=== PATIENT | male | born 1950 | race Caucasian/White ===

== ENCOUNTER 2019-12-16 07:35 | Outpatient (CLI) | payer OTHER, SELFPAY ==
[2019-12-16 08:17] LABS: Hemoglobin A1C 8.9 % (<5.7)
[2019-12-16 08:57] LABS: Alanine Aminotransferase 30 U/L (16-63); Albumin Level 3.5 g/dL (3.4-5.0); Alkaline Phosphatase 56 U/L (46-116); Anion Gap 15.9 mmol/L (7-16); Aspartate Amino Transferase 16 U/L (15-37); Bilirubin,Total 0.3 mg/dL (0.00-1.00); Blood Urea Nitrogen 15 mg/dL (7-18); Calcium 9.7 mg/dL (8.5-10.1); Carbon Dioxide 27 mmol/L (21-32); Chloride 99 mmol/L (98-108); Cholesterol 108 mg/dL (0-200); Estimated Glomerular Filt Rate 56; Glucose 186 mg/dL (70-99); HDL Direct 42 mg/dL (40-60); LDL Cholesterol Calculated 37 mg/dL (<130); Osmolality Calculated 289 mOsm/kg (285-295); Potassium 4.9 mmol/L (3.5-5.1); Sodium 137 mmol/L (136-145); Total Protein 7.1 g/dL (6.4-8.2); Triglycerides 145 mg/dL (0-150)
== END 2019-12-16 07:36 | disposition home or self-care (01) ==
LOC: CHSLAB 07:39
PROVIDERS: PCP Emergency Medicine; Visit Provider Emergency Medicine
DX: E78.5 Hyperlipidemia, unspecified (principal); E11.9 Type 2 diabetes mellitus without complications
CPT/HCPCS: 36415; 80053; 80061; 83036

== ENCOUNTER 2019-12-25 13:31 | Emergency (ER) | payer OTHER, SELFPAY ==
--- NOTE | ~2019-12-25 | CT_ITS ---
EXAMINATION: CT abdomen pelvis wo con DATE: 12/25/2019 14:41 INDICATION: Right flank pain. Vomiting. TECHNIQUE: Computed tomography (CT) of the abdomen and pelvis was performed without intravenous contr ast. Automated exposure control and iterative reconstruction technique were employed. The dose-length product was 1064.78 mGy-cm. COMPARISON: CT abdomen and pelvis 10/24/2018 FINDINGS: The visualized portions of the lung bases demonstrate mild atelectasis. No pleural effusion . The heart size is normal. No pericardial effusion. There are pacer wires in the right atrium, right ventricle, and coronary sinus. There is diffuse hepatic steatosis. There is a gallstone in the gallb ladder, which is normal in size. The spleen, pancreas, adrenal glands, and left kidney are normal. Th ere is mild right hydronephrosis. There is a 6 mm stone in proximal right ureter. The prostate is mil dly enlarged. There are bilateral inguinal hernias containing fat. There is diverticulosis of the col on without evidence of diverticulitis. The appendix is normal. There are no pathologically enlarged l ymph nodes. There is no free intraperitoneal fluid. There is moderate thoracolumbar spondylosis. IMPRESSION: 1. 6 mm stone in proximal right ureter with mild right hydronephrosis. Reviewed, dictated and finalized at location A.
--- NOTE | ~2019-12-25 | XR_ITS ---
XR abdomen/kub 1V 12/25/2019 15:26 Indication: Right ureteral stone Procedure: KUB Comparison: 11/10/2018 Findings: There is a 7 mm proximal right ureteral stone at the L4 level. Bowel gas pattern is nonobst ructive. Moderate lumbar spondylosis. Moderate osteoarthritis of the hips. No acute osseous abnormali ty. Impression: 1: Proximal right ureteral stone measuring 7 mm at the L4 level. Reviewed, dictated and finalized at location A. Impression: 1: Proximal right ureteral stone measuring 7 mm at the L4 level.
[2019-12-25 13:40] VITALS: BP 134/75; PULSE 89; RESP 20; TEMP 36.9; O2SAT 92
[2019-12-25 14:18] LABS: Add Urine Microscopic? YES; Appearance Urine Clear (Clear); Bilirubin Urine Negative (Negative); Blood Urine 3+ (Negative); Color Urine Yellow (Yellow); Glucose Urine UA Trace (Negative); Ketones Urine Trace (Negative); Leukocyte Esterase Ur Negative LEU/UL (Negative); Nitrate Urine Negative (Negative); Protein Urine 2+ (Negative); Specific Grav Ur >= 1.030 (1.010-1.020)
--- NOTE | 2019-12-25 14:22 | ED.MALEGU ---
HPI - Male Genitourinary General Chief complaint: Urogenital-Male Stated complaint: back pain in kidney area Time Seen by Provider: 12/25/19 14:00 Source: patient Mode of arrival: ambulatory Limitations: no limitations History of Present Illness HPI Narrative: Nikhil is a very pleasant 69-year-old male patient. He presents ambulatory to the emergency room with his . He states that he has had right flank pain since this morning. The pain was 10/10 to start with and now it has spontaneously come down to 2 or 3. He had taken 1 ibuprofen earlier but that bite cell did not make any difference. Nikhil has history of kidney stones. He states the patient the last time he passed a kidney stone was about a week ago. He has had history of kidney stones for 10 years. He has passed several stones. He states that they are calcium oxalate stones. His urologist is Dr. Watters at [facility]. The last time he saw Dr. Watters was in August of 2019. He had ureteral stent. His brother has history of kidney stones. Besides the history of kidney stones, Nikhil has history diabetes mellitus type 2, hypertension, hypercholesterolemia coronary artery disease. He has had an AICD implant done at [facility]. He has had 3 vessel CABG. He has had 1 stent in the heart. His training intern is Dr. Upstrom. PUENTES Complaint: other ( right flank pain) Onset (ago): hour(s) ( started this a.m.) Duration: intermittent Location: right flank Severity: moderate Quality: sharp Relieving factors: other ( pain was 10 to start with and now it is down to about 2 or 3 spontaneously) Exacerbating factors: none Associated symptoms: Reports denies other symptoms Related Data Home Medications Medication Instructions Recorded Confirmed aspirin 81 mg tablet,delayed 81 mg PO DAILY 08/31/19 12/25/19 release lidocaine 4 % topical patch 1 patch TOPICAL DAILY PRN 08/31/19 12/25/19 lisinopril 40 mg tablet 40 mg PO DAILY 08/31/19 12/25/19 metoprolol succinate 50 mg 50 mg PO DAILY 08/31/19 12/25/19 tablet,extended release 24 hr rosuvastatin 40 mg tablet 40 mg PO DAILY 08/31/19 12/25/19 tamsulosin 0.4 mg capsule 0.4 mg PO DAILY 08/31/19 12/25/19 carvedilol 12.5 mg PO BID 12/25/19 12/25/19 Allergies Allergy/AdvReac Type Severity Reaction Status Date / Time morphine Allergy Unknown Vomiting Verified 04/04/18 12:33 tramadol Allergy Unknown Verified 10/24/15 14:05 Review of Systems Review of Systems: All systems reviewed & are unremarkable except as noted in HPI and below Constitutional: Constitutional: Reports as per HPI, Reports no additional constitutional complaints, Denies chills and Denies fever(s) Eyes: Eyes: Reports as per HPI, Reports no additional eye complaints and Denies change in vision ENT: Reports system reviewed and no additional complaints, except as documented, Reports as per HPI, Denies vertigo, Denies dizziness and Denies nasal congestion Cardiovascular: Cardiovascular: Reports as per HPI, Reports no additional cardiovascular complaints, Denies chest pain and Denies radiating jaw, neck or arm pain Respiratory: Respiratory: Reports as per HPI, Reports no additional respiratory complaints, Denies cough and Denies dyspnea Gastrointestinal: Gastrointestinal: Reports as per HPI, Reports no additional gastrointestinal complaints, Denies diarrhea and Denies vomiting Genitourinary: Genitourinary: Reports no additional male genitourinary complaints, Denies hematuria and Denies dysuria Musculoskeletal: Musculoskeletal: Reports no additional musculoskeletal complaints Comments: right flank pain Integumentary/Breasts: Skin/Breast: Reports system reviewed and no additional complaints, except as docu, Denies erythema and Denies rash Neurologic: Reports system reviewed and no additional complaints, except as documented, Reports as per HPI, Denies vertigo, Denies dizziness, Denies syncope, Denies headache(s), Denies focal weakness, Denies numbness
[2019-12-25 14:35] LABS: Basophils Absolute Auto 0.06 K/mm3 (0.00-0.10); Basophils Percent Auto 0.4 % (0.0-1.0); Eosinophils Absolute Auto 0.03 K/mm3 (0.02-0.50); Eosinophils Percent Auto 0.2 % (1.0-6.0); Hematocrit 43.2 % (37.0-46.0); Immature Granulocyte Absolute 0.09 K/mm3 (0.00-0.00); Immature Granulocyte Percent A 0.6 % (0.0-0.0); Lymphocytes Absolute Auto 1.05 K/mm3 (1.10-4.50); Lymphocytes Percent Auto 7.1 % (18.0-42.0); Mean Corpuscular HGB Conc 32.4 g/dL (32.0-36.0); Mean Corpuscular Hemoglobin 29.8 pg (27.0-31.0); Mean Corpuscular Volume 91.9 fL (78.0-102.0); Mean Platelet Volume 9.2 fl (8.7-11.0); Monocytes Absolute Auto 1.03 K/mm3 (0.10-0.90); Neutrophils Absolute Auto 12.4 K/mm3 (1.7-7.2); Neutrophils Percent Auto 84.7 % (50.0-70.0); Platelet Count Result 231 K/mm3 (150-420); Red Cell Distribution Width 12.1 % (11.6-14.4); White Blood Count 14.7 K/mm3 (4.8-10.8)
[2019-12-25 14:37] LABS: Bacteria Urine 1+ /hpf; RBC Urine 21-50 /hpf (0-2); Squamous Epithelial Cell Urine Rare /hpf (Few); WBC Urine 0-3 /hpf (0-3)
[2019-12-25 14:43] LABS: Anion Gap 14.3 mmol/L (7-16); Blood Urea Nitrogen 24 mg/dL (7-18); Calcium 11.2 mg/dL (8.5-10.1); Carbon Dioxide 29 mmol/L (21-32); Chloride 98 mmol/L (98-108); Estimated CRCL calculation 46 ml/min; Estimated Glomerular Filt Rate 39; Glucose 179 mg/dL (70-99); Osmolality Calculated 290 mOsm/kg (285-295); Potassium 5.3 mmol/L (3.5-5.1); Sodium 136 mmol/L (136-145)
[2019-12-25 15:00] VITALS: BP 116/61; PULSE 86; RESP 18; O2SAT 95
--- NOTE | 2019-12-25 15:13 | PC.NURSE ---
Call placed to [facility] subwarehouse supervisor for possible transfer. Awaiting call back from hospitalist.
--- NOTE | 2019-12-25 15:40 | PC.NURSE ---
Pt aware of ct scan results and plan to transfer to [facility] if accepted. Pt requesting to drive himself to [facility].
--- NOTE | 2019-12-25 15:55 | PCDIET ---
Dr Dangelo spoke with Dr Watters who has accepted pt as direct admit. Awaiting room assignment. Dr Dangelo at bedside talking with pt.
[2019-12-25] MEDS: SODIUM POLYSTYRENE SULFONONATE 15 GM/60 ML BTL PO (16:13)
[2019-12-25] MEDS: cefTRIAXone 1 GM VIAL IM (16:13)
[2019-12-25 16:14] VITALS: BP 110/63; PULSE 85; RESP 20; O2SAT 92
[2019-12-25] MEDS: LIDOCAINE HCL 1% LOCAL INJ 20 ML VIAL (16:14)
--- NOTE | 2019-12-25 16:24 | PC.NURSE ---
Pt accepted by hospitalist PJ Tovar. Pt wishing to drive self to [facility] instead of being transported by EMS. meseret Henaoovernight houseperson at [facility] is aware of plan for pt to drive himself.
--- NOTE | 2019-12-25 16:25 | PC.NURSE ---
Spoke with JANET Khan [facility]. Report given. Aware pt is driving himself to [facility]
== END 2019-12-25 16:18 | disposition short-term general hospital (02) ==
PROVIDERS: Emergency Provider Surgery; PCP Emergency Medicine
DX: N20.1 Calculus of ureter (principal); E87.5 Hyperkalemia; N17.9 Acute kidney failure, unspecified; N39.0 Urinary tract infection, site not specified
CPT/HCPCS: 36415; 74018; 74176; 80048; 81001; 85025; 96372; 99283; 99284; A9270; J0696; J3010

== ENCOUNTER 2019-12-25 19:04 | Observation (INO) | payer OTHER, SELFPAY ==
[2019-12-25] VITALS (9 sets, daily range): BP systolic 104–148; BP diastolic 63–85; PULSE 74–88; RESP 16–20; TEMP 36.3–36.7; O2SAT 92–98; BMI 39.3
--- NOTE | ~2019-12-25 | XR_ITS ---
EXAMINATION: XR retrograde pyelo w/stent RT DATE: 12/25/2019 18:10 INDICATION: Right internal ureteral stent placement TECHNIQUE: Fluoroscopic images from a right internal ureteral stent placement are submitted for zarina carpenter 16 seconds of fluoroscopy time. 7 fluoroscopic images FINDINGS: There is a right double-J internal ureteral stent projecting in expected position, with proximal [place] loop at the level of the renal pelvis and distal loop in the pelvis within the bladder lumen. IMPRESSION: 1. Right internal ureteral stent placement. Please refer to real-time procedural findings for guido hummel. Reviewed, dictated and finalized at location A. IMPRESSION: 1. Right internal ureteral stent placement. Please refer to real-time procedu ral findings for details.
--- NOTE | ~2019-12-25 | XR_ITS ---
EXAMINATION: XR abdomen/kub 1V INDICATION: Right kidney stone TECHNIQUE: Supine views of the abdomen were obtained on 2 radiographs. COMPARISON: 12/25/2019 FINDINGS: A right internal ureteral stent has been placed in expected position. The previously descri bed right ureteral stone appears to project adjacent to the stent at the level of the right L4 transv erse process. The bowel gas pattern is normal. There is moderate left hip osteoarthritis. IMPRESSION: 1. Right internal ureteral stent in expected position with previously described stone likely adjacent to the stent at the level of the right L4 transverse process. Reviewed, dictated and finalized at location A. IMPRESSION: 1. Right internal ureteral stent in expected position with previously described stone likely adjacent to the stent at the level of the right L4 transverse pro cess.
--- NOTE | 2019-12-25 17:32 | WPDANESEPP ---
Anes - Eval Pre Procedure Procedure: Right cysto with stent Operation Date: 12/25/19 18:00 Proposed Procedures p Cysto, RPG, [place] Ext, Stent Placement(Right) - Ted Watters MD Date/Time: 12/25/19 17:32 Surgeon: Duong Preop Diagnosis: R Kidney stone Pre Op Diagnosis: R Kidney Stone Patient Data Age: 69 Gender: M Height: Weight: Allergies Allergy/AdvReac Type Severity Reaction Status Date / Time morphine Allergy Unknown Vomiting Verified 04/04/18 12:33 tramadol Allergy Unknown Verified 10/24/15 14:05 Home Medications Medication Instructions Recorded Confirmed Type aspirin 81 mg tablet,delayed 81 mg PO DAILY 08/31/19 12/25/19 History release lidocaine 4 % topical patch 1 patch TOPICAL DAILY PRN 08/31/19 12/25/19 History lisinopril 40 mg tablet 40 mg PO DAILY 08/31/19 12/25/19 History metoprolol succinate 50 mg 50 mg PO DAILY 08/31/19 12/25/19 History tablet,extended release 24 hr rosuvastatin 40 mg tablet 40 mg PO DAILY 08/31/19 12/25/19 History tamsulosin 0.4 mg capsule 0.4 mg PO DAILY 08/31/19 12/25/19 History sitagliptin 50 mg tablet 50 mg PO DAILY #30 tablet 09/01/19 12/25/19 Rx metformin 1,000 mg tablet 1,000 mg PO BID #180 tablet 11/10/19 12/25/19 Rx carvedilol 12.5 mg PO BID 12/25/19 12/25/19 History Patient hx anesthesia problems: none Family hx anesthesia problems: none PMFSH Past Medical History Medical History BPH (benign prostatic hyperplasia) CHF (congestive heart failure) History of coronary artery disease History of hypercholesterolemia History of kidney stones HTN (hypertension) Surgical History Surgical History History of coronary artery bypass graft x 3 History of coronary artery stent placement History of ureter stent Family History Family History Mother Family history of malignant neoplasm, Onset Age: 81 Father Cerebrovascular accident Social History Social History Smoking status: Former smoker Gender identity (if verbalized by the patient): Male Exam Day of Procedure 12/25/19 17:32 Patient weight: morbidly obese Heart: regular rate and rhythm Lungs: decreased breath sounds Airway: Mallampati scale class II Neurological: alert and oriented
[2019-12-25 17:36] LABS: Glucose Point of Care 140 (65-105)
--- NOTE | 2019-12-25 17:49 | PM.IMHP ---
H&P: HPI History of Present Illness Chief complaint: R Kidney Stone Narrative: Nikhil Huynh is a 69 year old male with a history of lithotripsy of a right renal calculus couple months ago. He was doing well and had a stent removed approximately a month ago. He then presented to the emergency room in [place] with severe right renal colic. Evaluation in [place] [id number] with a creatinine level of 1.7. I was told that his pain was under control with narcotics but he was transferred here for a stent placement. At the current time he is resting comfortably. Denied any fevers at home. Review of Systems Review of Systems: All systems reviewed & are unremarkable except as noted in HPI and below PMFSH Past Medical History Medical History BPH (benign prostatic hyperplasia) CHF (congestive heart failure) History of coronary artery disease History of hypercholesterolemia History of kidney stones HTN (hypertension) Surgical History Surgical History History of coronary artery bypass graft x 3 History of coronary artery stent placement History of ureter stent Family History Family History Mother Family history of malignant neoplasm, Onset Age: 81 Father Cerebrovascular accident Social History Social History Smoking status: Former smoker Gender identity (if verbalized by the patient): Male Meds Home Medications and Allergies Home Medications Medication Instructions Recorded Confirmed Type aspirin 81 mg tablet,delayed 81 mg PO DAILY 08/31/19 12/25/19 History release lidocaine 4 % topical patch 1 patch TOPICAL DAILY PRN 08/31/19 12/25/19 History lisinopril 40 mg tablet 40 mg PO DAILY 08/31/19 12/25/19 History metoprolol succinate 50 mg 50 mg PO DAILY 08/31/19 12/25/19 History tablet,extended release 24 hr rosuvastatin 40 mg tablet 40 mg PO DAILY 08/31/19 12/25/19 History tamsulosin 0.4 mg capsule 0.4 mg PO DAILY 08/31/19 12/25/19 History sitagliptin 50 mg tablet 50 mg PO DAILY #30 tablet 09/01/19 12/25/19 Rx metformin 1,000 mg tablet 1,000 mg PO BID #180 tablet 11/10/19 12/25/19 Rx carvedilol 12.5 mg PO BID 12/25/19 12/25/19 History Allergies Allergy/AdvReac Type Severity Reaction Status Date / Time morphine Allergy Unknown Vomiting Verified 04/04/18 12:33 tramadol Allergy Unknown Verified 10/24/15 14:05 Exam Narrative: Exam Narrative: Resting comfortably at the present time. Const: General: comfortable HENMT: General nose exam: Normal nares present Eyes: EOM: EOMs intact bilaterally Resp: Effort & Inspection: normal respiratory effort Cardio: Rate: regular rate Rhythm: regular rhythm GI: Inspection: non-distended Skin: General skin exam: normal color Neuro: Speech: normal speech Extrem: General: normal to inspection Assessment and Plan Assessment and plan (1) Calculus of proximal right ureter: Code(s): N20.1 - Calculus of ureter Status: Acute Assessment and Plan: Plan for cystoscopy right retrograde pyelogram right stent placement today. Once he stabilizes will plan on outpatient lithotripsy versus repeat ureteroscopy (2) DONNA (acute kidney injury): Code(s): N17.9 - Acute kidney failure, unspecified Status: Acute Assessment and Plan: Most likely secondary to the obstructing stone. Will monitor renal function in the morning. If that improves along with this white count will discharge home tomorrow.
[2019-12-25] MEDS: LIDOCAINE HCL 2% GEL UROJET 10 ML PKG MUCOUS MEM (18:04)
--- NOTE | 2019-12-25 18:07 | PM.PROC ---
Procedure Note - Detailed Date of procedure: 12/25/19 Pre-op diagnosis: R Kidney Stone Right ureteral calculus 6 mm with hydro Post-op diagnosis: same Procedure performed: Cystoscopy, right retrograde pyelogram, right ureteral stent placement 4.8 [place] contour Description of procedure: Patient is taken to the operative suite and correctly identified. Once anesthesia was obtained he was placed in the dorsal lithotomy position prepped and draped usual sterile fashion. Twenty-two [place] scope was inserted bladder the tumors noted the right ureteral orifice was cannulated with a [place] and a pyelogram was performed. Contrast made its way up to the kidney. A guidewire was then inserted up to the kidney. 4.8 [place] contour stent was then placed with the proximal end coiled in the renal pelvis and distal bladder. 2% viscous lidocaine was inserted into the urethra is taken recovery room stable condition. The be admitted overnight to follow his white count potassium and creatinine level. Will obtain a KUB in the morning. Distal be addressed as an outpatient later point time Anesthesia: GLMA Surgeon: Ted Watters MD Drains: Yes Packing: No Pathology: none sent Complications: No immediate complications Condition: stable Disposition: PACU
--- NOTE | 2019-12-25 18:10 | P.PNAN_ITS ---
Anes - Eval Final PreProcedure Day of Procedure 12/25/19 18:10 Patient weight: obese Heart: regular rate and rhythm Lungs: clear to auscultation and normal air movement Airway: Mallampati scale class II Neurological: alert and oriented Last oral intake: >/= 8 hours ASA classification: IV Emergent: yes Anesthetic plan: proceed Anesthesia type and monitoring: general LMA Informed Consent: The patient's anesthetic plan and its attendant risks and be nefits were discussed with the patient/family/POA. Questions were solicited and answers provided to the satisfaction of the patient/family/POA.
[2019-12-25] MEDS: LACTATED RINGERS 1,000 ML 30 ML IV CONT (18:15)
--- NOTE | 2019-12-25 18:39 | SUR.PHASEI ---
1804-AROUSING, ORAL AIRWAY REMOVED. NO DRAINAGE FROM [facility]. 1829-NO DRAINAGE NOTED.
--- NOTE | 2019-12-25 18:42 | SUR.PHASEI ---
CORRECTION IN CHARTING--1819-AWAKE AND ORAL AIRWAY REMOVED, DENIES DISCOMFORT. NO DRAINAGE FROM [facility]. 1839-NO DRAINAGE FROM [facility].
--- NOTE | 2019-12-25 19:00 | PC.NURSE ---
This patient, Nikhil Huynh, was admitted to 3 [facility] Surg Room 323-01. Patient/family oriented to hospital policies and general routines including ID bracelet, bed and alarms, visiting hours, pain management, procedures, bathroom and other care routines, personal items, smoking policy, room service/diet, and visiting hours. Valuables list has been completed. Information on how to activate the Rapid Response Team has been discussed. Patient/Family are encouraged to report perceived risks to care and to ask questions if they do not understand what they are told or what they should do.
[2019-12-25 19:56] LABS: Glucose Point of Care 172 (65-105)
[2019-12-25] MEDS: DEXTROSE 5%/LACTATED RINGERS 1,000 ML 100 ML IV CONT (20:00)
--- NOTE | 2019-12-25 21:24 | PM.IMHP ---
H&P: HPI History of Present Illness Chief complaint: R Kidney Stone Narrative: Nikhil Huynh is a 69 year old male who has a past medical history of having at least 100 kidney stones according to the patient. He has passed over 50 stones on his own. The patient stated that he had right flank pain since this morning that was 07/23. Patient stated that he passed a kidney stone about a week ago. He has had kidney stones on and off for [address] Watters and Dr. Watters had been consulted. The patient has a history of having lithotripsy in the right renal calculus couple months ago and he was doing well. He had a stent removed approximately a month ago. Patient's white count was noted to be 14,000 a creatinine level of 1.7. The patient was given Rocephin IM at [facility]. I did get report from Dr. garcia at [facility]. Initially the patient was going to come by personal vehicle but then his convinced him to come by ambulance. Patient had a cystoscopy right retrograde pyelogram right stent placed today per Dr. Watters. Date of service is 12/25/2019. Review of Systems Review of Systems: Narrative: Complains of back pain and difficulty sitting at times. All systems reviewed & are unremarkable except as noted in HPI and below Constitutional: Constitutional: Reports as per HPI and Reports no additional constitutional complaints Eyes: Eyes: Reports as per HPI and Reports no additional eye complaints ENT: Reports system reviewed and no additional complaints, except as documented and Reports Normal hearing present Cardiovascular: Cardiovascular: Reports no additional cardiovascular complaints Respiratory: Respiratory: Reports no additional respiratory complaints and Reports no additional respiratory complaints Gastrointestinal: Gastrointestinal: Reports as per HPI and Reports no additional gastrointestinal complaints Musculoskeletal: Musculoskeletal: Reports no additional musculoskeletal complaints Integumentary/Breasts: Skin/Breast: Reports system reviewed and no additional complaints, except as docu and Reports as per HPI Neurologic: Reports system reviewed and no additional complaints, except as documented, Reports as per HPI and Reports Normal hearing present Psychiatric: Psychiatric: Reports no additional psychiatric complaints and Reports as per HPI Endocrine: Endocrine: Reports no additional endocrine complaints Hematologic/Lymphatic: Hematologic/Lymphatic: Reports no additional hematologic/lymphatic complaints Allergic/Immunologic: Allergic/Immunologic: Reports no additional allergic/immunologic complaints [facility] Past Medical History Medical History (Updated 12/25/19 @ 21:52 by La Peña NP) BPH (benign prostatic hyperplasia) CHF (congestive heart failure) Cholelithiasis Colitis COPD (chronic obstructive pulmonary disease) DM2 (diabetes mellitus, type 2) GERD with apnea Gout History of coronary artery disease History of hypercholesterolemia History of kidney stones HTN (hypertension) Obstructive sleep apnea Intolerant of CPAP machine Seasonal allergies Surgical History Surgical History (Updated 12/25/19 @ 21:37 by La Peña NP) H/O arthroscopic knee surgery Bilaterally H/O cataract extraction Bilaterally History of coronary artery bypass graft x 3 History of coronary artery stent placement History of ureter stent Family History Family History Mother Diabetes mellitus Breast cancer Hypertension Father Cerebrovascular accident Myocardial infarct Other Family history of malignant neoplasm Social History Social History (Updated 12/25/19 @ 21:40 by La Peña NP) Social History: He lives with his and desires to have her his power of collections attorney and to be a full code. 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 He is retired metzger. Patient quit smoking about 1980s he smoked 2 packs a
[2019-12-26 02:35] VITALS: BP 125/57; PULSE 84; RESP 20; TEMP 36.7; O2SAT 95
[2019-12-26 05:41] VITALS: BP 113/51; PULSE 73; RESP 18; TEMP 36.4; O2SAT 96
[2019-12-26 06:18] LABS: Basophils Percent Auto 0.2 % (0.2-1.2); Eosinophils Percent Auto 0.2 % (0-4.4); Hematocrit 38.9 % (42.0-52.0); Immature Granulocyte Absolute 0.03 K/mm3 (0.00-0.031); Immature Granulocyte Percent A 0.4 % (0-0.5); Lymphocytes Absolute Auto 1.06 K/mm3 (0.9-3.2); Lymphocytes Percent Auto 12.7 % (18.3-44.2); Mean Corpuscular HGB Conc 30.8 g/dl (32-36); Mean Corpuscular Hemoglobin 28.8 pg (26-34); Mean Corpuscular Volume 93.5 fl (80-100); Mean Platelet Volume 9.3 fl (7.4-10.4); Monocytes Absolute Auto 0.9 K/mm3 (0.1-0.6); Monocytes Percent Auto 10.4 % (2.6-8.5); Neutrophils Absolute Auto 6.4 K/mm3 (1.3-6.7); Neutrophils Percent Auto 76.1 % (45.5-73.1); Platelet Count Result 197 k/mm3 (150-375); Red Blood Count 4.16 M/mm3 (4.6-6.20); Red Cell Distribution Width 12.5 % (11.5-14.5); White Blood Count 8.4 K/mm3 (4.5-10.0)
[2019-12-26 06:29] LABS: Hemoglobin A1C 8.7 % (<5.7)
[2019-12-26 06:41] LABS: Blood Urea Nitrogen 22 mg/dL (9-20); Calcium 9.7 mg/dL (8.4-10.2); Carbon Dioxide 30 mmol/L (22-30); Chloride 97 mmol/L (98-107); Estimated CRCL calculation 50 ml/min; Estimated Glomerular Filt Rate 43; Glucose 191 mg/dL (75-110); Sodium 131 mmol/L (137-145)
[2019-12-26] MEDS: DEXTROSE 5%/LACTATED RINGERS 1,000 ML 100 ML IV CONT (06:45)
[2019-12-26 07:07] LABS: Glucose Point of Care 202 (65-105)
[2019-12-26] MEDS: INSULIN ASPART (*BKC) 100 UNITS/ML SUB-Q (07:37)
--- NOTE | 2019-12-26 07:44 | P.PNAN_ITS ---
Anes - Prog Note Post-Op Date/Time: 12/26/19 07:44 Cardiovascular status: normal Respiratory status: normal Airway patency: baseline Mental status: baseline Post-Op hydration status: normal Vital Signs: Last Vital Signs Temp 36.4 C 12/26/19 05:41 Pulse 73 12/26/19 05:41 Resp 18 12/26/19 05:41 BP 113/51 L 12/26/19 05:41 Pulse Ox 96 12/26/19 05:41 I/O: Intake & Output 12/25/19 12/25/19 12/26/19 15:59 23:59 07:59 Intake Total 150 1540 Output Total 1250 Balance 150 290 Laboratory Tests 12/26/19 06:00 12/26/19 06:00 12/25/19 12/25/19 12/26/19 17:35 19:50 06:00 WBC RBC Hgb Hct MCV MCH MCHC RDW Plt Count MPV Immature Gran % (Auto) Neut % (Auto) Lymph % (Auto) [place] % (Auto) Eos % (Auto) Baso % (Auto) Lymph # (Auto) [place] # (Auto) Eos # (Auto) Baso # (Auto) Abs Immat Gran (auto) Absolute Neuts (auto) Absolute Nucleated RBC Nucleated RBC % Sodium Potassium Chloride Carbon Dioxide BUN Creatinine Estim Creat Clear Calc Estimated GFR Glucose POC Capillary Glucose 140 H 172 H Hemoglobin A1c 8.7 H Calcium 12/26/19 12/26/19 12/26/19 06:00 06:00 06:41 WBC 8.4 RBC 4.16 L Hgb 12.0 L Hct 38.9 L MCV 93.5 MCH 28.8 MCHC 30.8 L RDW 12.5 Plt Count 197 MPV 9.3 Immature Gran % (Auto) 0.4 Neut % (Auto) 76.1 H Lymph % (Auto) 12.7 L [place] % (Auto) 10.4 H Eos % (Auto) 0.2 Baso % (Auto) 0.2 Lymph # (Auto) 1.06 [place] # (Auto) 0.9 H Eos # (Auto) 0.0 Baso # (Auto) 0.0 Abs Immat Gran (auto) 0.03 Absolute Neuts (auto) 6.4 Absolute Nucleated RBC 0.0 Nucleated RBC % 0.0 Sodium 131 L Potassium 5.0 Chloride 97 L Carbon Dioxide 30 BUN 22 H Creatinine 1.60 H Estim Creat Clear Calc 50 Estimated GFR 43 L Glucose 191 H POC Capillary Glucose 202 H Hemoglobin A1c Calcium 9.7 Post-procedural complaints: none Patient Feedback: Patient satisfied with anesthetic care.
[2019-12-26 08:13] VITALS: BP 112/58; PULSE 77; RESP 16; TEMP 36.5; O2SAT 93
[2019-12-26] MEDS: ROSUVASTATIN 10 MG TABLET 40 MG PO (09:36)
[2019-12-26] MEDS: TAMSULOSIN HCL 0.4 MG CAPSULE PO (09:36)
--- NOTE | 2019-12-26 10:48 | PC.NURSE ---
pt to xray via wheelchair at 1010 back at 1020
[2019-12-26 12:29] VITALS: BP 112/60; PULSE 80; RESP 16; TEMP 36.6; O2SAT 97
[2019-12-26 12:36] LABS: Glucose Point of Care 179 (65-105)
[2019-12-26 15:06] VITALS: BP 105/48; PULSE 78; RESP 16; TEMP 36.9; O2SAT 95
[2019-12-26 17:11] LABS: Glucose Point of Care 159 (65-105)
--- NOTE | 2019-12-26 17:16 | WPDUROPN2 ---
Progress Note: A&P Assessment and Plan (1) Calculus of right ureter: Code(s): N20.1 - Calculus of ureter Status: Acute Assessment and Plan: Okay to discharge home from Urology standpoint. Will place on Bactrim DS 1 p.o. b.i.d. for 7 days. Follow up in approximately 10 days for repeat culture and definitive scheduling treatment of the stone. Subjective Subjective Date/Time Seen: 12/26/19 17:16 Post Op day: 1 (Cysto right retrograde right stent placement) Interval history: Feeling much better today and is anxious to go home. Review of Systems Review of Systems: All systems reviewed & are unremarkable except as noted in HPI and below Exam Const: General: comfortable HENMT: General nose exam: Normal nares present Eyes: General: appearance normal, both eyes and all related structures Resp: Effort & Inspection: normal respiratory effort Cardio: Rate: regular rate Rhythm: regular rhythm Skin: General skin exam: normal color Neuro: Speech: normal speech Objective Data Vital Signs Vital Signs: Vital Signs - 24 hr 12/25/19 17:40 12/25/19 18:15 12/25/19 18:30 Temperature 36.3 C L 36.7 C Pulse Rate 88 84 84 Respiratory Rate 20 17 20 Blood Pressure 133/77 113/63 116/72 Pulse Oximetry 98 98 98 12/25/19 18:45 12/25/19 19:01 12/25/19 19:15 Temperature 36.5 C 36.6 C Pulse Rate 84 74 82 Respiratory Rate 16 20 18 Blood Pressure 104/79 127/64 126/83 Pulse Oximetry 98 98 92 12/25/19 19:45 12/25/19 20:45 12/25/19 22:00 Temperature 36.6 C 36.7 C 36.7 C Pulse Rate 82 84 86 Respiratory Rate 18 20 20 Blood Pressure 132/85 145/68 H 148/70 H Pulse Oximetry 93 92 94 12/26/19 02:35 12/26/19 05:41 12/26/19 08:13 Temperature 36.7 C 36.4 C 36.5 C Pulse Rate 84 73 77 Respiratory Rate 20 18 16 Blood Pressure 125/57 L 113/51 L 112/58 L Pulse Oximetry 95 96 93 12/26/19 12:29 12/26/19 15:06 Temperature 36.6 C 36.9 C Pulse Rate 80 78 Respiratory Rate 16 16 Blood Pressure 112/60 105/48 L Pulse Oximetry 97 95 Intake/Output Intake/Output: Intake & Output 12/23/19 12/24/19 12/25/19 12/26/19 23:59 23:59 23:59 23:59 Intake Total 150 2070 Output Total 1250 Balance 150 820 Meds/Results Medications: Active Medications Generic Name Dose Route Start Last Admin Trade Name Freq PRN Reason Stop Dose Admin Hydrocodone Bitart/Acetaminophen 1 tab 12/26/19 05:00 Badin 5-325 Mg PO Q4H PRN Pain Rated 1-3 Cephalexin HCl 500 mg 12/26/19 21:00 Keflex Capsule PO QID LOREE Dextrose 12.5 gm 12/25/19 20:50 Dextrose 50% Syringe IV PUSH PRN PRN Hypoglycemia Protocol Glucagon 1 mg 12/25/19 20:50 Glucagon For Inj IM PRN PRN Hypoglycemia Protocol Glucose 15 gm 12/25/19 20:50 Glutose 15 PO PRN PRN Hypoglycemia Protocol Dextrose 1,000 mls @ 100 mls/hr 12/25/19 20:50 Dextrose 5% 1,000 Ml IVPB PRN PRN Hypoglycemia Protocol Insulin Aspart 2 - 5 units 12/26/19 08:00 12/26/19 12:38 Novolog SUB-Q Not Given TIDWM LOREE Protocol Naloxone HCl 0.1 mg 12/25/19 18:46 Narcan IV PUSH Q2M PRN Opiate Reversal Ondansetron HCl 4 mg 12/25/19 18:46 Zofran Inj IV PUSH Q6H PRN Nausea And Vomiting Rosuvastatin Calcium 40 mg 12/26/19 09:00 12/26/19 09:36 Crestor PO 40 mg DAILY LOREE Administration Sitagliptin Phosphate 50 mg 12/26/19 09:00 12/26/19 09:36 Januvia PO 50 mg DAILY LOREE Administration Tamsulosin HCl 0.4 mg 12/26/19 09:00 12/26/19 09:36 Flomax PO 0.4 mg DAILY LOREE Administration Radiology Results: ITS Impressions Retrograde Pyelogram 12/25/19 18:14 IMPRESSION: 1. Right internal ureteral stent placement. Please refer to real-time procedural findings for details. Abdomen X-Ray 12/26/19 10:36 IMPRESSION: 1. Right internal ureteral stent in expected position with previously described
--- NOTE | 2019-12-26 18:41 | PM.DS ---
DS: Diagnosis Admitting Diagnosis Admitting Diagnosis: Calculus of ureter Discharge Diagnosis (1) DONNA (acute kidney injury): Code(s): N17.9 - Acute kidney failure, unspecified Status: Inactive Assessment and Plan: Date of Service 12/26/19 Mr. George is a 69yo M with history of CHF, COPD, type 2 diabetes mellitus, and a history of innumerable ureteral calculi in the past who presented to the ED for evaluation of R flank pain. CT abdomen/pelvis revealed a 6mm stone in the proximal right ureter with mild right hydronephrosis. Urology was consulted and Mr George underwent cystoscopy with right ureteral stent placement 12/25/[address] Watters. Patient was feeling well the following day and hemodynamically stable for discharge. He was discharged with a course of oral Bactrim per Urology recommendations and instructed to follow up with Dr Watters' office in 10 days. Consultation: Urology - Dr Watters Cr 1.6 at discharge, likely secondary to ureteral stone. Repeat BMP in 1 week to monitor. (2) Calculus of proximal right ureter: Code(s): N20.1 - Calculus of ureter Status: Inactive (3) Hyperkalemia: Code(s): E87.5 - Hyperkalemia Status: Inactive Assessment and Plan: May be related to above. K 5.0 day of discharge. Repeat BMP 1 week. (4) CHF (congestive heart failure): Code(s): I50.9 - Heart failure, unspecified Status: Acute Assessment and Plan: Stable, euvolemic. (5) BPH (benign prostatic hyperplasia): Qualifiers: Lower urinary tract symptom presence: symptoms absent Qualified Code(s): N40.0 - Benign prostatic hyperplasia without lower urinary tract symptoms Code(s): N40.0 - Benign prostatic hyperplasia without lower urinary tract symptoms Status: Acute Assessment and Plan: Continue with Flomax (6) HLD (hyperlipidemia): Qualifiers: Hyperlipidemia type: mixed hyperlipidemia Qualified Code(s): E78.2 - Mixed hyperlipidemia Code(s): E78.5 - Hyperlipidemia, unspecified Status: Acute Assessment and Plan: Continue Crestor. (7) COPD (chronic obstructive pulmonary disease): Code(s): J44.9 - Chronic obstructive pulmonary disease, unspecified Status: Chronic Assessment and Plan: No respiratory symptoms. Stable. (8) DM2 (diabetes mellitus, type 2): Code(s): E11.9 - Type 2 diabetes mellitus without complications Status: Chronic Assessment and Plan: A1c 8.7. Metformin held in light of acute kidney injury. Blood sugars stable. DS: Summary Time Spent with Patient Time attestation: Total time spent providing and/or coordinating discharge services: 35 minutes Exam Narrative: Exam Narrative: General: Male resting sitting up in bed in no acute distress. HEENT: Normocephalic, EOMI, oral mucosa moist. Cardiovascular: Rate and rhythm are regular. Respiratory: Lungs clear to auscultation all monson. Non-labored breathing. Abdomen: Soft, non-tender, non-distended, bowel sounds present. Extremities: Peripheral pulses intact. No edema. Neuro: No focal neurological deficits. Speech is clear. DS: Data Data Completed and Pending Labs on day of discharge: Labs from last 24 hours 12/26/19 12/26/19 12/26/19 17:03 11:17 06:41 WBC RBC Hgb Hct MCV MCH MCHC RDW Plt Count MPV Immature Gran % (Auto) Neut % (Auto) Lymph % (Auto) [place] % (Auto) Eos % (Auto) Baso % (Auto) Lymph # (Auto) [place] # (Auto) Eos # (Auto) Baso # (Auto) Abs Immat Gran (auto) Absolute Neuts (auto) Absolute Nucleated RBC Nucleated RBC % Sodium Potassium Chloride Carbon Dioxide BUN Creatinine Estim Creat Clear Calc Estimated GFR Glucose POC Capillary Glucose 159 H
== END 2019-12-26 18:20 | disposition home or self-care (01) ==
LOC: ANHSURGERY 19:04 → ANH3MEDSUR 12-26 01:45
PROVIDERS: Nurse Practitioner; Urology; Admitting Provider Family Medicine; PCP Emergency Medicine; Visit Provider Internal Medicine
PROC: (CPT 52352; principal; 2019-12-25 18:00)
DX: N13.2 Hydronephrosis with renal and ureteral calculous obstruction (principal); E87.5 Hyperkalemia; N17.9 Acute kidney failure, unspecified; I11.0 Hypertensive heart disease with heart failure; I50.9 Heart failure, unspecified; N40.0 Benign prostatic hyperplasia without lower urinary tract symptoms; E78.2 Mixed hyperlipidemia; J44.9 Chronic obstructive pulmonary disease, unspecified; E11.9 Type 2 diabetes mellitus without complications; I25.10 Atherosclerotic heart disease of native coronary artery without angina pectoris; G47.33 Obstructive sleep apnea (adult) (pediatric); Z79.82 Long term (current) use of aspirin; Z79.84 Long term (current) use of oral hypoglycemic drugs; Z79.899 Other long term (current) drug therapy; Z87.442 Personal history of urinary calculi; Z87.891 Personal history of nicotine dependence; Z95.1 Presence of aortocoronary bypass graft; Z95.5 Presence of coronary angioplasty implant and graft
CPT/HCPCS: 52332; 36415; 74018; 74420; 80048; 83036; 85025; 96361; 96365; 96376; A9270; C1758; C1769; C2617; G0378; J0690; J1815; J7120; J7121; Q9966

== ENCOUNTER 2020-01-18 08:47 | Outpatient (CLI) | payer OTHER, SELFPAY ==
--- NOTE | ~2020-01-18 | XR_ITS ---
EXAMINATION: XR abdomen/kub 1V DATE: 01/18/2020 09:09 INDICATION: Right ureteral stone. TECHNIQUE: A supine view of the abdomen was obtained. COMPARISON: CT abdomen and pelvis 01/18/2020 FINDINGS: There are no dilated loops of bowel. There is a right internal ureteral stent in expected p osition. There is no visible urolithiasis. IMPRESSION: 1. Right internal ureteral stent in expected position. Reviewed, dictated and finalized at location A.
--- NOTE | ~2020-01-18 | CT_ITS ---
EXAMINATION: CT abdomen pelvis wo con DATE: 01/18/2020 09:13 INDICATION: Right ureteral stone. TECHNIQUE: Computed tomography (CT) of the abdomen and pelvis was performed without intravenous contr ast. Automated exposure control and iterative reconstruction technique were employed. The dose-length product was 828.65 mGy-cm. COMPARISON: CT abdomen and pelvis 12/25/2019, 06/11/2013 FINDINGS: The visualized portions of the lung bases demonstrate mild atelectasis. A calcified left sammy ng nodule is consistent with old granulomatous disease. No pleural effusion. There are pacer wires in the heart. There is diffuse hepatic steatosis. There are gallstones in the gallbladder, which is nor mal in size. The spleen, pancreas, adrenal glands, and kidneys are normal. There is a right internal ureteral stent in expected position. There are 3 mm and 2 mm stones in proximal right ureter at the l evel of L4. There is prominent fat in the inguinal canals that may be small hernias. There is diverti culosis of the colon without evidence of diverticulitis. The appendix is normal. There are no dilated loops of bowel. There are no pathologically enlarged lymph nodes. There is no free intraperitoneal f luid. The prostate is mildly enlarged. There is mild thoracic spondylosis and moderate lumbar spondyl osis. There is a 2.0 x 1.5 cm mass in T10-T11 neural foramen on the left with nonaggressive enlargeme nt of the foramen. IMPRESSION: 1. 3 mm and 2 mm stones in proximal right ureter. Right internal ureteral stent in expected position. 2. 2.0 cm mass in left T10-T11 neural foramen, stable from 06/11/2013, consistent with a peripheral ne rve sheath tumor. Reviewed, dictated and finalized at location A. IMPRESSION: 1. 3 mm and 2 mm stones in proximal right ureter. Right internal ureteral stent in expected position. 2. 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
== END 2020-01-18 08:48 | disposition home or self-care (01) ==
LOC: CHSIMG 08:50
PROVIDERS: PCP Emergency Medicine; Visit Provider Urology
DX: N20.1 Calculus of ureter (principal)
CPT/HCPCS: 74018; 74176

== ENCOUNTER 2020-01-23 08:52 | Outpatient (CLI) | payer OTHER, SELFPAY ==
--- NOTE | 2020-01-23 09:32 | ECG_ITS ---
Measurements Intervals [place] Rate: 90 P: 81 CO: 183 QRS: 236 QRSD: 140 T: 67 QT: 363 QTc: 446 Interpretive Statements ATRIAL SENSE- ELECTRONIC VENTRICULAR PACEMAKER BASELINE ARTIFACT- I, III, AVR, AVL, AVF NO FURTHER INTERPRETATION IS POSSIBLE ATYPICAL ECG Electronically Signed On 01-23-2020 12:40:33 CDT by Deshaun Pollack D.O.
[2020-01-23 09:37] LABS: Blood Urea Nitrogen 20 mg/dL (9-20); Calcium 10.3 mg/dL (8.4-10.2); Carbon Dioxide 26 mmol/L (22-30); Chloride 100 mmol/L (98-107); Estimated Glomerular Filt Rate 50; Glucose 197 mg/dL (75-110); Potassium 4.4 mmol/L (3.4-5.0); Sodium 135 mmol/L (137-145)
== END 2020-01-23 08:53 | disposition home or self-care (01) ==
PROVIDERS: Physician Assistant; PCP Emergency Medicine; Visit Provider Urology
DX: N17.9 Acute kidney failure, unspecified (principal); N20.1 Calculus of ureter; I50.9 Heart failure, unspecified; R94.31 Abnormal electrocardiogram [ECG] [EKG]
CPT/HCPCS: 36415; 80048; 87086; 93005

== ENCOUNTER 2020-01-26 01:20 | Day surgery (SDC) | payer OTHER, SELFPAY ==
[2020-01-22 18:17] VITALS: BMI 34.7
[2020-01-26] VITALS (11 sets, daily range): BP systolic 82–108; BP diastolic 49–70; PULSE 81–99; RESP 12–20; TEMP 36.2–36.5; O2SAT 90–98
--- NOTE | ~2020-01-26 | XR_ITS ---
EXAMINATION: XR retrograde pyelo w/stent RT DATE: 01/26/2020 11:21 INDICATION: Right internal ureteral stent placement TECHNIQUE: Fluoroscopic images from a right internal ureteral stent placement are submitted for zarina carpenter 16 seconds of fluoroscopy time. 7 fluoroscopic images. FINDINGS: There is a right double-J internal ureteral stent projecting in expected position, with proximal Donner loop at the level of the renal pelvis and distal loop in the pelvis within the bladder lumen. IMPRESSION: 1. Right internal ureteral stent placement. Please refer to real-time procedural findings for guido hummel. Reviewed, dictated and finalized at location A. IMPRESSION: 1. Right internal ureteral stent placement. Please refer to real-time procedu ral findings for details.
--- NOTE | 2020-01-26 08:34 | WPDHPUPDATE1 ---
History and Physical Update Update Date/Time: 01/26/20 08:34 History and Physical has been reviewed, including an updated exam of the patient. There are NO changes in the patient's condition. Risks, benefits, and alternatives have been discussed and questions answered. Patient agrees to proceed with procedure.
[2020-01-26] MEDS: LACTATED RINGERS 1,000 ML 30 ML IV CONT ×2 (08:55→12:15)
[2020-01-26 08:58] LABS: Glucose Point of Care 163 (65-105)
--- NOTE | 2020-01-26 09:22 | WPDANESEPPF ---
Anes - Initial Pre Proc Eval Procedure: Operation Date: 01/26/20 10:00 Proposed Procedures p Cystoscopy, Right Ureteroscopy, Right Retrograde Pyelogram, Right Stone Extraction, Right Stent Exchange - Ted Watters MD s Possible Holmium Laser Procedure - Ted Watters MD Date/Time: 01/26/20 09:22 Surgeon: Ted Watters MD Pre Op Diagnosis: Right Ureteral Stone Patient Data Age: 69 Gender: M Height: 5 ft 9 in Weight: 114.2 kg Allergies Allergy/AdvReac Type Severity Reaction Status Date / Time morphine AdvReac Unknown Vomiting Verified 01/26/20 09:17 tramadol AdvReac Unknown Dizziness Verified 01/26/20 09:17 Home Medications Medication Instructions Recorded Confirmed Type aspirin 81 mg tablet,delayed 81 mg PO DAILY 08/31/19 01/26/20 History release rosuvastatin 40 mg tablet 40 mg PO DAILY 08/31/19 01/26/20 History tamsulosin 0.4 mg capsule 0.4 mg PO DAILY 08/31/19 01/26/20 History sitagliptin 50 mg tablet 50 mg PO DAILY #30 tablet 09/01/19 01/26/20 Rx metformin 1,000 mg tablet 1,000 mg PO BID #180 tablet 11/10/19 01/26/20 Rx carvedilol 12.5 mg PO BID 12/25/19 01/26/20 History metoprolol succinate 50 mg 50 mg PO DAILY #90 tablet 01/05/20 01/26/20 Rx tablet,extended release 24 hr sacubitril-valsartan [Entresto] 1 tablet PO DAILY 01/22/20 01/26/20 History Laboratory Tests 01/26/20 08:55 POC Capillary Glucose 163 mg/dl H mg/dl (65-105) Patient hx anesthesia problems: none Family hx anesthesia problems: none PMFSH Past Medical History Medical History BPH (benign prostatic hyperplasia) CHF (congestive heart failure) Cholelithiasis Colitis COPD (chronic obstructive pulmonary disease) DM2 (diabetes mellitus, type 2) GERD with apnea Gout History of coronary artery disease History of hypercholesterolemia History of kidney stones HTN (hypertension) Obstructive sleep apnea Intolerant of CPAP machine Seasonal allergies Surgical History Surgical History H/O arthroscopic knee surgery Bilaterally H/O cataract extraction Bilaterally History of coronary artery bypass graft x 3 History of coronary artery stent placement History of ureter stent Family History Family History Mother Diabetes mellitus Breast cancer Hypertension Father Cerebrovascular accident Myocardial infarct Other Family history of malignant neoplasm Social History Social History Social History: He lives with his and desires to have her his power of patent attorney and to be a full code. 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 He is retired [employer]. Patient quit smoking about 1980s he smoked 2 packs a day in his 20s. No drugs or alcohol Smoking status: Former smoker Alcohol intake: never Substance use: never Gender identity (if verbalized by the patient): Male Spiritual care concerns: No Agree to blood products: Yes Anes - Eval Final PreProcedure Day of Procedure 01/26/20 09:22 Patient weight: obese Heart: regular rate and rhythm Lungs: decreased breath sounds Airway: Mallampati scale class II Neurological: alert and oriented Last oral intake: >/= 8 hours ASA classification: IV Emergent: no Anesthetic plan: proceed Anesthesia type and monitoring: general LMA and standard monitoring Informed Consent: The patient's anesthetic plan and its attendant risks and benefits were discussed with the patient/family/POA. Questions were solicited and answers provided to the satisfaction of the patient/family/POA.
--- NOTE | 2020-01-26 10:11 | WPDHPUPDATE1 ---
History and Physical Update Update Date/Time: 01/26/20 10:11 History and Physical has been reviewed, including an updated exam of the patient. There are NO changes in the patient's condition. Risks, benefits, and alternatives have been discussed and questions answered. Patient agrees to proceed with procedure.
[2020-01-26] MEDS: ceFAZolin 2 GM/D5W 50 ML 2 GM/50 ML BAG IVPB (10:36)
[2020-01-26] MEDS: LIDOCAINE HCL 2% GEL UROJET 10 ML PKG MUCOUS MEM (11:02)
--- NOTE | 2020-01-26 11:13 | PM.PROC ---
Procedure Note - Detailed Date of procedure: 01/26/20 Pre-op diagnosis: Right Ureteral Stone Post-op diagnosis: same Procedure performed: Cystoscopy, right retrograde, right ureteroscopy with stone extraction, right ureteral stent exchange 4.8 Kiswahili contour Description of procedure: Patient was taken to the operative suite and correctly identified. Once general anesthesia was obtained he was placed in the dorsal lithotomy position and prepped and draped usual sterile fashion. Twenty-two Kiswahili scope was inserted into the bladder. The stent was grasped and brought out the meatus. Bentson wire was inserted. Ureteral access sheath was then placed in a mini flexible ureteral scope was inserted. Several fragments of stones were then retrieved and sent for analysis. Reinspection of the ureter revealed no residual stones. The kidney was also inspected without any obvious stones present. Pyelogram was then performed. Given the use of an access sheath we did go ahead and do a pyelogram to confirm placement of the stent. A 4.8 contour stent was then placed with the proximal end coiled in the renal pelvis and the distal end in the bladder. 2% viscous lidocaine was inserted into urethra and he was taken recovery room stable condition. He will be discharged home with pain meds and antibiotics and follow-up in a week's time for stent removal. Anesthesia: GLMA Surgeon: Ted Watters MD Drains: Yes Packing: No Pathology: yes Complications: No immediate complications Condition: stable Disposition: PACU
[2020-01-26 11:52] LABS: Glucose Point of Care 143 (65-105)
--- NOTE | 2020-01-26 13:43 | SUR.PHASEII ---
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 BOTH GOWN AND SCRUBS OFFERED TO PT FOR DISCHARGE REPEATEDLY BUT PT. REFUSES. WHILE COVER PT WITH BLANKET FOR DISCHARGE AND PROVIDE PAD FOR CAR SEAT.
== END 2020-01-26 13:40 | disposition home or self-care (01) ==
PROVIDERS: PCP Emergency Medicine; Visit Provider Urology
PROC: (CPT 52352; principal; 2020-01-26 10:00)
DX: N20.1 Calculus of ureter (principal); I11.0 Hypertensive heart disease with heart failure; I50.9 Heart failure, unspecified; J44.9 Chronic obstructive pulmonary disease, unspecified; E11.9 Type 2 diabetes mellitus without complications; K21.9 Gastro-esophageal reflux disease without esophagitis; N40.0 Benign prostatic hyperplasia without lower urinary tract symptoms; E78.00 Pure hypercholesterolemia, unspecified; G47.33 Obstructive sleep apnea (adult) (pediatric); Z79.82 Long term (current) use of aspirin; Z79.84 Long term (current) use of oral hypoglycemic drugs; Z95.5 Presence of coronary angioplasty implant and graft; Z95.1 Presence of aortocoronary bypass graft; Z87.891 Personal history of nicotine dependence; E66.9 Obesity, unspecified; Z68.37 Body mass index [BMI] 37.0-37.9, adult
CPT/HCPCS: 52332; 52352; 74420; 82365; 88300; A9270; C1769; C1894; C2617; J0690; J1100; J2250; J2405; J2704; J3010; J7120; Q9966

== ENCOUNTER 2020-03-23 07:18 | Outpatient (CLI) | payer OTHER, SELFPAY ==
[2020-03-23 08:17] LABS: Alanine Aminotransferase 25 U/L (16-63); Albumin Level 3.2 g/dL (3.4-5.0); Alkaline Phosphatase 60 U/L (46-116); Anion Gap 10.5 mmol/L (7-16); Aspartate Amino Transferase 16 U/L (15-37); Bilirubin,Total 0.3 mg/dL (0.00-1.00); Blood Urea Nitrogen 19 mg/dL (7-18); Calcium 9.8 mg/dL (8.5-10.1); Carbon Dioxide 31 mmol/L (21-32); Chloride 101 mmol/L (98-108); Cholesterol 106 mg/dL (0-200); Estimated Glomerular Filt Rate 42; Glucose 140 mg/dL (70-99); HDL Direct 45 mg/dL (40-60); LDL Cholesterol Calculated 31 mg/dL (<130); Osmolality Calculated 290 mOsm/kg (285-295); Potassium 4.5 mmol/L (3.5-5.1); Sodium 138 mmol/L (136-145); Total Protein 6.6 g/dL (6.4-8.2); Triglycerides 150 mg/dL (0-150)
== END 2020-03-23 07:19 | disposition home or self-care (01) ==
LOC: CHSLAB 07:20
PROVIDERS: PCP Emergency Medicine; Visit Provider Emergency Medicine
DX: E78.5 Hyperlipidemia, unspecified (principal)
CPT/HCPCS: 36415; 80053; 80061

== ENCOUNTER 2020-06-30 08:04 | Outpatient (CLI) | payer OTHER, SELFPAY ==
[2020-06-30 08:48] LABS: Hemoglobin A1C 7.2 % (<5.7)
[2020-06-30 09:26] LABS: Alanine Aminotransferase 24 U/L (16-63); Albumin Level 3.6 g/dL (3.4-5.0); Alkaline Phosphatase 68 U/L (46-116); Anion Gap 8 mmol/L (8-16); Aspartate Amino Transferase 12 U/L (15-37); Bilirubin,Total 0.2 mg/dL (0.00-1.00); Blood Urea Nitrogen 16 mg/dL (7-18); Calcium 9.7 mg/dL (8.5-10.1); Carbon Dioxide 28 mmol/L (21-32); Chloride 103 mmol/L (98-108); Cholesterol 108 mg/dL (0-200); Estimated Glomerular Filt Rate 42; Glucose 199 mg/dL (70-99); HDL Direct 54 mg/dL (40-60); LDL Cholesterol Calculated 28 mg/dL (<130); Osmolality Calculated 295 mOsm/kg (285-295); Potassium 4.5 mmol/L (3.5-5.1); Sodium 139 mmol/L (136-145); Total Protein 7.2 g/dL (6.4-8.2); Triglycerides 132 mg/dL (0-150)
== END 2020-06-30 08:05 | disposition home or self-care (01) ==
LOC: CHSLAB 08:06
PROVIDERS: PCP Emergency Medicine; Visit Provider Emergency Medicine
DX: E78.5 Hyperlipidemia, unspecified (principal); E11.9 Type 2 diabetes mellitus without complications
CPT/HCPCS: 36415; 80053; 80061; 83036

== ENCOUNTER 2020-07-20 06:52 | Outpatient (NON) | payer OTHER, SELFPAY ==
[2020-07-20 23:09] LABS: SARS-CoV-2 RNA PCR Negative
== END 2020-07-20 06:53 ==
PROVIDERS: PCP Emergency Medicine; Visit Provider Emergency Medicine
DX: R05 Cough (principal); Z20.828 Contact with and (suspected) exposure to other viral communicable diseases
CPT/HCPCS: 87635; C9803; U0003

== ENCOUNTER 2020-08-22 07:47 | Outpatient (CLI) | payer OTHER, SELFPAY ==
--- NOTE | ~2020-08-22 | CT_ITS ---
EXAMINATION:CT lung screening DATE: 08/22/2020 08:17 INDICATION: Personal history of tobacco dependence. Smoker who quit 15 years ago with 30 pack year hi story. TECHNIQUE: Computed tomography (CT) of the chest was performed without intravenous contrast. Automate d exposure control and iterative reconstruction technique were employed. The dose-length product (DLP ) was 511.45 mGy-cm. COMPARISON: Chest CT 01/15/13 FINDINGS: There is mild atelectasis in left lung. Calcified left lung nodules are consistent with old granulomatous disease. No pleural effusion. The heart size is normal. There are changes of coronary artery bypass grafting. There are coronary artery calcifications. There is a left chest wall pacer wi th leads in the right atrium, coronary sinus, and right ventricle. There are gallstones in the gallbl adder, which is normal in size. There is mild thoracic spondylosis. Again seen is a 2.0 x 1.5 cm mass in the left T10-T11 neural foramen, consistent with a peripheral nerve sheath tumor, stable from 01/15. IMPRESSION: 1. Lung-RADS category 1: Negative. Continue annual screening with noncontrast low-dose chest CT in 12 months. Reviewed, dictated and finalized at location B. N WASHER IMPRESSION: 1. Lung-RADS category 1: Negative. Continue annual screening with noncontrast l ow-dose chest CT in 12 months.
== END 2020-08-22 07:48 | disposition home or self-care (01) ==
PROVIDERS: PCP Emergency Medicine; Visit Provider Internal Medicine Critical Care Medicine
DX: Z12.2 Encounter for screening for malignant neoplasm of respiratory organs (principal); Z87.891 Personal history of nicotine dependence
CPT/HCPCS: G0297

== ENCOUNTER 2020-09-14 08:40 | Outpatient (CLI) | payer OTHER, SELFPAY ==
--- NOTE | 2020-09-27 08:50 | WPDPFTINT ---
PFT Interpretation PFT Interpretation: This PFT met all criteria for ATS standards and reproducibility FEV/FVC post bronchodilator 52% FEV1 48% or 1.35 liters FVC 63% or 2.59 liters TLC 96% RV 133% RV/TLC 55% DLCO 55% when adjusted for alveolar volume but not adjusted for hemoglobin Flow volume loops showed significant expiratory coving Impression: Moderate airflow obstruction with air trapping and moderately reduced diffusion capacity. This pattern is suggestive of COPD. Clinical correlation is advised.
--- NOTE | 2020-09-27 08:53 | WPDSIXMINUTE ---
Six Minute Walk Six Minute Walk: The patients O2 sats started at 91% and increased to 92-94% with walking Total walk distance 243.84 meters conclusion: This patient would not qualify from home oxygen therapy.
== END 2020-09-14 08:41 | disposition home or self-care (01) ==
PROVIDERS: PCP Emergency Medicine; Visit Provider Internal Medicine Critical Care Medicine
DX: J44.9 Chronic obstructive pulmonary disease, unspecified (principal)
CPT/HCPCS: 94060; 94726; 94729

== ENCOUNTER 2021-04-10 07:23 | Outpatient (CLI) | payer OTHER, SELFPAY ==
[2021-04-10 07:50] LABS: Hemoglobin A1C 10.5 % (<5.7)
[2021-04-10 08:20] LABS: Alanine Aminotransferase 45 U/L (16-63); Albumin Level 3.5 g/dL (3.4-5.0); Alkaline Phosphatase 83 U/L (46-116); Anion Gap 10 mmol/L (8-16); Aspartate Amino Transferase 18 U/L (15-37); Bilirubin,Total 0.3 mg/dL (0.00-1.00); Blood Urea Nitrogen 19 mg/dL (7-18); Calcium 9.8 mg/dL (8.5-10.1); Carbon Dioxide 28 mmol/L (21-32); Chloride 101 mmol/L (98-108); Cholesterol 105 mg/dL (0-200); Estimated Glomerular Filt Rate 46; Glucose 246 mg/dL (70-99); HDL Direct 46 mg/dL (40-60); LDL Cholesterol Calculated 24 mg/dL (<130); Osmolality Calculated 298 mOsm/kg (285-295); Potassium 5.1 mmol/L (3.5-5.1); Sodium 139 mmol/L (136-145); Total Protein 6.8 g/dL (6.4-8.2); Triglycerides 176 mg/dL (0-150)
[2021-04-10 08:21] LABS: Creatinine Urine 151.93 mg/dL (40-278)
[2021-04-10 08:25] LABS: MALB Creatinine Ratio 75.8 mg/g (0-30); Microalbumin Urine Random 115.3 mg/L
== END 2021-04-10 07:24 | disposition home or self-care (01) ==
LOC: CHSLAB 07:26
PROVIDERS: PCP Emergency Medicine; Visit Provider Emergency Medicine
DX: E11.9 Type 2 diabetes mellitus without complications (principal); E78.2 Mixed hyperlipidemia; I10 Essential (primary) hypertension
CPT/HCPCS: 36415; 80053; 80061; 82043; 83036

== ENCOUNTER 2021-04-28 09:34 | Outpatient (CLI) | payer OTHER, SELFPAY ==
[2021-04-28 10:41] LABS: Hemoglobin A1C 10.6 % (<5.7)
== END 2021-04-28 09:35 | disposition home or self-care (01) ==
LOC: CHSLAB 09:38
PROVIDERS: PCP Emergency Medicine; Visit Provider Emergency Medicine
DX: E11.9 Type 2 diabetes mellitus without complications (principal)
CPT/HCPCS: 36415; 83036

== ENCOUNTER 2021-06-08 17:44 | Emergency (ER) | payer OTHER, SELFPAY ==
--- NOTE | ~2021-06-08 | CT_ITS ---
EXAMINATION: CT abdomen pelvis w con DATE: 06/08/2021 19:40 INDICATION: Rectal bleeding, diarrhea, abdominal cramping, loss of appetite TECHNIQUE: Computed tomography (CT) of the abdomen and pelvis was performed with 100 cc Omnipaque 350 intravenous contrast. Automated exposure control and iterative reconstruction technique were employe d. Exam dose: 1324.39 mGy-cm total exam DLP. COMPARISON: CT abdomen pelvis FINDINGS: There is mild discoid atelectasis or scarring at the anterior basilar left lower lobe. Normal heart size. Right atrial, right ventricular and coronary sinus pacemaker leads. No pericardial or pleural effusio n. There is diffuse hepatic steatosis. 8 mm hypoattenuating indeterminate lesion of the caudate process of the liver may be a cyst or small cavernous hemangioma. No other hepatic space-occupying mass lesion is evident. No intrahepatic bile d uct dilatation or extrahepatic bile duct dilatation. No pancreatic duct dilatation. There are small stones in the dependent aspect of the gallbladder. No gallbladder wall thickening or pericholecystic fluid or fat stranding. Normal splenic size. No pancreatic mass lesion or calcification. Approximately 9 mm right adrenal mass. Approximately 4.5 mm right ureteropelvic junction calculus, without hydronephrosis. Approximately 5 mm nonobstructing left renal calculus. No ureteral calculus or hydroureteronephrosis is noted otherwise. Urinary bladder is unremarkable. There is prostate enlargement. There are bilateral fat-containing in guinal hernias. There are numerous diverticula of the left and right colon. No CT evidence of diverticulitis. Normal appendix. No bowel obstruction. There is a short segment distal sigmoid colon with circumferential soft tissue thickening; distal sig moid colon carcinoma should be excluded. Colonoscopy or barium enema are recommended for further jay luation to exclude malignancy. Diffuse osteopenia. Diffuse idiopathic skeletal hyperostosis of the thoracic spine. There is degenerative change at the a pophyseal joints particularly at L4-5 and L5-S1 with associated grade 1 anterolisthesis at L4-5. Bilateral hip osteoarthritis. IMPRESSION: 4.5 mm right ureteropelvic junction calculus, without hydronephrosis 5 mm nonobstructing left renal calculus Cannot exclude distal sigmoid colon carcinoma; further evaluation by colonoscopy or barium enema is r ecommended to exclude sigmoid colon cancer Diverticulosis of left and right colon; no evidence of diverticulitis Normal appendix 9 mm right adrenal mass Indeterminate 8 mm hypoattenuating lesion of the caudate process of the liver Hepatic steatosis Reviewed, dictated and finalized at [facility]. Reviewed, dictated and finalized at [facility]. IMPRESSION: 4.5 mm right ureteropelvic junction calculus, without hydronephros is 5 mm nonobstructing left renal calculus Cannot exclude distal sigmoid colon carcinoma; further evaluation by colonoscop y or barium enema is recommended to exclude sigmoid colon cancer Diverticulosis of left and right colon; no evidence of diverticulitis Normal appendix 9 mm right adrenal mass Indeterminate 8 mm hypoattenuating lesion of the caudate process of the liver Hepatic steatosis
[2021-06-08 18:00] VITALS: BP 156/83; PULSE 65; RESP 18; TEMP 36.4; O2SAT 96
[2021-06-08] MEDS: SODIUM CHLORIDE 0.9% IV 1,000 ML 999 ML IV CONT ×2 (18:35→21:04)
[2021-06-08 18:43] LABS: Basophils Absolute Auto 0.07 K/mm3 (0.00-0.10); Basophils Percent Auto 0.7 % (0.0-1.0); Eosinophils Absolute Auto 0.19 K/mm3 (0.02-0.50); Hematocrit 42.8 % (37.0-46.0); Hemoglobin 13.9 g/dL (12.4-15.3); Immature Granulocyte Absolute 0.09 K/mm3 (0.00-0.00); Lymphocytes Absolute Auto 2.13 K/mm3 (1.10-4.50); Lymphocytes Percent Auto 22.7 % (18.0-42.0); Mean Corpuscular HGB Conc 32.5 g/dL (32.0-36.0); Mean Corpuscular Hemoglobin 30.4 pg (27.0-31.0); Mean Corpuscular Volume 93.7 fL (78.0-102.0); Mean Platelet Volume 9.4 fl (8.7-11.0); Monocytes Absolute Auto 1.04 K/mm3 (0.10-0.90); Monocytes Percent Auto 11.1 % (2.0-11.0); Neutrophils Absolute Auto 5.9 K/mm3 (1.7-7.2); Neutrophils Percent Auto 62.5 % (50.0-70.0); Platelet Count Result 230 K/mm3 (150-420); Red Blood Count 4.57 M/mm3 (4.70-6.10); Red Cell Distribution Width 12.3 % (11.6-14.4); White Blood Count 9.4 K/mm3 (4.8-10.8)
[2021-06-08 18:45] LABS: Occult Blood Positive (Negative)
[2021-06-08 18:57] LABS: INR 1.1; Partial Thromboplastin Time 25.6 SEC (23.90-30.70); Prothrombin Time 11.3 Seconds (9.50-12.10)
[2021-06-08 19:03] LABS: Alanine Aminotransferase 31 U/L (16-63); Albumin Level 3.2 g/dL (3.4-5.0); Alkaline Phosphatase 79 U/L (46-116); Anion Gap 11 mmol/L (8-16); Aspartate Amino Transferase 21 U/L (15-37); Bilirubin,Total 0.2 mg/dL (0.00-1.00); Blood Urea Nitrogen 20 mg/dL (7-18); Carbon Dioxide 26 mmol/L (21-32); Chloride 102 mmol/L (98-108); Estimated CRCL calculation 48 ml/min; Estimated Glomerular Filt Rate 43; Glucose 230 mg/dL (70-99); Lactic Acid Reflex 3.2 mmol/L (0.4-2.0); Lipase 180 U/L (73-393); Magnesium 1.4 mg/dL (1.8-2.4); Osmolality Calculated 297 mOsm/kg (285-295); Potassium 4.5 mmol/L (3.5-5.1); Sodium 139 mmol/L (136-145); Total Protein 7.4 g/dL (6.4-8.2)
--- NOTE | 2021-06-08 19:05 | PC.NURSE ---
Report to Jenny Lincoln
--- NOTE | 2021-06-08 19:11 | ECG_ITS ---
Measurements Intervals [place] Rate: 79 P: MI: 0 QRS: 238 QRSD: 154 T: 76 QT: 402 QTc: 463 Interpretive Statements ATRIAL SENSE- ELECTRONIC VENTRICULAR PACEMAKER BASELINE ARTIFACT- I, II, III, AVR, AVL NO FURTHER INTERPRETATION IS POSSIBLE ATYPICAL ECG Electronically Signed On 06-08-2021 19:41:39 CDT by Deshaun Pollack D.O.
[2021-06-08 20:02] VITALS: BP 120/80; PULSE 75; RESP 18; TEMP 37; O2SAT 93
--- NOTE | 2021-06-08 20:19 | ED.GIBLEED ---
HPI - GI Bleed General Chief complaint: GI Bleed Stated complaint: blood in stool Source: patient and family Mode of arrival: ambulatory Limitations: no limitations History of Present Illness HPI Narrative: this is a 71-year-old male that presents from with some episodes of bright red blood per rectum, had according the patient 7 episodes of bright red blood with some loose stools, was having crampy abdominal pain diffuse radiating into his lower back. The patient has a history of diabetes, CHF, hypertension chronic kidney disease and COPD currently on baby aspirin. Patient denies being short of breath, no chest pain has some diarrhea with bright red blood with some no nausea or vomiting no fever chills. Patient denies having any episodes of rectal bleeding in the past. MD complaint: gross hematochezia Onset (ago): hour(s) Pain Consistency: intermittent Severity: moderate Relieving factors: bowel movement Exacerbating factors: none Associated symptoms: abdominal pain Related Data Home Medications Medication Instructions Recorded Confirmed aspirin 81 mg tablet,delayed 81 mg PO DAILY 08/31/19 06/08/21 release rosuvastatin 40 mg tablet 40 mg PO DAILY 08/31/19 06/08/21 spironolactone 25 1 tablet PO DAILY 08/10/20 06/08/21 mg-hydrochlorothiazide 25 mg tablet cholecalciferol (vitamin D3) 25 mcg PO DAILY 06/08/21 06/08/21 [Vitamin D3] [id number] 1 inh INHALATION DAILY 06/08/21 06/08/21 [Trelegy Ellipta] Allergies Allergy/AdvReac Type Severity Reaction Status Date / Time morphine AdvReac Unknown Vomiting Verified 04/12/21 13:44 tramadol AdvReac Unknown Dizziness Verified 04/12/21 13:44 Review of Systems Review of Systems: All systems reviewed & are unremarkable except as noted in HPI and below PMFSH Past Medical History Medical History BPH (benign prostatic hyperplasia) CHF (congestive heart failure) Cholelithiasis Colitis COPD (chronic obstructive pulmonary disease) DM2 (diabetes mellitus, type 2) GERD with apnea Gout History of coronary artery disease History of hypercholesterolemia History of kidney stones HTN (hypertension) Hypersomnolence Obstructive sleep apnea Intolerant of CPAP machine Seasonal allergies Surgical History Surgical History H/O arthroscopic knee surgery Bilaterally H/O cataract extraction Bilaterally History of coronary artery bypass graft x 3 History of coronary artery stent placement History of ureter stent Family History Family History Mother Diabetes mellitus Breast cancer Hypertension Father Cerebrovascular accident Myocardial infarct Other Family history of malignant neoplasm Social History Social History Social History: He lives with his and desires to have her his power of contracts attorney and to be a full code. 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 He is retired [employer]. Patient quit smoking about 1980s he smoked 2 packs a day in his 20s. No drugs or alcohol Smoking status: Former smoker Alcohol intake: never Substance use: never Gender identity (if verbalized by the patient): Male Spiritual care concerns: No Agree to blood products: Yes Exam Const: General: no acute distress and alert Orientation/consciousness: patient oriented x3 HENMT: Head: normal to inspection Eyes: Conjunctivae: conjunctivae normal Pupils: Equal, round and reactive pupils present EOM: EOMs intact bilaterally Direct Ophthalmoscopy: no photophobia Neck: Neck: normal visual inspection, no lymphadenopathy and no meningeal signs Chest: Chest palpation & inspection: normal inspection of the chest and Pacemaker present Resp: Effort & Inspection: normal respiratory effort Auscultation: clear to auscultation bilat
[2021-06-08 20:45] LABS: Appearance Urine Clear (Clear); Bilirubin Urine Negative (Negative); Color Urine Light Yellow (Yellow); Glucose Urine UA 1+ (Negative); Ketones Urine Trace (Negative); Leukocyte Esterase Ur Negative (Negative); Nitrate Urine Negative (Negative); Protein Urine 1+ (Negative); Specific Grav Ur 1.025 (1.010-1.020); Urobilinogen Urine 0.2 mg/dL (0.2-1.0); pH Urine 5.5 (5.0-8.0)
[2021-06-08 21:01] LABS: Add Urine Microscopic? YES; Bacteria Urine None seen /hpf; Blood Urine Trace-lysed (Negative); RBC Urine 0-2 /hpf (0-2); Squamous Epithelial Cell Urine None seen /hpf (Few); WBC Urine 0-3 /hpf (0-3)
[2021-06-08] MEDS: MAGNESIUM SULF 4 GM/WATER100ML 4 GM/100 ML BAG IVPB (21:04)
[2021-06-08 21:23] LABS: SARS-CoV-2 Ag Negative (Negative)
[2021-06-08 21:32] VITALS: BP 113/97; PULSE 76; RESP 20; TEMP 37; O2SAT 97
[2021-06-08 21:40] LABS: Reflex Lactic Acid Yes or No Add Lactic
== END 2021-06-08 22:00 | disposition short-term general hospital (02) ==
PROVIDERS: Emergency Provider Emergency Medicine; PCP Emergency Medicine
DX: K92.2 Gastrointestinal hemorrhage, unspecified (principal)
CPT/HCPCS: 36415; 74177; 80053; 81001; 82272; 83605; 83690; 83735; 85025; 85610; 85730; 87426; 93005; 96361; 96365; 99285; C9803; J3475; J7030; Q9967

== ENCOUNTER 2021-06-08 22:48 | Observation (INO) | payer OTHER, SELFPAY ==
--- NOTE | ~2021-06-08 | US_ITS ---
EXAMINATION: US abdomen complete DATE: 06/10/2021 08:56 INDICATION: Liver lesion, adrenal mass and nephrolithiasis. TECHNIQUE: Multiple grayscale and Doppler ultrasound images of the abdomen were obtained. COMPARISON: CT dated 06/08/2021 FINDINGS: The proximal aorta is obscured. The mid aorta measures 1.8 cm in diameter tapering to 1.2 cm the dist al aorta. The visualized midportion of the inferior vena cava is normal. The pancreatic head and body are normal in appearance. The pancreatic tail is not visualized. Liver has normal contour, with a s mooth surface. There is increased parenchymal echogenicity and coarsened echotexture consistent with diffuse hepatic steatosis. Indeterminate 1.3 cm hypoechoic lesion without evident correlate on the pr ior CT. The lobe is now clearly visualized due to the poor acoustic penetration. No intrahepatic parth iary duct dilation suspected. Portal venous flow was seen in the hepatopetal, normal direction and zayas s normal Doppler waveform. The gallbladder is normal in appearance. 8 x 6 x 5 mm hypoechoic nodule al bebe the dependent wall of the gallbladder without posterior acoustic shadowing to suggest cholelithia sis. No evident vascular flow within the nodule on color Doppler or corresponding soft tissue density nodule in the prior CT which would favor a sludge ball over polyp. No shadowing gallstones identifie d. The common bile duct measures 4 mm, which is normal. Sonographic Grier sign was reported as negat dayana by the relish blender. There is normal renal contour and echogenicity bilaterally. The right kidney measures 10.0 x 5.7 x 5.5 cm and the left 12.0 x 4.6 x 4.9 cm. Echogenic and shadowing stone at the l ower pole of the left kidney which measured [address] There are no focal renal lesions identi fied. There is no hydronephrosis. Normal spleen measuring 10.0 cm in maximal length. IMPRESSION: 1. 5 mm nonobstructing left renal stone. 2. 8 mm nonshadowing hypoechoic nodule along the dependent wall of the gallbladder could represent a sludge ball or gallbladder polyp. Given the absence of corresponding soft tissue density on prior CT would favor the former but would consider 6 month follow-up ultrasound. 3. The tiny calcified gallstone seen at the neck of the gallbladder on prior CT is unable to be visua lized due to poor visualization of the gallbladder neck. No gallbladder dilation, wall thickening or Grier sign to suggest acute cholecystitis. 4. Diffuse hepatic steatosis with indeterminate 1.3 similar hypoechoic liver lesion separate from the previous noted lesion at the caudate lobe which is unable to be visualized in the current study. Wou ld consider follow-up pre and postcontrast MRI for further evaluation of both lesions at which could also assess the small adrenal nodule which is not visualized in the current study. Reviewed, dictated and finalized at [facility]. IMPRESSION: 1. 5 mm nonobstructing left renal stone. 2. 8 mm nonshadowing hypoechoic nodule along the dependent wall of the gallblad dhiraj could represent a sludge ball or gallbladder polyp. Given the absence of co rresponding soft tissue density on prior CT would favor the former but would co nsider 6 month follow-up ultrasound. 3. The tiny calcified gallstone seen at the neck of the gallbladder on prior CT is unable to be visualized due to poor visualization of the gallbladder neck. No gallbladder dilation, wall thickening or Grier sign to suggest acute cholec ystitis. 4. Diffuse hepatic steatosis with indeterminate 1.3 similar hypoechoic liver le edgar separate from the previous noted lesion at the caudate lobe which is unabl e to be visualized in the current study. Would consider follow-up pre and postc ontrast MRI for further evaluation of both lesions at which c
--- NOTE | 2021-06-08 22:44 | ADMGEN ---
This patient, Nikhil Huynh, was admitted to Medical Room 248-. Patient/family oriented to hospital policies and general routines including ID bracelet, bed and alarms, visiting hours, pain management, procedures, bathroom and other care routines, personal items, smoking policy, room service/diet, and visiting hours. Information on how to activate the Rapid Response Team has been discussed. Patient/Family are encouraged to report perceived risks to care and to ask questions if they do not understand what they are told or what they should do.
--- NOTE | 2021-06-08 22:51 | PM.IMHP ---
H&P: HPI History of Present Illness Date/Time: 06/08/21 22:51 Chief Complaint: Bloody stools Narrative: 71-year-old male with past medical history of COPD, hypertension, hyperlipidemia, diabetes, duodenal ulcers and multiple colon polyps with numerous colonoscopies who presented to the ER at [facility] due to rectal bleeding. Patient reported that he got up that morning and had the urge to have go to the bathroom and when he went to clean himself he noted stool mixed with blood in the toilet. After that time he had an additional 6 or 7 episodes of passing of mostly blood. He reports that the blood ranged between dark maroon and bright red color. He did not have any associated abdominal pain. He has not had any fevers or chills. He denies any nausea or vomiting. He has not had any lightheadedness or dizziness. He reports that his last colonoscopy in 2017 demonstrate an area that needed to be monitored. According to the report from that time it appears the patient had growth that pathology demonstrated was a lipoma. He denies having any hard stools or recent straining to have stools. He denies any heartburn and is no longer on any PPI therapy. He had an EGD in December of 2017 that demonstrated Hector looks esophagitis, gastritis and chronic duodenal ulcers. He is only on a baby aspirin daily. Review of Systems Review of Systems: 12 systems were reviewed with pertinent positives and negatives per HPI. Except as documented in the HPI, all other systems were reviewed and are negative. [facility] Past Medical History Medical History (Updated 06/09/21 @ 04:39 by Jocy Garcia, DO) BPH (benign prostatic hyperplasia) CHF (congestive heart failure) Echocardiogram April 2020: Mild left ventricular enlargement, mild global ventricular systolic dysfunction, impaired diastolic relaxation grade 1, ejection fraction 41%, mild enlargement of left atrium, RVSP of 41 Cholelithiasis CKD (chronic kidney disease), stage III Colitis (~2017) COPD (chronic obstructive pulmonary disease) Coronary artery disease DM2 (diabetes mellitus, type 2) Last hemoglobin A1c 04/28/2021 10.6 Gastric ulcer With history of bleeding ulcer approximately 2017 GERD (gastroesophageal reflux disease) Gout HTN (hypertension) Hypercholesterolemia Hypersomnolence Kidney stones Numerous Obstructive sleep apnea Intolerant of CPAP machine Seasonal allergies Surgical History Surgical History (Updated 08/27/21 @ 04:30 by Jocy Garcia DO) H/O arthroscopic knee surgery Bilaterally History of colonoscopy with polypectomy With history of ulcerated polyp in 2013. His most recent colonoscopy was 2018 History of coronary artery bypass graft x 3 (~2009) History of coronary artery stent placement (~2017) History of esophagogastroduodenoscopy (EGD) (12/2017) Reflux esophagitis, gastritis and chronic duodenal ulcers History of ureter stent Status post cataract extraction of both eyes with insertion of intraocular lens (~2001) Family History Family History (Updated 06/09/21 @ 04:21 by Jocy Garcia DO) Mother Diabetes mellitus Breast cancer Cause of Hypertension Father Myocardial infarct Cerebrovascular accident Sibling Diabetes mellitus Brothers Uterine cancer Sister Social History Social History (Updated 06/09/21 @ 04:23 by Jocy Garcia DO) Social History: He lives with his (of 36 years) and desires to have her his power of county attorney and to be a full code. 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 No drugs or alcohol use. Smoking packs per day: 2 Smoking cigarettes per day: 40.0 Years smoked: 40 Smoking pack-years: 80.00 Smoking status: Former smoker Tobacco type: cigarettes Alcohol intake: never Substance use: never Gender identity (if verbalized by the patient): Male Spiritual care concerns:
[2021-06-08 23:30] VITALS: BP 146/75; PULSE 71; RESP 16; TEMP 36.1; O2SAT 97
[2021-06-08] MEDS: polyethylene glycoL 3350 238 GM BOTTLE PO (23:31)
[2021-06-08] MEDS: SODIUM CHLORIDE 0.9% IV 1,000 ML 50 ML IV CONT (23:31)
[2021-06-08 23:56] LABS: Hematocrit 41.6 % (42.0-52.0); Hemoglobin 12.9 g/dL (14.0-18.0)
[2021-06-09] VITALS (9 sets, daily range): BP systolic 126–147; BP diastolic 66–90; PULSE 66–91; RESP 14–22; TEMP 36–36.8; O2SAT 93–100; BMI 38.7
[2021-06-09] MEDS: BISACODYL 5 MG TABLET EC 20 MG PO (02:03)
[2021-06-09 06:11] LABS: Hematocrit 43.6 % (42.0-52.0); Hemoglobin 13.7 g/dL (14.0-18.0); Mean Corpuscular HGB Conc 31.4 g/dl (32-36); Mean Corpuscular Volume 95.6 fl (80-100); Mean Platelet Volume 9.6 fl (7.4-10.4); Platelet Count Result 236 k/mm3 (150-375); Red Blood Count 4.56 M/mm3 (4.6-6.20); Red Cell Distribution Width 12.8 % (11.5-14.5); White Blood Count 11.3 K/mm3 (4.5-10.0)
[2021-06-09 06:23] LABS: Anion Gap 11 mmol/L (8-16); Blood Urea Nitrogen 17 mg/dL (9-20); Calcium 9.6 mg/dL (8.4-10.2); Carbon Dioxide 22 mmol/L (22-30); Chloride 97 mmol/L (98-107); Estimated CRCL calculation 63 ml/min; Estimated Glomerular Filt Rate 60; Glucose 294 mg/dL (65-110); Potassium 4.4 mmol/L (3.4-5.0); Sodium 130 mmol/L (137-145)
[2021-06-09 06:31] LABS: Lactic Acid Reflex 3.2 mmol/L (0.7-2.1)
[2021-06-09 06:40] LABS: Magnesium 2.1 mg/dL (1.6-2.3)
[2021-06-09] MEDS: FLUTICASONE/UMECLIDIN/VILANTER 100-62.5-25 MCG ELLIPTA 1 PUFF INHALATION (08:05)
[2021-06-09 09:40] LABS: Glucose Point of Care 206 mg/dl (65-105)
[2021-06-09] MEDS: MAGNESIUM CITRATE 300 ML BTL PO (09:43)
[2021-06-09] MEDS: METOPROLOL SUCCINATE EXT REL 50 MG TABCR PO (09:43)
[2021-06-09] MEDS: hydroCHLOROthiazide 25 MG TABLET PO (09:44)
[2021-06-09] MEDS: SPIRONOLACTONE 25 MG TABLET PO (09:44)
--- NOTE | 2021-06-09 11:09 | WPDGICN ---
Assessment and Plan Assessment and plan (1) Acute lower GI hemorrhage: Code(s): K92.2 - Gastrointestinal hemorrhage, unspecified Status: Acute Assessment and Plan: will proceed with urgent colonoscopy, hb relatively stable also noted CT scan with possible sigmoid lesion wonder if bleeding could be diverticular source (2) Uncontrolled type 2 diabetes mellitus: Code(s): E11.65 - Type 2 diabetes mellitus with hyperglycemia Status: Acute Assessment and Plan: medical treatment (3) Coronary artery disease: Code(s): I25.10 - Atherosclerotic heart disease of [place] coronary artery without angina pectoris Status: Inactive Assessment and Plan: holding aspirin, no chest pain (4) Colon, diverticulosis: Code(s): K57.30 - Diverticulosis of large intestine without perforation or abscess without bleeding Status: Acute (5) Adenomatous colon polyp: Code(s): D12.6 - Benign neoplasm of colon, unspecified Status: Acute Assessment and Plan: had several colonoscopies (6) Abnormal CT scan, colon: Code(s): R93.3 - Abnormal findings on diagnostic imaging of other parts of digestive tract Status: Acute GI Consult Note Consult date/time: 06/09/21 11:09 Reason for consult: rectal bleeding HPI: Nikhil Huynh is a 71 year old male with past medical history of COPD, hypertension, ACD s/p stents and pacemaker on aspirin, hyperlipidemia, diabetes and colon polyps who had several colonoscopies being last one [address] Julien that showed lipoma in transverse colon (confirmed by bx) and diverticulosis. He initially went to the ER at [facility] because new onset of rectal bleeding. After he got up yesterday morning had urge to use restroom and since then had about 7 episodes of passing bright red blood, color described as between dark maroon and bright red color. Denies abdominal pain, chills. ER physician called me last night and he was transferred to us. He already completed bowel prep and ready for colonoscopy. He is hemodynamically stable and feeling ok. Hb is stable. CT scan reviewed c/w diverticulosis and possible lesion in sigmoid colon. Review of Systems Constitutional: Constitutional: Denies headache(s) and Denies weakness Eyes: Eyes: Denies blurry vision ENT: Reports Normal hearing present, Denies headache(s) and Denies neck pain Cardiovascular: Cardiovascular: Denies chest pain and Denies dyspnea Respiratory: Respiratory: Denies dyspnea Gastrointestinal: Gastrointestinal: Reports no additional gastrointestinal complaints Genitourinary: Genitourinary: Denies dysuria Musculoskeletal: Musculoskeletal: Denies neck pain Integumentary/Breasts: Skin/Breast: Denies dry skin Neurologic: Reports Normal hearing present, Denies headache(s) and Denies weakness Psychiatric: Psychiatric: Denies anxiety Endocrine: Endocrine: Denies change in body appearance Hematologic/Lymphatic: Hematologic/Lymphatic: Denies easy bleeding Allergic/Immunologic: Allergic/Immunologic: Denies urticaria PMFSH Past Medical History Medical History (Updated 06/09/21 @ 12:28 by Benito Bay MD) Abnormal CT scan, colon Adenomatous colon polyp BPH (benign prostatic hyperplasia) CHF (congestive heart failure) Echocardiogram April 2020: Mild left ventricular enlargement, mild global ventricular systolic dysfunction, impaired diastolic relaxation grade 1, ejection fraction 41%, mild enlargement of left atrium, RVSP of 41 Cholelithiasis CKD (chronic kidney disease), stage III Colitis (~2017) Colon, diverticulosis COPD (chronic obstructive pulmonary disease) Coronary artery disease DM2 (diabetes mellitus, type 2) Last hemoglobin A1c 04/28/2021 10.6 Gastric ulcer With history of bleeding ulcer approximately 2018 GERD (gastroesophageal reflux disease) Gout HTN (hypertension) Hypercholesterolemia Hypersomnolence Kidney stones Numerous Obstr
[2021-06-09 11:27] LABS: Glucose Point of Care 212 mg/dl (65-105)
--- NOTE | 2021-06-09 11:29 | PC.NURSE ---
To GI Lab per Wheelchair , IV RAC
[2021-06-09] MEDS: LACTATED RINGERS 1,000 ML 150 ML IV CONT (11:38)
--- NOTE | 2021-06-09 11:41 | WPDANESEPPF ---
Anes - Initial Pre Proc Eval Procedure: Operation Date: 06/09/21 12:30 Proposed Procedures p Colonoscopy - Benito Bay MD Date/Time: 06/09/21 11:41 Surgeon: Jocy Garcia DO Pre Op Diagnosis: Lower GI Bleed Patient Data Age: 71 Gender: M Height: 1.73 m Weight: 115.7 kg Last Vital Signs Temp 96.8 F L 06/09/21 11:37 Pulse 85 06/09/21 11:37 Resp 18 06/09/21 11:37 BP 143/90 H 06/09/21 11:37 Pulse Ox 97 06/09/21 11:37 Allergies Allergy/AdvReac Type Severity Reaction Status Date / Time morphine AdvReac Unknown Vomiting Verified 06/09/21 11:28 tramadol AdvReac Unknown Dizziness Verified 06/09/21 11:28 Home Medications Medication Instructions Recorded Confirmed Type aspirin 81 mg tablet,delayed 81 mg PO DAILY 08/31/19 06/09/21 History release rosuvastatin 40 mg tablet 40 mg PO DAILY 08/31/19 06/09/21 History spironolactone 25 1 tablet PO DAILY 08/10/20 06/09/21 History mg-hydrochlorothiazide 25 mg tablet albuterol sulfate 90 mcg/actuation 2 puff INHALATION Q4-6H PRN #8.5 gm 02/21/21 06/09/21 Rx aerosol inhaler metoprolol succinate 50 mg 50 mg PO DAILY #90 tablet 04/12/21 06/09/21 Rx tablet,extended release 24 hr cholecalciferol (vitamin D3) 25 mcg PO DAILY 06/08/21 06/09/21 History [Vitamin D3] [id number]-dkayiiksw-uxndlzru 1 inh INHALATION DAILY 06/08/21 06/09/21 History [Trelegy Ellipta] metformin 1,000 mg PO BID 06/09/21 06/09/21 History tamsulosin 0.4 mg PO DAILY 06/09/21 06/09/21 History Laboratory Tests 06/08/21 06/09/21 06/09/21 23:46 05:50 05:50 WBC 11.3 K/mm3 H K/mm3 (4.5-10.0) RBC 4.56 M/mm3 L M/mm3 (4.6-6.20) Hgb 12.9 g/dL L g/dL 13.7 g/dL L g/dL (14.0-18.0) (14.0-18.0) Hct 41.6 % L % 43.6 % % (42.0-52.0) (42.0-52.0) MCV 95.6 fl fl (80-100) MCH 30.0 pg pg (26-34) MCHC 31.4 g/dl L g/dl (32-36) RDW 12.8 % % (11.5-14.5) Plt Count 236 k/mm3 k/mm3 (150-375) MPV 9.6 fl fl (7.4-10.4) Sodium 130 mmol/L L mmol/L (137-145) Potassium 4.4 mmol/L mmol/L (3.4-5.0) Chloride 97 mmol/L L mmol/L (98-107) Carbon Dioxide 22 mmol/L mmol/L (22-30) Anion Gap 11 mmol/L mmol/L (8-16) BUN 17 mg/dL mg/dL (9-20) Creatinine 1.20 mg/dL mg/dL (0.7-1.3) Estim Creat Clear Calc 63 ml/min ml/min Estimated GFR 60 (59 - ) Glucose 294 mg/dL H mg/dL (65-110) POC Capillary Glucose Lactic Acid Calcium 9.6 mg/dL mg/dL (8.4-10.2) Magnesium 06/09/21 06/09/21 06/09/21 05:50 05:50 09:36 WBC RBC Hgb Hct MCV MCH MCHC RDW Plt Count MPV Sodium Potassium Chloride Carbon Dioxide Anion Gap BUN Creatinine Estim Creat Clear Calc Estimated GFR Glucose POC Capillary Glucose 206 mg/dl H mg/dl (65-105) Lactic Acid 3.2 mmol/L H mmol/L (0.7-2.1) Calcium Magnesium 2.1 mg/dL mg/dL (1.6-2.3) 06/09/21 11:25 WBC RBC Hgb Hct MCV MCH MCHC RDW Plt Count MPV Sodium Potassium Chloride Carbon Dioxide Anion Gap BUN Creatinine Estim Creat Clear Calc Estimated GFR Glucose POC Capillary Glucose 212 mg/dl H mg/dl (65-105) Lactic Acid Calcium Magnesium Patient hx anesthesia problems: none Family hx anesthesia problems: none PMFSH Past Medical History Medical History (Updated 06/09/21 @ 04:39 by Jocy Garcia DO) BPH (benign prostatic hyperplasia) CHF
[2021-06-09 12:32] LABS: Glucose Point of Care 210 mg/dl (65-105)
[2021-06-09 12:32] LABS: Glucose Point of Care 217 mg/dl (65-105)
--- NOTE | 2021-06-09 12:40 | SUR.PHASEII ---
1225 BLOOD SUGAR OBTAINED RESULT [address] CONTRERAS NOTIFIED AND NO ORDERS RECEIVED.
--- NOTE | 2021-06-09 12:54 | PC.NURSE ---
Returned from GI Lab. Report received ].
[2021-06-09] MEDS: TAMSULOSIN HCL 0.4 MG CAPSULE PO (12:57)
[2021-06-09] MEDS: ROSUVASTATIN 10 MG TABLET 40 MG PO (12:57)
[2021-06-09 13:24] LABS: Hematocrit 42.4 % (42.0-52.0); Hemoglobin 13.1 g/dL (14.0-18.0)
--- NOTE | 2021-06-09 15:06 | PM.IMPN ---
Progress Note: A&P Assessment and Plan (1) Acute lower GI hemorrhage: Code(s): K92.2 - Gastrointestinal hemorrhage, unspecified Status: Acute Assessment and Plan: will proceed with urgent colonoscopy, serial H/Hs, Hgb = 13.7, Hct 43.6, relatively stable also noted CT scan with possible sigmoid lesion, possible diverticular bleed. Lactic acid remains elevated 3.2, 3.2 again, despite IVFs. Repeating Lactic acid level this afternoon holding aspirin Patient completed Colonscopy and now GI ok'd to resume diet. (2) Uncontrolled type 2 diabetes mellitus: Code(s): E11.65 - Type 2 diabetes mellitus with hyperglycemia Status: Acute Assessment and Plan: medical treatment was NPO for colonoscopy bowel prep this morning held DM meds to avoid hypoglycemia Glucose 230 and 294. (3) Coronary artery disease: Code(s): I25.10 - Atherosclerotic heart disease of [place] coronary artery without angina pectoris Status: Inactive Assessment and Plan: holding aspirin due to GI Bleed EKG at admission: Rate 79, ATRIAL SENSE- ELECTRONIC VENTRICULAR PACEMAKER no chest pain/pressure no SOB, on Room air (4) Colon, diverticulosis: Code(s): K57.30 - Diverticulosis of large intestine without perforation or abscess without bleeding Status: Acute Assessment and Plan: awaiting colonoscopy results F/u with GI for control of symptoms (5) Adenomatous colon polyp: Code(s): D12.6 - Benign neoplasm of colon, unspecified Status: Acute Assessment and Plan: had several colonoscopies: 2018 was abdnormal. awaiting colonoscopy results F/u with GI (6) Abnormal CT scan, colon: Code(s): R93.3 - Abnormal findings on diagnostic imaging of other parts of digestive tract Status: Acute Assessment and Plan: CT scan showed: Cannot exclude distal sigmoid colon carcinoma; further evaluation by colonoscopy or barium enema is recommended to exclude sigmoid colon cancer. Diverticulosis of left and right colon; no evidence of diverticulitis *GI consulted and completing scope today. (7) Ureteropelvic junction calculus: Code(s): N20.1 - Calculus of ureter Status: Acute Assessment and Plan: Noted on CT scan: 4.5 mm right ureteropelvic junction calculus, without hydronephrosis and 4.5 mm right ureteropelvic junction calculus, without hydronephrosis and 5 mm nonobstructing left renal calculus ordered US abdomen patient denies any/all flank pain , also denies any/all abdominal pain for yesterday or today. strict Intake /output Creatinine 1.2 encourage patient to increase his own hydration (8) Liver lesion: Code(s): K76.9 - Liver disease, unspecified Status: Acute Assessment and Plan: CT showed: 9 mm right adrenal mass, Indeterminate 8 mm hypoattenuating lesion of the caudate process of the liver, Hepatic steatosis Liver enzymes and total bili were WNL yesterday. Ordered US abdomen Will need to F/U with his Primary Care Physician for further monitoring and workup. Subjective Date/time seen: 06/09/21 15:06 Nikhil is feeling slightly worse than yesterday, especially after his long bowel prep overnight and this morning. He continues to have frequent and runny stools at this time, that he says still have some blood in them. Will keep him overnight for monitoring. Urine analysis had a trace of blood, urine culture not warranted. No fevers noted. WNC 9.4 at admission, now 11.3. Ordered strict intake and output, as the urine volume has not been document. CT scan showed: 4.5 mm right ureteropelvic junction calculus, without hydronephrosis. Patient not having any flank pain or abdominal pain or groin pain today. Ordered Abdominal US due to findings on CT scan: 9 mm right adrenal mass and Indeterminate 8 mm hypoattenuating lesion of the caudate process of the liver. Review of Systems Constitutional: Constitutional: Denies headache(
[2021-06-09 16:04] LABS: Glucose Point of Care 198 mg/dl (65-105)
[2021-06-09 16:26] LABS: Lactic Acid Reflex 1.3 mmol/L (0.7-2.1)
[2021-06-09 16:45] LABS: Phosphorus 2.7 mg/dL (2.5-4.5)
[2021-06-09 19:24] LABS: Hemoglobin 13.7 g/dL (14.0-18.0)
[2021-06-09 20:40] LABS: Glucose Point of Care 295 mg/dl (65-105)
[2021-06-10] VITALS: BP 168/77; PULSE 63; RESP 18; TEMP 36.7; O2SAT 96
[2021-06-10 00:23] LABS: Hematocrit 37.8 % (42.0-52.0); Hemoglobin 12.2 g/dL (14.0-18.0)
[2021-06-10 04:00] VITALS: BP 114/67; PULSE 77; RESP 18; TEMP 36.7; O2SAT 96
[2021-06-10 06:02] LABS: Basophils Percent Auto 0.5 % (0.2-1.2); Eosinophils Absolute Auto 0.2 K/mm3 (0-0.3); Eosinophils Percent Auto 2.1 % (0-4.4); Hematocrit 37.5 % (42.0-52.0); Immature Granulocyte Absolute 0.04 K/mm3 (0.00-0.031); Immature Granulocyte Percent A 0.5 % (0-0.5); Lymphocytes Absolute Auto 1.47 K/mm3 (0.9-3.2); Lymphocytes Percent Auto 17.5 % (18.3-44.2); Mean Corpuscular Hemoglobin 29.7 pg (26-34); Mean Corpuscular Volume 92.8 fl (80-100); Mean Platelet Volume 9.7 fl (7.4-10.4); Monocytes Absolute Auto 0.9 K/mm3 (0.1-0.6); Monocytes Percent Auto 11.2 % (2.6-8.5); Neutrophils Absolute Auto 5.7 K/mm3 (1.3-6.7); Neutrophils Percent Auto 68.2 % (45.5-73.1); Platelet Count Result 200 k/mm3 (150-375); Red Blood Count 4.04 M/mm3 (4.6-6.20); Red Cell Distribution Width 12.6 % (11.5-14.5); White Blood Count 8.4 K/mm3 (4.5-10.0)
[2021-06-10 06:13] LABS: Alanine Aminotransferase 28 U/L (4-50); Albumin Level 3.4 g/dL (3.5-5.1); Alkaline Phosphatase 70 U/L (38-126); Anion Gap 7 mmol/L (8-16); Aspartate Amino Transferase 24 U/L (17-59); Bilirubin,Total 0.4 mg/dL (0.2-1.3); Blood Urea Nitrogen 12 mg/dL (9-20); Calcium 9.1 mg/dL (8.4-10.2); Carbon Dioxide 26 mmol/L (22-30); Chloride 101 mmol/L (98-107); Estimated CRCL calculation 58 ml/min; Estimated Glomerular Filt Rate 55; Glucose 233 mg/dL (65-110); Potassium 4.3 mmol/L (3.4-5.0); Sodium 134 mmol/L (137-145)
[2021-06-10 07:58] LABS: Glucose Point of Care 237 mg/dl (65-105)
[2021-06-10] MEDS: INSULIN ASPART (*BKC) 100 UNITS/ML SUB-Q ×2 (09:34→12:13)
[2021-06-10] MEDS: SPIRONOLACTONE 25 MG TABLET PO (09:36)
[2021-06-10] MEDS: METOPROLOL SUCCINATE EXT REL 50 MG TABCR PO (09:36)
[2021-06-10] MEDS: FLUTICASONE/UMECLIDIN/VILANTER 100-62.5-25 MCG ELLIPTA 1 PUFF INHALATION (09:36)
[2021-06-10] MEDS: ROSUVASTATIN 10 MG TABLET 40 MG PO (09:36)
[2021-06-10] MEDS: hydroCHLOROthiazide 25 MG TABLET PO (09:36)
[2021-06-10] MEDS: TAMSULOSIN HCL 0.4 MG CAPSULE PO (09:36)
[2021-06-10 09:48] LABS: Glucose Point of Care 262 mg/dl (65-105)
[2021-06-10 10:03] VITALS: BP 139/70; PULSE 93; RESP 16; TEMP 37.2; O2SAT 93
[2021-06-10 11:46] LABS: Glucose Point of Care 279 mg/dl (65-105)
--- NOTE | 2021-06-10 13:08 | PM.DS ---
DS: Admitting Diagnosis Admitting Diagnosis Patient having rectal bleeding DS: Discharge Diagnosis Discharge Diagnosis (1) Acute lower GI hemorrhage: Code(s): K92.2 - Gastrointestinal hemorrhage, unspecified Status: Acute Assessment and Plan: will proceed with colonoscopy did not show any active bleeding serial H/Hs, Hgb = 13.7, Hct 43.6, relatively stable also noted CT scan with possible sigmoid lesion, possible diverticular bleed. Lactic acid normalized to 1.3 after being elevated 3.2, 3.2 Received adequate hydration with IV fluids and oral intake holding aspirin for a full 7 days Patient completed Colonscopy and now GI ok'd to resume diet. Patient tolerating foods and meals and liquids well Minimal blood in stool upon examination of bowel movement today patient is okay for discharge (2) Uncontrolled type 2 diabetes mellitus: Code(s): E11.65 - Type 2 diabetes mellitus with hyperglycemia Status: Acute Assessment and Plan: medical treatment Glucose 233 Tolerating sliding scale insulin held DM meds to avoid hypoglycemia Metformin was held during hospitalization due to CT with contrast Restarting metformin at discharge and patient expected to follow up with primary care provider (3) Coronary artery disease: Code(s): I25.10 - Atherosclerotic heart disease of [place] coronary artery without angina pectoris Status: Inactive Assessment and Plan: holding aspirin due to GI Bleed for the next 7 days EKG at admission: Rate 79, ATRIAL SENSE- ELECTRONIC VENTRICULAR PACEMAKER no chest pain/pressure no SOB, on Room air, Blood pressure controlled with systolics in the 120s to 160, heart rate controlled in the 60s and 70s no acute concerns at this time (4) Colon, diverticulosis: Code(s): K57.30 - Diverticulosis of large intestine without perforation or abscess without bleeding Status: Acute Assessment and Plan: No diverticulitis on the colonoscopy No active bleeding on the colonoscopy No current distention or abdominal pain even with deep palpation patient is eating well F/u with GI for control of symptoms (5) Adenomatous colon polyp: Code(s): D12.6 - Benign neoplasm of colon, unspecified Status: Acute Assessment and Plan: had several colonoscopies: 2018 was abdnormal. There were a few polyps removed and sent to pathology See above for discussion of colonoscopy F/u with GI (6) Abnormal CT scan, colon: Code(s): R93.3 - Abnormal findings on diagnostic imaging of other parts of digestive tract Status: Acute Assessment and Plan: CT scan showed: Cannot exclude distal sigmoid colon carcinoma; colonoscopy completed and no sign of the lesion on the colonoscopy Diverticulosis of left and right colon; no evidence of diverticulitis *GI consulted and patient following up with him (7) Ureteropelvic junction calculus: Code(s): N20.1 - Calculus of ureter Status: Acute Assessment and Plan: Noted on CT scan: 4.5 mm right ureteropelvic junction calculus, without hydronephrosis and 4.5 mm right ureteropelvic junction calculus, without hydronephrosis and 5 mm nonobstructing left renal calculus ordered US abdomen both renal stones remain non occluding Patient does see urologist Dr. Watters and agreed to follow up with him patient denies any/all flank pain , also denies any/all abdominal pain for yesterday or today. strict Intake /output Creatinine 1.2 -1.3 encourage patient continue his own hydration (8) Liver lesion: Code(s): K76.9 - Liver disease, unspecified Status: Acute Assessment and Plan: CT showed: 9 mm right adrenal mass, Indeterminate 8 mm hypoattenuating lesion of the caudate process of the liver, Hepatic steatosis Liver enzymes and total bili were WNL Ordered US abdomen -will need further follow-up with MRI to get a better look at the 2 liver lesions and the adrenal mass Patient was
== END 2021-06-10 13:30 | disposition home or self-care (01) ==
PROVIDERS: Internal Medicine Gastroenterology; Nurse Practitioner; Admitting Provider Internal Medicine; PCP Emergency Medicine; Visit Provider Hospitalist
PROC: 0DJD8ZZ Inspection of Lower Intestinal Tract, Via Natural or Artificial Opening Endoscopic (ICD-10-PCS; CPT 45378; principal; 2021-06-09 12:30)
DX: K57.30 Diverticulosis of large intestine without perforation or abscess without bleeding (principal); K63.5 Polyp of colon; K64.8 Other hemorrhoids; K76.9 Liver disease, unspecified; E11.65 Type 2 diabetes mellitus with hyperglycemia; E87.2 Acidosis; E83.42 Hypomagnesemia; I25.10 Atherosclerotic heart disease of native coronary artery without angina pectoris; N20.1 Calculus of ureter; Z95.5 Presence of coronary angioplasty implant and graft; Z95.0 Presence of cardiac pacemaker; Z87.891 Personal history of nicotine dependence; Z79.84 Long term (current) use of oral hypoglycemic drugs
CPT/HCPCS: 45385; 36415; 76700; 80048; 80053; 82948; 83605; 83735; 84100; 85014; 85018; 85025; 85027; 88305; 94640; 96360; 96361; A9270; G0378; G0379; J1815; J2001; J2704; J7030; J7120

== ENCOUNTER 2021-08-09 08:18 | Outpatient (CLI) | payer OTHER, SELFPAY ==
[2021-08-09 08:41] LABS: Creatinine Urine 162.37 mg/dL (40-278); MALB Creatinine Ratio 56.8 mg/g (0-30); Microalbumin Urine Random 92.3 mg/L
[2021-08-09 08:44] LABS: Hemoglobin A1C 10.2 % (<5.7)
[2021-08-09 09:28] LABS: Alanine Aminotransferase 37 U/L (16-63); Albumin Level 3.4 g/dL (3.4-5.0); Alkaline Phosphatase 83 U/L (46-116); Anion Gap 11 mmol/L (8-16); Aspartate Amino Transferase 13 U/L (15-37); Bilirubin,Total 0.3 mg/dL (0.00-1.00); Blood Urea Nitrogen 19 mg/dL (7-18); Calcium 9.6 mg/dL (8.5-10.1); Carbon Dioxide 29 mmol/L (21-32); Chloride 99 mmol/L (98-108); Cholesterol 105 mg/dL (0-200); Estimated Glomerular Filt Rate 49; Glucose 257 mg/dL (70-99); HDL Direct 40 mg/dL (40-60); LDL Cholesterol Calculated 24 mg/dL (<130); Osmolality Calculated 299 mOsm/kg (285-295); Potassium 4.9 mmol/L (3.5-5.1); Sodium 139 mmol/L (136-145); Total Protein 6.8 g/dL (6.4-8.2); Triglycerides 204 mg/dL (0-150)
== END 2021-08-09 08:19 | disposition home or self-care (01) ==
LOC: CHSLAB 08:20
PROVIDERS: PCP Emergency Medicine; Visit Provider Emergency Medicine
DX: E78.2 Mixed hyperlipidemia (principal); I10 Essential (primary) hypertension; E11.9 Type 2 diabetes mellitus without complications
CPT/HCPCS: 36415; 80053; 80061; 82043; 83036

== ENCOUNTER 2021-11-03 15:32 | Emergency (ER) | payer OTHER, SELFPAY ==
--- NOTE | ~2021-11-03 | XR_ITS ---
EXAMINATION: XR abdomen/kub 1V INDICATION: Left flank pain TECHNIQUE: Supine views of the abdomen were obtained on 2 radiographs. COMPARISON: CT from today FINDINGS: A 5 mm stone projects in the proximal left ureter at the level of the left L5 transverse pr ocess. The bowel gas pattern is normal. There is moderate osteoarthritis of the hips. Moderate lumbar spondylosis is also noted. IMPRESSION: 1. 5 mm stone of the proximal left ureter corresponding to the stone identified on CT. Reviewed, dictated and finalized at location F. ENT WORKER
--- NOTE | ~2021-11-03 | CT_ITS ---
EXAMINATION: CT abdomen pelvis wo con DATE: 11/03/2021 18:04 INDICATION: Left flank pain TECHNIQUE: Computed tomography (CT) of the abdomen and pelvis was performed without intravenous contr ast. The dose-length product (DLP) was 1305.68 mGy-cm. Automated exposure control and iterative recon struction technique were employed. COMPARISON: 06/08/2021 FINDINGS: Minimal dependent atelectasis is present in the lung bases. Cardiomegaly is noted. There ar e changes of prior cardiac surgery. Subendocardial fat deposition in the left ventricular apex is con sistent with prior myocardial infarction. A stable 3 mm nodule of the right lower lobe likely represe nts old granulomatous disease. Stones are present in the nondistended gallbladder. The liver, spleen, pancreas, and adrenal glands are normal. The right kidney is unremarkable. There are two adjacent st ones measuring 4 mm and 2 mm in the proximal left ureter which cause mild left hydroureteronephrosis. No pathologically enlarged abdominal or pelvic lymph nodes are identified. There is calcified athero sclerosis of the aorta and many of the other arteries. There is no free intraperitoneal gas or eviden ce of bowel obstruction. Colonic diverticulosis is present without evidence of diverticulitis. There are small fat-containing inguinal hernias. There is moderate osteoarthritis of the hips. There is mil d lumbar spondylosis. IMPRESSION: 1. Two adjacent stones in the proximal left ureter causing mild left hydroureteronephrosis. 2. Cholelithiasis without evidence of cholecystitis. Reviewed, dictated and finalized at location F. CAL DESIGN ENGINEER IMPRESSION: 1. Two adjacent stones in the proximal left ureter causing mild left hydrourete ronephrosis. 2. Cholelithiasis without evidence of cholecystitis.
[2021-11-03 15:55] VITALS: BP 141/66; PULSE 60; RESP 16; TEMP 36.3; O2SAT 94
--- NOTE | 2021-11-03 16:22 | ED.ABDPAIN ---
HPI - Abdominal Pain General Chief Complaint: Unspecified Stated Complaint: possible stuck kidney stone Time Seen by Provider: 11/03/21 16:23 Source: patient Mode of arrival: ambulatory Limitations: no limitations History of Present Illness HPI narrative: 71-year-old man with a history of urolithiasis,, congestive heart failure, chronic kidney disease, and type 2 diabetes comes in today complaining of left flank pain for last few days. Patient states he had a low bit of blood in his urine today. He passed a stone as recently as last week and has a long history of urolithiasis. He had some vomiting earlier today but denies any fever, cough or cold symptoms, chest pain, diarrhea, difficulty urinating, or rash. MD elicited complaint: flank pain Pertinent past history: kidney stones Onset (ago): day(s) (3) Pain Consistency: constant and colicky Location: L flank Severity: severe Quality: cramping and sharp Radiation: none Migration to: no migration Exacerbating factors: movement Relieving factors: nothing Context: confirms history of similar episodes Associated symptoms: nausea, vomiting and hematuria Related Data Home Medications Medication Instructions Recorded Confirmed aspirin 81 mg tablet,delayed 81 mg PO DAILY 08/31/19 11/03/21 release rosuvastatin 40 mg tablet 40 mg PO DAILY 08/31/19 11/03/21 spironolactone 25 1 tablet PO DAILY 08/10/20 11/03/21 mg-hydrochlorothiazide 25 mg tablet Trelegy Ellipta 1 inh INHALATION DAILY 06/08/21 11/03/21 cholecalciferol (vitamin D3) 25 mcg PO DAILY 06/08/21 11/03/21 [Vitamin D3] tamsulosin 0.4 mg PO DAILY 06/09/21 11/03/21 losartan 12.5 mg PO DAILY 11/03/21 11/03/21 Allergies Allergy/AdvReac Type Severity Reaction Status Date / Time morphine AdvReac Unknown Vomiting Verified 11/03/21 16:05 tramadol AdvReac Unknown Dizziness Verified 11/03/21 16:05 Review of Systems Review of Systems: All systems reviewed & are unremarkable except as noted in HPI and below Constitutional: Constitutional: Denies chills and Denies fever(s) ENT: Denies nasal congestion and Denies sore throat Cardiovascular: Cardiovascular: Denies chest pain and Denies radiating jaw, neck or arm pain Respiratory: Respiratory: Denies cough and Denies dyspnea Gastrointestinal: Gastrointestinal: Reports as per HPI, Reports abdominal pain, Denies diarrhea, Reports nausea and Reports vomiting Genitourinary: Genitourinary: Reports hematuria, Denies dysuria, Denies urinary frequency and Denies urinary incontinence Musculoskeletal: Musculoskeletal: Denies arthralgias and Denies joint swelling Integumentary/Breasts: Skin/Breast: Denies pruritus, Denies erythema and Denies rash Neurologic: Denies vertigo, Denies dizziness and Denies syncope Hematologic/Lymphatic: Hematologic/Lymphatic: Denies easy bleeding and Denies easy bruising Allergic/Immunologic: Allergic/Immunologic: Denies lip swelling and Denies throat swelling [facility] Past Medical History Medical History Abnormal CT scan, colon Adenomatous colon polyp BPH (benign prostatic hyperplasia) CHF (congestive heart failure) Echocardiogram April 2020: Mild left ventricular enlargement, mild global ventricular systolic dysfunction, impaired diastolic relaxation grade 1, ejection fraction 41%, mild enlargement of left atrium, RVSP of 41 Cholelithiasis CKD (chronic kidney disease), stage III Colitis (~2017) Colon, diverticulosis COPD (chronic obstructive pulmonary disease) Coronary artery disease DM2 (diabetes mellitus, type 2) Last hemoglobin A1c 04/28/2021 10.6 Gastric ulcer With history of bleeding ulcer approximately 2017 GERD (gastroesophageal reflux disease) Gout HTN (hypertension) Hypercholesterolemia Hypersomnolence Kidney stones Numerous Obstructive sleep apnea Intolerant of CPAP machine Seasonal allergies Surgical History Surgical History (Reviewed 11/03/21 @ 19:15 by Martín Staples
[2021-11-03] MEDS: SODIUM CHLORIDE 0.9% IV 1,000 ML 999 ML IV CONT ×2 (16:51→18:09)
[2021-11-03] MEDS: ONDANSETRON INJ 4 MG/2 ML VIAL IV PUSH ×2 (16:51→20:03)
[2021-11-03] MEDS: HYDROmorphone HCL INJ (*CRX) 2 MG/ML VIAL 0.5 MG IV PUSH ×2 (16:52→19:44)
[2021-11-03 16:57] LABS: Basophils Absolute Auto 0.06 K/mm3 (0.00-0.10); Basophils Percent Auto 0.4 % (0.0-1.0); Eosinophils Absolute Auto 0.03 K/mm3 (0.02-0.50); Eosinophils Percent Auto 0.2 % (1.0-6.0); Hematocrit 47.5 % (37.0-46.0); Immature Granulocyte Absolute 0.07 K/mm3 (0.00-0.00); Immature Granulocyte Percent A 0.5 % (0.0-0.0); Lymphocytes Absolute Auto 1.08 K/mm3 (1.10-4.50); Mean Corpuscular HGB Conc 31.6 g/dL (32.0-36.0); Mean Corpuscular Hemoglobin 29.1 pg (27.0-31.0); Mean Corpuscular Volume 92.2 fL (78.0-102.0); Mean Platelet Volume 9.3 fl (8.7-11.0); Monocytes Absolute Auto 1.49 K/mm3 (0.10-0.90); Neutrophils Absolute Auto 10.8 K/mm3 (1.7-7.2); Neutrophils Percent Auto 79.9 % (50.0-70.0); Platelet Count Result 267 K/mm3 (150-420); Red Blood Count 5.15 M/mm3 (4.70-6.10); Red Cell Distribution Width 13.2 % (11.6-14.4); White Blood Count 13.5 K/mm3 (4.8-10.8)
[2021-11-03 17:05] LABS: Add Urine Microscopic? YES; Appearance Urine Clear (Clear); Bilirubin Urine Negative (Negative); Blood Urine 2+ (Negative); Color Urine Light Yellow (Yellow); Glucose Urine UA Negative (Negative); Ketones Urine Trace (Negative); Leukocyte Esterase Ur Negative LEU/UL (Negative); Nitrate Urine Negative (Negative); Protein Urine 2+ (Negative); Urobilinogen Urine 0.2 mg/dL (0.2-1.0)
[2021-11-03 17:13] LABS: Alanine Aminotransferase 25 U/L (16-63); Albumin Level 3.5 g/dL (3.4-5.0); Alkaline Phosphatase 99 U/L (46-116); Anion Gap 9 mmol/L (8-16); Aspartate Amino Transferase 15 U/L (15-37); Bilirubin,Total 0.4 mg/dL (0.00-1.00); Blood Urea Nitrogen 18 mg/dL (7-18); Calcium 10.4 mg/dL (8.5-10.1); Carbon Dioxide 29 mmol/L (21-32); Chloride 97 mmol/L (98-108); Estimated CRCL calculation 30 ml/min; Estimated Glomerular Filt Rate 25; Glucose 171 mg/dL (70-99); Osmolality Calculated 285 mOsm/kg (285-295); Potassium 4.5 mmol/L (3.5-5.1); Sodium 135 mmol/L (136-145); Total Protein 7.8 g/dL (6.4-8.2)
[2021-11-03 17:18] LABS: Lactic Acid Reflex 2.3 mmol/L (0.4-2.0)
[2021-11-03 17:20] LABS: Bacteria Urine Trace /hpf; RBC Urine 0-2 /hpf (0-2); Squamous Epithelial Cell Urine Rare /hpf (Few); WBC Urine 0-3 /hpf (0-3)
--- NOTE | 2021-11-03 18:33 | PC.NURSE ---
Dr Stephens exchange called [phone]
--- NOTE | 2021-11-03 18:48 | PC.NURSE ---
dr canela returned call
[2021-11-03] MEDS: TAMSULOSIN HCL 0.4 MG CAPSULE PO (19:44)
[2021-11-03] MEDS: SODIUM CHLORIDE 0.9% IV 1,000 ML 150 ML IV CONT (19:44)
[2021-11-03] MEDS: levoFLOXacin 500 MG/D5W 100 ML 500 MG/100 ML BAG 100 MG IVPB (19:44)
[2021-11-03 19:51] LABS: Reflex Lactic Acid Yes or No Add Lactic
[2021-11-03 20:00] LABS: SARS-CoV-2 Ag Negative (Negative)
[2021-11-03 20:37] LABS: Lactic Acid 1.3 mmol/L (0.4-2.0)
[2021-11-03] MEDS: METOCLOPRAMIDE HCL INJ 10 MG/2 ML VIAL IV PUSH (21:37)
== END 2021-11-03 21:52 | disposition short-term general hospital (02) ==
PROVIDERS: Emergency Provider Emergency Medicine; PCP Emergency Medicine
DX: N20.9 Urinary calculus, unspecified (principal); N13.30 Unspecified hydronephrosis; N17.9 Acute kidney failure, unspecified; Z20.822 Contact with and (suspected) exposure to COVID-19; I50.9 Heart failure, unspecified; E11.9 Type 2 diabetes mellitus without complications; I12.9 Hypertensive chronic kidney disease with stage 1 through stage 4 chronic kidney disease, or unspecified chronic kidney disease; N18.30 Chronic kidney disease, stage 3 unspecified; E78.00 Pure hypercholesterolemia, unspecified; K21.9 Gastro-esophageal reflux disease without esophagitis; Z87.891 Personal history of nicotine dependence
CPT/HCPCS: 36415; 74018; 74176; 80053; 81001; 83605; 85025; 87426; 96361; 96365; 96366; 96375; 96376; 99285; A9270; C9803; J1170; J1956; J2405; J2765; J7030

== ENCOUNTER 2021-11-10 10:30 | Outpatient (CLI) | payer OTHER, SELFPAY | END 2021-11-10 10:31 | disposition home or self-care (01) | LOC: ANHSURGERY 10:37 | PROVIDERS: PCP Emergency Medicine; Visit Provider Urology | DX: N20.1 Calculus of ureter (principal); Z01.818 Encounter for other preprocedural examination | CPT/HCPCS: 87086 ==

== ENCOUNTER 2021-11-14 00:39 | Day surgery (SDC) | payer OTHER, SELFPAY ==
[2021-11-09 15:38] VITALS: BMI 37.8
--- NOTE | 2021-11-09 16:16 | PC.NURSE ---
Report to the Outpatient Waiting Room, entrance under the green pavilion located off [facility], at time __8:45AM on date _11/14/21 . OR Time: _10:45AM . - You and your visitor will be asked a series of questions to screen for COVID 19 for your protection. - A mask is required within the hospital. - Only one visitor is allowed at this time. Patient visitors will be guided where to wait when not with patient. Preoperative COVID Testing Requirements: No COVID Test needed if: (proof is required; if not received patient will have Rapid Test prior to entry) - Patient has received COVID Vaccine at least 14 days prior to procedure date or - Patient has positive COVID test result within last 90 days of surgery date. COVID Test needed if above criteria is not met If not COVID vaccinated a COVID test must be conducted within 72 hours of surgery and patient is asked to isolate self from time of testing until procedure. You will go to the [facility] for your COVID testing. The [facility] is located at the corner of [address] [facility]. You will only be called if COVID results are positive and your surgeon may reschedule your elective surgery date. Patients may have clear liquids (water, carbonated beverages, clear teas, apple juice) until 3 hours prior to surgery with a maximum of 20 ounces. - No food from midnight until time of surgery - Infants may have breast milk until 4 hours before surgery, infant formula 6 hours prior to surgery. - Children will be allowed to drink immediately following surgery. If applicable, please bring a bottle or sippy cup to assist with drinking. Juice, water, soda, and popsicles are readily available. For infants on formula, please bring formula the day of surgery. Pacifiers are allowed. Take the following medications with a SIP of water the morning of surgery: __METOPROLOL, ALBUTEROL INHALER NEEDED Medications to discontinue per physician ____ASPIRIN PER DR REDMAN, PT'S CALLING OFFICE Date to take last dose Please no make-up, nail liberian, hairspray, perfume, deodorant, or body powder the day of surgery. No jewelry (including any body piercings) or valuables the day of surgery, leave them at home. Please take a shower or bath the night before, or the morning of, surgery with an antibacterial soap. Wear comfortable, loose fitting clothing. Children are encouraged to wear pajamas. - Jewelry must be removed prior to entering the operating room. Rings and piercings that are not removed may be cut off. - The hospital will not accept responsibility for valuables. - Please leave all valuables, including medications, at home the day of surgery. If you are going home after surgery, a licensed horse and wagon driver must drive you home. - NO public transportation without another adult. - We recommend that an adult stay with you for 24 hours following discharge. - We also recommend that you do not drive, make important decision, drink alcoholic beverages, or take any drugs that were not prescribed by your health care provider for at least 24 hours after your discharge time. For Pediatric surgeries, we recommend two adults accompany the child home (only one inside the building at this time). Follow any additional instructions given to you from your surgeon. Telephone instructions given to _PATIENT'S WIFE___and asked if any additional questions and then verbalized understanding. Patient advised to call surgeon office or pre surgery nurse liaison [phone] if any additional questions.
[2021-11-14] VITALS (10 sets, daily range): BP systolic 134–164; BP diastolic 78–90; PULSE 74–105; RESP 10–20; TEMP 35.9–36.2; O2SAT 94–100; BMI 34.9
--- NOTE | ~2021-11-14 | XR_ITS ---
EXAMINATION: XR retrograde pyelo w/stent LT DATE: 11/14/2021 10:47 INDICATION: Left-sided renal stone extraction and stent exchange TECHNIQUE: 8 fluoroscopic images of the abdomen and pelvis were obtained during procedure performed octaviano Watters. Radiologist was not present for the imaging or procedure. The amount of fluoroscopy t amber used during this procedure was 0.4 minutes. COMPARISON: None. FINDINGS: Images demonstrate cannulation of the left ureter with wire advanced into an upper pole calyx of the left kidney. Retrograde contrast injections demonstrates mild left hydronephrosis. Final images demon strate placement of a left internal ureteral stent with loops formed in the left renal pelvis and in the bladder. The previously noted stone in the mid left ureter is not visualized on the provided imag es and has likely been extracted. Correlate with procedure note. IMPRESSION: 1. Left internal ureteral stent in expected position post reported left ureteral stone extraction. Se e procedure note for further detail. Reviewed, dictated and finalized at location A. SQL DEVELOPER IMPRESSION: 1. Left internal ureteral stent in expected position post reported left uretera l stone extraction. See procedure note for further detail.
--- NOTE | 2021-11-14 08:53 | WPDHPUPDATE1 ---
History and Physical Update Update Date/Time: 11/14/21 08:53 History and Physical has been reviewed, including an updated exam of the patient. There are NO changes in the patient's condition. Risks, benefits, and alternatives have been discussed and questions answered. Patient agrees to proceed with procedure. Proceed with cystoscopy, left retrograde, left ureteroscopy with stone extraction, possible laser, stent exchange
[2021-11-14] MEDS: LACTATED RINGERS 1,000 ML 30 ML IV CONT (09:58)
[2021-11-14 10:03] LABS: Glucose Point of Care 154 mg/dl (65-105)
--- NOTE | 2021-11-14 10:10 | WPDANESEPPF ---
Anes - Initial Pre Proc Eval Procedure: Operation Date: 11/14/21 11:15 Proposed Procedures p Cystoscopy, Left Ureteroscopy, Left Retrograde Pyelogram, Left Stone Extraction, Possible Left Stent Placement, - Ted Watters MD s Possible Holmium Laser Procedure - Ted Watters MD Date/Time: 11/14/21 10:10 Surgeon: Ted Watters MD Pre Op Diagnosis: left ureteral stone Patient Data Age: 71 Gender: M Height: 1.73 m Weight: 104.2 kg Last Vital Signs Temp 35.9 C L 11/14/21 09:39 Pulse 105 H 11/14/21 09:39 Resp 20 11/14/21 09:39 BP 140/90 11/14/21 09:39 Pulse Ox 99 11/14/21 09:39 Allergies Allergy/AdvReac Type Severity Reaction Status Date / Time morphine AdvReac Unknown Vomiting, Verified 11/14/21 09:30 nausea tramadol AdvReac Unknown Dizziness Verified 11/14/21 09:30 Home Medications Medication Instructions Recorded Confirmed Type aspirin 81 mg tablet,delayed 81 mg PO DAILY 08/31/19 11/14/21 History release rosuvastatin 40 mg tablet 40 mg PO DAILY 08/31/19 11/14/21 History spironolactone 25 1 tablet PO QAM 08/10/20 11/14/21 History mg-hydrochlorothiazide 25 mg tablet Trelegy Ellipta 1 inh INHALATION HS 06/08/21 11/09/21 History cholecalciferol (vitamin D3) 25 mcg PO DAILY 06/08/21 11/14/21 History [Vitamin D3] tamsulosin 0.4 mg PO DAILY 06/09/21 11/14/21 History albuterol sulfate 90 mcg/actuation 2 puff INHALATION Q4-6H PRN #8.5 gm 07/05/21 11/14/21 Rx aerosol inhaler metformin 1,000 mg tablet 1,000 mg PO BID #180 tablet 08/30/21 11/14/21 Rx semaglutide 1 mg/dose (2 mg/1.5 See Rx Instructions .ROUTE 09/11/21 11/14/21 Rx mL) subcutaneous pen injector .COMPLEX #3 ml losartan 12.5 mg PO QAM 11/03/21 11/14/21 History acetaminophen 500 mg PO BID PRN 11/09/21 11/14/21 History metoprolol succinate 50 mg PO QAM 11/09/21 11/14/21 History Laboratory Tests 11/14/21 09:55 POC Capillary Glucose 154 mg/dl H mg/dl (65-105) Patient hx anesthesia problems: none Family hx anesthesia problems: none Results Review: All pre-operative results and documents have been reviewed as part of the pre-operative evaluation. [facility] Past Medical History Medical History Abnormal CT scan, colon Adenomatous colon polyp BPH (benign prostatic hyperplasia) CHF (congestive heart failure) Echocardiogram April 2020: Mild left ventricular enlargement, mild global ventricular systolic dysfunction, impaired diastolic relaxation grade 1, ejection fraction 41%, mild enlargement of left atrium, RVSP of 41 Cholelithiasis CKD (chronic kidney disease), stage III Colitis (~2016) Colon, diverticulosis COPD (chronic obstructive pulmonary disease) Coronary artery disease DM2 (diabetes mellitus, type 2) Last hemoglobin A1c 04/28/2021 10.6 Gastric ulcer With history of bleeding ulcer approximately 2017 GERD (gastroesophageal reflux disease) Gout HTN (hypertension) Hypercholesterolemia Hypersomnolence Kidney stones Numerous Obstructive sleep apnea Intolerant of CPAP machine Seasonal allergies Surgical History Surgical History H/O arthroscopic knee surgery Bilaterally History of colonoscopy with polypectomy With history of ulcerated polyp in 2013. His most recent colonoscopy was 2017 History of coronary artery bypass graft x 3 (~2009) History of coronary artery stent placement (~2017) History of esophagogastroduodenoscopy (EGD) (12/2017) Reflux esophagitis, gastritis and chronic duodenal ulcers History of ureter stent Status post cataract extraction of both eyes with insertion of intraocular lens (~2001) Family History Family History Mother Diabetes mellitus Breast cancer Cause of Hypertension Father Myocardial infarct Cerebrovascular accident Sibling Diabetes
[2021-11-14] MEDS: ceFAZolin 2 GM/D5W 50 ML 2 GM/50 ML BAG IVPB (10:14)
[2021-11-14] MEDS: LIDOCAINE HCL 2% GEL UROJET 10 ML PKG MUCOUS MEM (10:34)
--- NOTE | 2021-11-14 10:46 | W.PM.PROC2 ---
Procedure Note - Detailed Date of Procedure 11/14/21 Pre-op Diagnosis left ureteral stone Post-op Diagnosis same Procedure Performed Cystoscopy, left retrograde pyelogram, left ureteroscopy with stone extraction x2, left ureteral stent replacement 4.8 Ethiopian contour Surgeon Ted Watters MD Anesthesia general Findings 2 distal stones measuring from 5 mm to 6-7 mm Description of Procedure Patient is taken to the operative suite correctly identified. Once anesthesia was obtained he was placed in dorsal lithotomy position and prepped and draped usual sterile fashion. Twenty-two Ethiopian scope inserted in the bladder. The prior stent was grasped and brought out to the meatus. A guidewire was passed through the stent. Rigid ureteral scope was then inserted. Two stones were visualized distally. Both were grasped with an escape basket retrieved in entirety and sent for analysis. Reinspection of the entire ureter revealed no residual stones. Pyelogram was then performed to confirm placement of the stent. 4.8 Ethiopian contour stent was then placed with the proximal end coiled in the renal pelvis and the distal in the bladder. Bladder was drained. 2% viscous lidocaine was inserted urethra patient is taken recovery stable condition. He will follow up in a week's time for stent removal. Drains Yes Packing No Pathology yes Complications No immediate complications Condition stable Disposition PACU
[2021-11-14 10:59] LABS: Glucose Point of Care 118 mg/dl (65-105)
[2021-11-14] MEDS: ONDANSETRON INJ 4 MG/2 ML VIAL IV PUSH (11:52)
[2021-11-14] MEDS: diphenhydrAMINE HCl INJ 50 MG/ML VIAL 25 MG IV PUSH (12:53)
== END 2021-11-14 13:50 | disposition home or self-care (01) ==
PROVIDERS: PCP Emergency Medicine; Visit Provider Urology
PROC: (CPT 52352; principal; 2021-11-14 11:15)
DX: N20.1 Calculus of ureter (principal); I13.0 Hypertensive heart and chronic kidney disease with heart failure and stage 1 through stage 4 chronic kidney disease, or unspecified chronic kidney disease; I50.9 Heart failure, unspecified; N18.30 Chronic kidney disease, stage 3 unspecified; E11.22 Type 2 diabetes mellitus with diabetic chronic kidney disease; N40.0 Benign prostatic hyperplasia without lower urinary tract symptoms; J44.9 Chronic obstructive pulmonary disease, unspecified; I25.10 Atherosclerotic heart disease of native coronary artery without angina pectoris; K21.9 Gastro-esophageal reflux disease without esophagitis; M10.9 Gout, unspecified; E78.00 Pure hypercholesterolemia, unspecified; G47.33 Obstructive sleep apnea (adult) (pediatric); Z87.11 Personal history of peptic ulcer disease; Z79.82 Long term (current) use of aspirin; Z79.51 Long term (current) use of inhaled steroids; Z79.84 Long term (current) use of oral hypoglycemic drugs; Z95.1 Presence of aortocoronary bypass graft; Z79.899 Other long term (current) drug therapy; Z95.5 Presence of coronary angioplasty implant and graft; Z87.891 Personal history of nicotine dependence; E66.9 Obesity, unspecified; Z68.34 Body mass index [BMI] 34.0-34.9, adult
CPT/HCPCS: 52332; 52352; 74420; 82365; 82948; 87086; 88300; A9270; C1758; C1769; C2617; J0690; J1170; J1200; J2250; J2405; J2704; J7120; Q9966

== ENCOUNTER 2021-12-11 08:03 | Outpatient (CLI) | payer OTHER, SELFPAY ==
[2021-12-11 09:03] LABS: Alanine Aminotransferase 27 U/L (16-63); Albumin Level 3.3 g/dL (3.4-5.0); Alkaline Phosphatase 71 U/L (46-116); Anion Gap 12 mmol/L (8-16); Aspartate Amino Transferase 16 U/L (15-37); Bilirubin,Total 0.3 mg/dL (0.00-1.00); Blood Urea Nitrogen 18 mg/dL (7-18); Carbon Dioxide 24 mmol/L (21-32); Chloride 104 mmol/L (98-108); Cholesterol 104 mg/dL (0-200); Creatinine Urine 136.67 mg/dL (40-278); Estimated Glomerular Filt Rate 48; Glucose 178 mg/dL (70-99); HDL Direct 47 mg/dL (40-60); LDL Cholesterol Calculated 27 mg/dL (<130); MALB Creatinine Ratio 70.5 mg/g (0-30); Microalbumin Urine Random 96.4 mg/L; Osmolality Calculated 295 mOsm/kg (285-295); Potassium 4.8 mmol/L (3.5-5.1); Sodium 140 mmol/L (136-145); Total Protein 6.7 g/dL (6.4-8.2); Triglycerides 152 mg/dL (0-150)
[2021-12-11 09:42] LABS: Hemoglobin A1C 7.1 % (<5.7)
== END 2021-12-11 08:04 | disposition home or self-care (01) ==
LOC: CHSLAB 08:05
PROVIDERS: PCP Emergency Medicine; Visit Provider Emergency Medicine
DX: E78.2 Mixed hyperlipidemia (principal); E11.9 Type 2 diabetes mellitus without complications; I10 Essential (primary) hypertension
CPT/HCPCS: 36415; 80053; 80061; 82043; 83036

== ENCOUNTER 2022-04-05 07:35 | Outpatient (CLI) | payer OTHER, SELFPAY ==
[2022-04-05 08:09] LABS: Hemoglobin A1C 7.5 % (<5.7)
[2022-04-05 08:10] LABS: Creatinine Urine 142.88 mg/dL (40-278); MALB Creatinine Ratio 19.1 mg/g (0-30); Microalbumin Urine Random 27.3 mg/L
[2022-04-05 08:20] LABS: Alanine Aminotransferase 30 U/L (16-63); Alkaline Phosphatase 120 U/L (46-116); Anion Gap 6 mmol/L (8-16); Aspartate Amino Transferase 15 U/L (15-37); Bilirubin,Total 0.2 mg/dL (0.00-1.00); Blood Urea Nitrogen 22 mg/dL (7-18); Calcium 9.9 mg/dL (8.5-10.1); Carbon Dioxide 29 mmol/L (21-32); Chloride 102 mmol/L (98-108); Cholesterol 90 mg/dL (0-200); Estimated Glomerular Filt Rate 47; Glucose 151 mg/dL (70-99); HDL Direct 38 mg/dL (40-60); LDL Cholesterol Calculated 27 mg/dL (<130); Osmolality Calculated 290 mOsm/kg (285-295); Potassium 5.1 mmol/L (3.5-5.1); Sodium 137 mmol/L (136-145); Total Protein 6.8 g/dL (6.4-8.2); Triglycerides 126 mg/dL (0-150)
== END 2022-04-05 07:36 | disposition home or self-care (01) ==
LOC: CHSLAB 07:37
PROVIDERS: PCP Emergency Medicine; Visit Provider Emergency Medicine
DX: E78.5 Hyperlipidemia, unspecified (principal); E11.9 Type 2 diabetes mellitus without complications
CPT/HCPCS: 36415; 80053; 80061; 82043; 83036

== ENCOUNTER 2022-08-02 08:04 | Outpatient (CLI) | payer OTHER, SELFPAY ==
[2022-08-02 08:38] LABS: Creatinine Urine 133.56 mg/dL (40-278); MALB Creatinine Ratio 26.2 mg/g (0-30); Microalbumin Urine Random 35.1 mg/L
[2022-08-02 08:40] LABS: Hemoglobin A1C 6.6 % (<5.7)
[2022-08-02 08:59] LABS: Alanine Aminotransferase 26 U/L (16-63); Albumin Level 3.7 g/dL (3.4-5.0); Alkaline Phosphatase 72 U/L (46-116); Anion Gap 7 mmol/L (8-16); Aspartate Amino Transferase 16 U/L (15-37); Bilirubin,Total 0.4 mg/dL (0.00-1.00); Blood Urea Nitrogen 27 mg/dL (7-18); Calcium 10.4 mg/dL (8.5-10.1); Carbon Dioxide 31 mmol/L (21-32); Chloride 100 mmol/L (98-108); Cholesterol 110 mg/dL (0-200); Estimated Glomerular Filt Rate 46; Glucose 152 mg/dL (70-99); HDL Direct 54 mg/dL (40-60); LDL Cholesterol Calculated 32 mg/dL (<130); Osmolality Calculated 294 mOsm/kg (285-295); Sodium 138 mmol/L (136-145); Total Protein 7.2 g/dL (6.4-8.2); Triglycerides 119 mg/dL (0-150)
== END 2022-08-02 08:05 | disposition home or self-care (01) ==
LOC: CHSLAB 08:06
PROVIDERS: PCP Emergency Medicine; Visit Provider Emergency Medicine
DX: E78.2 Mixed hyperlipidemia (principal); I10 Essential (primary) hypertension; E11.65 Type 2 diabetes mellitus with hyperglycemia
CPT/HCPCS: 36415; 80053; 80061; 82043; 83036

== ENCOUNTER 2023-02-01 07:54 | Outpatient (CLI) | payer OTHER, SELFPAY ==
[2023-02-01 08:35] LABS: Alanine Aminotransferase 24 U/L (6-50); Albumin Level 4.1 g/dL (3.5-5.1); Alkaline Phosphatase 64 U/L (38-126); Anion Gap 6 mmol/L (8-16); Aspartate Amino Transferase 23 U/L (17-59); Bilirubin,Total 0.5 mg/dL (0.2-1.3); Blood Urea Nitrogen 21 mg/dL (9-20); Calcium 9.9 mg/dL (8.4-10.2); Carbon Dioxide 31 mmol/L (22-30); Chloride 100 mmol/L (98-107); Cholesterol 104 mg/dL (0-200); Estimated Glomerular Filt Rate 50; Glucose 151 mg/dL (65-110); HDL Direct 48 mg/dL; Sodium 137 mmol/L (137-145); Triglycerides 110 mg/dL (<150)
[2023-02-01 08:45] LABS: LDL Cholesterol Direct 37 mg/dL
[2023-02-01 09:06] LABS: Hemoglobin A1C 7.4 % (<5.7)
== END 2023-02-01 07:55 | disposition home or self-care (01) ==
PROVIDERS: PCP Emergency Medicine; Visit Provider Emergency Medicine
DX: E11.9 Type 2 diabetes mellitus without complications (principal); I10 Essential (primary) hypertension
CPT/HCPCS: 36415; 80053; 80061; 83036

== ENCOUNTER 2023-04-01 11:28 | Emergency (ER) | payer OTHER, SELFPAY ==
--- NOTE | ~2023-04-01 | XR_ITS ---
XR abdomen/kub 1V 04/01/2023 13:33 INDICATION: Left ureteral stone TECHNIQUE: KUB COMPARISON: Comparison to multiple prior studies sequentially, with oldest reviewed study dated 12/24. FINDINGS: Bowel gas pattern is normal. There calcifications in the left pelvis, suspicious for distal ureteral stones. There is no evidence of free air, mass, organomegaly, ascites or obstruction. The b ones appear intact. There is advanced osteoarthritis of the hips. There is moderate lumbar spondylosi s. IMPRESSION: 1: Possible distal left ureteral stones.. Reviewed, dictated and finalized at location []
--- NOTE | ~2023-04-01 | CT_ITS ---
EXAMINATION: CT abdomen pelvis wo con DATE: 04/01/2023 12:33 INDICATION: Left flank pain. Nephrolithiasis. TECHNIQUE: Computed tomography (CT) of the abdomen and pelvis was performed without intravenous contr ast. Automated exposure control and iterative reconstruction technique were employed. The dose-length product was 459.40 mGy-cm. COMPARISON: 11/03/2021 FINDINGS: Mild discoid atelectasis in the left lower lobe along the major fissure. Unchanged 3 mm right lower l obe nodule most likely sequela of old granulomatous disease. Partially visualized cardiac pacemaker l makayla along the inferior wall of the heart on with multiple surgical clips consistent with prior coron colin artery bypass grafting. No pericardial or pleural effusion. A few small calcified gallstones at t he neck of the otherwise normal-appearing gallbladder with no gallbladder dilation, wall thickening o r pericholecystic infiltrate stranding to suggest acute cholecystitis. Liver, spleen, pancreas and le ft adrenal gland are normal. 8 mm low-attenuation right adrenal adenoma. Right kidney and ureter are normal with no urolithiasis or hydronephrosis. There is an obstructing 8 x 6 x 4 mm stone in the dist al left ureter approximately 1 cm from the ureterovesicular junction. There is additional 2 mm stone along its cephalad margin. There is more proximal mild left hydroureteronephrosis. There are scattere d colonic diverticulosis without adjacent comparison to suggest diverticulitis. Small bowel and appen reta are normal. Decompressed bladder is unremarkable. No free intraperitoneal gas or fluid. No pathol ogically enlarged abdominal or pelvic lymphadenopathy. Small bilateral fat-containing inguinal hernia s. Mild lumbar spondylosis including 3 mm anterolisthesis L4 on L5 and moderate to severe lower lumba r predominant facet osteoarthritis. IMPRESSION: 1. 2 adjacent obstructing stones in the distal left ureter the larger measuring 8 x 6 x 4 mm resultin g in mild left hydroureteronephrosis 2. Cholelithiasis. 3. Diverticulosis. Reviewed, dictated and finalized at location A. IMPRESSION: 1. 2 adjacent obstructing stones in the distal left ureter the larger measuring 8 x 6 x 4 mm resulting in mild left hydroureteronephrosis 2. Cholelithiasis. 3. Diverticulosis.
[2023-04-01 11:32] VITALS: BP 146/64; PULSE 94; RESP 20; TEMP 36.8; O2SAT 93
[2023-04-01 11:42] VITALS: BP 146/64; PULSE 94; RESP 20; TEMP 36.8; O2SAT 93
--- NOTE | 2023-04-01 11:49 | ED.MALEGU ---
HPI - Male Genitourinary General Chief complaint: Urogenital-Male Stated complaint: Urinary Time Seen by Provider: 04/01/23 11:48 Source: patient and family Mode of arrival: ambulatory Limitations: no limitations History of Present Illness HPI Narrative: 73-year-old male with obesity, MANDY, COPD secondary to ex smoking, hypertension, gout, diabetes mellitus, dyslipidemia, GERD/ , colonic diverticulosis, gallstones, adenomatous polyp, CAD status post CABG 2010, stent in 2018 with an EF of 41% status post pacemaker, benign prostatic hypertrophy and ureteral stent for kidney stones presents to the ER with a 1 day history of -- left flank pain without any radiation. -- Increased frequency of micturition without any dysuria or hematuria. No fever or chills. MD Complaint: other ( Increased frequency of micturition) Onset (ago): day(s) ( started 1 day ago) Duration: constant Location: left flank Severity: mild Quality: aching Relieving factors: none Exacerbating factors: none Associated symptoms: Reports denies other symptoms Related Data Home Medications Medication Instructions Recorded Confirmed aspirin 81 mg tablet,delayed 81 mg PO DAILY 08/31/19 04/01/23 release (Aspir-Low) cholecalciferol (vitamin D3) 25 25 mcg PO DAILY 06/08/21 04/01/23 mcg (1,000 unit) capsule (Vitamin D3) acetaminophen 500 mg tablet 500 mg PO BID PRN Pain 11/09/21 04/01/23 meclizine 25 mg tablet 25 mg PO PRN 04/01/23 04/01/23 Allergies Allergy/AdvReac Type Severity Reaction Status Date / Time morphine AdvReac Unknown Vomiting, Verified 04/01/23 11:30 nausea tramadol AdvReac Unknown Dizziness Verified 04/01/23 11:30 Review of Systems Review of Systems: All systems reviewed & are unremarkable except as noted in HPI and below Constitutional: Constitutional: Reports as per HPI and Reports no additional constitutional complaints Eyes: Eyes: Reports as per HPI and Reports no additional eye complaints ENT: Reports system reviewed and no additional complaints, except as documented Comments: hard of hearing Cardiovascular: Cardiovascular: Reports as per HPI and Reports no additional cardiovascular complaints Respiratory: Respiratory: Reports as per HPI, Reports no additional respiratory complaints and Reports dyspnea Gastrointestinal: Gastrointestinal: Reports as per HPI and Reports no additional gastrointestinal complaints Genitourinary: Genitourinary: Reports urinary frequency Comments: left flank pain Musculoskeletal: Musculoskeletal: Reports no additional musculoskeletal complaints Integumentary/Breasts: Skin/Breast: Reports system reviewed and no additional complaints, except as docu Neurologic: Reports system reviewed and no additional complaints, except as documented and Reports as per HPI Psychiatric: Psychiatric: Reports no additional psychiatric complaints and Reports as per HPI Endocrine: Endocrine: Reports no additional endocrine complaints and Reports as per HPI Hematologic/Lymphatic: Hematologic/Lymphatic: Reports no additional hematologic/lymphatic complaints and Reports as per HPI Allergic/Immunologic: Allergic/Immunologic: Reports no additional allergic/immunologic complaints and Reports as per HPI [facility] Past Medical History Medical History Abnormal CT scan, colon Adenomatous colon polyp Atherosclerosis of [place] coronary artery of [place] heart without angina pectoris Body mass index [BMI] 38.0-38.9, adult (08/20/16) Body mass index [BMI] 39.0-39.9, adult (04/14/18) BPH (benign prostatic hyperplasia) BPH associated with nocturia CHF (congestive heart failure) Echocardiogram April 2020: Mild left ventricular enlargement, mild global ventricular systolic dysfunction, impaired diastolic relaxation grade 1, ejection fraction 41%, mild enlargement of left atrium, RVSP of 41 Cholelithiasis CKD (chronic kidney disease), stage III Colitis (~2016)
[2023-04-01 12:21] LABS: Basophils Absolute Auto 0.08 K/mm3 (0.00-0.10); Basophils Percent Auto 0.7 % (0.0-1.0); Eosinophils Absolute Auto 0.22 K/mm3 (0.02-0.50); Eosinophils Percent Auto 1.9 % (1.0-6.0); Hematocrit 45.6 % (37.0-46.0); Hemoglobin 14.9 g/dL (12.4-15.3); Immature Granulocyte Absolute 0.09 K/mm3 (0.00-0.00); Immature Granulocyte Percent A 0.8 % (0.0-0.0); Lymphocytes Absolute Auto 2.49 K/mm3 (1.10-4.50); Mean Corpuscular HGB Conc 32.7 g/dL (32.0-36.0); Mean Corpuscular Hemoglobin 30.2 pg (27.0-31.0); Mean Corpuscular Volume 92.5 fL (78.0-102.0); Mean Platelet Volume 9.2 fl (8.7-11.0); Monocytes Absolute Auto 1.24 K/mm3 (0.10-0.90); Neutrophils Absolute Auto 7.2 K/mm3 (1.7-7.2); Neutrophils Percent Auto 63.6 % (50.0-70.0); Platelet Count Result 244 K/mm3 (150-420); Red Blood Count 4.93 M/mm3 (4.70-6.10); Red Cell Distribution Width 12.6 % (11.6-14.4); White Blood Count 11.3 K/mm3 (4.8-10.8)
[2023-04-01 12:21] LABS: Appearance Urine Clear (Clear); Bilirubin Urine Negative (Negative); Blood Urine 3+ (Negative); Color Urine Light Yellow (Yellow); Glucose Urine UA Negative (Negative); Ketones Urine Negative (Negative); Leukocyte Esterase Ur Negative LEU/UL (Negative); Nitrate Urine Negative (Negative); Protein Urine Trace (Negative); Specific Grav Ur <= 1.005 (1.010-1.020); Urobilinogen Urine 0.2 mg/dL (0.2-1.0); pH Urine 5.5 (5.0-8.0)
[2023-04-01 12:37] LABS: Alanine Aminotransferase 26 U/L (16-63); Albumin Level 3.6 g/dL (3.4-5.0); Alkaline Phosphatase 71 U/L (46-116); Anion Gap 12 mmol/L (8-16); Aspartate Amino Transferase 16 U/L (15-37); Bilirubin,Total 0.3 mg/dL (0.00-1.00); Blood Urea Nitrogen 34 mg/dL (7-18); Calcium 9.9 mg/dL (8.5-10.1); Carbon Dioxide 26 mmol/L (21-32); Chloride 98 mmol/L (98-108); Estimated CRCL calculation 39 ml/min; Estimated Glomerular Filt Rate 40; Glucose 133 mg/dL (70-99); Lipase 91 U/L (16-77); Osmolality Calculated 291 mOsm/kg (285-295); Potassium 4.4 mmol/L (3.5-5.1); Sodium 136 mmol/L (136-145); Total Protein 7.8 g/dL (6.4-8.2)
[2023-04-01 12:40] LABS: Lactic Acid Reflex 2.9 mmol/L (0.4-2.0)
[2023-04-01 12:41] LABS: Add Urine Microscopic? YES; Bacteria Urine Rare /hpf; WBC Urine None seen /hpf (0-3)
--- NOTE | 2023-04-01 12:50 | PC.NURSE ---
PT HAS BEEN TO RR MULTIPLE TIMES THROUGHOUT ER VISIT. NAD NOTED. WILL CONTINUE TO MONITOR. PT CONTINUES TO DENY PAIN.
[2023-04-01] MEDS: LACTATED RINGERS 500 ML 999 ML IV CONT (13:14)
[2023-04-01] MEDS: ONDANSETRON INJ 4 MG/2 ML VIAL IV PUSH (13:15)
[2023-04-01] MEDS: TAMSULOSIN HCL 0.4 MG CAPSULE PO (13:15)
[2023-04-01] MEDS: HYDROmorphone HCL INJ (*CRX) 2 MG/ML VIAL 0.5 MG IV PUSH (13:16)
--- NOTE | 2023-04-01 13:25 | PC.NURSE ---
PT REPORTED HE BEGAN TO HAVE PAIN, STATES TO LEFT FLANK, LLQ. PT DENIES ANY NAUSEA, REPORTS IT FEELS LIKE I HAVE A STONE THAT IS MOVING. ERP SPOKE WITH DR FANG, STATES PT TO BE DC HOME WITH OFFICE FOLLOW UP . AT BEDSIDE. WILL CONTINUE TO MONITOR.
[2023-04-01 13:42] VITALS: BP 155/91; PULSE 88; RESP 20; TEMP 36.7; O2SAT 98
[2023-04-01 15:18] LABS: Reflex Lactic Acid Yes or No Add Lactic
== END 2023-04-01 13:50 | disposition home or self-care (01) ==
PROVIDERS: Emergency Provider Internal Medicine Critical Care Medicine; PCP Emergency Medicine
DX: N20.9 Urinary calculus, unspecified (principal); N17.9 Acute kidney failure, unspecified; I13.0 Hypertensive heart and chronic kidney disease with heart failure and stage 1 through stage 4 chronic kidney disease, or unspecified chronic kidney disease; I50.9 Heart failure, unspecified; N18.30 Chronic kidney disease, stage 3 unspecified; E11.22 Type 2 diabetes mellitus with diabetic chronic kidney disease; J44.9 Chronic obstructive pulmonary disease, unspecified; E78.5 Hyperlipidemia, unspecified; I25.10 Atherosclerotic heart disease of native coronary artery without angina pectoris; Z95.1 Presence of aortocoronary bypass graft; Z79.82 Long term (current) use of aspirin; Z87.891 Personal history of nicotine dependence
CPT/HCPCS: 36415; 74018; 74176; 80053; 81001; 83605; 83690; 85025; 96361; 96374; 96375; 99284; A9270; J1170; J2405; J7120

== ENCOUNTER 2023-04-03 10:02 | Outpatient (CLI) | payer OTHER, SELFPAY ==
--- NOTE | ~2023-04-03 | XR_ITS ---
Supine and upright views of the abdomen Clinical history: Left ureteral stone COMPARISON: 04/01/2023 Findings: Bowel gas pattern is nonspecific. No evidence for obstruction or free air. Probable stable distal left ureteral stone. Osseous structures are intact. Impression: Probable stable distal left ureteral stone. Reviewed, dictated and finalized at [facility]. Impression: Probable stable distal left ureteral stone.
== END 2023-04-03 10:03 | disposition home or self-care (01) ==
PROVIDERS: PCP Emergency Medicine; Visit Provider Urology
DX: N20.1 Calculus of ureter (principal)
CPT/HCPCS: 74018

== ENCOUNTER 2023-04-15 08:46 | Outpatient (CLI) | payer OTHER, SELFPAY ==
--- NOTE | 2023-04-15 08:58 | ECG_ITS ---
Measurements Intervals [place] Rate: 80 P: OR: 0 QRS: 225 QRSD: 161 T: 62 QT: 416 QTc: 480 Interpretive Statements ATRIAL SENSE- ELECTRONIC VENTRICULAR PACEMAKER BASELINE ARTIFACT- I, II, III, AVR, AVL, AVF NO FURTHER INTERPRETATION IS POSSIBLE ATYPICAL ECG COMPARED TO ECG 06/08/2021 19:17:07 NO SIGNIFICANT CHANGES Electronically Signed On 04-15-2023 10:02:25 CDT by Deshaun Pollack D.O.
[2023-04-15 10:13] LABS: Prothrombin Time 13.9 Seconds (11.1-14.7)
== END 2023-04-15 08:47 | disposition home or self-care (01) ==
PROVIDERS: Anesthesiology; PCP Emergency Medicine; Visit Provider Urology
DX: N20.1 Calculus of ureter (principal); N18.30 Chronic kidney disease, stage 3 unspecified; Z01.818 Encounter for other preprocedural examination
CPT/HCPCS: 36415; 85610; 85730; 87086; 93005

== ENCOUNTER 2023-04-19 03:30 | Day surgery (SDC) | payer OTHER, SELFPAY ==
[2023-04-11 14:31] VITALS: BMI 34.2
--- NOTE | 2023-04-11 15:08 | PC.NURSE ---
Report to the Outpatient Waiting Room, entrance under the green pavilion located off [facility], at time __11:00AM on date __04/19/23 . Planned Procedure Time: __1:00PM . Time changes happen often and if your time is changed the preop area will call you the afternoon before. - You and your visitor will be asked to self-screen and do not enter if you have any COVID symptoms. - A mask is optional within the hospital at this time. Patients may have clear liquids (water, carbonated beverages, clear teas, apple juice) until 3 hours prior to surgery with a maximum of 20 ounces. - No food from midnight until time of surgery Take the following medications with a SIP of water the morning of surgery: ___METOPROLOL, TRELEGY ELLIPTA, HYDROCODONE NEEDED AND ALBUTEROL INHALER NEEDED DO NOT STOP ANY OF YOUR OTHER PRESCRIPTION MEDICATIONS PRIOR TO SURGERY ?EXCEPT THE FOLLOWING Medications to discontinue per physician __HOLD ASPIRIN 7 DAYS PRE-OP PER DR REDMAN(PER PATIENT)- LAST DOSE 04/12/23, HOLD ALL VITAMINS/SUPPLEMENTS 3 DAYS PRE-OP PER ANESTHESIA- LAST DOSE 04/15/23 Please no make-up, nail czech, hairspray, perfume, deodorant, or body powder the day of surgery. No jewelry (including any body piercings) or valuables the day of surgery, leave them at home. Please take a shower or bath the night before, or the morning of, surgery with an antibacterial soap. Wear comfortable, loose fitting clothing. Children are encouraged to wear pajamas. - Jewelry must be removed prior to entering the operating room. Rings and piercings that are not removed may be cut off. - The hospital will not accept responsibility for valuables. - Please leave all valuables, including medications, at home the day of surgery. If you are going home after surgery, a licensed meals on wheels driver must drive you home. - NO public transportation without another adult if you receive anesthesia. - We recommend that an adult stay with you for 24 hours following discharge. - We also recommend that you do not drive, make important decision, drink alcoholic beverages, or take any drugs that were not prescribed by your health care provider for at least 24 hours after your discharge time. Follow any additional instructions given to you from your surgeon. If you or anyone in your household have experienced Covid symptoms in the past week, please notify your surgeon or the nurse liaison at the phone number below for possible testing. Telephone instructions given to _PATIENT & WIFE____and asked if any additional questions and then verbalized understanding. Patient advised to call surgeon office or pre surgery nurse liaison [phone] if any additional questions.
[2023-04-19] VITALS (8 sets, daily range): BP systolic 128–142; BP diastolic 69–80; PULSE 68–75; RESP 12–18; TEMP 36.3–36.9; O2SAT 96–100; BMI 33.4
--- NOTE | ~2023-04-19 | XR_ITS ---
EXAMINATION: XR retrograde pyelogram LT DATE: 04/19/2023 13:00 CDT INDICATION: LEFT SIDE STONE RETRO/STENT . TECHNIQUE: 5 fluoroscopic images of the abdomen and pelvis were obtained during left retrograde pyelo graphy and stone extraction and stent placement performed by the surgeon. I was not present in the op erating room. Fluoroscopy exposure time was 15.6 seconds. Air Kerma mGy. DAP 0.16801 mGym2. COMPARISON: CT abdomen pelvis 04/19/2023 FINDINGS: Images demonstrate catheter and wire access into the left collecting system, which is mildly ectatic. Post stent deployment the proximal coils in the renal pelvis. Imaging of the distal coil not provide d. IMPRESSION: Fluoroscopic documentation of left retrograde pyelography, stone extraction and stent placement. Plea se refer to the operative note for complete procedural details . Reviewed, dictated and finalized at location K. IMPRESSION: Fluoroscopic documentation of left retrograde pyelography, stone extraction and stent placement. Please refer to the operative note for complete procedural de tails .
--- NOTE | ~2023-04-19 | CT_ITS ---
EXAMINATION: CT abdomen pelvis wo con DATE: 04/19/2023 11:49 INDICATION: Possible kidney stone TECHNIQUE: Computed tomography (CT) of the abdomen and pelvis was performed without intravenous contr ast. Automated exposure control and iterative reconstruction technique were employed. The dose-length product was 434.07 mGy-cm. COMPARISON: 04/01/2023 FINDINGS: Persistent mild discoid atelectasis in the left lower lobe lung the major fissure. Chronic 2 mm right lower lobe nodule which can be seen dating back to 11/03/2021 consistent with old granulomatous disea se. Heart size is normal. No pericardial or pleural effusion. Median sternotomy wires and be some leonor gical clips on the cooler worker topogram consistent with prior coronary artery bypass grafting. There are al so multiple cardiac pacemaker/defibrillator leads with 2-lead tips extending into the right ventricle , one at the right atrium and one in a coronary vein overlying the lateral wall of the left ventricle having traversed the coronary sinus. There are couple small calcified gallstones in the dependent aspect of the normal-appearing gallbladd er. Liver, spleen, pancreas and bilateral adrenal glands are normal. Unchanged 8 mm obstructing stone at the distal right ureter approximately 1 cm from the ureterovesicular junction with mild left hydr oureteronephrosis. A second 2 mm stone previously seen along its cephalad margin is no longer visuali zed and has likely passed. No right-sided urolithiasis or hydronephrosis. Multiple scattered colonic diverticula without adjacent from trace stranding to suggest diverticulitis. Small bowel and appendix are normal. Bladder is normal. No free intraperitoneal gas or fluid. No pathologically enlarged abdo rajni or pelvic lymphadenopathy. Small bilateral fat-containing inguinal hernias. Mild lumbar spondyl osis including 3 mm anterolisthesis L4 on L5 and moderate to severe lower lumbar predominant facet os teoarthritis. IMPRESSION: 1. Persistent 8 mm stone in the distalmost left ureter with mild left hydroureteronephrosis. A previo usly seen second 2 mm distal left ureteral stone is no longer visualized and has likely passed. 2. Cholelithiasis. 3. Diverticulosis. Reviewed, dictated and finalized at location B. IMPRESSION: 1. Persistent 8 mm stone in the distalmost left ureter with mild left hydrouret eronephrosis. A previously seen second 2 mm distal left ureteral stone is no lo nger visualized and has likely passed. 2. Cholelithiasis. 3. Diverticulosis.
--- NOTE | ~2023-04-19 | XR_ITS ---
Supine and upright views of the abdomen Clinical history: Kidney stone COMPARISON: 04/03/2023 Findings: Bowel gas pattern is nonspecific. No evidence for obstruction or free air. Distal left uret eral stone noted, unchanged. Osseous structures are intact. Impression: Stable distal left ureteral stone. Reviewed, dictated and finalized at [facility]. Impression: Stable distal left ureteral stone.
--- NOTE | 2023-04-19 09:22 | WPDANESEPPF ---
Anes - Initial Pre Proc Eval Procedure: Operation Date: 04/19/23 13:30 Proposed Procedures p Cystoscopy, Left Ureteroscopy, Possible Left Retrograde Pyelogram, Possible Left Stone Extraction, Possible Left Stent Placement, Possible Holmium Laser Procedure - Ted Watters MD Date/Time: 04/19/23 09:22 Surgeon: Ted Watters MD Pre Op Diagnosis: left ureteral calculus Patient Data Age: 73 Gender: M Height: 1.73 m Weight: 102 kg Allergies Allergy/AdvReac Type Severity Reaction Status Date / Time morphine AdvReac Unknown Vomiting, Verified 04/19/23 12:25 nausea tramadol AdvReac Unknown Vomiting Verified 04/19/23 12:25 Home Medications Medication Instructions Recorded Confirmed Type aspirin 81 mg tablet,delayed 81 mg PO DAILY 08/31/19 04/11/23 History release (Aspir-Low) cholecalciferol (vitamin D3) 25 25 mcg PO DAILY 06/08/21 04/11/23 History mcg (1,000 unit) capsule (Vitamin D3) acetaminophen 500 mg tablet 1,000 mg PO Q6-8H PRN Pain 11/09/21 04/11/23 History albuterol sulfate 90 mcg/actuation 2 puff inhalation Q4-6H PRN 03/13/23 04/11/23 Rx aerosol inhaler shortness of breath or wheezing #8.5 grams losartan 25 mg tablet 12.5 mg PO QAM #90 tabs 03/13/23 04/11/23 Rx metformin 1,000 mg tablet 1,000 mg PO BID #180 tabs 03/13/23 04/11/23 Rx rosuvastatin 40 mg tablet 40 mg PO DAILY #90 tabs 03/13/23 04/11/23 Rx spironolactone 25 1 tablet PO QAM #90 tabs 03/21/23 04/11/23 Rx mg-hydrochlorothiazide 25 mg tablet hydrocodone 5 mg-acetaminophen 325 1 tablet PO Q8H PRN pain #14 tabs 04/01/23 04/11/23 Rx mg tablet meclizine 25 mg tablet 25 mg PO PRN PRN Dizziness 04/01/23 04/11/23 History fluticasone fur. 100 mcg-umeclid 1 ea inhalation QAM 04/11/23 04/11/23 History 62.5 mcg-vilant 25 mcg inhalat.powder (Trelegy Ellipta) metoprolol succinate 50 mg 50 mg PO QAM 04/11/23 04/11/23 History tablet,extended release 24 hr semaglutide 7 mg tablet (Rybelsus) 7 mg PO QAM 04/11/23 04/11/23 History tamsulosin 0.4 mg capsule (Flomax) 0.4 mg PO QAM 04/11/23 04/11/23 History Patient hx anesthesia problems: none Family hx anesthesia problems: none Results Review: All pre-operative results and documents have been reviewed as part of the pre-operative evaluation. [facility] Past Medical History Medical History (Updated 04/19/23 @ 09:23 by Davis Gilbert DO) Abnormal CT scan, colon Adenomatous colon polyp Atherosclerosis of [place] coronary artery of [place] heart without angina pectoris Body mass index [BMI] 38.0-38.9, adult (08/20/16) Body mass index [BMI] 39.0-39.9, adult (04/14/18) BPH (benign prostatic hyperplasia) BPH associated with nocturia CHF (congestive heart failure) Echocardiogram April 2020: Mild left ventricular enlargement, mild global ventricular systolic dysfunction, impaired diastolic relaxation grade 1, ejection fraction 41%, mild enlargement of left atrium, RVSP of 41 Cholelithiasis CKD (chronic kidney disease), stage III Colitis (~2017) Colon, diverticulosis COPD (chronic obstructive pulmonary disease) Coronary artery disease DM2 (diabetes mellitus, type 2) Last hemoglobin A1c 04/28/2021 10.6 Epigastric pain Erectile dysfunction Gallstone Gastric ulcer With history of bleeding ulcer approximately 2017 GERD (gastroesophageal reflux disease) Gout HTN (hypertension) Hypercholesterolemia Hypersomnolence ICD (implantable cardioverter-defibrillator) in place Kidney stones Numerous Long-term use of aspirin therapy Nocturia Obstructive sleep apnea Intolerant of CPAP machine Primary osteoarthritis of left shoulder Seasonal allergies Upper abdominal pain Vitamin D deficiency Surgical History Surgical History H/O arthroscopic knee surgery Bilaterally History of colonoscopy with polypectomy With history of ulcerated polyp in 2013. His most recent colonoscopy was 2018 History of coronary
[2023-04-19] MEDS: LACTATED RINGERS 1,000 ML 30 ML IV CONT (12:15)
[2023-04-19 12:21] LABS: Glucose Point of Care 138 mg/dl (65-105)
--- NOTE | 2023-04-19 13:03 | WPDHPUPDATE1 ---
History and Physical Update Update Date/Time: 04/19/23 13:03 History and Physical has been reviewed, including an updated exam of the patient. There are NO changes in the patient's condition. Risks, benefits, and alternatives have been discussed and questions answered. Patient agrees to proceed with procedure. Was with cysto with left ureteroscopy, holmium laser, stone extraction, stent placement
[2023-04-19] MEDS: ceFAZolin 2 GM/D5W 50 ML 2 GM/50 ML BAG IVPB (13:39)
--- NOTE | 2023-04-19 13:48 | W.PM.PROC2 ---
Procedure Note - Detailed Date of Procedure 04/19/23 Pre-op Diagnosis left ureteral calculus Post-op Diagnosis Same Procedure Performed Cystoscopy, left retrograde pyelogram, left ureteroscopy with holmium laser, stone extraction, left ureteral stent placement 4.8 Pashto contour Surgeon Ted Watters MD Anesthesia General Description of Procedure Patient is taken the operative suite correctly identified. Once anesthesia was obtained was placed in dorsal lithotomy position and prepped and draped usual sterile fashion. Nineteen Pashto scope inserted the bladder. The left ureteral orifice was cannulated with a guidewire. I dilated the orifice using a 8/10 dilator. Rigid ureteral scope was then inserted. The stone was too large to retrieved in 1 piece. Using a 200 micron fiber the stone was fragmented is very small pieces. Some of the large ones for sent for analysis. Reinspection revealed no residual stones. Pyelogram was then performed to confirm placement of the stent. 4.8 Pashto contour stent was then placed with the proximal end coiled in the left renal pelvis and the distal in the bladder. Bladder was drained. 2% viscous lidocaine was inserted urethra patient is taken recovery stable condition. He will follow-up in a week's time for stent removal. This completes dictation. Please send a copy this to my office Estimated Blood Loss 0 Drains Yes Packing No Pathology Yes Complications No immediate complications Condition Stable Disposition PACU
[2023-04-19 14:02] LABS: Glucose Point of Care 105 mg/dl (65-105)
== END 2023-04-19 15:28 | disposition home or self-care (01) ==
PROVIDERS: PCP Emergency Medicine; Visit Provider Urology
PROC: (CPT 52352; principal; 2023-04-19 13:30)
DX: N20.1 Calculus of ureter (principal); I13.0 Hypertensive heart and chronic kidney disease with heart failure and stage 1 through stage 4 chronic kidney disease, or unspecified chronic kidney disease; I50.9 Heart failure, unspecified; E11.22 Type 2 diabetes mellitus with diabetic chronic kidney disease; N18.30 Chronic kidney disease, stage 3 unspecified; N40.1 Benign prostatic hyperplasia with lower urinary tract symptoms; R35.1 Nocturia; J44.9 Chronic obstructive pulmonary disease, unspecified; I25.10 Atherosclerotic heart disease of native coronary artery without angina pectoris; K21.9 Gastro-esophageal reflux disease without esophagitis; E78.00 Pure hypercholesterolemia, unspecified; M10.9 Gout, unspecified; G47.33 Obstructive sleep apnea (adult) (pediatric); E55.9 Vitamin D deficiency, unspecified; Z95.810 Presence of automatic (implantable) cardiac defibrillator; Z95.5 Presence of coronary angioplasty implant and graft; Z95.1 Presence of aortocoronary bypass graft; Z87.891 Personal history of nicotine dependence; E66.9 Obesity, unspecified; Z68.33 Body mass index [BMI] 33.0-33.9, adult; Z79.82 Long term (current) use of aspirin; Z79.84 Long term (current) use of oral hypoglycemic drugs; Z79.51 Long term (current) use of inhaled steroids; Z79.891 Long term (current) use of opiate analgesic
CPT/HCPCS: 52356; 36415; 74018; 74176; 74420; 82365; 82948; 85610; 85730; 87086; 88300; 93005; C1758; C1769; C2617; J0690; J2371; J2704; J3010; J7120; Q9966

== ENCOUNTER 2023-06-11 17:25 | Emergency (ER) | payer OTHER, SELFPAY ==
[2023-06-11] VITALS (20 sets, daily range): BP systolic 117–165; BP diastolic 70–88; PULSE 74–97; RESP 12–20; TEMP 36.1–36.7; O2SAT 92–97
--- NOTE | ~2023-06-11 | CT_ITS ---
EXAMINATION: CT abdomen pelvis w con DATE: 06/11/2023 18:50 INDICATION: GI bleed TECHNIQUE: Computed tomography (CT) of the abdomen and pelvis was performed with 100 mL Omnipaque-350 intravenous contrast. Automated exposure control and iterative reconstruction technique were employe d. The dose-length product was 1303.07 mGy-cm. COMPARISON: 04/19/2023. FINDINGS: Lower thorax: Minimal bibasilar scar/atelectasis. Partially visualized pacing wires. Liver: Caudate lobe cyst. Biliary/Gallbladder: Multiple small gallstones in the gallbladder neck, without inflammatory change o r dilation. No bile duct dilation. Pancreas: No mass or duct dilation. Spleen: Normal. Adrenals:No mass. Kidneys: Bilateral atrophy and cortical thinning and perinephric stranding. No suspicious mass, obstr ucting calcification, or hydronephrosis. GI tract: No small or large bowel dilation. Normal appendix. Diverticulosis without diverticulitis. Mesentery/Peritoneum: No ascites, mass, or free air. Retroperitoneum: No mass. Atherosclerotic abdominal aortic and/or arterial calcifications. Pelvis: Prostatomegaly. Mild wall thickening in a partially distended urinary bladder. Soft Tissues: Soft tissues and body wall unremarkable. Bones: No acute osseous finding. IMPRESSION: No acute abdominopelvic process detected. Reviewed, dictated and finalized at location K.
--- NOTE | 2023-06-11 17:30 | ED.GIBLEED ---
HPI - GI Bleed General Chief complaint: Abdominal Pain Stated complaint: blood in stool Time Seen by Provider: 06/11/23 17:28 Source: patient and RN notes reviewed Mode of arrival: ambulatory Limitations: no limitations History of Present Illness complaint: melena Onset (ago): day(s) (3) Pain Consistency: intermittent Severity: moderate Relieving factors: none Exacerbating factors: none Associated symptoms: denies other symptoms Treatments Prior to Arrival: none Related Data Home Medications Medication Instructions Recorded Confirmed cholecalciferol (vitamin D3) 25 25 mcg PO DAILY 06/08/21 06/11/23 mcg (1,000 unit) capsule (Vitamin D3) acetaminophen 500 mg tablet 1,000 mg PO Q6-8H PRN Pain 11/09/21 06/11/23 metoprolol succinate 50 mg 50 mg PO QAM 04/11/23 06/11/23 tablet,extended release 24 hr semaglutide 7 mg tablet (Rybelsus) 7 mg PO QAM 04/11/23 06/11/23 Allergies Allergy/AdvReac Type Severity Reaction Status Date / Time morphine AdvReac Unknown Vomiting, Verified 06/11/23 17:33 nausea tramadol AdvReac Unknown Vomiting Verified 06/11/23 17:33 Review of Systems Review of Systems: All systems reviewed & are unremarkable except as noted in HPI and below PMFSH Past Medical History Medical History Abnormal CT scan, colon Adenomatous colon polyp Atherosclerosis of [place] coronary artery of [place] heart without angina pectoris Body mass index [BMI] 38.0-38.9, adult (08/20/16) Body mass index [BMI] 39.0-39.9, adult (04/14/18) BPH (benign prostatic hyperplasia) BPH associated with nocturia CHF (congestive heart failure) Echocardiogram April 2020: Mild left ventricular enlargement, mild global ventricular systolic dysfunction, impaired diastolic relaxation grade 1, ejection fraction 41%, mild enlargement of left atrium, RVSP of 41 Cholelithiasis CKD (chronic kidney disease), stage III Colitis (~2016) Colon, diverticulosis COPD (chronic obstructive pulmonary disease) Coronary artery disease DM2 (diabetes mellitus, type 2) Last hemoglobin A1c 04/28/2021 10.6 Epigastric pain Erectile dysfunction Gallstone Gastric ulcer With history of bleeding ulcer approximately 2017 GERD (gastroesophageal reflux disease) Gout HTN (hypertension) Hypercholesterolemia Hypersomnolence ICD (implantable cardioverter-defibrillator) in place Kidney stones Numerous Long-term use of aspirin therapy Nocturia Obstructive sleep apnea Intolerant of CPAP machine Primary osteoarthritis of left shoulder Seasonal allergies Upper abdominal pain Vitamin D deficiency Surgical History Surgical History H/O arthroscopic knee surgery Bilaterally History of colonoscopy with polypectomy With history of ulcerated polyp in 2013. His most recent colonoscopy was 2018 History of coronary artery bypass graft x 3 (~2009) History of coronary artery stent placement (~2017) History of esophagogastroduodenoscopy (EGD) (12/2017) Reflux esophagitis, gastritis and chronic duodenal ulcers History of ureter stent Status cardiac pacemaker Status post cataract extraction of both eyes with insertion of intraocular lens (~2001) Family History Family History Mother Diabetes mellitus Breast cancer Cause of Hypertension Father Myocardial infarct Cerebrovascular accident Sibling Diabetes mellitus Brothers Uterine cancer Sister Social History Social History Social History: He lives with his (of 36 years) and desires to have her his power of trade mark attorney and to be a full code. 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 No drugs or alcohol use. Smoking packs per day: 1 Smoking cigarettes per day: 20.0
[2023-06-11 18:01] LABS: Basophils Absolute Auto 0.05 K/mm3 (0.00-0.10); Basophils Percent Auto 0.5 % (0.0-1.0); Eosinophils Absolute Auto 0.04 K/mm3 (0.02-0.50); Eosinophils Percent Auto 0.4 % (1.0-6.0); Hematocrit 37.7 % (37.0-46.0); Hemoglobin 12.5 g/dL (12.4-15.3); Immature Granulocyte Absolute 0.08 K/mm3 (0.00-0.00); Immature Granulocyte Percent A 0.8 % (0.0-0.0); Lymphocytes Absolute Auto 1.88 K/mm3 (1.10-4.50); Lymphocytes Percent Auto 18.8 % (18.0-42.0); Mean Corpuscular HGB Conc 33.2 g/dL (32.0-36.0); Mean Corpuscular Hemoglobin 30.9 pg (27.0-31.0); Mean Corpuscular Volume 93.3 fL (78.0-102.0); Mean Platelet Volume 9.3 fl (8.7-11.0); Monocytes Absolute Auto 0.91 K/mm3 (0.10-0.90); Monocytes Percent Auto 9.1 % (2.0-11.0); Neutrophils Absolute Auto 7.1 K/mm3 (1.7-7.2); Neutrophils Percent Auto 70.4 % (50.0-70.0); Platelet Count Result 250 K/mm3 (150-420); Red Blood Count 4.04 M/mm3 (4.70-6.10); Red Cell Distribution Width 12.8 % (11.6-14.4)
[2023-06-11 18:02] LABS: Occult Blood Positive (Negative)
[2023-06-11 18:16] LABS: Partial Thromboplastin Time 24.5 SEC (23.90-30.70); Prothrombin Time 11.4 Seconds (9.50-12.10)
[2023-06-11 18:20] LABS: Lactic Acid Reflex 2.3 mmol/L (0.4-2.0)
[2023-06-11 18:23] LABS: Alanine Aminotransferase 17 U/L (16-63); Albumin Level 3.4 g/dL (3.4-5.0); Alkaline Phosphatase 57 U/L (46-116); Anion Gap 7 mmol/L (8-16); Aspartate Amino Transferase 13 U/L (15-37); Bilirubin,Total 0.4 mg/dL (0.00-1.00); Blood Urea Nitrogen 37 mg/dL (7-18); Carbon Dioxide 28 mmol/L (21-32); Chloride 99 mmol/L (98-108); Estimated Glomerular Filt Rate 32; Glucose 147 mg/dL (70-99); Osmolality Calculated 289 mOsm/kg (285-295); Potassium 4.4 mmol/L (3.5-5.1); Sodium 134 mmol/L (136-145); Total Protein 7.1 g/dL (6.4-8.2)
--- NOTE | 2023-06-11 18:27 | PC.NURSE ---
PT IS LYING ON STRETCHER AWAITING LAB RESULTS FOR A CT SCAN AT THIS TIME. PT DENIES ANY NEEDS OR COMPLAINTS. VSS PER MONITOR. WILL CONTINUE TO MONITOR.
--- NOTE | 2023-06-11 18:54 | PC.NURSE ---
PT HAS RETURNED FROM CT, AWAITING RESULTS. PT DENIES ANY NEEDS OR COMPLAINTS. VSS PER MONITOR. WILL CONTINUE TO MONITOR.
[2023-06-11] MEDS: PANTOPRAZOLE SODIUM IV 40 MG VIAL IV PUSH (20:43)
[2023-06-11] MEDS: SODIUM CHLORIDE 0.9% IV 1,000 ML 999 ML IV CONT (20:43)
--- NOTE | 2023-06-11 21:04 | PC.NURSE ---
2044-AGENCY SERVICE REPRESENTATIVE ASSISTED PT WITH CONTACT HIS SPOUSE TO PROVIDE UPDATE REGARDING CURRENT PLAN OF CARE. AGENCY SERVICE REPRESENTATIVE ADVISED PT AND SPOUSE WOULD CALL BACK WITH UPDATE REGARDING ROOM ASSIGNMENT WHEN PROVIDED WITH FROM [facility]. PT AND SPOUSE VERBALIZED UNDERSTANDING, NO ADDITIONAL QUESTIONS. PT UNHOOKED AND NOTED TO BE AMBULATORY TO AND FROM RESTROOM. HE DENIES ANY ADDITIONAL NEEDS, CALL LIGHT REMAINS IN REACH.
[2023-06-11 21:21] LABS: Reflex Lactic Acid Yes or No Add Lactic
--- NOTE | 2023-06-11 22:22 | PC.NURSE ---
2220-PT NOTED TO BE AMBULATORY TO EMS STRETCHER, WITHOUT INCIDENT. PT BELONGINGS GIVEN TO EMS TO TRANSPORT WITH PT. PT SPOUSE UPDATED REGARDING STATUS OF TRANSFER/ROOM ASSIGNMENT.
--- NOTE | 2023-06-11 22:26 | PC.NURSE ---
2227-PT IVF 0.9% NS CONTINUED DURING TRANSFER.
== END 2023-06-11 22:27 | disposition short-term general hospital (02) ==
PROVIDERS: Emergency Provider Emergency Medicine; PCP Emergency Medicine
DX: K92.2 Gastrointestinal hemorrhage, unspecified (principal); I13.0 Hypertensive heart and chronic kidney disease with heart failure and stage 1 through stage 4 chronic kidney disease, or unspecified chronic kidney disease; I50.9 Heart failure, unspecified; N18.30 Chronic kidney disease, stage 3 unspecified; E11.22 Type 2 diabetes mellitus with diabetic chronic kidney disease; J44.9 Chronic obstructive pulmonary disease, unspecified; Z87.891 Personal history of nicotine dependence; Z79.899 Other long term (current) drug therapy
CPT/HCPCS: 36415; 74177; 80053; 82272; 83605; 85025; 85610; 85730; 96361; 96374; 99285; C9113; J7030; Q9967

== ENCOUNTER 2023-08-26 07:57 | Outpatient (CLI) | payer OTHER, SELFPAY ==
[2023-08-26 09:05] LABS: Alanine Aminotransferase 22 U/L (6-50); Albumin Level 4.2 g/dL (3.5-5.1); Alkaline Phosphatase 57 U/L (38-126); Anion Gap 12 mmol/L (8-16); Aspartate Amino Transferase 23 U/L (17-59); Bilirubin,Total 0.5 mg/dL (0.2-1.3); Blood Urea Nitrogen 36 mg/dL (9-20); Calcium 10.4 mg/dL (8.4-10.2); Carbon Dioxide 25 mmol/L (22-30); Chloride 101 mmol/L (98-107); Estimated Glomerular Filt Rate 37; Glucose 154 mg/dL (65-110); Potassium 4.7 mmol/L (3.4-5.0); Sodium 138 mmol/L (137-145)
[2023-08-26 09:11] LABS: Hemoglobin A1C 6.7 % (<5.7)
[2023-08-26 09:32] LABS: Prostate Specific Antigen 0.5 ng/mL (< OR = 4.0)
[2023-08-26 10:29] LABS: Microalbumin Urine Random 42.3 mg/L (0-16.7)
[2023-08-26 10:33] LABS: Creatinine Urine 57.4 mg/dL; MALB Creatinine Ratio 73.7 mg/g (0-30)
[2023-08-29 10:27] LABS: Vitamin D 1,25 (OH)2 Total 18 pg/mL (18-72); Vitamin D2 1,25 (OH)2 <8 pg/mL; Vitamin D3 1,25 (OH)2 18 pg/mL
== END 2023-08-26 07:58 | disposition home or self-care (01) ==
LOC: ANHLAB 07:58
PROVIDERS: PCP Emergency Medicine; Visit Provider Emergency Medicine
DX: E11.65 Type 2 diabetes mellitus with hyperglycemia (principal); E55.9 Vitamin D deficiency, unspecified; Z12.5 Encounter for screening for malignant neoplasm of prostate
CPT/HCPCS: 36415; 80053; 82043; 82652; 83036; 84153; G0103

== ENCOUNTER 2023-09-04 06:47 | Inpatient (IN) | payer OTHER, SELFPAY ==
[2023-09-04] VITALS (16 sets, daily range): BP systolic 100–132; BP diastolic 41–65; PULSE 60–93; RESP 13–26; TEMP 36.4–37.9; O2SAT 90–97
--- NOTE | 2023-09-04 | ECHO_ITS ---
Patient Info Name: Nikhil Huynh Age: 73 years : 1950 Gender: Male Ht: 68 in Wt: 260 lbs BSA: 2.43 m2 HR: 71 bpm BP: 116 / 55 mmHg Heart Rhythm: Indeterminant Technical Quality: Fair Exam Date: 09/04/2023 12:47 PM Exam Location: Echo Lab Patient Status: Outpatient Admit Date: 09/04/2023 Staff Ordering Physician: Efra Shine MD Hod Carrier: Tatiana Fried RDCS Attending Provider: Efra Shine MD Exam Type: CA echo dop color flow w con Study Info Indications - CAD Complete two-dimensional, color flow and Doppler transthoracic echocardiogram is performed with contrast to opacify the left ventricle and to improve the deliniation of the left ventricle endocardial borders. Contrast/Agitated Saline Contrast/Ag. Saline: Definity Amount: 3.00 ml Summary 1. Left ventricular chamber dimension is mildly enlarged. 2. Left ventricular systolic function is normal, estimated at 60-65%. 3. There is mildly increased left ventricular wall thickness. 4. The left ventricular diastolic function is grade I diastolic dysfunction. 5. The basal inferoseptal, and mid inferoseptal are hypokinetic. 6. Left atrial chamber dimension is mildly enlarged. 7. There is mild aortic valve calcification. 8. There is mild aortic valve regurgitation. 9. There is moderate aortic valve sclerosis. 10. There is mild mitral valve regurgitation. 11. The mitral valve annulus is mildly calcified. 12. There is mild tricuspid valve regurgitation. 13. Mild pulmonary hypertension, estimated pulmonary arterial systolic pressure is 36 mmHg. 14. There is mild pulmonic regurgitation. Left Ventricle Left ventricular chamber dimension is mildly enlarged. Left ventricular systolic function is normal, estimated at 60-65%. There is mildly increased left ventricular wall thickness. The left ventricular diastolic function is grade I diastolic dysfunction. The basal inferoseptal, and mid inferoseptal are hypokinetic. Right Ventricle Right ventricular chamber dimension is normal. Right ventricular systolic function is normal. Linear artifact in right ventricle suggestive of catheter(s), pacemaker lead(s), or ICD lead(s). Left Atria Left atrial chamber dimension is mildly enlarged. Right Atria Right atrial chamber dimension is normal. Aortic Valve The aortic valve is trileaflet. There is moderate aortic valve sclerosis. There is no aortic valve stenosis. There is mild aortic valve regurgitation. There is mild aortic valve calcification. Pulmonic Valve The pulmonic valve is normal. There is no pulmonic valve stenosis. There is mild pulmonic regurgitation. Mitral Valve There is no mitral valve stenosis. There is mild mitral valve regurgitation. The mitral valve annulus is mildly calcified. Tricuspid Valve The tricuspid valve leaflets are normal. There is no significant tricuspid valve stenosis. There is mild tricuspid valve regurgitation. Mild pulmonary hypertension, estimated pulmonary arterial systolic pressure is 36 mmHg. Pericardium/Pleural The pericardium appears normal. There is no pericardial effusion. Inferior Vena Cava Normal inferior vena cava with <50% collapse upon inspiration consistent with elevated right atrial pressure, 10 mmHg. Aorta The aortic root size at the sinus of Valsalva is normal. There is mild aortic atherosclerosis. Left Ventricular Outflow Tract Name Value Normal
--- NOTE | ~2023-09-04 | XR_ITS ---
EXAMINATION: XR chest 2V DATE: 09/04/2023 07:37 INDICATION: Shortness of breath TECHNIQUE: AP and lateral views of the chest are obtained. COMPARISON: 03/05/2018 FINDINGS: There are airspace opacities of the right middle and upper lobes. No pleural effusion or pn eumothorax. The heart size is normal. Median sternotomy wires and mediastinal surgical clips are seen , likely from prior coronary artery bypass grafting. A 4-lead cardiac pacemaker of the left chest wal l ends with leads in expected locations. There is mild thoracic spondylosis. There is moderate osteoa rthritis of the glenohumeral joints. IMPRESSION: 1. Airspace opacities of the right middle and upper lobes, likely pneumonia. Consider followup radiog raphs or chest CT in six weeks if symptoms persist after appropriate therapy or if the patient is at high risk for malignancy. Reviewed, dictated and finalized at location F. DEHYDRATOR OPERATOR IMPRESSION: 1. Airspace opacities of the right middle and upper lobes, likely pneumonia. Co nsider followup radiographs or chest CT in six weeks if symptoms persist after appropriate therapy or if the patient is at high risk for malignancy.
--- NOTE | ~2023-09-04 | CT_ITS ---
EXAMINATION: CT brain wo con INDICATION: Headache COMPARISON: None TECHNIQUE: Standard unenhanced head CT. The dose-length product (DLP) was 681.00 mGy-cm. The mA was a djusted according to patient size. Iterative reconstruction technique was employed. FINDINGS: No acute intraparenchymal hemorrhage. No evidence of mass lesion. No evidence of acute infa rction. There is mild periventricular and subcortical hypodensity probably related to small vessel is chemic disease. There is mild prominence of the sulci and ventricles related to cerebral atrophy. Int racranial calcified cerebral atherosclerosis is noted. No extra-axial collections. No mass effect or midline shift. Changes in the globes are likely from ocular lens surgery. There is a fat density soft tissue mass of the right for head, likely lipoma. The visualized sinuses and mastoid air cells are w ell aerated. IMPRESSION: 1. No acute intracranial abnormality. 2. Age related findings. Reviewed, dictated and finalized at location F. MARKET MANAGER
--- NOTE | 2023-09-04 06:51 | ECG_ITS ---
Measurements Intervals [place] Rate: 64 P: 98 TX: 188 QRS: 231 QRSD: 142 T: 104 QT: 415 QTc: 430 Interpretive Statements ATRIAL SENSE- ELECTRONIC VENTRICULAR PACEMAKER ATRIAL PREMATURE COMPLEX NO FURTHER INTERPRETATION IS POSSIBLE ATYPICAL ECG COMPARED TO ECG 04/15/2023 09:34:03 NO SIGNIFICANT CHANGES Electronically Signed On 09-04-2023 7:02:35 FREIGHT SHIPPING AGENT by Deshaun Pollack D.O.
--- NOTE | 2023-09-04 07:13 | ED.GENADULT ---
HPI - General Adult General Chief complaint: Shortness of Breath/Dyspnea Stated complaint: fall - SOB Time Seen by Provider: 09/04/23 06:54 History of Present Illness HPI narrative: 73-year-old male presented to ED for evaluation fever and altered mental status. Patient had a fall from bed but denies any pain or injury. Patient was found to be hypoxic on room air. Patient does not have an O2 requirement at baseline. Upon arrival to ED patient was mildly tachycardic but had a pulse ox of 95 on room air. had told EMS the patient is post oxygen at nighttime but does not. Patient denies having to use oxygen home. Related Data Home Medications Medication Instructions Recorded Confirmed cholecalciferol (vitamin D3) 25 25 mcg PO DAILY 06/08/21 09/04/23 mcg (1,000 unit) capsule (Vitamin D3) acetaminophen 500 mg tablet 1,000 mg PO Q6H PRN Pain 11/09/21 09/04/23 metoprolol succinate 50 mg 50 mg PO QAM 04/11/23 09/04/23 tablet,extended release 24 hr semaglutide 7 mg tablet (Rybelsus) 7 mg PO QAM 04/11/23 09/04/23 albuterol sulfate 90 mcg/actuation 2 puff inhalation Q4H PRN short of 09/04/23 09/04/23 aerosol inhaler breath aspirin 81 mg tablet,delayed 81 mg PO DAILY 09/04/23 09/04/23 release fluticasone fur. 100 mcg-umeclid 1 inh inhalation DAILY 09/04/23 09/04/23 62.5 mcg-vilant 25 mcg inhalat.powder (Trelegy Ellipta) tamsulosin 0.4 mg capsule 0.4 mg PO DAILY 09/04/23 09/04/23 Allergies Allergy/AdvReac Type Severity Reaction Status Date / Time morphine AdvReac Unknown Vomiting, Verified 08/28/23 10:45 nausea rosuvastatin AdvReac Unknown Cramping Verified 08/28/23 10:45 of the Muscles tramadol AdvReac Unknown Vomiting Verified 08/28/23 10:45 Review of Systems Review of Systems: All systems reviewed & are unremarkable except as noted in HPI and below PMFSH Past Medical History Medical History Abnormal CT scan, colon Adenomatous colon polyp Atherosclerosis of [place] coronary artery of [place] heart without angina pectoris Body mass index [BMI] 38.0-38.9, adult (08/20/16) Body mass index [BMI] 39.0-39.9, adult (04/14/18) BPH (benign prostatic hyperplasia) BPH associated with nocturia CHF (congestive heart failure) Echocardiogram April 2020: Mild left ventricular enlargement, mild global ventricular systolic dysfunction, impaired diastolic relaxation grade 1, ejection fraction 41%, mild enlargement of left atrium, RVSP of 41 Cholelithiasis CKD (chronic kidney disease), stage III Colitis (~2016) Colon, diverticulosis COPD (chronic obstructive pulmonary disease) Coronary artery disease DM2 (diabetes mellitus, type 2) Last hemoglobin A1c 04/28/2021 10.6 Epigastric pain Erectile dysfunction Gallstone Gastric ulcer With history of bleeding ulcer approximately 2017 GERD (gastroesophageal reflux disease) Gout HTN (hypertension) Hypercholesterolemia Hypersomnolence ICD (implantable cardioverter-defibrillator) in place Kidney stones Numerous Long-term use of aspirin therapy Nocturia Obstructive sleep apnea Intolerant of CPAP machine Primary osteoarthritis of left shoulder Seasonal allergies Upper abdominal pain Vitamin D deficiency Surgical History Surgical History H/O arthroscopic knee surgery Bilaterally History of colonoscopy with polypectomy With history of ulcerated polyp in 2013. His most recent colonoscopy was 2018 History of coronary artery bypass graft x 3 (~2009) History of coronary artery stent placement (~2017) History of esophagogastroduodenoscopy (EGD) (12/2017) Reflux esophagitis, gastritis and chronic duodenal ulcers History of ureter stent Status cardiac pacemaker Status post cataract extraction of both eyes with insertion of intraocular lens (~2001) Family History Family History Mother
--- NOTE | 2023-09-04 07:16 | PC.NURSE ---
Report to JANET Giron. Pt resting quietly per cart in nad at this time. Provider at bedside.
[2023-09-04 07:27] LABS: Hematocrit 39.5 % (42.0-52.0); Mean Corpuscular HGB Conc 32.9 g/dl (32-36); Mean Corpuscular Volume 94.3 fl (80-100); Platelet Count Result 219 k/mm3 (150-375); Red Blood Count 4.19 M/mm3 (4.6-6.20); Red Cell Distribution Width 12.8 % (11.5-14.5); White Blood Count 28.1 K/mm3 (4.5-10.0)
[2023-09-04 07:43] LABS: Alanine Aminotransferase 27 U/L (6-50); Albumin Level 4.1 g/dL (3.5-5.1); Alkaline Phosphatase 50 U/L (38-126); Anion Gap 14 mmol/L (8-16); Aspartate Amino Transferase 28 U/L (17-59); Bilirubin,Total 0.9 mg/dL (0.2-1.3); Blood Urea Nitrogen 48 mg/dL (9-20); Carbon Dioxide 23 mmol/L (22-30); Chloride 96 mmol/L (98-107); Estimated Glomerular Filt Rate 24; Glucose 248 mg/dL (65-110); Potassium 4.2 mmol/L (3.4-5.0); Sodium 133 mmol/L (137-145)
[2023-09-04] MEDS: ACETAMINOPHEN 500 MG TABLET 1000 MG PO (07:43)
[2023-09-04 07:48] LABS: Band Neutrophils Percent 19 % (0-6); Lymphocytes Absolute Manual 0.84 K/mm3 (1.1-4.5); Monocytes Absolute Manual 1.68 K/mm3 (0.1-0.90); Monocytes Percent Manual 6 % (3-9); Neutrophils Absolute Manual 25.57 K/mm3 (1.3-6.7); Neutrophils Percent Manual 72 % (46-73); Platelet Estimate Adequate (Adequate); Total Cells Counted 100
[2023-09-04 07:49] LABS: Schistocytes None Seen (NORMAL)
[2023-09-04 08:03] LABS: Influenza A QL RT-PCR Negative (Negative); Influenza B QL RT-PCR Negative (Negative); RSV RNA, RT-PCR Negative (Negative); SARS-CoV-2 RNA PCR Negative (Negative)
[2023-09-04 08:41] LABS: Alveolar/Arterial O2 Gradient 41.4 mmHg; Base Excess ABG 0.2 mEq/l (+/-2.0); Fractional Inspired Oxygen 21 %; Oxygen Content ABG 17.6 %vol (16.0-22.0); Oxygen Saturation ABG 95.3 % (95.0-100.0); Oxyhemoglobin 93.4 % THb (90.0-100.0); PCO2 ABG 31.9 mmHg (35.0-45.0); PO2 ABG 70.1 mmHg (80.0-100.0); PO2 FiO2 Ratio Arterial Blood 3.34 %; Total Hemoglobin 13.4 g/dL (12.0-18.0); pH ABG 7.476 (7.350-7.450)
[2023-09-04 08:42] LABS: Modified Allen's Test Pass; Site Drawn RIGHT RADIAL
--- NOTE | 2023-09-04 08:43 | PM.IMHP ---
H&P: HPI History of Present Illness Date/Time: 09/04/23 08:43 Chief Complaint: Altered mental status Narrative: Patient is a poor historian, history is taken from patient and patient's son and bedside 73-year-old male with history of COPD, hypertension, hyperlipidemia, diastolic dysfunction, brought to ED because of fever and altered mental status. Patient slipped out of bed and fell on the floor, and EMS was called. Upon arrival, patient denied pain, patient was found have hypoxemia, confused. Patient was brought to ED for evaluation, in the ED, patient was found to have fever, 100.2, tachypnea, 26, hypoxemia. Left showed leukocytosis of 28,000, with left shift, elevated BUN creatinine 48 hour 2.6, above baseline creatinine 1.8 August 26 2023. I read chest x-ray that showed multifocal pneumonia here above right middle lower lobe. EKG shows pacing rhythm, no specific ST T-wave changes. UA is pending, patient received antibiotics in the EDighttime but does not.? Patient denies having to? use oxygen home. When I saw exam patient bedside, patient mental status is improving, alert, oriented to person and place. Patient denies headache, but has low back pain Review of Systems Review of Systems: Patient is poor historian unable to review of system completed today [facility] Past Medical History Medical History Abnormal CT scan, colon Adenomatous colon polyp Atherosclerosis of [place] coronary artery of [place] heart without angina pectoris Body mass index [BMI] 38.0-38.9, adult (08/20/16) Body mass index [BMI] 39.0-39.9, adult (04/14/18) BPH (benign prostatic hyperplasia) BPH associated with nocturia CHF (congestive heart failure) Echocardiogram April 2020: Mild left ventricular enlargement, mild global ventricular systolic dysfunction, impaired diastolic relaxation grade 1, ejection fraction 41%, mild enlargement of left atrium, RVSP of 41 Cholelithiasis CKD (chronic kidney disease), stage III Colitis (~2016) Colon, diverticulosis COPD (chronic obstructive pulmonary disease) Coronary artery disease DM2 (diabetes mellitus, type 2) Last hemoglobin A1c 04/28/2021 10.6 Epigastric pain Erectile dysfunction Gallstone Gastric ulcer With history of bleeding ulcer approximately 2017 GERD (gastroesophageal reflux disease) Gout HTN (hypertension) Hypercholesterolemia Hypersomnolence ICD (implantable cardioverter-defibrillator) in place Kidney stones Numerous Long-term use of aspirin therapy Nocturia Obstructive sleep apnea Intolerant of CPAP machine Primary osteoarthritis of left shoulder Seasonal allergies Upper abdominal pain Vitamin D deficiency Surgical History Surgical History H/O arthroscopic knee surgery Bilaterally History of colonoscopy with polypectomy With history of ulcerated polyp in 2013. His most recent colonoscopy was 2017 History of coronary artery bypass graft x 3 (~2009) History of coronary artery stent placement (~2017) History of esophagogastroduodenoscopy (EGD) (12/2017) Reflux esophagitis, gastritis and chronic duodenal ulcers History of ureter stent Status cardiac pacemaker Status post cataract extraction of both eyes with insertion of intraocular lens (~2001) Family History Family History Mother Diabetes mellitus Breast cancer Cause of Hypertension Father Myocardial infarct Cerebrovascular accident Sibling Diabetes mellitus Brothers Uterine cancer Sister Social History Social History Social History: He lives with his (of 36 years) and desires to have her his power of pipe organ mechanic and to be a full code. 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 No d
[2023-09-04] MEDS: AZITHROMYCIN 500 MG/NS 250 ML 500 MG/250 ML BAG 250 MG IVPB (09:03)
[2023-09-04 10:11] LABS: Lactic Acid Reflex 2.3 mmol/L (0.7-2.0)
[2023-09-04 10:13] LABS: Anion Gap 14 mmol/L (8-16); Blood Urea Nitrogen 50 mg/dL (9-20); Carbon Dioxide 22 mmol/L (22-30); Chloride 97 mmol/L (98-107); Estimated Glomerular Filt Rate 24; Glucose 226 mg/dL (65-110); Phosphorus 1.9 mg/dL (2.5-4.5); Potassium 4.3 mmol/L (3.4-5.0); Sodium 133 mmol/L (137-145)
[2023-09-04 11:35] LABS: Glucose Point of Care 209 mg/dl (65-105)
[2023-09-04 12:59] LABS: Reflex Lactic Acid Yes or No Add Lactic
[2023-09-04] MEDS: PERFLUTREN LIPID MICROSPHERES 1.5 ML VIAL DILUTED TO 10 ML TOTAL VOLUME IV PUSH (13:15)
[2023-09-04 13:17] LABS: Appearance Urine Cloudy (Clear); Bacteria Urine None Seen /hpf; Bilirubin Urine Negative (Negative); Blood Urine 3+ (Negative); Color Urine Yellow (Yellow); Glucose Urine UA Negative (Negative); Ketones Urine Trace mg/dL (Negative); Leukocyte Esterase Ur Negative LEU/UL (Negative); Nitrate Urine Negative (Negative); Protein Urine 2+ mg/dL (Negative); RBC Urine 0-2 /hpf (0-2); Specific Grav Ur 1.019 (1.001-1.035); Squamous Epithelial Cell Urine Occasional /hpf (Few); WBC Urine 0-5 /hpf
[2023-09-04 13:36] LABS: Add Urine Microscopic? YES
[2023-09-04] MEDS: ALBUTEROL SULFATE NEB 2.5 MG/3 ML INH INHALATION ×2 (14:05→21:10)
[2023-09-04] MEDS: IPRATROPIUM BR 0.02% INH SOLN 0.5 MG/2.5 ML VIAL INHALATION ×2 (14:05→21:10)
[2023-09-04] MEDS: CEFEPIME 2 GM/NS 50 ML 2 GM/50 ML BAG IVPB (16:22)
[2023-09-04] MEDS: HEPARIN SODIUM 5,000 UNITS/ML VIAL 5000 UNITS SUB-Q ×2 (16:23→20:39)
[2023-09-04] MEDS: methylPREDNISolone SOD SUCC 40 MG VIAL IV PUSH (16:29)
[2023-09-04 16:34] LABS: Glucose Point of Care 188 mg/dl (65-105)
--- NOTE | 2023-09-04 17:21 | ADMGEN ---
This patient, Nikhil Huynh, was admitted to 3 [facility] Surg Room 304-02 at 945. Patient/family oriented to hospital policies and general routines including ID bracelet, bed and alarms, visiting hours, pain management, procedures, bathroom and other care routines, personal items, smoking policy, room service/diet, and visiting hours. Information on how to activate the Rapid Response Team has been discussed. Patient/Family are encouraged to report perceived risks to care and to ask questions if they do not understand what they are told or what they should do.
[2023-09-04 19:48] LABS: Glucose Point of Care 223 mg/dl (65-105)
[2023-09-04] MEDS: BELLADONNA ALK/PHENOB ELIX 10 ML, MAG HYDROX/ALUMINUM HYD/SIMETH 30 ML, LIDOCAINE HCL 2... PO (20:39)
[2023-09-05] VITALS (18 sets, daily range): BP systolic 96–134; BP diastolic 46–62; PULSE 51–68; RESP 14–22; TEMP 35.8–36.7; O2SAT 93–96
[2023-09-05] MEDS: methylPREDNISolone SOD SUCC 40 MG VIAL IV PUSH ×4 (01:12→16:53)
[2023-09-05] MEDS: IPRATROPIUM BR 0.02% INH SOLN 0.5 MG/2.5 ML VIAL INHALATION ×4 (02:28→20:30)
[2023-09-05] MEDS: ALBUTEROL SULFATE NEB 2.5 MG/3 ML INH INHALATION ×4 (02:28→20:30)
[2023-09-05] MEDS: SODIUM CHLORIDE 0.9% IV 1,000 ML 125 ML IV CONT ×3 (03:03→21:01)
[2023-09-05] MEDS: HEPARIN SODIUM 5,000 UNITS/ML VIAL 5000 UNITS SUB-Q ×3 (05:49→21:03)
[2023-09-05 07:29] LABS: Hematocrit 36.2 % (42.0-52.0); Hemoglobin 11.6 g/dL (14.0-18.0); Mean Corpuscular Hemoglobin 30.4 pg (26-34); Mean Platelet Volume 9.5 fl (7.4-10.4); Platelet Count Result 168 k/mm3 (150-375); Red Blood Count 3.81 M/mm3 (4.6-6.20); Red Cell Distribution Width 12.6 % (11.5-14.5); White Blood Count 25.2 K/mm3 (4.5-10.0)
[2023-09-05 07:36] LABS: Glucose Point of Care 236 mg/dl (65-105)
[2023-09-05 07:40] LABS: Alanine Aminotransferase 24 U/L (6-50); Albumin Level 3.3 g/dL (3.5-5.1); Alkaline Phosphatase 49 U/L (38-126); Anion Gap 13 mmol/L (8-16); Aspartate Amino Transferase 39 U/L (17-59); Bilirubin,Total 0.5 mg/dL (0.2-1.3); Blood Urea Nitrogen 49 mg/dL (9-20); Calcium 9.2 mg/dL (8.4-10.2); Carbon Dioxide 22 mmol/L (22-30); Chloride 98 mmol/L (98-107); Estimated Glomerular Filt Rate 28; Glucose 246 mg/dL (65-110); Potassium 3.7 mmol/L (3.4-5.0); Sodium 133 mmol/L (137-145)
[2023-09-05 08:56] LABS: Band Neutrophils Percent 26 % (0-6); Monocytes Percent Manual 2 % (3-9); Neutrophils Absolute Manual 23.68 K/mm3 (1.3-6.7); Neutrophils Percent Manual 68 % (46-73); Total Cells Counted 100
[2023-09-05 08:57] LABS: Burr Cells 1+ (NORMAL); Platelet Estimate Adequate (Adequate); Schistocytes None Seen (NORMAL)
[2023-09-05] MEDS: METOPROLOL SUCCINATE EXT REL 50 MG TABCR PO (09:04)
[2023-09-05] MEDS: CHOLECALCIFEROL 1,000 UNITS TABLET 1000 UNITS PO (09:07)
[2023-09-05] MEDS: CEFEPIME 2 GM/NS 50 ML 2 GM/50 ML BAG IVPB (09:08)
[2023-09-05] MEDS: PANTOPRAZOLE 40 MG TABLET PO (09:08)
[2023-09-05] MEDS: INSULIN ASPART (*BKC) 100 UNITS/ML SUB-Q ×4 (09:08→21:03)
[2023-09-05] MEDS: TAMSULOSIN HCL 0.4 MG CAPSULE PO (09:08)
[2023-09-05] MEDS: ASPIRIN 81 MG ENTERIC TABLET PO (09:08)
--- NOTE | 2023-09-05 11:12 | PM.IMPN ---
Progress Note: A&P Assessment and Plan (1) Acute metabolic encephalopathy: Code(s): G93.41 - Metabolic encephalopathy Status: Acute Assessment and Plan: Likely secondary to multiple comorbidities, including sepsis, dehydration, uremia CT of head shows no acute intracranial issues Treat underlying disease 09/05/23 Improving. A&O x4 (2) Sepsis: Code(s): A41.9 - Sepsis, unspecified organism Status: Acute Assessment and Plan: At presentation patient has fever 100.2, leukocytosis 28,000, tachypnea Likely resulting from multifocal pneumonia Blood culture no growth to date Start fluid resuscitation Cefepime IV initiated Continue to trend labs (3) Multifocal pneumonia: Code(s): J18.9 - Pneumonia, unspecified organism Status: Acute Assessment and Plan: See problem 2 (4) Acute respiratory failure with hypoxemia: Code(s): J96.01 - Acute respiratory failure with hypoxia Status: Acute Assessment and Plan: Likely resulting from multifocal pneumonia Antibiotics see above Start DuoNeb scheduled abuse her nebulizer as needed, methylprednisolone 40 mg q.8 hours IV Patient currently on room air Monitor pulse ox continuously (5) COPD exacerbation: Code(s): J44.1 - Chronic obstructive pulmonary disease with (acute) exacerbation Status: Acute Assessment and Plan: see problem 4 (6) Acute on chronic kidney failure: Qualifiers: Acute renal failure type: unspecified Chronic kidney disease stage: stage 3 (moderate) Chronic kidney disease stage 3 subtype: stage 3b (GFR 30-44) Qualified Code(s): N17.9 - Acute kidney failure, unspecified; N18.32 - Chronic kidney disease, stage 3b Code(s): N17.9 - Acute kidney failure, unspecified; N18.9 - Chronic kidney disease, unspecified Status: Inactive Assessment and Plan: Patient presented with a creatinine of 2.6 and patient's baseline is around 1.5. Continue IV fluid hydration. Urine culture negative. Monitor kidney function. (7) Uncontrolled type 2 diabetes mellitus: Code(s): E11.65 - Type 2 diabetes mellitus with hyperglycemia Status: Acute Assessment and Plan: Insulin Lispro sliding scale, Accu-checks qAc and HS and Hold oral hypoglycemics Initiate hypoglycemic precautions (8) HTN (hypertension): Qualifiers: Hypertension type: essential hypertension Qualified Code(s): I10 - Essential (primary) hypertension Code(s): I10 - Essential (primary) hypertension Status: Acute Assessment and Plan: Hold diuretic medication because of acute renal failure. Subjective Date/time seen: 09/05/23 11:12 Interval history: Patient is alert oriented x4. He does state that he has had a cough for the past several days. when asking a little more detailed questions he has difficulty answering them. He is a poor historian. He does remember his fall and what brought him into the hospital. States that he feels fine today. He denies chest pain, shortness a breath, sputum production, nausea, vomiting and dysuria. Exam Narrative: GENERAL: Comfortable, no acute distress HENMT: moist mucous membranes EYES: EOM intact b/l NECK: no lymphadenopathy RESPIRATORY: Bibasilar crackles CARDIO: RRR GI: soft, nontender, bowel sounds present SKIN: no rashes EXTREMITIES: no edema, redness or tenderness Objective Data Vital Signs Vital Signs: Vital Signs - 24 hr 09/04/23 14:08 09/04/23 14:10 09/04/23 14:35 Temperature Pulse Rate 72 Respiratory Rate 20 18 Blood Pressure Pulse Oximetry 93 Oxygen Delivery Room Air Fraction of Inspired Oxygen 09/04/23 14:00 09/04/23 12:00 09/04/23 16:00 Temperature 99.2 F Pulse Rate 64 61 Respiratory Rate 22 H Blood Pressure 115/57 L Pulse Oximetry 97 Oxygen Delivery Room A
[2023-09-05 11:26] LABS: Glucose Point of Care 267 mg/dl (65-105)
[2023-09-05 15:56] LABS: Glucose Point of Care 248 mg/dl (65-105)
[2023-09-05 20:16] LABS: Glucose Point of Care 275 mg/dl (65-105)
[2023-09-05] MEDS: BELLADONNA ALK/PHENOB ELIX 10 ML, MAG HYDROX/ALUMINUM HYD/SIMETH 30 ML, LIDOCAINE HCL 2... PO (21:30)
[2023-09-06] VITALS (15 sets, daily range): BP systolic 110–119; BP diastolic 52–66; PULSE 60–73; RESP 16–20; TEMP 36–36.8; O2SAT 94–98
[2023-09-06] MEDS: methylPREDNISolone SOD SUCC 40 MG VIAL IV PUSH ×3 (01:14→16:51)
[2023-09-06] MEDS: IPRATROPIUM BR 0.02% INH SOLN 0.5 MG/2.5 ML VIAL INHALATION ×4 (02:02→20:22)
[2023-09-06] MEDS: ALBUTEROL SULFATE NEB 2.5 MG/3 ML INH INHALATION ×4 (02:02→20:23)
[2023-09-06] MEDS: HEPARIN SODIUM 5,000 UNITS/ML VIAL 5000 UNITS SUB-Q ×3 (05:49→20:16)
[2023-09-06] MEDS: SODIUM CHLORIDE 0.9% IV 1,000 ML 125 ML IV CONT ×2 (05:50→14:43)
[2023-09-06 06:39] LABS: Basophils Percent Auto 0.1 % (0.2-1.2); Hematocrit 33.8 % (42.0-52.0); Immature Granulocyte Percent A 1.6 % (0-0.5); Lymphocytes Absolute Auto 0.48 K/mm3 (0.9-3.2); Lymphocytes Percent Auto 2.6 % (18.3-44.2); Mean Corpuscular HGB Conc 32.5 g/dl (32-36); Mean Corpuscular Hemoglobin 30.3 pg (26-34); Mean Corpuscular Volume 93.1 fl (80-100); Mean Platelet Volume 10.1 fl (7.4-10.4); Monocytes Percent Auto 5.4 % (2.6-8.5); Neutrophils Percent Auto 90.3 % (45.5-73.1); Platelet Count Result 180 k/mm3 (150-375); Red Blood Count 3.63 M/mm3 (4.6-6.20); Red Cell Distribution Width 12.5 % (11.5-14.5); White Blood Count 18.8 K/mm3 (4.5-10.0)
[2023-09-06 06:54] LABS: Alanine Aminotransferase 65 U/L (6-50); Albumin Level 3.1 g/dL (3.5-5.1); Alkaline Phosphatase 50 U/L (38-126); Anion Gap 11 mmol/L (8-16); Aspartate Amino Transferase 88 U/L (17-59); Bilirubin,Total 0.4 mg/dL (0.2-1.3); Blood Urea Nitrogen 44 mg/dL (9-20); Calcium 8.6 mg/dL (8.4-10.2); Carbon Dioxide 23 mmol/L (22-30); Chloride 98 mmol/L (98-107); Estimated Glomerular Filt Rate 35; Glucose 267 mg/dL (65-110); Potassium 3.7 mmol/L (3.4-5.0); Sodium 132 mmol/L (137-145)
[2023-09-06 07:47] LABS: Glucose Point of Care 247 mg/dl (65-105)
[2023-09-06] MEDS: FLUTICASONE/UMECLIDIN/VILANTER 100-62.5-25 MCG ELLIPTA 1 PUFF INHALATION (07:52)
[2023-09-06] MEDS: INSULIN ASPART (*BKC) 100 UNITS/ML SUB-Q ×4 (08:19→20:17)
[2023-09-06] MEDS: PANTOPRAZOLE 40 MG TABLET PO (08:19)
[2023-09-06] MEDS: CHOLECALCIFEROL 1,000 UNITS TABLET 1000 UNITS PO (08:19)
[2023-09-06] MEDS: METOPROLOL SUCCINATE EXT REL 50 MG TABCR PO (08:19)
[2023-09-06] MEDS: TAMSULOSIN HCL 0.4 MG CAPSULE PO (08:19)
[2023-09-06] MEDS: ASPIRIN 81 MG ENTERIC TABLET PO (08:19)
[2023-09-06] MEDS: CEFEPIME 2 GM/NS 50 ML 2 GM/50 ML BAG IVPB (08:59)
--- NOTE | 2023-09-06 11:12 | PM.IMPN ---
Progress Note: A&P Assessment and Plan (1) Acute metabolic encephalopathy: Code(s): G93.41 - Metabolic encephalopathy Status: Acute Assessment and Plan: Likely secondary to multiple comorbidities, including sepsis, dehydration, uremia CT of head shows no acute intracranial issues Treat underlying disease 09/05/23 Improving. A&O x4 (2) Sepsis: Code(s): A41.9 - Sepsis, unspecified organism Status: Acute Assessment and Plan: At presentation patient has fever 100.2, leukocytosis 28,000, tachypnea Likely resulting from multifocal pneumonia Blood culture no growth to date IV fluid resuscitation Cefepime IV initiated Continue to trend labs (3) Multifocal pneumonia: Code(s): J18.9 - Pneumonia, unspecified organism Status: Acute Assessment and Plan: See problem 2 (4) Acute respiratory failure with hypoxemia: Code(s): J96.01 - Acute respiratory failure with hypoxia Status: Acute Assessment and Plan: Likely resulting from multifocal pneumonia Antibiotics see above Start DuoNeb scheduled, methylprednisolone 40 mg q.12 hours IV Patient currently on room air Monitor pulse ox continuously (5) COPD exacerbation: Code(s): J44.1 - Chronic obstructive pulmonary disease with (acute) exacerbation Status: Acute Assessment and Plan: see problem 4 (6) Acute on chronic kidney failure: Qualifiers: Acute renal failure type: unspecified Chronic kidney disease stage: stage 3 (moderate) Chronic kidney disease stage 3 subtype: stage 3b (GFR 30-44) Qualified Code(s): N17.9 - Acute kidney failure, unspecified; N18.32 - Chronic kidney disease, stage 3b Code(s): N17.9 - Acute kidney failure, unspecified; N18.9 - Chronic kidney disease, unspecified Status: Inactive Assessment and Plan: Patient presented with a creatinine of 2.6 and patient's baseline is around 1.5. Continue IV fluid hydration. Urine culture negative. Monitor kidney function. Today Cr 1.9, improving (7) Uncontrolled type 2 diabetes mellitus: Code(s): E11.65 - Type 2 diabetes mellitus with hyperglycemia Status: Acute Assessment and Plan: Insulin Lispro sliding scale, Accu-checks qAc and HS and Hold oral hypoglycemics Initiate hypoglycemic precautions (8) HTN (hypertension): Qualifiers: Hypertension type: essential hypertension Qualified Code(s): I10 - Essential (primary) hypertension Code(s): I10 - Essential (primary) hypertension Status: Acute Assessment and Plan: Hold diuretic medication because of acute renal failure. Subjective Date/time seen: 09/06/23 11:12 Interval history: patient doing well today. States that he had some difficulty breathing overnight although he is feeling much better now. His kidney function is improving as well as his white blood cell count. He denies any chest pain, nausea, vomiting, dizziness and visual changes. He continues to have a cough. Will continue to monitor kidney function and white blood cell count. Exam Narrative: GENERAL: Comfortable, no acute distress HENMT: moist mucous membranes EYES: EOM intact b/l NECK: no lymphadenopathy RESPIRATORY: Clear to auscultation CARDIO: RRR GI: soft, nontender, bowel sounds present SKIN: no rashes EXTREMITIES: no edema, redness or tenderness Objective Data Vital Signs Vital Signs: Vital Signs - 24 hr 09/05/23 12:03 09/05/23 13:43 09/05/23 13:56 Temperature Pulse Rate 62 60 62 Respiratory Rate 18 18 Blood Pressure Pulse Oximetry Oxygen Delivery 09/05/23 14:00 09/05/23 15:35 09/05/23 16:02 Temperature 97.6 F Pulse Rate 61 63 60 Respiratory Rate 22 H Blood Pressure 96/46 L 111/52 L Pulse Oximetry 94 Oxygen Delivery 09/05/23 20:30 09/05/23 20:40 09/05/23 20:55 Temp
[2023-09-06 11:42] LABS: Glucose Point of Care 282 mg/dl (65-105)
[2023-09-06] MEDS: AZITHROMYCIN 250 MG TABLET 500 MG PO (12:26)
[2023-09-06 16:36] LABS: Glucose Point of Care 268 mg/dl (65-105)
[2023-09-06 20:38] LABS: Glucose Point of Care 243 mg/dl (65-105)
[2023-09-07] VITALS (8 sets, daily range): BP systolic 101–124; BP diastolic 42–66; PULSE 59–63; RESP 18; TEMP 36.2; O2SAT 96–97
[2023-09-07] MEDS: ALBUTEROL SULFATE NEB 2.5 MG/3 ML INH INHALATION ×3 (02:52→14:23)
[2023-09-07] MEDS: IPRATROPIUM BR 0.02% INH SOLN 0.5 MG/2.5 ML VIAL INHALATION ×3 (02:52→14:23)
[2023-09-07] MEDS: SODIUM CHLORIDE 0.9% IV 1,000 ML 125 ML IV CONT ×2 (04:06→12:04)
[2023-09-07] MEDS: HEPARIN SODIUM 5,000 UNITS/ML VIAL 5000 UNITS SUB-Q (06:07)
[2023-09-07 06:54] LABS: Hematocrit 34.1 % (42.0-52.0); Mean Corpuscular HGB Conc 32.3 g/dl (32-36); Mean Corpuscular Hemoglobin 30.5 pg (26-34); Mean Corpuscular Volume 94.5 fl (80-100); Platelet Count Result 203 k/mm3 (150-375); Red Blood Count 3.61 M/mm3 (4.6-6.20); Red Cell Distribution Width 12.5 % (11.5-14.5); White Blood Count 11.9 K/mm3 (4.5-10.0)
[2023-09-07 07:06] LABS: Alanine Aminotransferase 106 U/L (6-50); Alkaline Phosphatase 47 U/L (38-126); Anion Gap 10 mmol/L (8-16); Aspartate Amino Transferase 93 U/L (17-59); Bilirubin,Total 0.3 mg/dL (0.2-1.3); Blood Urea Nitrogen 35 mg/dL (9-20); Calcium 8.4 mg/dL (8.4-10.2); Carbon Dioxide 22 mmol/L (22-30); Chloride 103 mmol/L (98-107); Estimated CRCL calculation 40 ml/min; Estimated Glomerular Filt Rate 40; Glucose 233 mg/dL (65-110); Potassium 3.5 mmol/L (3.4-5.0); Sodium 135 mmol/L (137-145)
[2023-09-07 07:43] LABS: Glucose Point of Care 213 mg/dl (65-105)
[2023-09-07 07:47] LABS: Band Neutrophils Percent 17 % (0-6); Burr Cells 1+ (NORMAL); Hypochromasia 1+ (NORMAL); Lymphocytes Absolute Manual 1.07 K/mm3 (1.1-4.5); Monocytes Absolute Manual 0.47 K/mm3 (0.1-0.90); Monocytes Percent Manual 4 % (3-9); Neutrophils Absolute Manual 10.35 K/mm3 (1.3-6.7); Neutrophils Percent Manual 70 % (46-73); Ovalocytes 1+ (NORMAL); Platelet Estimate Adequate (Adequate); Schistocytes None Seen (NORMAL); Total Cells Counted 100
[2023-09-07] MEDS: FLUTICASONE/UMECLIDIN/VILANTER 100-62.5-25 MCG ELLIPTA 1 PUFF INHALATION (07:50)
[2023-09-07] MEDS: INSULIN ASPART (*BKC) 100 UNITS/ML SUB-Q ×2 (08:07→12:05)
[2023-09-07] MEDS: ASPIRIN 81 MG ENTERIC TABLET PO (08:08)
[2023-09-07] MEDS: PANTOPRAZOLE 40 MG TABLET PO (08:08)
[2023-09-07] MEDS: methylPREDNISolone SOD SUCC 40 MG VIAL IV PUSH (08:09)
[2023-09-07] MEDS: CHOLECALCIFEROL 1,000 UNITS TABLET 1000 UNITS PO (08:09)
[2023-09-07] MEDS: METOPROLOL SUCCINATE EXT REL 50 MG TABCR PO (08:09)
[2023-09-07] MEDS: AZITHROMYCIN 250 MG TABLET 500 MG PO (08:09)
[2023-09-07] MEDS: TAMSULOSIN HCL 0.4 MG CAPSULE PO (08:09)
[2023-09-07] MEDS: CEFEPIME 2 GM/NS 50 ML 2 GM/50 ML BAG IVPB (08:55)
[2023-09-07 11:37] LABS: Glucose Point of Care 286 mg/dl (65-105)
--- NOTE | 2023-09-07 13:45 | PM.DS ---
DS: Admitting Diagnosis Discharge Date 09/07/2023 Admitting Diagnosis Acute metabolic encephalopathy, sepsis, multifocal pneumonia, acute respiratory failure with hypoxemia, atherosclerosis of [place] coronary artery of [place] heart without angina pectoralis, acute on chronic kidney failure, UTI, hypertension, hyperlipidemia, type 2 diabetes, COPD, COPD exacerbation DS: Discharge Diagnosis Discharge Diagnosis (1) Acute metabolic encephalopathy: Code(s): G93.41 - Metabolic encephalopathy Status: Acute (2) Sepsis: Code(s): A41.9 - Sepsis, unspecified organism Status: Acute (3) Multifocal pneumonia: Code(s): J18.9 - Pneumonia, unspecified organism Status: Acute (4) Acute respiratory failure with hypoxemia: Code(s): J96.01 - Acute respiratory failure with hypoxia Status: Acute (5) COPD exacerbation: Code(s): J44.1 - Chronic obstructive pulmonary disease with (acute) exacerbation Status: Acute (6) Acute on chronic kidney failure: Qualifiers: Acute renal failure type: unspecified Chronic kidney disease stage: stage 3 (moderate) Chronic kidney disease stage 3 subtype: stage 3b (GFR 30-44) Qualified Code(s): N17.9 - Acute kidney failure, unspecified; N18.32 - Chronic kidney disease, stage 3b Code(s): N17.9 - Acute kidney failure, unspecified; N18.9 - Chronic kidney disease, unspecified Status: Inactive (7) Uncontrolled type 2 diabetes mellitus: Code(s): E11.65 - Type 2 diabetes mellitus with hyperglycemia Status: Acute (8) HTN (hypertension): Qualifiers: Hypertension type: essential hypertension Qualified Code(s): I10 - Essential (primary) hypertension Code(s): I10 - Essential (primary) hypertension Status: Acute DS: Summary Hospital Course Reason for hospitalization: Patient was admitted for sepsis with metabolic encephalopathy related to pneumonia Hospital Course: 09/04: Patient is a poor historian, history is taken from patient and patient's son and bedside 73-year-old male with history of COPD, hypertension, hyperlipidemia, diastolic dysfunction, brought to ED because of fever and altered mental status.? Patient? slipped out of bed and fell on the floor, and EMS was called.? Upon arrival, patient denied pain, patient was found have hypoxemia, confused.? Patient was brought to ED for evaluation, in the ED, patient was found to have fever, 100.2, tachypnea, 26, hypoxemia.? Left showed leukocytosis of 28,000, with left shift, elevated BUN creatinine 48 hour 2.6, above baseline creatinine 1.8 August 26 2023.? I read chest x-ray that showed multifocal pneumonia here above right middle lower lobe.? EKG shows pacing rhythm, no specific ST T-wave changes.? UA is pending, patient received antibiotics in the EDighttime but does not.? Patient denies having to? use oxygen home.? When I saw exam patient bedside, patient mental status is improving, alert, oriented to person and place.? Patient denies headache, but has low back pain 09/05: Patient is alert oriented x4.? He does state that he has had a cough for the past several days. when asking a little more detailed questions he has difficulty answering them.? He is a poor historian.? He does remember his fall and what brought him into the hospital.? States that he feels fine today.? He denies chest pain, shortness a breath, sputum production, nausea, vomiting and dysuria. 09/06: patient doing well today.? States that he had some difficulty breathing overnight although he is feeling much better now.? His kidney function is improving as well as his white blood cell count.? He denies any chest pain, nausea, vomiting, dizziness and visual changes.? He continues to have a cough.? Will continue to monitor kidney function and white blood cell count. 09/07: Patient reports he is feeling well today and desires to be discharged home. He reports that he still has a bit of a cough but
[2023-09-07] MEDS: levoFLOXacin 750 MG TABLET PO (14:08)
--- NOTE | 2023-09-07 14:24 | PCRCNOTE ---
RT went in room to offer pt neb tx before discharging home and pt stated he would be okay without one before discharge. Kerry GRADY gave to Pt also.
--- NOTE | 2023-09-12 14:24 | IVDEFINITY ---
Prior to administration of IV Definity the patient was educated on the risks and benefits of the imaging enhancing agent including potential adverse side effects. The patient verbalized understanding. Allergies were verified. No exclusion criteria were identified and at least one of the following inclusion criteria were met: 1) physician request, 2) patient technically difficult to image (per the [place] [employer] Echocardi[employer] guidelines of two or more segments not discernable within the apical view), or 3) questionable left ventricular function. ?
== END 2023-09-07 16:55 | disposition home or self-care (01) | DRG 871 ==
LOC: ANHED 07:47 → ANH3MEDSUR 09:05
PROVIDERS: Emergency Medicine; Internal Medicine Critical Care Medicine; Admitting Provider Hospitalist; Emergency Provider Emergency Medicine; PCP Emergency Medicine; Visit Provider Nurse Practitioner
DX: A41.9 Sepsis, unspecified organism (principal); G93.41 Metabolic encephalopathy; J18.9 Pneumonia, unspecified organism; J96.01 Acute respiratory failure with hypoxia; N17.9 Acute kidney failure, unspecified; J44.1 Chronic obstructive pulmonary disease with (acute) exacerbation; I13.0 Hypertensive heart and chronic kidney disease with heart failure and stage 1 through stage 4 chronic kidney disease, or unspecified chronic kidney disease; I50.32 Chronic diastolic (congestive) heart failure; N39.0 Urinary tract infection, site not specified; J44.0 Chronic obstructive pulmonary disease with (acute) lower respiratory infection; R65.20 Severe sepsis without septic shock; E11.65 Type 2 diabetes mellitus with hyperglycemia; E78.5 Hyperlipidemia, unspecified; J44.9 Chronic obstructive pulmonary disease, unspecified; N18.32 Chronic kidney disease, stage 3b; E11.22 Type 2 diabetes mellitus with diabetic chronic kidney disease; E55.9 Vitamin D deficiency, unspecified; G47.33 Obstructive sleep apnea (adult) (pediatric); I25.10 Atherosclerotic heart disease of native coronary artery without angina pectoris; K21.9 Gastro-esophageal reflux disease without esophagitis; M19.012 Primary osteoarthritis, left shoulder; N40.0 Benign prostatic hyperplasia without lower urinary tract symptoms; Z95.1 Presence of aortocoronary bypass graft; Z20.822 Contact with and (suspected) exposure to COVID-19; Z23 Encounter for immunization; Z79.82 Long term (current) use of aspirin; Z79.84 Long term (current) use of oral hypoglycemic drugs; Z79.85 Long-term (current) use of injectable non-insulin antidiabetic drugs; Z95.810 Presence of automatic (implantable) cardiac defibrillator; Z95.5 Presence of coronary angioplasty implant and graft; Z98.41 Cataract extraction status, right eye; Z98.42 Cataract extraction status, left eye; Z96.1 Presence of intraocular lens; Z96.0 Presence of urogenital implants; Z87.891 Personal history of nicotine dependence
CPT/HCPCS: 36415; 36600; 70450; 71046; 80053; 80069; 81001; 82805; 82948; 83605; 85025; 87040; 87637; 90471; 90694; 93005; 94640; 96365; 96372; 96375; 96376; 97161; 97165; 99285; A9270; C8929; G0008; G0378; J0456; J0692; J0696; J1644; J1815; J2920; J7030; Q9957

== ENCOUNTER 2023-09-26 10:12 | Outpatient (CLI) | payer OTHER, SELFPAY ==
[2023-09-26 10:47] LABS: Basophils Absolute Auto 0.1 K/mm3 (0.0-0.1); Basophils Percent Auto 0.6 % (0.2-1.2); Eosinophils Absolute Auto 0.2 K/mm3 (0-0.3); Eosinophils Percent Auto 1.9 % (0-4.4); Hematocrit 42.5 % (42.0-52.0); Hemoglobin 13.4 g/dL (14.0-18.0); Immature Granulocyte Absolute 0.05 K/mm3 (0.00-0.031); Immature Granulocyte Percent A 0.5 % (0-0.5); Lymphocytes Absolute Auto 1.88 K/mm3 (0.9-3.2); Lymphocytes Percent Auto 19.6 % (18.3-44.2); Mean Corpuscular HGB Conc 31.5 g/dl (32-36); Mean Corpuscular Hemoglobin 29.8 pg (26-34); Mean Corpuscular Volume 94.4 fl (80-100); Mean Platelet Volume 9.5 fl (7.4-10.4); Monocytes Absolute Auto 1.1 K/mm3 (0.1-0.6); Monocytes Percent Auto 11.1 % (2.6-8.5); Neutrophils Absolute Auto 6.4 K/mm3 (1.3-6.7); Neutrophils Percent Auto 66.3 % (45.5-73.1); Platelet Count Result 247 k/mm3 (150-375); White Blood Count 9.6 K/mm3 (4.5-10.0)
[2023-09-26 10:49] LABS: Anion Gap 11 mmol/L (8-16); Blood Urea Nitrogen 26 mg/dL (9-20); Calcium 10.6 mg/dL (8.4-10.2); Carbon Dioxide 25 mmol/L (22-30); Chloride 101 mmol/L (98-107); Estimated Glomerular Filt Rate 37; Glucose 133 mg/dL (65-110); Potassium 4.6 mmol/L (3.4-5.0); Sodium 137 mmol/L (137-145)
== END 2023-09-26 10:13 | disposition home or self-care (01) ==
LOC: ANHLAB 10:15
PROVIDERS: PCP Emergency Medicine; Visit Provider Nurse Practitioner Adult Health
DX: I48.91 Unspecified atrial fibrillation (principal)
CPT/HCPCS: 36415; 80048; 84443; 85025

== ENCOUNTER 2023-11-11 01:46 | Day surgery (SDC) | payer OTHER, SELFPAY ==
[2023-11-08 13:43] VITALS: BMI 32.3
[2023-11-11] VITALS (18 sets, daily range): BP systolic 108–127; BP diastolic 66–88; PULSE 63–81; RESP 12–22; TEMP 36.4; O2SAT 92–98; BMI 33.7
--- NOTE | 2023-11-11 07:40 | SUR.PREOP ---
pt arrived early to receive 150cc/hr NS for 2 hours before cardiac cath.
[2023-11-11] MEDS: SODIUM CHLORIDE 0.9% IV 500 ML 150 ML IV CONT (07:45)
[2023-11-11 07:51] LABS: Basophils Absolute Auto 0.1 K/mm3 (0.0-0.1); Basophils Percent Auto 0.7 % (0.2-1.2); Eosinophils Absolute Auto 0.2 K/mm3 (0-0.3); Eosinophils Percent Auto 2.7 % (0-4.4); Hematocrit 43.8 % (42.0-52.0); Hemoglobin 13.6 g/dL (14.0-18.0); Immature Granulocyte Absolute 0.07 K/mm3 (0.00-0.031); Immature Granulocyte Percent A 0.8 % (0-0.5); Lymphocytes Percent Auto 22.6 % (18.3-44.2); Mean Corpuscular HGB Conc 31.1 g/dl (32-36); Mean Corpuscular Hemoglobin 29.6 pg (26-34); Mean Corpuscular Volume 95.2 fl (80-100); Mean Platelet Volume 9.7 fl (7.4-10.4); Monocytes Absolute Auto 1.2 K/mm3 (0.1-0.6); Monocytes Percent Auto 13.7 % (2.6-8.5); Neutrophils Percent Auto 59.5 % (45.5-73.1); Platelet Count Result 212 k/mm3 (150-375); White Blood Count 8.4 K/mm3 (4.5-10.0)
[2023-11-11 08:14] LABS: Anion Gap 6 mmol/L (8-16); Blood Urea Nitrogen 24 mg/dL (9-20); Calcium 9.9 mg/dL (8.4-10.2); Carbon Dioxide 27 mmol/L (22-30); Chloride 104 mmol/L (98-107); Estimated CRCL calculation 30 ml/min; Estimated Glomerular Filt Rate 30; Glucose 168 mg/dL (65-110); Potassium 4.3 mmol/L (3.4-5.0); Sodium 137 mmol/L (137-145)
--- NOTE | 2023-11-11 10:07 | WPDMODSED ---
Moderate Sedation Note-Pt Data Patient Data Diagnosis: coronary disease with previous CABG status post pacemaker implantation paroxysmal AFib abnormal nuclear stress test Present Complaint: no complaints Procedure to be performed/Plan: coronary angiography free BELKYS angiography vein graft angiography Allergies Allergy/AdvReac Type Severity Reaction Status Date / Time morphine AdvReac Unknown Vomiting, Verified 11/08/23 13:54 nausea rosuvastatin AdvReac Unknown Cramping Verified 11/08/23 13:54 of the Muscles tramadol AdvReac Unknown Vomiting Verified 11/08/23 13:54 Home Medications Medication Instructions Recorded Confirmed Type cholecalciferol (vitamin D3) 25 25 mcg PO DAILY 06/08/21 11/08/23 History mcg (1,000 unit) capsule (Vitamin D3) acetaminophen 500 mg tablet 1,000 mg PO Q6H PRN Pain 11/09/21 11/08/23 History metformin 1,000 mg tablet 1,000 mg PO BID #180 tabs 03/13/23 11/08/23 Rx rosuvastatin 40 mg tablet 40 mg PO DAILY #90 tabs 03/13/23 11/11/23 Rx metoprolol succinate 50 mg 50 mg PO BID 04/11/23 11/11/23 History tablet,extended release 24 hr semaglutide 7 mg tablet (Rybelsus) 7 mg PO QAM 04/11/23 11/11/23 History albuterol sulfate 90 mcg/actuation 2 puff inhalation Q4H PRN short of 09/04/23 11/08/23 History aerosol inhaler breath fluticasone fur. 100 mcg-umeclid 1 inh inhalation DAILY 09/04/23 11/11/23 History 62.5 mcg-vilant 25 mcg inhalat.powder (Trelegy Ellipta) tamsulosin 0.4 mg capsule 0.4 mg PO DAILY 09/04/23 11/11/23 History ipratropium 0.5 mg-albuterol 3 mg 3 ml inhalation Q6H PRN shortness 09/07/23 11/08/23 Rx (2.5 mg base)/3 mL nebulization of breath or wheezing #180 mL soln nebulizer and compressor #1 ea 09/07/23 09/12/23 Rx amiodarone 200 mg tablet 200 mg PO DAILY 11/08/23 11/08/23 History apixaban 5 mg tablet (Eliquis) 5 mg PO DAILY 11/08/23 11/08/23 History losartan 25 mg tablet 25 mg PO DAILY 11/11/23 11/11/23 History spironolactone 25 1 tablet PO DAILY 11/11/23 11/11/23 History mg-hydrochlorothiazide 25 mg tablet Current Medications: Active Medications Sodium Chloride (Normal Saline Iv) 500 mls @ 150 mls/hr IV CONT .Q3H20M ONE Stop: 11/11/23 11:02 Last Admin: 11/11/23 07:45 Dose: 150 mls/hr Sedation/Anesthesia: No previous sedation/anesthesia problems (including family history). [facility] Past Medical History Medical History Abnormal CT scan, colon Adenomatous colon polyp Atherosclerosis of [place] coronary artery of [place] heart without angina pectoris Body mass index [BMI] 38.0-38.9, adult (08/20/16) Body mass index [BMI] 39.0-39.9, adult (04/14/18) BPH (benign prostatic hyperplasia) BPH associated with nocturia CHF (congestive heart failure) Echocardiogram April 2020: Mild left ventricular enlargement, mild global ventricular systolic dysfunction, impaired diastolic relaxation grade 1, ejection fraction 41%, mild enlargement of left atrium, RVSP of 41 Cholelithiasis CKD (chronic kidney disease), stage III Colitis (~2016) Colon, diverticulosis COPD (chronic obstructive pulmonary disease) Coronary artery disease DM2 (diabetes mellitus, type 2) Last hemoglobin A1c 04/28/2021 10.6 Epigastric pain Erectile dysfunction Gallstone Gastric ulcer With history of bleeding ulcer approximately 2017 GERD (gastroesophageal reflux disease) Gout HTN (hypertension) Hypercholesterolemia Hypersomnolence ICD (implantable cardioverter-defibrillator) in place Kidney stones Numerous Long-term use of aspirin therapy Nocturia Obstructive sleep apnea Intolerant of CPAP machine Primary osteoarthritis of left shoulder Seasonal allergies Upper abdominal pain Vitamin D deficiency Surgical History Surgical History H/O arthroscopic knee surgery Bilaterally History of colonoscopy with polypectomy With history of ulcerated paty
--- NOTE | 2023-11-11 10:37 | WPDCARDPROC ---
Cardiac Cath Procedure Note Date of procedure:: 11/11/23 Performing physician:: Gustavo Aquino MD Indication:: coronary artery disease with previous CABG abnormal nuclear stress test paroxysmal atrial fibrillation Brief clinical history:: this is a 73-year-old man with coronary disease who underwent coronary bypass grafting in 2010. He is followed in the office by my partner, Dr. Salazar. He has a chronically implantable bi V ICD device. Apparently his device has demonstrated evidence of some paroxysmal atrial fibrillation. This triggered a nuclear stress test being done in the office which demonstrated evidence of a anteroapical infarction as well as some mild inferior ischemia. This resulted in recommendation to perform a follow-up angiogram. The patient does have chronic kidney disease with a creatinine of 2.2. He was prehydrated in the holding area prior to angiography. I did explain to the patient that he is at higher risk for contrast nephropathy in this setting. He is not reporting exertional chest pain or anginal-type symptoms Procedure Procedure performed:: coronary angiography vein graft angiography free BELKYS angiography Sedation/Medication given:: fentanyl 50 mg Versed 2 case start time 10:18 a.m. case end time 10:36 a.m. sedation provided by Chaya Glez RN, trained observer Access site:: right femoral artery Estimated blood loss:: 20 cc Procedure note:: patient was brought to the cardiac catheterization lab postabsorptive state where the right femoral triangle was prepared and draped in the usual fashion. Anesthesia was given with 1% lidocaine infiltrated locally. Using the modified Seldinger technique a 5 [place] sheath was placed in the right femoral artery after this I used a 5 [place] FL4 catheter to engage and inject the left coronary artery in multiple projections. A 5 [place] JR4 catheter was used to engage inject the right coronary artery. The same catheter was used to engage and inject the saphenous vein graft and the free BELKYS graft. The patient's left internal mammary graft was known to be totally occluded in 2014 and for this reason and to minimize contrast he did not study that graft again today. Following the procedure I did an angiogram of the femoral artery through the sheath after which we decided to have the sheath removed with direct manual compression. The puncture site was in the SFA. We brought the patient to the holding area in good condition there was no evidence of groin hematoma or any other complications during the procedure. Findings:: Hemodynamics: Central aortic pressure was 1 36/76. The left ventricle was not entered during this procedure. The left main coronary artery is widely patent. The left anterior descending has mild luminal irregularities proximally. There is about 50-60% stenosis in the LAD in the vicinity of the major diagonal branch. After this the LAD becomes significantly smaller in size there is MICHAEL 3 flow in the LAD down to the apex. The major diagonal branch of the LAD has severe long proximal 95% stenosis. There is competitive flow seen in the Diagonal. The circumflex is a moderate caliber artery giving rise to the marginal branches. There is mild luminal irregularity in the proximal circumflex but no flow-limiting disease is identified. The right coronary artery is large caliber and dominant to the posterior circulation. The right coronary in its entirety is diffusely diseased and ectatic Ghazala dilated. There is a 80-90% stenosis in the 3rd portion of the RCA. There is flow into the RPDA and RPL. Saphenous vein graft to the right coronary artery is a medium caliber segment of saphenous vein is widely patent at its anastomosis into the RPDA is patent there is no obstructive disease in this vein graft. free right mammary graft to the diagonal is a medium caliber segment of mammary artery. It is a angiogram shows no
[2023-11-11] MEDS: SODIUM CHLORIDE 0.9% IV 1,000 ML 125 ML IV CONT (12:30)
== END 2023-11-11 16:45 | disposition home or self-care (01) ==
PROVIDERS: PCP Emergency Medicine; Visit Provider Specialist
PROC: 4A023N7 Measurement of Cardiac Sampling and Pressure, Left Heart, Percutaneous Approach (ICD-10-PCS; CPT 93459; principal; 2023-11-11 10:00)
DX: I25.10 Atherosclerotic heart disease of native coronary artery without angina pectoris (principal); R94.39 Abnormal result of other cardiovascular function study; I48.0 Paroxysmal atrial fibrillation; Z95.1 Presence of aortocoronary bypass graft; I13.0 Hypertensive heart and chronic kidney disease with heart failure and stage 1 through stage 4 chronic kidney disease, or unspecified chronic kidney disease; I50.9 Heart failure, unspecified; E11.22 Type 2 diabetes mellitus with diabetic chronic kidney disease; N18.30 Chronic kidney disease, stage 3 unspecified; N40.1 Benign prostatic hyperplasia with lower urinary tract symptoms; R35.1 Nocturia; J44.9 Chronic obstructive pulmonary disease, unspecified; K21.9 Gastro-esophageal reflux disease without esophagitis; Z95.810 Presence of automatic (implantable) cardiac defibrillator; M10.9 Gout, unspecified; E78.00 Pure hypercholesterolemia, unspecified; G47.33 Obstructive sleep apnea (adult) (pediatric); E55.9 Vitamin D deficiency, unspecified; Z79.85 Long-term (current) use of injectable non-insulin antidiabetic drugs; Z79.51 Long term (current) use of inhaled steroids; Z79.84 Long term (current) use of oral hypoglycemic drugs; Z79.01 Long term (current) use of anticoagulants; Z95.5 Presence of coronary angioplasty implant and graft; Z87.891 Personal history of nicotine dependence
CPT/HCPCS: 36415; 80048; 85025; 93459; C1887; C1894; J1644; J2250; J3010; J7030; J7040

== ENCOUNTER 2023-11-21 07:37 | Outpatient (CLI) | payer OTHER, SELFPAY ==
[2023-11-21 08:10] LABS: Anion Gap 9 mmol/L (8-16); Blood Urea Nitrogen 29 mg/dL (9-20); Calcium 10.1 mg/dL (8.4-10.2); Carbon Dioxide 27 mmol/L (22-30); Chloride 98 mmol/L (98-107); Estimated Glomerular Filt Rate 28; Glucose 168 mg/dL (65-110); Potassium 4.2 mmol/L (3.4-5.0); Sodium 134 mmol/L (137-145)
== END 2023-11-21 07:38 | disposition home or self-care (01) ==
LOC: ANHLAB 07:40
PROVIDERS: PCP Emergency Medicine; Visit Provider Nurse Practitioner
DX: I50.42 Chronic combined systolic (congestive) and diastolic (congestive) heart failure (principal); E11.22 Type 2 diabetes mellitus with diabetic chronic kidney disease; N18.2 Chronic kidney disease, stage 2 (mild)
CPT/HCPCS: 36415; 80048

== ENCOUNTER 2024-01-14 12:28 | Outpatient (CLI) | payer OTHER, SELFPAY ==
--- NOTE | ~2024-01-14 | XR_ITS ---
Supine and upright views of the abdomen Clinical history: Back pain, chronic kidney disease Findings: Bowel gas pattern is nonspecific. No evidence for obstruction or free air. No abnormal mass lesion or calcification is seen. There is moderate to severe degenerative change of the left hip lilia nt. Impression: No acute abnormality. Moderate to advanced degenerative change of the left hip joint. Reviewed, dictated and finalized at location . Impression: No acute abnormality. Moderate to advanced degenerative change of the left hip joint.
== END 2024-01-14 12:29 | disposition home or self-care (01) ==
LOC: ANHIMG 12:29
PROVIDERS: PCP Emergency Medicine; Visit Provider Internal Medicine Nephrology
DX: N18.32 Chronic kidney disease, stage 3b (principal); N20.0 Calculus of kidney; M16.12 Unilateral primary osteoarthritis, left hip
CPT/HCPCS: 74018

== ENCOUNTER 2024-02-12 09:25 | Outpatient (CLI) | payer OTHER, SELFPAY ==
[2024-02-12 09:57] LABS: Albumin Level 4.3 g/dL (3.5-5.1); Anion Gap 9 mmol/L (4-12); Blood Urea Nitrogen 32 mg/dL (9-20); Calcium 10.6 mg/dL (8.4-10.2); Carbon Dioxide 25 mmol/L (22-30); Chloride 101 mmol/L (98-107); Estimated Glomerular Filt Rate 23; Glucose 145 mg/dL (65-110); Magnesium 1.4 mg/dL (1.6-2.3); Phosphorus 3.4 mg/dL (2.5-4.5); Potassium 5.2 mmol/L (3.4-5.0); Sodium 135 mmol/L (137-145); Uric Acid 6.1 mg/dL (3.5-8.5)
== END 2024-02-12 09:26 | disposition home or self-care (01) ==
LOC: ANHLAB 09:27
PROVIDERS: PCP Emergency Medicine; Visit Provider Internal Medicine Nephrology
DX: N20.0 Calculus of kidney (principal)
CPT/HCPCS: 36415; 80069; 83735; 84550

== ENCOUNTER 2024-03-03 09:20 | Outpatient (CLI) | payer OTHER, SELFPAY ==
[2024-03-03 10:04] LABS: Albumin Level 4.1 g/dL (3.5-5.1); Anion Gap 10 mmol/L (4-12); Blood Urea Nitrogen 31 mg/dL (9-20); Calcium 9.9 mg/dL (8.4-10.2); Carbon Dioxide 25 mmol/L (22-30); Chloride 102 mmol/L (98-107); Estimated Glomerular Filt Rate 24; Glucose 145 mg/dL (65-110); Potassium 3.8 mmol/L (3.4-5.0); Sodium 137 mmol/L (137-145)
== END 2024-03-03 09:21 | disposition home or self-care (01) ==
PROVIDERS: PCP Emergency Medicine; Visit Provider Internal Medicine Nephrology
DX: N18.32 Chronic kidney disease, stage 3b (principal)
CPT/HCPCS: 36415; 80069

== ENCOUNTER 2024-03-16 08:23 | Outpatient (CLI) | payer OTHER, SELFPAY ==
[2024-03-16 09:29] LABS: Alanine Aminotransferase 22 U/L (6-50); Albumin Level 3.9 g/dL (3.5-5.1); Alkaline Phosphatase 65 U/L (38-126); Anion Gap 5 mmol/L (4-12); Aspartate Amino Transferase 24 U/L (17-59); Bilirubin,Total 0.5 mg/dL (0.2-1.3); Blood Urea Nitrogen 26 mg/dL (9-20); Calcium 10.1 mg/dL (8.4-10.2); Carbon Dioxide 29 mmol/L (22-30); Chloride 103 mmol/L (98-107); Cholesterol 95 mg/dL (0-200); Estimated Glomerular Filt Rate 27; Glucose 124 mg/dL (65-110); HDL Direct 49 mg/dL; Sodium 137 mmol/L (137-145); Triglycerides 120 mg/dL (<150)
[2024-03-16 09:39] LABS: Parathyroid Intact 90.7 pg/mL (7.5-53.5)
[2024-03-16 09:40] LABS: Appearance Urine Clear (Clear); Bacteria Urine None Seen /hpf; Bilirubin Urine Negative (Negative); Blood Urine Trace (Negative); Color Urine Yellow (Yellow); Glucose Urine UA Negative (Negative); Ketones Urine Trace mg/dL (Negative); Leukocyte Esterase Ur Negative LEU/UL (Negative); Need Manual Microscopic Reviewed; Nitrate Urine Negative (Negative); Protein Urine 2+ mg/dL (Negative); RBC Urine 0-2 /hpf (0-2); Specific Grav Ur 1.019 (1.001-1.035); Squamous Epithelial Cell Urine None Seen /hpf (Few); WBC Urine 0-5 /hpf (0-3)
[2024-03-16 09:40] LABS: LDL Cholesterol Direct 42 mg/dL
[2024-03-16 09:49] LABS: Hemoglobin A1C 6.2 % (<5.7)
[2024-03-16 09:56] LABS: Add Urine Microscopic? YES
[2024-03-16 10:08] LABS: Creatinine Urine 117.8 mg/dL
[2024-03-16 10:09] LABS: Creatine Kinase 42 U/L (55-170); Phosphorus 2.1 mg/dL (2.5-4.5)
[2024-03-16 10:09] LABS: Creatinine Urine 118.1 mg/dL; Total Protein Urine Random 120 mg/dL; Ur Ttl Prot Creatinine Ratio 1.02 mg/mg (0-0.20)
[2024-03-16 10:11] LABS: MALB Creatinine Ratio 74.5 mg/g (0-30); Microalbumin Urine Random 87.8 mg/L (0-16.7)
[2024-03-16 10:22] LABS: Vitamin D 25 Hydroxy 42.9 ng/mL
[2024-03-16 10:24] LABS: Complement C3 124 mg/dL (88-165)
[2024-03-16 10:27] LABS: Erythrocyte Sedimentation Rate 42 mm/hr (0-20)
[2024-03-17 16:48] LABS: Lambda Light Chain 26.3 mg/L (5.7-26.3)
[2024-03-18 15:04] LABS: Complement Total CH50 >60 U/mL (31-60)
[2024-03-21 21:32] LABS: Immunofixation, Serum Normal pattern.
[2024-04-07 14:23] LABS: ANA Additional Testing Not Indicated
== END 2024-03-16 08:24 | disposition home or self-care (01) ==
PROVIDERS: PCP Emergency Medicine; Visit Provider Internal Medicine Nephrology
DX: E78.5 Hyperlipidemia, unspecified (principal); E55.9 Vitamin D deficiency, unspecified; E11.9 Type 2 diabetes mellitus without complications; N18.32 Chronic kidney disease, stage 3b
CPT/HCPCS: 36415; 80053; 80061; 81001; 81050; 82043; 82306; 82550; 82570; 83036; 83883; 83970; 84100; 84156; 84540; 85652; 86038; 86039; 86160; 86162; 86334; 86335

== ENCOUNTER 2024-03-17 11:49 | Outpatient (CLI) | payer OTHER, SELFPAY ==
[2024-03-17 12:42] LABS: Total Volume 24 Hour Urine 800 ml
[2024-03-17 12:50] LABS: Urea Nitrogen 24 Hour Urine 4.9 G/DAY (12-20)
[2024-03-19 14:48] LABS: Creat 24 Hr 0.74 g/24 h (0.50-2.15); Pro/Creat Ratio 1085 mg/g creat (<100); Pro/Creat Ratio mg/mg 1.085 (<0.100); Protein,total, 24 Hr Ur 805 mg/24 h (<150)
[2024-03-20 12:08] LABS: Albumin 13 %
== END 2024-03-17 11:50 | disposition home or self-care (01) ==
PROVIDERS: PCP Emergency Medicine; Visit Provider Internal Medicine Nephrology
DX: N18.32 Chronic kidney disease, stage 3b (principal)
CPT/HCPCS: 81050; 84540; 86335

== ENCOUNTER 2024-07-20 08:33 | Outpatient (CLI) | payer OTHER, SELFPAY ==
[2024-07-20 09:21] LABS: Hematocrit 35.6 % (42.0-52.0); Mean Corpuscular HGB Conc 30.9 g/dl (32-36); Mean Corpuscular Hemoglobin 30.9 pg (26-34); Mean Platelet Volume 9.6 fl (7.4-10.4); Platelet Count Result 234 k/mm3 (150-375); Red Blood Count 3.56 M/mm3 (4.6-6.20); Red Cell Distribution Width 13.2 % (11.5-14.5); White Blood Count 7.6 K/mm3 (4.5-10.0)
[2024-07-20 09:37] LABS: Albumin Level 3.7 g/dL (3.5-5.1); Anion Gap 10 mmol/L (4-12); Blood Urea Nitrogen 31 mg/dL (9-20); Calcium 9.9 mg/dL (8.4-10.2); Carbon Dioxide 26 mmol/L (22-30); Chloride 101 mmol/L (98-107); Estimated Glomerular Filt Rate 23; Glucose 138 mg/dL (65-110); Magnesium 2.1 mg/dL (1.6-2.3); Phosphorus 3.5 mg/dL (2.5-4.5); Potassium 5.1 mmol/L (3.4-5.0); Sodium 137 mmol/L (137-145)
[2024-07-20 09:42] LABS: Creatinine Urine 156.1 mg/dL; Total Protein Urine Random 109 mg/dL
[2024-07-20 09:47] LABS: Parathyroid Intact 63.8 pg/mL (14.5-75.2)
== END 2024-07-20 08:34 | disposition home or self-care (01) ==
LOC: ANHLAB 08:37
PROVIDERS: PCP Emergency Medicine; Visit Provider Internal Medicine Nephrology
DX: I12.9 Hypertensive chronic kidney disease with stage 1 through stage 4 chronic kidney disease, or unspecified chronic kidney disease (principal); N18.32 Chronic kidney disease, stage 3b; N20.0 Calculus of kidney
CPT/HCPCS: 36415; 80069; 82570; 83735; 83970; 84156; 85027

== ENCOUNTER 2024-09-07 09:23 | Outpatient (CLI) | payer OTHER, SELFPAY ==
--- NOTE | ~2024-09-07 | XR_ITS ---
XR shoulder RT min 2V Ordering provider: Gustavo Ba MD History: . PT STATES HX OF ARTHIRITIS AND PAIN TO RT SHOULDER . Comparison: None. FINDINGS: BONES: No acute fracture or dislocation. JOINT SPACES: The acromioclavicular joint is normal. Moderate osteoarthritis glenohumeral joint space . SOFT TISSUES: Normal. Postoperative changes in the mediastinum. IMPRESSION: No acute osseous abnormality right shoulder. Reviewed, dictated and finalized at location A. SAFETY PHYSICIAN
== END 2024-09-07 09:24 | disposition home or self-care (01) ==
PROVIDERS: PCP Emergency Medicine; Visit Provider Emergency Medicine
DX: M25.511 Pain in right shoulder (principal)
CPT/HCPCS: 73030

== ENCOUNTER 2024-12-22 07:52 | Outpatient (CLI) | payer OTHER, SELFPAY ==
--- NOTE | ~2024-12-22 | XR_ITS ---
XR abdomen/kub 1V Ordering provider: Pavel Fermin MD History: . N20.0 - Calculus of kidney . Comparison: None. FINDINGS: BOWEL: Nonobstructive bowel gas pattern. ORGANOMEGALY: None. SIGNIFICANT PATHOLOGIC CALCIFICATIONS: Tiny stone in the left kidney area. OTHER: No free air is seen under the diaphragm. Degenerative changes of the spine. Bilateral hip moderate osteoarthritic changes. Right sacroiliitis. IMPRESSION: NO ACUTE ABDOMINAL FINDINGS. Tiny stone in the left kidney area. Reviewed, dictated and finalized at location A.
--- OUTSIDE RECORDS SUMMARY | 2024-12-22 08:02 | XMS_ITS | Clinical Summary ---
Author Organization [facility] Address [address] [place] [address] Care Team Providers Care Community Health Advisor Name Role Phone Gustavo Ba MD Primary Care Provider [phone] Source Comments [facility],non-owned Affiliates and Associated Physician Practices is amultiple site organization consisting of ambulatory clinics and hospital sitesin [place], [place], [place] and [place]. This disclosure is being madepursuant to the Care Everywhere program and may not contain all information available regarding this patient. Last updated 18.[facility] [employer] Social History Tobacco Use Types Packs/Day Years Used Date Smoking Tobacco: Never Assessed Sex and Gender Information Value Date Recorded Sex Assigned at Not on file Gender Identity Not on file Sexual Orientation Not on file Plan of Treatment Health Maintenance Due Date Last Done Comments COLOGUARD (AGES 45-75) - COL ON CA SCREENING 1951 COLON MONITORING 1951 COLONOSCOPY - COLON CA SCREENING 1951 CT COLONOGRAPHY - COLON CA SCREENING 1950 Colorectal Cancer Screening 1951 FIT - COLON CA SCREENING 1951 FLEX SIG - COLON CA SCREENING 1951 LIPID TESTING 1950 MEDICARE AWV 12 MONTHS 1951 HEPATITIS C SCREENING 03/07/1969 DTAP/TDAP/TD VACCINES (1 - Tdap) 1970 PNEUMOCOCCAL VACCINE 50+ (1 of 1 - PCV) 2001 ZOSTER VACCINE (1 of 2) 2001 COVID-19 VACCINE ( - 2023-2 5 season) 2024 INFLUENZA VACCINE (#1) 2024 DEPRESSION SCREENING 10/14/2024 MEDICARE AWV CALENDAR YEAR 2024 Respiratory Syncytial Virus (RSV) Vaccine Pt: or over 60 yrs (1 - 1-dose 75+ series) 2026 HEPATITIS B VACCINE Aged Out No longe r eligible based on patient's age to complete this topic HIB VACCINE Aged Out No longer eligi ble based on patient's age to complete this topic HPV VACCINE Aged Out No longer eligi ble based on patient's age to complete this topic MENINGOCOCCAL (Group B) VACCINE Aged Out No longer eligible based on patient's age to complete this topic MENINGOCOCCAL VACCINE Aged Out No jillian farhan eligible based on patient's age to complete this topic Medical Devices Implanted Type Area Gun Tester Device Identifier Shelf Expiration Date Model / Serial / Lot Medtronic Icd; Mri Unsafe Due To Capped Lead Left From Old System [id number] CAPPED LEAD / / Care Teams Community Health Advisor Relationship Specialty Start Date End Date Gustavo Ba MD [address] [place] [address] PCP - General 05/19/18
--- OUTSIDE RECORDS SUMMARY | 2024-12-22 08:02 | XMS_ITS | Encounter Summary ---
Author Organization [facility] Healthcare Address [address] [place] [address] Care Team Providers Care Rotary Slicing Machine Operator Name Role Phone Gustavo Ba MD Primary Care Provide r Encounter Details Date Type Department Care Team (Late st Contact Info) Description 12/21/2024 Telephone [facility] Medical Group Cardiology [address] [place] [phone] [place] [address] [place] [address] [place] [address] Social History Tobacco Use Types Packs/Day Years Used Date Smoking Tobacco: Former Smokeless Tobacco: Never Alcohol Use Standard Drinks/Week Comments No 0 (1 standard drink = 0.6 oz pur e alcohol) Social Connection and Isolat ion Panel [NHANES] Answer Date Recorded In a typical week, how many times do you talk on the phone with family, friends, or neighbors? More than three times a week 06/12/2023 How often do you get togethe r with friends or relatives? More than three times a week 06/12/2023 How often do you attend chur ch or caodaism services? Never 06/12/2023 Do you belong to any clubs o r organizations such as confucianist groups, unions, fraternal or athletic groups, or school groups? No 06/12/2023 How often do you attend meet ings of the clubs or organizations you belong to? Never 06/12/2023 Are you , , di vorced, , never , or living with a partner? 06/12/2023 Overall Financial Resource Strain (CARDIA) Answe r Date Recorded How hard is it for you to pa y for the very basics like food, housing, medical care, and heating? Not hard at all 06/12/2023 Hunger Vital Sign Answer Date Recorded Within the past 12 months, y ou worried that your food would run out before you got the money to buy more. Never true 06/12/20 23 Within the past 12 months, t he food you bought just didn't last and you didn't have money to get more. Never true 06/12/2023 PRAPARE - Transportation Answer Date Re corded In the past 12 months, has l ack of transportation kept you from medical appointments or from getting medications? No 05/16 In the past 12 months, has l ack of transportation kept you from meetings, work, or from getting things needed for daily living? No 06/12/2023 Housing Stability Vital Sign Answer Yosef e Recorded In the last 12 months, was t here a time when you were not able to pay the mortgage or rent on time? Yes 06/12/2023 In the last 12 months, how many places have you lived? 1 06/12/2023 In the last 12 months, was t here a time when you did not have a steady place to sleep or slept in a half-way (including now)? No 06/12/2023 Personal Safety Answer Date Recorded Have you ever been in or are you currently in a harmful physical or emotional relationship or is someone making you feel afraid or unsafe? Denies 06/11/2023 Sex and Gender Information Value Date Recorded Sex Assigned at Not on file Legal Sex Male 12:11 PM MATERIALS ENGINEER Gender Identity Not on file Sexual Orientation Not on file documented as of this encounter Miscellaneous Notes * Telephone Encounter - Jillian Zhong NP - 12/21/2024 4:13 PM CDT I have his clearance form for his colonoscopy this sitting on my desk, but I cannot complete it until I find out whether or not he received a shock from his defibrillator. Once we get this information I can complete his form. * Telephone Encounter - Jahaira Shabazz RN - 12/21/2024 1:49 PM CDT I have not received a report on the website as of yet. I left a detailed message on Mrs. Huynh's voicemail. I informed her that I left a message on Nikhil voicemail and I have not received any websitealert notifications. Requested that they contact [employer] monitor supportive employment case manager at for assistance with sending in a report to the remote monitoring website. * Telephone Encounter - Jahaira Shabazz RN - 12/21/2024 8:53 AM CDT Left message for patient with instructions to call monitor supportive employment case manager at [phone] for assistance with sending in a remote transmission to the website. * Telephone Encounter - Jahaira Shabazz RN - 12/21/2024 8:52 AM CDT ----- Message from Jillian Zhong NP sent at 12/18/2024 9:18 AM MATERIALS ENGINEER ----- Regarding: ICD Hello, I saw Mr. Huynh today overdue for follow-up. He and his told me about 4 days ago they think hemight have gotten shocked from his ICD. He did not lose consciousness or have any prodrome prior tothe event. Can you get a remote download and check it? Thank you, Jillian documented in this encounter Plan of Treatment Not on file documented as of this encounter Visit Diagnoses Not on filedocumented in this encounter Care Teams Rotary Slicing Machine Operator Relationship Specialty Start Date End Date Gustavo Ba MD [address] [place] [address] PCP - General 01/11/17 documented as of this encounter
--- OUTSIDE RECORDS SUMMARY | 2024-12-22 08:02 | XMS_ITS | Patient Health Summary ---
Author Organization [facility] Address [address] [place] [address] Care Team Providers Care Bottle Washing Machine Operator Name Role Phone Gustavo Ba MD Primary Care Provider Note from [facility],non-owned Affiliates and Associated Physician Practices is amultiple site organization consisting of ambulatory clinics and hospital sitesin [place], [place], [place] and [place]. This disclosure is being madepursuant to the Care Everywhere program and may not contain all information available regarding this patient. Last updated 18.[facility] Social History Tobacco Use Types Packs/Day Years Used Date Smoking Tobacco: Never Assessed Sex and Gender Information Value Date Recorded Sex Assigned at Not on file Gender Identity Not on file Sexual Orientation Not on file Medical Devices Implanted Type Area Thiokol Operator Device Identifier Shelf Expiration Date Model / Serial / Lot Medtronic Icd; Mri Unsafe Due To Capped Lead Left From Old System [id number] CAPPED LEAD / / Care Teams Bottle Washing Machine Operator Relationship Specialty Start Date End Date Gustavo Ba MD [facility] [facility] [address] [place] [address] PCP - General 05/19/18
--- OUTSIDE RECORDS SUMMARY | 2024-12-22 08:02 | XMS_ITS | Clinical Summary ---
Author Organization [facility] Address [address] [place] [address] Phone Care Team Providers Care Quality Assurance Representative Name Role Phone Gustavo Ba MD Primary Care Provider [phone] Allergies Active Allergy Reactions Criticality Noted Date Comments Morphine nausea,Vomiting 11/03/2021 Reaction: NAUSEA, VOMITING, , Reaction: NAUSEA, VOMITING, , Tramadol Dizziness 11/03/2021 Medications Medication Sig Dispensed Refills Start Date End Date Status aspirin (ST JARRELL) 81 MG EC tablet Take 81 mg by mouth daily Active rosuvastatin (CRESTOR) 40 MG tablet 11/10/2021 Active Ozempic, 1 MG/DOSE, 4 MG/3ML solution pen-injector 11/11/2021 Active metFORMIN (GLUCOPHAGE) 1000 MG tablet 12/01/2021 Active cholecalciferol, vitamin D3, 5,000 Units tablet tablet Take 5,000 Units by mouth daily Active tamsulosin (FLOMAX) 0.4 MG 24 hr capsule 12/01/2021 Acti ve albuterol HFA (PROVENTIL HFA) 108 (90 Base) MCG/ACT inhaler 07/05/2021 Active Trelegy Ellipta 100-62.5-25 MCG/INH aerosol powder 11/10/2021 Active losartan (COZAAR) 25 MG tablet 11/10/2021 Active metoprolol succinate XL (TOPROL-XL) 50 MG 24 hr tablet 10/10/2021 Active spironolactone (ALDACTONE) 25 MG tablet 12/01/2021 Active hydroCHLOROthiazide (HYDRODIURIL) 25 MG tablet Take 1 tablet (25 mg total) by mouth 1 (one) time each day 30 tablet 11 04/06/2022 Active Active Problems Problem Noted Date Diagnosed Date Chronic kidney disease stage 2 due to type 2 diabetes mellitus 12/22/2021 Urolithiasis 11/04/2021 Biventricular automatic impl antable cardioverter defibrillator in situ 05/21/2019 Overview (12/13/2021): Medtronic BIV ICD. Dx; NICM, CHF, CHB. DOI 05/20/2019-[employer]. Chronic A-Lead 01/14/13, Chronic RV lead capped. [employer] remote monitoring. [employer]onic BIV ICD. Dx; NICM, CHF, CHB. DOI 05/20/2019-[employer]eninik. Chronic A-Lead 01/14/13, Chronic RV lead capped. [employer] remote monitoring. Atrial paroxysmal tachycardia 09/20/2018 Overview (12/13/2021): Last Assessment & Plan: This appears to be of overall low burden. We will continue to follow via his device detection. Last Assessment & Plan: This appears to be of overall low burden. We will continue to follow via his device detection. 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 He has complete heart block and is 100% paced. I recommended that the patient undergo device revision to a biventricular pacing defibrillator. This would involve placement of an RV coil and an LV pacing lead. I explained the risks and benefits, and the patient would like to proceed. My office will make the appropriate arrangements. 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 He has complete heart block and is 100% paced. I recommended that the patient undergo device revision to a biventricular pacing defibrillator. This would involve placement of an RV coil and an LV pacing lead. I explained the risks and benefits, and the patient would like to proceed. My office will make the appropriate arrangements. Essential hypertension 11/28/2016 Overview (12/13/2021): Essential hypertension Last Assessment & Plan: Hypertension is at goal on medical therapy Essential hypertension Last Assessment & Plan: Hypertension is at goal on medical therapy History of coronary artery bypass grafting 11/28 Overview (12/13/2021): Hx of CABG Hx of CABG Mixed hyperlipidemia 11/28/2016 Overview (12/13/2021): Hypercholesterolemia Last Assessment & Plan: 02/2017 total cholesterol 154, LDL 92 which is good but not great. May benefit from changing atorvastatin to rosuvastatin. Hypercholesterolemia Last Assessment & Plan: 02/2017 total cholesterol 154, LDL 92 which is good but not great. May benefit from changing atorvastatin to rosuvastatin. Type 2 diabetes mellitus without complication Overview (12/13/2021): Type 2 diabetes mellitus without complication, without long-term current use of insulin Type 2 diabetes mellitus without complication, without long-term current use of insulin Immunizations Name Administration Dates Next Due Influenza, Injectable, Quadrivalent, Preservativ e Free 11/05/2021 Social History Tobacco Use Types Packs/Day Years Used Date Smoking Tobacco: Former Smokeless Tobacco: Never Alcohol Use Standard Drinks/Week Comments Not Currently 0 (1 standard drink = 0.6 oz pur e alcohol) Sex and Gender Information Value Date Recorded Sex Assigned at Not on file Gender Identity Not on file Sexual Orientation Not on file Last Filed Vital Signs Vital Sign Reading Time Taken Comments Blood Pressure 100/70 12/14/2021 10:13 AM SAMPLE WORKER Pulse 72 12/14/2021 10:13 AM SAMPLE WORKER Temperature 36.5 C (97.7 F) 12/14/2021 10:13 AM SAMPLE WORKER Respiratory Rate - - Oxygen Saturation - - Inhaled Oxygen Concentration - - Weight 102 kg (225 lb) 12/14/2021 10:13 AM SAMPLE WORKER Height 172.7 cm (5' 8 ) 12/14/2021 10:13 AM SAMPLE WORKER Body Mass Index 34.21 12/14/2021 10:13 AM SAMPLE WORKER Plan of Treatment Health Maintenance Due Date Last Done Comments Pneumococcal PPSV23/PCV13 65 + Years / Low and Medium Risk (1 of 4 - PCV) 2016 Influenza Vaccine (#1) 2024 11/05/2021 Care Teams Quality Assurance Representative Relationship Specialty Start Date End Date Gustavo Ba MD [address] [place] [address] PCP - General Internal Medicine 12/12/21
--- OUTSIDE RECORDS SUMMARY | 2024-12-22 08:02 | XMS_ITS | Encounter Summary ---
Author Organization [facility] Healthcare Address [address] [place] [address] Care Team Providers Care Aircraft Designer Name Role Phone Gustavo Ba MD Primary Care Provide r Reason for Visit * Reason Onset Date Comments cardiac clearance 12/15/2024 Encounter Details Date Type Department Care Team ([facility] st Contact Info) Description 12/15/2024 Telephone [facility] Medical Group Cardiology [address] [facility] [address] [place] [address] Jillian Zhong NP [address] [place] [address] cardiac clearance Social History Tobacco Use Types Packs/Day Years [...] often do you attend chur ch or samaritan services? Never 06/12/2023 Do you belong to any clubs o r organizations such as jehovah's witness groups, unions, fraternal or athletic groups, or [...] place to sleep or slept in a correction (including now)? No 06/12/2023 Personal Safety Answer Date Recorded Have you ever been in or are you currently in a harmful physical or emotional relationship or is someone making you feel afraid or unsafe? Denies 06/11/2023 Sex and Gender Information Value Date Recorded Sex Assigned at Not on file Legal Sex Male 12:11 PM GRADES 1 THRU 6 VISITING TEACHER Gender Identity Not on file Sexual Orientation Not on file documented as of this encounter Miscellaneous Notes * Telephone Encounter - Jodie Mays RN - 12/21/2024 1:37 PM CDT Requested Regina resend the clearance and informed her pt was just seen on 12/18 and that we could complete now-she is refaxing. * Telephone Encounter - Chandrika Muñoz - 12/21/2024 12:36 PM CDT [facility] requesting a call back to discuss the cardiac clearance they sent in for the pt about holding his apixaban (ELIQUIS) 5 mg. Please advise. Thank you. Contact: * Telephone Encounter - Jodie Mays, JANET - 12/15/2024 2:28 PM GRADES 1 THRU 6 VISITING TEACHER emmie ferrer informing them that pt has an appt on 12/18 as he hasn't been seen since 10/05. Clearancewill be addressed then. ES 1 THRU 6 VISITING TEACHER * Telephone Encounter - Trini Brooks - 12/15/2024 2:10 PM CST Sydnee from [facility] states that they sent a cardiac clearance for a blood thinner hold on 12/07 to the [facility] RN Fax ([phone]). Requesting a call back to get an update on it. Please advise. Thank you. Contact [phone] ES 1 THRU 6 VISITING TEACHER documented in this encounter Plan of Treatment Not on file documented as of this encounter Visit Diagnoses Not on filedocumented in this encounter Care Teams Aircraft Designer Relationship Specialty Start Date End Date Gustavo Ba MD [address] [place] [address] PCP - General 01/11/17 documented as of this encounter
--- OUTSIDE RECORDS SUMMARY | 2024-12-22 08:02 | XMS_ITS | Encounter Summary ---
Author Organization [facility] Address [address] [facility] [address] [place] [address] Care Team Providers Care Sports Announcer Name Role Phone Gustavo Ba MD Primary Care Provide r Gustavo Ba MD Primary Care Provide r Encounter Details Date Type Department Care Team ([facility] Contact Info) Description 11/28/2016 Orders Only [facility] ProviderAleyda MD [address] [place] [address] Social History Tobacco Use Types Packs/Day Years Used Date Smoking Tobacco: Former Cigarettes Q uit: 10/14/1994 Alcohol Use Standard Drinks/Week Comments No 0 (1 standard drink = 0.6 oz pur e alcohol) Sex and Gender Information Value Date Recorded Sex Assigned at Not on file Legal Sex Male 12:11 PM GRADE FOREMAN Gender Identity Not on file Sexual Orientation Not on file documented as of this encounter Plan of Treatment Not on file documented as of this encounter Procedures Procedure Name Priority Date/Time Associated Diagnosis Comments CARDIOLOGY REPORT 11/28/2016 documented in this encounter Results * CARDIOLOGY REPORT (11/28/2016) Anatomical Region Laterality Modality Other Narrative 11/28/2016 Ordered by an unspecified provider. Historical Provider [facility] CAMER[facility] Final Result documented in this encounter Visit Diagnoses Not on filedocumented in this encounter Care Teams Sports Announcer Relationship Specialty Start Date End Date Gustavo Ba MD [address] [place] [address] PCP - General 01/11/17 Gustavo Ba MD [address] [place] [address] PCP - General 02/19/14 01/10/17 documented as of this encounter
--- OUTSIDE RECORDS SUMMARY | 2024-12-22 08:02 | XMS_ITS | Encounter Summary ---
Author Organization [facility] Medical Group Address [address] [facility] [address] [place] [address] Care Team Providers Care Copra Processor Name Role Phone Gustavo Ba MD Primary Care Provide r Gustavo Ba MD Primary Care Provide r Encounter Details Date Type Department Care Team ([facility] Contact Info) Description 12/12/2016 Orders Only [facility] ProviderAleyda MD [address] [place] [address] Social History Tobacco Use Types Packs/Day Years Used Date Smoking Tobacco: Former Cigarettes Q uit: 10/14/1994 Alcohol Use Standard Drinks/Week Comments No 0 (1 standard drink = 0.6 oz pur e alcohol) Sex and Gender Information Value Date Recorded Sex Assigned at Not on file Legal Sex Male 12:11 PM FISCAL SERVICES MANAGER Gender Identity Not on file Sexual Orientation Not on file documented as of this encounter Plan of Treatment Not on file documented as of this encounter Procedures Procedure Name Priority Date/Time Associated Diagnosis Comments CARDIOLOGY REPORT 12/12/2016 documented in this encounter Results * CARDIOLOGY REPORT (12/12/2016) Anatomical Region Laterality Modality Other Narrative 12/12/2016 Ordered by an unspecified provider. Historical Provider [facility] CAMERON Final Result documented in this encounter Visit Diagnoses Not on filedocumented in this encounter Care Teams Copra Processor Relationship Specialty Start Date End Date Gustavo Ba MD [address] [place] [address] PCP - General 01/11/17 Gustavo Ba MD [address] [place] [address] PCP - General 02/19/14 01/10/17 documented as of this encounter
--- OUTSIDE RECORDS SUMMARY | 2024-12-22 08:02 | XMS_ITS | Clinical Summary ---
Author Organization [facility] [place] [address] Address [address] [place] [address] Care Team Providers Care Pharmacist Technician Name Role Phone Gustavo Ba MD Primary Care Provide r Allergies Active Allergy Reactions Criticality Noted Date Comments Morphine Nausea & Vomiting Low Tramadol Dizziness Low 11/03/2021 Medications tamsulosin (FLOMAX) 0.4 mg extended release capsule Take 1 capsule (0.4 mg total) by mouth daily Active cholecalciferol (VITAMIN D-3) 5,000 unit tablet Take 1 tablet (5,000 Units total) by mouth daily Active aspirin 81 mg enteric coated tablet Take 1 tablet (81 mg total) by mouth daily Active Trelegy Ellipta 100-62.5-25 mcg inhaler 05/12/20 21 Active rosuvastatin (CRESTOR) 40 mg tablet TAKE ONE TABLET BY MOUTH DAILY 90 tablet 12/10/19 23 Active Rybelsus 7 mg tablet Take 1 tablet (7 mg total) by mouth daily 05/15/20 23 Active albuterol HFA (PROVENTIL HFA,VENTOLIN HFA,PROAIR HFA) 90 mcg/actuation inhaler Inhale 2 puffs every 4 (four) hours as needed for wheezing or shortness of breath 1 each 06/13/20 23 Active Additional Information Patient not taking.Reported on 12/18/2024 metoprolol XL (TOPROL-XL) 50 mg extended release tablet Take 2 tablets (100 mg total) by mouth daily 09/25/20 23 Active amiodarone (PACERONE) 200 mg tablet TAKE 1 TABLET BY MOUTH EVERY DAY 90 tablet 08/04/20 24 Active hydroCHLOROthiazid e (HYDRODIURIL) 25 mg tablet Take 1 tablet (25 mg total) by mouth daily Active apixaban (ELIQUIS) 5 mg tabletIndications: atrial fibrillation Take 1 tablet (5 mg total) by mouth 2 (two) times a day 180 tablet 3 12/19/19 25 Active metFORMIN (GLUCOPHAGE) 1,000 mg tablet Take 1 tablet (1,000 mg total) by mouth 2 (two) times a day with meals 01/31/20 18 025 Discontin ued(Alter jeanne therapy) losartan (COZAAR) 25 mg tabletIndications: Nonischemic cardiomyopathy (HCC) TAKE ONE TABLET BY MOUTH DAILY 90 tablet 1 08/10/20 22 025 Discontin ued(Thera py completed ) spironolactone-hyd roCHLOROthiazide (ALDACTAZIDE) 25-25 mg per tablet Take 1 tablet by mouth every morning 09/12/20 23 025 Discontin ued(Alter jeanne therapy) apixaban (ELIQUIS) 5 mg tabletIndications: atrial fibrillation Take 1 tablet (5 mg total) by mouth 2 (two) times a day 180 tablet 3 10/08/20 23 025 Discontin ued(Reord er) Active Problems Problem Noted Date Diagnosed Date Dyslipidemia 06/12/2023 Benign prostatic hyperplasia without lower urinary tract symptoms 06/12/2023 Acute upper GI bleed 06/11/2023 Anemia, blood loss 06/11/2023 Gastrointestinal hemorrhage 06/11/2023 CKD stage 2 due to type 2 diabetes mellitus 12/12 Hyperlipidemia associated with type 2 diabetes m omaira 12/20/2021 Cardiomyopathy, ischemic 03/29/2020 Biventricular automatic impl antable cardioverter defibrillator in situ 05/21/2019 Overview (05/21/2019): Medtronic BIV ICD. Dx; NICM, CHF, CHB. DOI 05/20/2019-Nixon. Chronic A-Lead 01/14/13, Chronic RV lead capped. Carelink remote monitoring. CHB (complete heart block) 05/07/2019 Overview (05/07/2019): Added automatically from request for surgery [id number] Pacemaker-dependent due to n ative cardiac rhythm insufficient to support life 03/21/2019 Dizziness 03/16/2019 Chronic combined systolic an d diastolic CHF (congestive heart failure) 09/20/2018 PAT (paroxysmal atrial tachycardia) 09/20/2018 Assessment & Plan (05/14/2019 12:52 PM CDT): This appears to be of overall low burden. We will continue to follow via his device detection. MANDY (obstructive sleep apnea) 09/10/2018 Sinus tachycardia 2018 Other emphysema 2018 Urinary frequency 03/05/2018 MARTE (dyspnea on exertion) 08/27/2017 Assessment & Plan (08/27/2017 9:37 PM PUBLIC INFORMATION SPECIALIST): One of the patient's main complaints this is MARTE which I think is multifactorial. He does have some left ventricular dysfunction but I suspect he has a significant degree of COPD/asthma. In addition he is morbidly obese. Doubt it will get much better. 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 Cardiomyopathy 02/20/2017 Overview (03/08/2017): Cardiomyopathy, unspecified type Assessment & Plan (05/14/2019 12:51 PM CDT): The patient has severe LV dysfunction related [...] My office will make the appropriate arrangements. Assessment & Plan (08/27/2017 9:37 PM PUBLIC INFORMATION SPECIALIST): 12/2016 EF 40% with mild global hypokinesis. Lisinopril has been titrated. Complete atrioventricular block 11/28/2016 Overview (01/17/2017): Complete heart block Mixed hyperlipidemia 11/28/2016 Overview (01/17/2017): Hypercholesterolemia Assessment & Plan (08/27/2017 9:39 PM PUBLIC INFORMATION SPECIALIST): 02/2017 total cholesterol 154, LDL 92 which is good but not great. May benefit from changing atorvastatin to rosuvastatin. Obesity (BMI 30-39.9) 11/28/2016 Overview (01/17/2017): Obesity (BMI 30-39.9) Hx of CABG 11/28/2016 Overview (01/17/2017): Hx of CABG Primary hypertension 11/28/2016 Overview (01/17/2017): Essential hypertension Assessment & Plan (08/27/2017 9:40 PM PUBLIC INFORMATION SPECIALIST): Hypertension is at goal on medical therapy Controlled type 2 diabetes martha castano, without long-term current use of insulin 11/28/2016 Overview (01/17/2017): Type 2 diabetes mellitus without complication, without long-term current use of insulin Resolved Problems Problem Noted Date Diagnosed Date Resolved Date Sleep disorder 03/05/2018 09/20/2018 Morbid obesity with BMI of 40.0-44.9, adult 08/27/2017 09/20/2018 Overview (08/27/2017): Reviewed weight reduction benefits Assessment & Plan (08/27/2017 9:41 PM PUBLIC INFORMATION SPECIALIST): Patient gained 6 more lb. Reviewed weight reduction benefits Drinks a lot of sweetened beverages. Pacemaker 11/28/2016 05/21/2019 Overview (05/15/2017): Medtronic Dual Pacemaker Dx; CHB. DOI 01/14/2013. Declines remote monitoring. Office pacer checks Q 4-6 months. Assessment & Plan (08/27/2017 9:39 PM PUBLIC INFORMATION SPECIALIST): Pacemaker checked in May, longevity 3 years, pacemaker dependent. Has rare atrial flutter the longest being for 2 minutes. The rate histogram is fine so I think his pacing is not directly the cause of his MARTE. However, when it is time for generator change we will need to evaluate patient for an upgrade to a biventricular pacemaker. Encounters Date Type Department Care Team Description 12/21/2024 Telephone [facility] [address] [place] [phone] Georgi Nava MD 12/18/2024 8:30 AM PUBLIC INFORMATION SPECIALIST Office Visit [facility] [address] [place] [phone] Jillian Zhong NP Biventricular automatic implantable cardioverter defibrillator in situ; CHB (complete heart block) (HCC); Nonischemic cardiomyopathy (HCC); Paroxysmal atrial fibrillation (HCC); Encounter for anticoagulation discussion and counseling; senior living current use of amiodarone; Coronary artery disease involving big sandy coronary artery of big sandy heart without angina pectoris; Hx of CABG; Stage 4 chronic kidney disease (HCC) 12/15/2024 Telephone [facility] [address] [place] [phone] Jillian Zhong NP cardiac clearance 11/18/2024 9:30 AM PUBLIC INFORMATION SPECIALIST Ancillary Procedure [facility] [address] [place] [phone] Chronic combined systolic and diastolic CHF (congestive heart failure) (HCC) (Primary Dx); Nonischemic cardiomyopathy (HCC); CHB (complete heart block) (HCC); Atrial fibrillation, unspecified type (HCC); Biventricular automatic implantable cardioverter defibrillator in situ 11/18/2024 Orders Only [facility] [address] [place] [phone] Georgi Nava MD NICM (nonischemic cardiomyopathy) (HCC) (Primary Dx); ICD (implantable cardioverter-defibrill ator) in place; Ventricular fibrillation (HCC); NSVT (nonsustained ventricular tachycardia) ([facility]) from Last 3 Months Surgical History Surgery Date Site/Laterality Comments CARDIAC PACEMAKER PLACEMENT 10/14/2012 - 10/13/2013 Cardiac pacemaker CORONARY ARTERY BYPASS GRAFT 10/14/2009 - 10/13/2010 cabg x 3 CORONARY STENT PLACEMENT CARDIAC CATHETERIZATION multiple CYSTOSCOPY W/ URETERAL STENT PLACEMENT CYSTOSCOPY W/ URETERAL STENT REMOVAL Medical History Medical History Date Comments Chronic coronary artery disease Coronary Artery Disease Hypertension Hypertension Hyperlipidemia hyperlipidemia Diabetes mellitus (HCC) diabetes mellitus Hx Other Medical complete heart block- s/p DC PM Cardiomyopathy (HCC) Arrhythmia COPD (chronic obstructive pu lmonary disease) (HCC) CHF (congestive heart failure) (HCC) Myocardial infarct (HCC) x 3 Kidney stones Family History Medical History Relation Name Comments Heart failure Mother Relation Name Status Comments Mother Social History Tobacco Use Types Packs/Day Years Used Date Smoking Tobacco: Former Smokeless Tobacco: Never Tobacco Cessation:Counseling Given: Not Answered Alcohol Use Standard Drinks/Week Comments No 0 [...] often do you attend chur ch or pentecostal services? Never 06/12/2023 Do you belong to any clubs o r organizations such as yazdanism groups, unions, fraternal or athletic groups, or [...] place to sleep or slept in a snf (including now)? No 06/12/2023 Personal Safety Answer Date Recorded Have you ever been in or are you currently in a harmful physical or emotional relationship or is someone making you feel afraid or unsafe? Denies 06/11/2023 Sex and Gender Information Value Date Recorded Sex Assigned at Not on file Legal Sex Male 12:11 PM PUBLIC INFORMATION SPECIALIST Gender Identity Not on file Sexual Orientation Not on file Obstetrics History Last Filed Vital Signs Vital Sign Reading Time Taken Comments Blood Pressure 124/72 12/18/2024 8:34 AM PUBLIC INFORMATION SPECIALIST Pulse 68 12/18/2024 8:34 AM PUBLIC INFORMATION SPECIALIST Temperature 36.7 C (98 F) 06/13/2023 11:02 AM CDT Respiratory Rate 14 06/13/2023 1:40 PM CDT Oxygen Saturation 96% 12/18/2024 8:34 AM PUBLIC INFORMATION SPECIALIST Inhaled Oxygen Concentration - - Weight 98 kg (216 lb) 12/18/2024 8:34 AM PUBLIC INFORMATION SPECIALIST Height 172.7 cm (5' 8 ) 12/18/2024 8:34 AM PUBLIC INFORMATION SPECIALIST Body Mass Index 32.84 12/18/2024 8:34 AM PUBLIC INFORMATION SPECIALIST Plan of Treatment Health Maintenance Due Date Last Done Comments Albumin Creatinine Ratio, Urine 1950 Depression Screening 1950 Hemoglobin A1C 1950 Hepatitis C Screening 1950 Dilated Eye Exam 1950 Foot Exam 1950 DTaP/Tdap/Td Vaccine (1 - Tdap) 1962 Hepatitis B Screening 1969 Pneumococcal vaccine 65+ (1 of 2 - PCV) 1970 Zoster Vaccine (1 of 2) 2001 Abdominal Aortic Aneurysm (A AA) Screen 2016 Well Visit 65+ 2016 Lipid Panel 06/22/2022 06/22/2021, 03/14, 03/23/2020, Additional history exists Fall Risk Assessment 06/13/2024 06/13/2023 eGFR 06/13/2024 06/13/2023, 05/16, 05/20/2019 Influenza Vaccine (#1) 2024 11/05/2021, 2017 Colon Cancer Screening-Colonoscopy 06/13/2033 06/13/2023 Colon Cancer Screening-CT Colonography Discontinued 06/13/2023 Colon Cancer Screening-DNA Stool Discontinued 06/13/20 Colon Cancer Screening-FIT Discontinued 06/13/2023 Colon Cancer Screening-Sigmoidoscopy Discontinued 06/13/2023 Medical Devices Implanted Type Area Biomass Plant Manager Device Identifier Shelf Expiration Date Model / Serial / Lot Medtronic Cardiac Rhythm Mgmt [id number] Amplia Mri Conveyor Mechanic-D Df-4 Implantable Quadripolar Left Ventricle - [id number] - [id number] Implanted:Qty: 1 on 05/20/2019 by Phil Alicea MD at [facility] ICD Left: Chest Medtronic Inc [id number] 10/27/2020 [id number] / [id number] / Medtronic Cardiac Rhythm Mgmt [id number] Sprint Quattro Secure 62cm Tripolar Screw In Extendable - [id number] - [id number] Implanted:Qty: 1 on 05/20/2019 by Phil Alicea MD at [facility] Lead Left: Chest Medtronic Inc [id number] 11/28/2020 [id number] / [id number] / Medtronic Inc [id number] Attain Performa Starfix 5.3fr 5.1fr 88cm Quadripolar Is4-Llll Latex Free - [id number] - [id number] Implanted:Qty: 1 on 05/20/2019 by Phil Alicea MD at [facility] Lead Left: Chest Medtronic Inc [id number] 04/03/2021 [id number] / [id number] / Explanted Type Area Biomass Plant Manager Device Identifier Shelf Expiration Date Model / Serial / Lot Pacemaker Implanted:01/14 (Quantity not on file) Explanted:Qty: 1 on 05/20/2019 at [facility] Pacemaker Chest Medtronic CHB ADAPTA [id number] / [id number] / Procedures Procedure Name Priority Date/Time Associated Diagnosis Comments DEVICE CHECK - REMOTE Routine 11/18/2024 8:51 AM PUBLIC INFORMATION SPECIALIST Nonischemic cardiomyopathy (HCC) CHB (complete heart block) (HCC) Atrial fibrillation, unspecified type (HCC) COLONOSCOPY 06/13/2023 12:35 PM CDT EGFR Routine 06/13/2023 6:08 AM CDT POCT LIPID PANEL Routine 06/22/2021 1:05 PM CDT Lipid screening from Last 3 Months or Most Recently Relevant to Health Maintenance Results * DEVICE CHECK - REMOTE (11/18/2024 8:51 AM PUBLIC INFORMATION SPECIALIST) Anatomical Region Laterality Modality Other Narrative 12/02/2024 4:26 PM PUBLIC INFORMATION SPECIALIST Medtronic BIV ICD. Dx; NICM, CHF, CHB. DOI 05/20/2019-Nixon. Chronic A-Lead 01/14/13, Chronic RV lead capped. Carelink remote monitoring. Routine DDD ICD Remote. Transmission attached. Battery status 2.91 V, 2.5 years remaining battery life to [place]. Stable Charge time and Shock impedance. Stable lead impedances, pacing, and sensing threshold. Presenting rhythm: AP/BV AP-28.7 %, EMERGENCY RESPONSE TECHNICIAN-100 %, Bi-V P-99.9 %. (0) AT/AF episodes noted. (0) Ventricular tachy arrhythmias detected. Medication: Eliquis 5 mg, ASA 81 mg, amiodarone 200 mg, losartan 25 mg, Toprol-XL 50 mg Follow up: Office Pacemaker/ICD scheduled 03/17/25 CareLink remote 6 months [place] Kendrick RN us [facility] Demarcus Nava MD CV CARDIAC SERVICES PRO CEDURES Final Result * COLONOSCOPY (06/13/2023 12:35 PM CDT) Anatomical Region Laterality Modality Other Narrative Procedure Note Aakash Colon MD - 06/13/2023 12:35 PM CDT [facility] Patient Name: Zia Blakely Procedure Date: 06/13/2023 12:35 PM Date of : 1950 Admit Type: Inpatient Age: 73 Gender: Male Note Status: Finalized Attending MD: Aakash Colon M.D. Procedure Date: 06/13/2023 Procedure: Colonoscopy Indications: Hematochezia Providers: Aakash Colon M.D., Vanna Barton CRNA (Anesthesia Staff), Katie Lamb RN, Sneha Ybarra, Ip Network Architect Referring MD: Rell Majano M.D., Gustavo Ba M.D. Medicines: Monitored Anesthesia Care Complications: No immediate complications. Estimated Blood Loss: Estimated blood loss: none. Procedure: Pre-Anesthesia Assessment: - Airway Examination: normal oropharyngeal airwayand neck mobility. - Respiratory Examination: clear to auscultation. - ASA Grade Assessment: III - A patient with severe systemic disease. - After reviewing the risks and benefits, thepatient was deemed in satisfactory condition to undergo the procedure. - The risks and benefits of the procedure and the sedation options and risks were discussed with the patient. All questions were answered and informed consent was obtained. After I obtained informed consent, the scope was passed under direct vision. Throughout theprocedure, the patient's blood pressure, pulse, and oxygen saturations were monitored continuously. The scopewas passed under direct vision. The was introducedthrough the anus and advanced to the the cecum, identifiedby the appendiceal orifice, ileocecal valve and palpation. The colonoscopy was performed with ease. The patient tolerated the procedure well. Thequality of the bowel preparation was good. The quality ofthe bowel preparation was evaluated using the BBPS([place] Bowel Preparation Scale) with scores of: RightColon = 3, Transverse Colon = 3 and Left Colon = 3 (entire mucosa seen well with no residual staining, small fragments of stool or opaque liquid). The totalBBPS score equals 9. The bowel preparation used wasPlenvu via split dose instruction. Bowel prep was administered using a split dose. Findings: The perianal and digital rectal examinations were normal. Two sessile polyps were found in the rectum. The polyps were 4 to 5mm in size. These polyps were removed with a cold biopsy forceps.Resection and retrieval were complete. Estimated blood loss: none. An area of moderately congested mucosa was found in the transverse colon. This was biopsied with a cold forceps for histology. Estimated blood loss: none. Multiple small and large-mouthed diverticula were found in the entire colon. The retroflexed view of the distal rectum and anal verge was normaland showed no anal or rectal abnormalities. Impression: - Two 4 to 5 mm polyps in the rectum, removed witha cold biopsy forceps. Resected and retrieved. - Congested mucosa in the transverse colon.Biopsied. - Diverticulosis in the entire examined colon. - The distal rectum and anal verge are normal on retroflexion view. Recommendation: - [facility] - Await pathology results. - Repeat colonoscopy in 5 years for surveillance. Procedure Code(s): --- Professional --- 49215, Colonoscopy, flexible; with biopsy, singleor multiple Diagnosis Code(s): --- Professional --- D12.8, Benign neoplasm of rectum K63.89, Other specified diseases of intestine K92.1, Melena (includes Hematochezia) K57.30, Diverticulosis of large intestine without perforation or abscess without bleeding CPT copyright 2020 [employer]. All rights reserved. The codes documented in this report are preliminary and upon transfer pumper reviewmay be revised to meet current compliance requirements. Electronically signed by Aakash Colon MD Aakash Colon M.D. 06/13/2023 1:04:24 PM Number of Addenda: 0 Note Initiated On: 06/13/2023 12:35 PM us Aakash Colon MD ENDOSCOPY PROCEDURES Final Resul t * eGFR (06/13/2023 6:08 AM CDT) eGFR 41 mL/min/1. 73 m2 [facility] Comment: Interpretive Data Reference Interval Normal >/= 90 mL/min/1.73m2 Mildly decreased* 60 - 89 mL/min/1.73m2 Mildly to moderately decreased 45 - 59 mL/min/1.73m2 Moderately to severely decreased 30 - 44 mL/min/1.73m2 Severely decreased 15 - 29 mL/min/1.73m2 Kidney Failure < 15 mL/min/1.73m2 *Relative to young adult level Estimated glomerular filtration rate is determined by the 2020 CKD-EPI equation recommended by the National Kidney Foundation (A Unifying Approach to GFR Estimation: Recommendations of the NKF-ASK Task Force on Reassessing the Inclusion of Race in Diagnosing Kidney Disease, JASN 2020). The CKD-EPI equation should not be used for patients with unstable renal function and has not been validated in children and those over 70. Current interpretive data was last reviewed 2021. Blood 06/13/2023 6:08 AM CDT 06/13/2023 6:24 AM CDT Colton Swann DO LAB BLOOD ORDERABLES Final Result [facility] [address] [facility] [place] [address] * POCT lipid panel (06/22/2021 1:05 PM CDT) Cholesterol, POC 100 mg/dL Comment:< 100 GLU = 217 HDL, POC 34 mg/dL Triglycerides, POC 242 mg/dL LDL Cholesterol POC 17 mg/dL Chol/HDL Ratio, POC N/A Non-HDL Cholesterol, POC N/A mg/dL Cholesterol Total, POC 100 mg/dL Comment:< 100 Capillary blood 06/22/2021 1 :05 PM CDT Jillian Zhong NP POINT OF CARE TEST ORDERA BLES Final Result from Last 3 Months or Most Recently Relevant to Health Maintenance Insurance [facility] Advance Directives For more information, please contact: [phone] * Full Code (Latest Code Status on File) Date Activated Date Inactivated Comments 06/11/2023 11:25 PM 06/13/2023 9:40 PM * Full Code Date Activated Date Inactivated Comments 05/20/2019 5:20 PM 05/21/2019 4:06 PM Care Teams Pharmacist Technician Relationship Specialty Start Date End Date Gustavo Ba MD [address] [place] [address] PCP - General 01/11/17
--- OUTSIDE RECORDS SUMMARY | 2024-12-22 08:02 | XMS_ITS | Referral Summary ---
Author Organization [place] [address] Address [address] [facility] [address] [place] [address] Care Team Providers Care Work Manager Name Role Phone Gustavo Ba MD Primary Care Provide r Encounters Date Type Department Care Team Description 12/21/2024 Telephone [facility]iology [address] [place] [address] [place] [phone] Georgi Nava MD 12/18/2024 8:30 AM BIOMEDICAL MANAGER Office Visit [facility] [address] [facility] [address] [place] [address] Jillian Zhogn NP Biventricular automatic implantable cardioverter defibrillator in situ; CHB (complete heart block) (HCC); Nonischemic cardiomyopathy (HCC); Paroxysmal atrial fibrillation (HCC); Encounter for anticoagulation discussion and counseling; terminal manager current use of amiodarone; Coronary artery disease involving [place] coronary artery of [place] heart without angina pectoris; Hx of CABG; Stage 4 chronic kidney disease (HCC) 12/15/2024 Telephone [facility] [address] [place] [address] [address] [place] [address] Jillian Zhong NP cardiac clearance 11/18/2024 Orders Only [facility]iology [address] [place] [address] [place] [phone] Georgi Nava MD NICM (nonischemic cardiomyopathy) (HCC) (Primary Dx); ICD (implantable cardioverter-defibrill ator) in place; Ventricular fibrillation (HCC); NSVT (nonsustained ventricular tachycardia) (HCC) 11/18/2024 9:30 AM BIOMEDICAL MANAGER Ancillary Procedure [facility] Card[facility] [address] [facility] [address] [place] [phone] Chronic combined systolic and diastolic CHF (congestive heart failure) (HCC) (Primary Dx); Nonischemic cardiomyopathy (HCC); CHB (complete heart block) (HCC); Atrial fibrillation, unspecified type (HCC); Biventricular automatic implantable cardioverter defibrillator in situ from Last 3 Months Allergies Active Allergy Reactions Criticality Noted Date [...] 12/12 Hyperlipidemia associated with type 2 diabetes martha castano 12/20/2021 Cardiomyopathy, ischemic 03/29/2020 Biventricular automatic impl antable cardioverter defibrillator in situ 05/21/2019 Overview (05/21/2019): Medtronic BIV ICD. Dx; NICM, CHF, CHB. DOI 05/20/2019-Nixon. Chronic A-Lead 01/14/13, Chronic RV lead capped. Carelink remote monitoring. CHB (complete heart block) 05/07/2019 Overview (05/07/2019): Added automatically from request for surgery [id number] Pacemaker-dependent due to n ative cardiac rhythm [...] 08/27/2017 Assessment & Plan (08/27/2017 9:37 PM BIOMEDICAL MANAGER): One of the patient's main complaints this is MARTE which I think is multifactorial. He does have some left ventricular dysfunction but I suspect he has a significant degree of COPD/asthma. In addition he is morbidly obese. Doubt it will get much better. Coronary artery disease invo lving kw[place] heart with angina pectoris 02/20/2017 Overview (03/08/2017): Atherosclerosis of [place] coronary artery of [place] heart with angina pectoris Assessment & Plan (08/27/2017 9:38 PM BIOMEDICAL MANAGER): 2011: MIs, stents, and CABG 2014: Catheterization showed adequate revascularization Sounds like he [...] arrangements. Assessment & Plan (08/27/2017 9:37 PM BIOMEDICAL MANAGER): 12/2016 EF 40% with mild global hypokinesis. Lisinopril has been titrated. Complete atrioventricular block 11/28/2016 Overview (01/17/2017): Complete heart block Mixed hyperlipidemia 11/28/2016 Overview (01/17/2017): Hypercholesterolemia Assessment & Plan (08/27/2017 9:39 PM BIOMEDICAL MANAGER): 02/2017 total cholesterol 154, LDL 92 which is good but not great. May benefit from changing atorvastatin to rosuvastatin. Obesity (BMI 30-39.9) 11/28/2016 Overview (01/17/2017): Obesity (BMI 30-39.9) Hx of CABG 11/28/2016 Overview (01/17/2017): Hx of CABG Primary hypertension 11/28/2016 Overview (01/17/2017): Essential hypertension Assessment & Plan (08/27/2017 9:40 PM BIOMEDICAL MANAGER): Hypertension is at goal on medical therapy Controlled type 2 diabetes m [place], without long-term current use of insulin 11/28/2016 Overview (01/17/2017): Type 2 diabetes mellitus without complication, without long-term current use of insulin Resolved Problems Problem Noted Date Diagnosed Date Resolved Date Sleep disorder 03/05/2018 09/20/2018 Morbid obesity with BMI of 40.0-44.9, adult 08/27/2017 09/20/2018 Overview (08/27/2017): Reviewed weight reduction benefits Assessment & Plan (08/27/2017 9:41 PM BIOMEDICAL MANAGER): Patient gained 6 more lb. Reviewed weight reduction benefits Drinks a lot of sweetened beverages. Pacemaker 11/28/2016 05/21/2019 Overview (05/15/2017): Medtronic Dual Pacemaker Dx; CHB. DOI 01/14/2013. Declines remote monitoring. Office pacer checks Q 4-6 months. Assessment & Plan (08/27/2017 9:39 PM BIOMEDICAL MANAGER): Pacemaker checked in May, longevity 3 years, pacemaker dependent. Has rare atrial flutter the longest being for 2 minutes. The rate histogram is fine so I think his pacing is not directly the cause of his MARTE. However, when it is time for generator change we will need to evaluate patient for an upgrade to a biventricular pacemaker. Social History Tobacco Use Types Packs/Day Years [...] often do you attend chur ch or sikh services? Never 06/12/2023 Do you belong to any clubs o r organizations such as protestant groups, unions, fraternal or athletic groups, or [...] on file Legal Sex Male 12:11 PM BIOMEDICAL MANAGER Gender Identity Not on file Sexual Orientation Not on file Last Filed Vital Signs Vital Sign Reading Time Taken Comments Blood Pressure 124/72 12/18/2024 8:34 AM BIOMEDICAL MANAGER Pulse 68 12/18/2024 8:34 AM BIOMEDICAL MANAGER Temperature 36.7 C (98 F) 06/13/2023 11:02 AM CDT Respiratory Rate 14 06/13/2023 1:40 PM CDT Oxygen Saturation 96% 12/18/2024 8:34 AM BIOMEDICAL MANAGER Inhaled Oxygen Concentration - - Weight 98 kg (216 lb) 12/18/2024 8:34 AM BIOMEDICAL MANAGER Height 172.7 cm (5' 8 ) 12/18/2024 8:34 AM BIOMEDICAL MANAGER Body Mass Index 32.84 12/18/2024 8:34 AM BIOMEDICAL MANAGER Plan of Treatment Not on file Medical Devices Implanted Type Area Gin Operator Device Identifier Shelf Expiration Date Model / Serial / Lot Medtronic Cardiac Rhythm Mgmt [id number] Amplia Mri Hotel Registration Clerk-D Df-4 Implantable Quadripolar Left Ventricle - [id number] - [id number] Implanted:Qty: 1 on 05/20/2019 by Phil Alicea MD at [facility] ICD Left: Chest Medtronic Inc [id number] 10/27/2020 [id number] / [id number] / Medtronic Cardiac Rhythm Mgmt [id number] Sprint Quattro Secure 62cm Tripolar Screw In Extendable - [id number] - [id number] Implanted:Qty: 1 on 05/20/2019 by Phil Alicea MD at [facility] Lead Left: Chest Medtronic Inc [id number] 11/28/2020 [id number] / [id number] / Medtronic Inc [id number] Attain Performa Starfix 5.3fr 5.1fr 88cm Quadripolar Is4-Llll Latex Free - [id number] - [id number] Implanted:Qty: 1 on 05/20/2019 by Phil Alicea MD at [facility] Lead Left: Chest Medtronic Inc [id number] 04/03/2021 [id number] / [id number] / Explanted Type Area Gin Operator Device Identifier Shelf Expiration Date Model / Serial / Lot Pacemaker Implanted:01/14 (Quantity not on file) Explanted:Qty: 1 on 05/20/2019 at [facility] Pacemaker Chest Medtronic CHB ADAPTA [id number] / [id number] / Procedures Procedure Name Priority Date/Time Associated Diagnosis Comments DEVICE CHECK - REMOTE Routine 11/18/2024 8:51 AM BIOMEDICAL MANAGER Nonischemic cardiomyopathy (HCC) CHB (complete heart block) (HCC) Atrial fibrillation, unspecified type (HCC) COLONOSCOPY 06/13/2023 12:35 PM CDT EGFR Routine 06/13/2023 6:08 AM CDT POCT LIPID PANEL Routine 06/22/2021 1:05 PM CDT Lipid screening from Last 3 Months or Most Recently Relevant to Health Maintenance Results * DEVICE CHECK - REMOTE (11/18/2024 8:51 AM BIOMEDICAL MANAGER) Anatomical Region Laterality Modality Other Narrative 12/02/2024 4:26 PM BIOMEDICAL MANAGER Medtronic BIV ICD. Dx; NICM, CHF, CHB. DOI 05/20/2019-Nixon. Chronic A-Lead 01/14/13, Chronic RV lead capped. Carelink remote monitoring. Routine DDD ICD Remote. Transmission attached. Battery status 2.91 V, 2.5 years remaining battery life to [place]. Stable Charge time and Shock impedance. Stable lead impedances, pacing, and sensing threshold. Presenting rhythm: AP/BV AP-28.7 %, BUTADIENE CONVERTER HELPER-100 %, Bi-V P-99.9 %. (0) AT/AF episodes noted. (0) Ventricular tachy arrhythmias detected. Medication: Eliquis 5 mg, ASA 81 mg, amiodarone 200 mg, losartan 25 mg, Toprol-XL 50 mg Follow up: Office Pacemaker/ICD scheduled 03/17/25 CareLink remote 6 months [place] Kendrick RN us [facility] Demarcus Nava MD [facility] PRO CEDURES Final Result * COLONOSCOPY (06/13/2023 12:35 PM CDT) Anatomical Region Laterality Modality Other Narrative Procedure Note Aakash Colon MD - 06/13/2023 12:[address] [facility] Patient Name: Zia Blakely Procedure Date: 06/13/2023 12:35 PM Date of : 1950 Admit Type: Inpatient Age: 73 Gender: Male Note Status: Finalized Attending MD: Aakash Colon M.D. Procedure Date: 06/13/2023 Procedure: Colonoscopy Indications: Hematochezia Providers: Aakash Colon M.D., Vanna Barton CRNA (Anesthesia Staff), Katie Lamb RN, Sneha Ybarra, Manager Data Referring MD: Rell Majano M.D., Gustavo Ba [...] ofthe bowel preparation was evaluated using the BBPS([place] Bowel Preparation Scale) with scores of: RightColon [...] for surveillance. Procedure Code(s): --- Professional --- 67344, Colonoscopy, flexible; with biopsy, singleor multiple Diagnosis Code(s): --- Professional --- D12.8, Benign neoplasm of rectum K63.89, Other specified diseases of intestine K92.1, Melena (includes Hematochezia) K57.30, Diverticulosis of large intestine without perforation or abscess without bleeding CPT copyright 2020 [employer]. All rights reserved. The codes documented in this report are preliminary and upon junior business analyst reviewmay be revised to meet current compliance [...] DO LAB BLOOD ORDERABLES Final Result [facility] [address] Department [place] [address] * POCT lipid panel (06/22/2021 1:05 PM [...] Most Recently Relevant to Health Maintenance Insurance [facility] Member Subscriber Plan / Payer (Ef fective 2018-Present) Name:Zia Blakely Relation to Subscriber:Self Name:Zia Blakely Payer ID:[id number] (NAIC) Type:MEDICARE RISK OTHER Address: [place] [id number] [place] [address] HEALTHCARE Advance Directives For more information, please contact: [phone] * Full Code (Latest Code Status on File) Date Activated Date Inactivated Comments 06/11/2023 11:25 PM 06/13/2023 9:40 PM * Full Code Date Activated Date Inactivated Comments 05/20/2019 5:20 PM 05/21/2019 4:06 PM Care Teams Work Manager Relationship Specialty Start Date End Date Gustavo Ba MD [address] [place] [address] PCP - General 01/11/17
--- OUTSIDE RECORDS SUMMARY | 2024-12-22 08:02 | XMS_ITS | Referral Summary ---
Author Organization [facility] Address [address] [place] [address] Care Team Providers Care Non Linear Editor Name Role Phone Gustavo Ba MD Primary Care Provider Source Comments [facility],non-owned Affiliates and Associated Physician Practices is amultiple site organization consisting of ambulatory clinics and hospital sitesin [place], [place], [place] and [place]. This disclosure is being madepursuant to the Care Everywhere program and may not contain all information available regarding this patient. Last updated 18.[facility] [place] Social History Tobacco Use Types Packs/Day Years Used Date Smoking Tobacco: Never Assessed Sex and Gender Information Value Date Recorded Sex Assigned at Not on file Gender Identity Not on file Sexual Orientation Not on file Plan of Treatment Not on file Medical Devices Implanted Type Area Customer Experience Manager Device Identifier Shelf Expiration Date Model / Serial / Lot Medtronic Icd; Mri Unsafe Due To Capped Lead Left From Old System [id number] CAPPED LEAD / / Care Teams Non Linear Editor Relationship Specialty Start Date End Date Gustavo Ba MD [address] [facility] [address] [place] [address] PCP - General 05/19/18
--- OUTSIDE RECORDS SUMMARY | 2024-12-22 08:03 | XMS_ITS | Clinical Summary ---
Author Organization [facility] Address [address] [place] [address] Care Team Providers Care Aircraft Machinist Name Role Phone Gustavo Ba MD Primary Care Provider [phone] Allergies Active Allergy Reactions Criticality Noted Date Comments Morphine Nausea Only,Vomiting 11/03/2021 Reaction: NAUSEA, VOMITING, , Tramadol Dizziness 11/03/2021 Medications Fluticasone-Umec lidin-Vilant (TRELEGY) 100-62.5-25 MCG/INH AEROSOL POWDER, BREATH ACTIVATED Inhale 1 Dose into the lungs daily. At 1800 daily 05/12/2021 Active aspirin EC (ASPIRIN EC) 81 MG tablet Take 81 mg by mouth daily. Active cholecalciferol 125 MCG (5000 UT) Tab Take 5,000 Units by mouth daily. Active rosuvastatin 40 MG tablet Take 1 tablet by mouth daily. 08/09/2021 Active tamsulosin 0.4 MG Cap Take 0.4 mg by mouth daily. Active hydrocortisone 2.5 % rectal cream 06/15/2021 Active albuterol sulfate HFA 108 (90 Base) MCG/ACT inhaler 07/05/2021 Act dayana metoprolol succinate ER 50 MG 24 hr tablet Take 50 mg by mouth daily. Active metFORMIN 1000 MG tablet Take 1,000 mg by mouth 2 (two) times daily with meals. 08/30/2021 Active OZEMPIC, 1 MG/DOSE, 4 MG/3ML Solution Pen-injector 10/10/2021 Active Active Problems Problem Noted Date Diagnosed Date Urolithiasis 11/04/2021 Cardiomyopathy, ischemic 03/29/2020 Biventricular automatic impl antable cardioverter defibrillator in situ 05/21/2019 Overview (11/04/2021): Medtronic BIV ICD. Dx; NICM, CHF, CHB. DOI 05/20/2019-Nixon. Chronic A-Lead 01/14/13, Chronic RV lead capped. Carelink remote monitoring. Pacemaker-dependent due to n ative cardiac rhythm insufficient to support life 03/21/2019 Chronic combined systolic an d diastolic CHF (congestive heart failure) ([facility]) 09/20/2018 PAT (paroxysmal atrial tachycardia) ([facility]) Overview (11/04/2021): Last Assessment & Plan: This appears to be of overall low burden. We will continue to follow via his device detection. MANDY (obstructive sleep apnea) 09/10/2018 Other emphysema ([facility]) 2018 Sinus tachycardia 2018 Coronary arteriosclerosis in [place] artery 02/20 Overview (11/04/2021): Atherosclerosis of [place] coronary artery of [place] heart with angina pectoris Last Assessment & Plan: 2011: MIs, stents, and CABG 2015: Catheterization showed adequate revascularization Sounds like he has rare angina. NICM (nonischemic cardiomyopathy) ([facility]) 02/20/2017 Overview (11/04/2021): Cardiomyopathy, unspecified type Last Assessment & Plan: [...] My office will make the appropriate arrangements. Complete atrioventricular block ([facility] ) 11/28/2016 Overview (11/04/2021): Complete heart block Added automatically from request for surgery [id number] Controlled type 2 diabetes m omaira without complication ([facility]) 11/28/2016 Overview (11/04/2021): Type 2 diabetes mellitus without complication, without long-term current use of insulin Essential hypertension 11/28/2016 Overview (11/04/2021): Essential hypertension Last Assessment & Plan: Hypertension is at goal on medical therapy Hx of CABG 11/28/2016 Overview (11/04/2021): Hx of CABG Mixed hyperlipidemia 11/28/2016 Overview (11/04/2021): Hypercholesterolemia Last Assessment & Plan: 02/2017 total cholesterol 154, LDL 92 which is good but not great. May benefit from changing atorvastatin to rosuvastatin. Obesity (BMI 30-39.9) 11/28/2016 Overview (11/04/2021): Obesity (BMI 30-39.9) Immunizations Name Administration Dates Next Due Fluzone 6 Months+ Quad (0.5 mL Prefilled Syringe ) 11/05/2021 Family History Medical History Relation Comments Stroke Father Cancer Mother Diabetes Mother Heart Disease Mother Relation Status Comments Father Mother Social History Tobacco Use Types Packs/Day Years Used Date Smoking Tobacco: Former Cigarettes 2 25 1 977 - 2001 Smokeless Tobacco: Never Alcohol Use Standard Drinks/Week Comments Not Currently 0 (1 standard drink = 0.6 oz pur e alcohol) Sex and Gender Information Value Date Recorded Sex Assigned at Male 11/03/2021 11:07 PM BUILDING ARCHITECT Legal Sex Male 9:52 AM CDT Gender Identity Male 11/03/2021 11:07 PM BUILDING ARCHITECT Sexual Orientation Straight 11/03/2021 11 :07 PM BUILDING ARCHITECT Last Filed Vital Signs Vital Sign Reading Time Taken Comments Blood Pressure 123/71 11/05/2021 4:49 AM BUILDING ARCHITECT Pulse 75 11/05/2021 4:49 AM BUILDING ARCHITECT Temperature 36.7 C (98.1 F) 11/05/2021 4:49 AM BUILDING ARCHITECT Respiratory Rate 16 11/05/2021 4:49 AM BUILDING ARCHITECT Oxygen Saturation 97% 11/05/2021 12: 09 PM BUILDING ARCHITECT Inhaled Oxygen Concentration - - Weight 107.4 kg (236 lb 12.4 oz) 2021 10:51 PM BUILDING ARCHITECT Height 172.7 cm (5' 7.99 ) 11/03/2021 1 0:51 PM BUILDING ARCHITECT Body Mass Index 36.01 11/03/2021 10:51 PM BUILDING ARCHITECT Plan of Treatment Health Maintenance Due Date Last Done Comments ASCVD LDL 1950 ASCVD Statin 1950 Colorectal Cancer Screening Colonoscopy (10 Years) 1950 Kidney Health Evaluation 1950 Hemoglobin A1C 1950 Pneumococcal Vaccine: 65+ Years (1 of 2 - PCV) 1957 Diabetes: Retinopathy Eye Exam 1969 Hepatitis C 1969 DTaP, Tdap and Td Vaccines ( 1 - Tdap) 1970 Zoster Vaccines (1 of 2) 2001 RSV Immunization or 60+ Years (1 - Risk 60-74 years 1-dose series) 2011 Annual Medicare Wellness Visit 2016 Lipid Panel 06/22/2022 06/22/2021, 03/29/2020 COVID-19 Vaccine (4 - 2023-2 5 season) 2024 10/17/2021, 01/24/2021, 12/29/2020 Influenza Adult (#1) 2024 11/05/2021, 09/19/2018 Meningococcal B Vaccine Aged Out No l onger eligible based on patient's age to complete this topic Meningococcal Vaccine Aged Out No jillian farhan eligible based on patient's age to complete this topic RSV Immunizations Under 20 Months Aged Out No longer eligible b ased on patient's age to complete this topic Medical Devices Implanted Type Area Oracle Erp Developer Device Identifier Shelf Expiration Date Model / Serial / Lot Pacemaker Pacemaker MEDTR[employer] [id number] / [id number] / Stent Uret 6fr 26cm Pigtl Crv Taper Tip Bldr Mrk - [id number] Implanted:Qt y: 1 on 11/04/2021 by Nikhil Stephens MD at [facility] Stent Left: Ureter [employer] [id number] 08/24/2024 [id number] / [id number] Insurance [employer] Advance Directives * Full Code (Latest Code Status on File) Date Activated Date Inactivated Comments 11/04/2021 12:32 AM 11/05/2021 4:59 PM Care Teams Aircraft Machinist Relationship Specialty Start Date End Date Gustavo Ba MD [address] [place] [address] PCP - General INTERNAL MEDICINE 11/03/21
--- OUTSIDE RECORDS SUMMARY | 2024-12-22 08:03 | XMS_ITS | Continuity of Care Document ---
Author Organization [facility] Address [address] [place] [address] [place] [address] Phone Care Team Providers Care Flag Maker Name Role Phone Meir Parra Unavailable Unavailable [...] Diagnoses Date Provider Providers Copied on Encounter [facility], [address] [place] [address] [address], [place], [place], [id number], tel:[phone] [facility] No Information 9 Fidel Worley. [address], [place], [place], [facility], [place]. tel:[phone] [facility], [address] [place] [address] [address], [place], [place], [id number], [place] tel:[phone] [facility] No Information 9 Fidel Worley. [address] , [address], [place], [address], [place]. tel:[phone] [facility], [address] [place] [address] [address], [place], [place], [id number], [place] tel:[phone] [facility] No Information Mar-2 4-200 9 F[address]. [address] [facility] , [address], [place], [place], [facility], . tel:[phone] Office/outpat ient Visit, [facility], [address] [place] [address] [address], [place], [place], [id number], [place] tel:[phone] [facility] [place] No Information Mar-2 0-200 9 F[address] Worley. [address] [facility] , [address], [place], [place], [facility], . tel:[phone] Referring Provider: Meir Moffett, [facility] [address], [place], [place], [facility]. tel:[phone] [facility], [address] [place] [address] [address], [place], [place], [id number], tel:[phone] [facility] No Information Nov1 9-200 8 Fidel Worley. [facility] , [address], [place], [place], [facility], [place]. tel:[phone] Referring Provider: eMir Moffett, [facility] [address], [place], [place], [facility]. tel:[phone] [facility], [address] [place] [address] [address], [place], [place], [id number], [place] tel:[phone] [facility] No Information Mar-0 2-200 7 Fidel Worley. [facility] , [address], [place], [place], [facility], [place]. tel:[phone] [facility], [address], [place], [place], [id number], [place] tel:[phone] [facility] No Information Nov- 6-200 7 Tonja Simmons. [address] [facility] , [address], [place], [address], . tel:[phone] [facility], [address] [facility] [address], [place], [place], [id number], [place] tel:[phone] [facility] No Information [address]. [address] [facility] , [address], [place], [place], [facility], [place]. tel:[phone] Referring Provider: Rell Moffett, [address] [facility] [address], [place], [facility]. tel:[phone] Office/outpat ient Visit, [facility], [address], [place], [place], [id number], [place] tel:[phone] [facility] No Information 7 Fidel Worley. [address] [facility] [address] , [address], [place], [place], [facility], [place]. tel:[phone] Referring Provider: Rell Moffett, [address] [place], [place] [address], [place], [place], [facility]. tel:[phone] Family History Family Member Type Diagnosis Age At Onset No Information Payers Payer name Insurance type Covered constitution party ID Authoriza tion(s) No Information Social History [...]
[2024-12-22 08:51] LABS: Basophils Absolute Auto 0.1 K/mm3 (0.0-0.1); Basophils Percent Auto 0.8 % (0.2-1.2); Eosinophils Absolute Auto 0.2 K/mm3 (0-0.3); Eosinophils Percent Auto 2.9 % (0-4.4); Hematocrit 39.4 % (42.0-52.0); Hemoglobin 12.7 g/dL (14.0-18.0); Immature Granulocyte Absolute 0.04 K/mm3 (0.00-0.031); Immature Granulocyte Percent A 0.5 % (0-0.5); Lymphocytes Absolute Auto 1.39 K/mm3 (0.9-3.2); Lymphocytes Percent Auto 18.4 % (18.3-44.2); Mean Corpuscular HGB Conc 32.2 g/dl (32-36); Mean Corpuscular Hemoglobin 30.7 pg (26-34); Mean Corpuscular Volume 95.2 fl (80-100); Mean Platelet Volume 9.7 fl (7.4-10.4); Monocytes Absolute Auto 0.9 K/mm3 (0.1-0.6); Monocytes Percent Auto 12.1 % (2.6-8.5); Neutrophils Absolute Auto 4.9 K/mm3 (1.3-6.7); Neutrophils Percent Auto 65.3 % (45.5-73.1); Platelet Count Result 193 k/mm3 (150-375); Red Blood Count 4.14 M/mm3 (4.6-6.20); Red Cell Distribution Width 13.2 % (11.5-14.5); White Blood Count 7.6 K/mm3 (4.5-10.0)
[2024-12-22 08:55] LABS: Add Urine Microscopic? YES; Appearance Urine Clear (Clear); Bacteria Urine None Seen /hpf; Bilirubin Urine Negative (Negative); Blood Urine Negative (Negative); Color Urine Yellow (Yellow); Glucose Urine UA Negative (Negative); Ketones Urine Negative (Negative); Leukocyte Esterase Ur Negative LEU/UL (Negative); Nitrate Urine Negative (Negative); Non Pathogenic Casts 0-2; Protein Urine 1+ mg/dL (Negative); RBC Urine 0-2 /hpf (0-2); Specific Grav Ur 1.019 (1.001-1.035); Squamous Epithelial Cell Urine None Seen /hpf (Few); Urobilinogen Urine 0.2 mg/dL (<2.0); WBC Urine 0-5 /hpf (0-3); pH Urine 5.5 (5.0-9.0)
[2024-12-22 09:12] LABS: Alanine Aminotransferase 32 U/L (6-50); Alkaline Phosphatase 82 U/L (38-126); Anion Gap 9 mmol/L (4-12); Aspartate Amino Transferase 31 U/L (17-59); Bilirubin,Total 0.5 mg/dL (0.2-1.3); Blood Urea Nitrogen 49 mg/dL (9-20); Calcium 10.2 mg/dL (8.4-10.2); Carbon Dioxide 29 mmol/L (22-30); Chloride 100 mmol/L (98-107); Cholesterol 140 mg/dL (0-200); Estimated Glomerular Filt Rate 19; Glucose 164 mg/dL (65-110); HDL Direct 83 mg/dL; Potassium 4.2 mmol/L (3.4-5.0); Sodium 138 mmol/L (137-145); Triglycerides 109 mg/dL (<150)
[2024-12-22 09:14] LABS: Anion Gap 8 mmol/L (4-12); Bilirubin Indirect 0.3 mg/dL (0-1.1); Blood Urea Nitrogen 49 mg/dL (9-20); Calcium 10.2 mg/dL (8.4-10.2); Carbon Dioxide 29 mmol/L (22-30); Chloride 101 mmol/L (98-107); Estimated Glomerular Filt Rate 19; Glucose 165 mg/dL (65-110); Phosphorus 3.9 mg/dL (2.5-4.5); Potassium 4.4 mmol/L (3.4-5.0); Sodium 138 mmol/L (137-145)
[2024-12-22 09:23] LABS: LDL Cholesterol Direct 33 mg/dL
[2024-12-22 09:42] LABS: Creatinine Urine 116.1 mg/dL; Total Protein Urine Random 40 mg/dL; Ur Ttl Prot Creatinine Ratio 0.34 mg/mg (0-0.20)
[2024-12-22 09:52] LABS: Parathyroid Intact 80.2 pg/mL (14.5-75.2)
[2024-12-22 09:54] LABS: Creatinine Urine 118.1 mg/dL
[2024-12-22 09:59] LABS: MALB Creatinine Ratio 22.6 mg/g (0-30); Microalbumin Urine Random 26.7 mg/L (0-16.7)
[2024-12-22 11:04] LABS: Hemoglobin A1C 7.7 % (<5.7)
[2024-12-24 04:13] LABS: TSH QUEST 3.03 mIU/L (0.40-4.50)
== END 2024-12-22 07:53 | disposition home or self-care (01) ==
PROVIDERS: PCP Emergency Medicine; Referring Provider Nurse Practitioner Adult Health; Visit Provider Internal Medicine Nephrology
DX: E11.22 Type 2 diabetes mellitus with diabetic chronic kidney disease (principal); I12.9 Hypertensive chronic kidney disease with stage 1 through stage 4 chronic kidney disease, or unspecified chronic kidney disease; N18.4 Chronic kidney disease, stage 4 (severe); E78.5 Hyperlipidemia, unspecified; N20.0 Calculus of kidney; Z79.01 Long term (current) use of anticoagulants; Z79.899 Other long term (current) drug therapy
CPT/HCPCS: 36415; 74018; 80053; 80061; 80069; 81001; 82043; 82248; 82570; 83036; 83970; 84156; 84443; 84550; 85025

== ENCOUNTER 2025-04-23 07:44 | Outpatient (CLI) | payer OTHER, SELFPAY ==
--- OUTSIDE RECORDS SUMMARY | 2025-04-23 07:47 | XMS_ITS | Encounter Summary ---
Author Organization [facility] Address [address] [facility] [address] [place] [address] Care Team Providers Care Congressional Representative Name Role Phone Gustavo Ba MD Primary Care Provide r Gustavo Ba MD Primary Care Provide r Encounter Details Date Type Department Care Team (Late Contact Info) Description 11/28/2016 Orders Only [facility] ProviderAleyda MD [address] [place] [address] Social History Tobacco Use Types Packs/Day Years Used Date Smoking Tobacco: Former Cigarettes Q uit: 10/14/1994 Alcohol Use Standard Drinks/Week Comments No 0 (1 standard drink = 0.6 oz pur e alcohol) Sex and Gender Information Value Date Recorded Sex Assigned at Not on file Legal Sex Male 12:11 PM SYSTEMS TECHNOLOGIST Gender Identity Not on file Sexual Orientation [...] on filedocumented in this encounter Care Teams Congressional Representative Relationship Specialty Start Date End Date Gustavo Ba MD [address] [place] [address] PCP - General 01/11/17 Gustavo Ba MD [address] [place] [address] PCP - General 02/19/14 01/10/17 documented as of this encounter
--- OUTSIDE RECORDS SUMMARY | 2025-04-23 07:47 | XMS_ITS | Encounter Summary ---
Author Organization [facility] Healthcare Address [address] [place] [address] Care Team Providers Care Contract Paralegal Name Role Phone Gustavo Ba MD Primary Care Provide r Encounter Details Date Type Department Care Team (Late st Contact Info) Description 04/24/2018 Orders Only [facility] Health Information Management [address] [place] [address] Scanning, Provider Social History Tobacco Use Types Packs/Day Years Used Date Smoking Tobacco: Former Smokeless Tobacco: Never Alcohol Use Standard Drinks/Week Comments No 0 (1 standard drink = 0.6 oz pur e alcohol) Sex and Gender Information Value Date Recorded Sex Assigned at Not on file Legal 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 Gender Identity Not on file Sexual Orientation Not on file documented as of this encounter Plan of Treatment Not on file documented as of this encounter Procedures Procedure Name Priority Date/Time Associated Diagnosis Comments SLEEP LAB/STUDY - RESULT 04/24/2018 documented in this encounter Results * SLEEP LAB/STUDY - RESULT (04/24/2018) us Provider Scanning Final Result documented in this encounter Visit Diagnoses Not on filedocumented in this encounter Care Teams Contract Paralegal Relationship Specialty Start Date End Date Gustavo Ba MD [address] [place] [address] PCP - General 01/11/17 documented as of this encounter
--- OUTSIDE RECORDS SUMMARY | 2025-04-23 07:47 | XMS_ITS | Clinical Summary ---
Author Organization [facility] [address] Address [address] [place] [address] Care Team Providers Care Special Effects Specialist Name Role Phone Gustavo Ba MD Primary [...] daily Active Trelegy Ellipta 100-62.5-25 mcg inhaler 1 Active rosuvastatin (CRESTOR) 40 mg tablet TAKE ONE TABLET BY MOUTH DAILY 90 tablet 3 Active Rybelsus 7 mg tablet Take 1 tablet (7 mg total) by mouth daily 3 Active albuterol HFA (PROVENTIL HFA,VENTOLIN HFA,PROAIR HFA) 90 mcg/actuation inhaler Inhale 2 puffs every 4 (four) hours as needed for wheezing or shortness of breath 1 each 3 Active Additional Information Patient not taking.Reported on 12/18/2024 metoprolol XL (TOPROL-XL) 50 mg extended release tablet Take 2 tablets (100 mg total) by mouth daily 3 Active hydroCHLOROthiaz freda (HYDRODIURIL) 25 mg tablet Take 1 tablet (25 mg total) by mouth daily Active apixaban (ELIQUIS) 5 mg tabletIndication s:atrial fibrillation Take 1 tablet (5 mg total) by mouth 2 (two) times a day 180 tablet 3 5 Active amiodarone (PACERONE) 200 mg tablet TAKE 1 TABLET BY MOUTH EVERY DAY 90 tablet 1 5 Active Active Problems Problem Noted Date Diagnosed Date Dyslipidemia 06/12/2023 Benign prostatic hyperplasia without lower urinary tract symptoms 06/12/2023 Acute upper GI bleed 06/11/2023 Anemia, blood loss 06/11/2023 Gastrointestinal hemorrhage 06/11/2023 CKD stage 2 due to type 2 diabetes mellitus 12/12 Hyperlipidemia associated with type 2 diabetes m ellitus 12/20/2021 Cardiomyopathy, ischemic 03/29/2020 Biventricular automatic impl antable cardioverter defibrillator in situ 05/21/2019 Overview (05/21/2019): Medtronic BIV ICD. Dx; NICM, CHF, CHB. DOI 05/20/2019-Nixon. Chronic A-Lead 01/14/13, Chronic RV lead capped. Carelink remote monitoring. CHB (complete heart block) 05/07/2019 Overview (05/07/2019): Added automatically from request for surgery [id number] Pacemaker-dependent due to n ative cardiac rhythm [...] 08/27/2017 Assessment & Plan (08/27/2017 9:37 PM PARCEL POST TRUCK DRIVER): One of the patient's main complaints this is MARTE which I think is multifactorial. He does have some left ventricular dysfunction but I suspect he has a significant degree of COPD/asthma. In addition he is morbidly obese. Doubt it will get much better. Coronary artery disease invo lving [place] heart with angina pectoris 02/20/2017 Overview (03/08/2017): Atherosclerosis of [place] coronary artery of [place] heart with angina pectoris Assessment & Plan (08/27/2017 9:38 PM PARCEL POST TRUCK DRIVER): 2010: MIs, stents, and CABG 2014: Catheterization showed [...] arrangements. Assessment & Plan (08/27/2017 9:37 PM PARCEL POST TRUCK DRIVER): 12/2016 EF 40% with mild global hypokinesis. Lisinopril has been titrated. Complete atrioventricular block 11/28/2016 Overview (01/17/2017): Complete heart block Mixed hyperlipidemia 11/28/2016 Overview (01/17/2017): Hypercholesterolemia Assessment & Plan (08/27/2017 9:39 PM PARCEL POST TRUCK DRIVER): 02/2017 total cholesterol 154, LDL 92 which is good but not great. May benefit from changing atorvastatin to rosuvastatin. Obesity (BMI 30-39.9) 11/28/2016 Overview (01/17/2017): Obesity (BMI 30-39.9) Hx of CABG 11/28/2016 Overview (01/17/2017): Hx of CABG Primary hypertension 11/28/2016 Overview (01/17/2017): Essential hypertension Assessment & Plan (08/27/2017 9:40 PM PARCEL POST TRUCK DRIVER): Hypertension is at goal on medical therapy Controlled type 2 diabetes m omaira, without long-term current use of insulin 11/28/2016 Overview (01/17/2017): Type 2 diabetes mellitus without complication, without long-term current use of insulin Resolved Problems Problem Noted Date Diagnosed Date Resolved Date Sleep disorder 03/05/2018 09/20/2018 Morbid obesity with BMI of 40.0-44.9, adult 08/27/2017 09/20/2018 Overview (08/27/2017): Reviewed weight reduction benefits Assessment & Plan (08/27/2017 9:41 PM PARCEL POST TRUCK DRIVER): Patient gained 6 more lb. Reviewed weight reduction benefits Drinks a lot of sweetened beverages. Pacemaker 11/28/2016 05/21/2019 Overview (05/15/2017): Medtronic Dual Pacemaker Dx; CHB. DOI 01/14/2013. Declines remote monitoring. Office pacer checks Q 4-6 months. Assessment & Plan (08/27/2017 9:39 PM PARCEL POST TRUCK DRIVER): Pacemaker checked in May, longevity 3 years, [...] Encounters Date Type Department Care Team Description 03/31/2025 8:15 AM CDT Ancillary Procedure [facility] Medical Group Cardiology [facility] [address] [place], [place] [address] [address] Nonischemic cardiomyopathy (HCC); CHB (complete heart block) (HCC); Atrial fibrillation, unspecified type (HCC) from Last 3 Months Surgical History Surgery [...] often do you attend chur ch or confucianism services? Never 06/12/2023 Do you belong to any clubs o r organizations such as congregational groups, unions, fraternal or athletic groups, or [...] place to sleep or slept in a long term (including now)? No 06/12/2023 Personal Safety Answer Date Recorded Have you ever been in or are you currently in a harmful physical or emotional relationship or is someone making you feel afraid or unsafe? Denies 06/11/2023 Sex and Gender Information Value Date Recorded Sex Assigned at Not on file Legal Sex Male 12:11 PM PARCEL POST TRUCK DRIVER Gender Identity Not on file Sexual Orientation Not on file Obstetrics History Last Filed Vital Signs Vital Sign Reading Time Taken Comments Blood Pressure 124/72 12/18/2024 8:34 AM PARCEL POST TRUCK DRIVER Pulse 68 12/18/2024 8:34 AM PARCEL POST TRUCK DRIVER Temperature 36.7 C (98 F) 06/13/2023 11:02 AM CDT Respiratory Rate 14 06/13/2023 1:40 PM CDT Oxygen Saturation 96% 12/18/2024 8:34 AM PARCEL POST TRUCK DRIVER Inhaled Oxygen Concentration - - Weight 98 kg (216 lb) 12/18/2024 8:34 AM PARCEL POST TRUCK DRIVER Height 172.7 cm (5' 8) 12/18/2024 8:34 AM PARCEL POST TRUCK DRIVER Body Mass Index 32.84 12/18/2024 8:34 AM PARCEL POST TRUCK DRIVER Plan of Treatment Health Maintenance Due Date [...] 06/13/2024 06/13/2023, 05/16, 05/20/2019 Influenza Vaccine (#1) 2025 11/05/2021, 2017 Colon Cancer Screening-Colonoscopy 06/13/2033 06/13/2023 Colon Cancer Screening-CT Colonography Discontinued 06/13/2023 Colon Cancer Screening-DNA Stool Discontinued 06/13/20 Colon Cancer Screening-FIT Discontinued 06/13/2023 Colon Cancer Screening-Sigmoidoscopy Discontinued 06/13/2023 Medical Devices Implanted Type Area Tooling Manager Device Identifier Shelf Expiration Date Model / Serial / Lot Medtronic Cardiac Rhythm Mgmt [id number] Amplia Mri [employer] Glass Mechanic-D Df-4 Implantable Quadripolar Left Ventricle - [id number] - [id number] Implanted:Qty: 1 on 05/20/2019 by Phil Alicea MD at [facility] ICD Left: Chest Medtronic Inc [id number] 10/27/2020 [id number] / [id number] / Medtronic Cardiac Rhythm Mgmt [id number] Sprint Quattro Secure 62cm Tripolar Screw In Extendable - [id number] - [id number] Implanted:Qty: 1 on 05/20/2019 by Phil Alicea MD at [facility] Lead Left: Chest Medtronic Inc [id number] 11/28/2020 [id number] / [id number] / Medtronic Inc [id number] Attain Performa Starfix 5.3fr 5.1fr 88cm Quadripolar Is4-Llll Latex Free - [id number] - [id number] Implanted:Qty: 1 on 05/20/2019 by Phil Alicea MD at [facility] Lead Left: Chest Medtronic Inc [id number] 04/03/2021 [id number] / [id number] / Explanted Type Area Tooling Manager Device Identifier Shelf Expiration Date Model / Serial / Lot Pacemaker Implanted:01/14 (Quantity not on file) Explanted:Qty: 1 on 05/20/2019 at [facility] Pacemaker Chest Medtronic CHB ADAPTA [id number] / [id number] / Procedures Procedure Name Priority Date/Time Associated Diagnosis Comments COLONOSCOPY 06/13/2023 12:35 PM CDT EGFR Routine 06/13/2023 6:08 AM CDT POCT LIPID PANEL Routine 06/22/2021 1:05 PM CDT Lipid screening from Last 3 Months or Most Recently Relevant to Health Maintenance Results * COLONOSCOPY (06/13/2023 12:35 PM CDT) Anatomical Region Laterality Modality Other Narrative Procedure Note Aakash Colon MD - 06/13/2023 12:35 PM CDT [facility] Endoscopy [facility] Patient Name: Zia Blakely Procedure Date: 06/13/2023 12:35 PM Date of : 1950 Admit Type: Inpatient Age: 73 Gender: Male Note Status: Finalized Attending MD: Aakash Colon M.D. Procedure Date: 06/13/2023 Procedure: Colonoscopy Indications: Hematochezia Providers: Aakash Colon M.D., Vanna Barton CRNA (Anesthesia Staff), Katie Lamb RN, Sneha Ybarra, Industrial Trainer Referring MD: Rell Majano M.D., Gustavo Ba [...] ofthe bowel preparation was evaluated using the BBPS(Ettrick Bowel Preparation Scale) with scores of: RightColon [...] for surveillance. Procedure Code(s): --- Professional --- 75201, Colonoscopy, flexible; with biopsy, singleor multiple Diagnosis Code(s): --- Professional --- D12.8, Benign neoplasm of rectum K63.89, Other specified diseases of intestine K92.1, Melena (includes Hematochezia) K57.30, Diverticulosis of large intestine without perforation or abscess without bleeding CPT copyright 2020 [employer]. All rights reserved. The codes documented in this report are preliminary and upon coffee maker servicer reviewmay be revised to meet current compliance [...] DO LAB BLOOD ORDERABLES Final Result [facility] [address] [place] [address] * POCT lipid panel (06/22/2021 1:05 PM [...] Most Recently Relevant to Health Maintenance Insurance [employer] Advance Directives For more information, please contact: [phone] * Full Code (Latest Code Status on File) Date Activated Date Inactivated Comments 06/11/2023 11:25 PM 06/13/2023 9:40 PM * Full Code Date Activated Date Inactivated Comments 05/20/2019 5:20 PM 05/21/2019 4:06 PM Care Teams Special Effects Specialist Relationship Specialty Start Date End Date Gustavo Ba MD [address] [place] [address] PCP - General 01/11/17
--- OUTSIDE RECORDS SUMMARY | 2025-04-23 07:47 | XMS_ITS | Clinical Summary ---
Author Organization [facility] Address [address] [place] [address] Phone Care Team Providers Care Risk Compliance Analyst Name Role Phone Gustavo Ba MD Primary Care Provider [phone] Allergies Active Allergy Reactions Criticality Noted Date Comments Morphine nausea,Vomiting 11/03/2021 Reaction: NAUSEA, VOMITING, , Reaction: NAUSEA, VOMITING, , Tramadol Dizziness 11/03/2021 Medications aspirin (ST JARRELL) 81 MG EC tablet Take 81 mg by mouth daily Active rosuvastatin (CRESTOR) 40 MG tablet 11/10/2021 Active Ozempic, 1 MG/DOSE, 4 MG/3ML solution pen-injector 11/11/2021 Active metFORMIN (GLUCOPHAGE) 1000 MG tablet 12/01/2021 Acti ve cholecalciferol, vitamin D3, 5,000 Units tablet tablet Take 5,000 Units by mouth daily Active tamsulosin (FLOMAX) 0.4 MG 24 hr capsule 12/01/2021 Activ e albuterol HFA (PROVENTIL HFA) 108 (90 Base) MCG/ACT inhaler 07/05/2021 Act dayana Trelegy Ellipta 100-62.5-25 MCG/INH aerosol powder 11/10/2021 Active losartan (COZAAR) 25 MG tablet 11/10/2021 Active metoprolol succinate XL (TOPROL-XL) 50 MG 24 hr tablet 10/10/2021 Act dayana spironolactone (ALDACTONE) 25 MG tablet 12/01/2021 Active hydroCHLOROthiaz freda (HYDRODIURIL) 25 MG tablet Take 1 tablet [...] without long-term current use of insulin Immunizations Immunization Administration Dates Next Due Influenza, Injectable, Quadrivalent, Preservativ e Free 11/05/2021 Social History Tobacco Use Types Packs/Day Years Used Date Smoking Tobacco: Former Smokeless Tobacco: Never Alcohol Use Standard Drinks/Week Comments Not Currently 0 (1 standard drink = 0.6 oz pur e alcohol) Sex and Gender Information Value Date Recorded Sex Assigned at Not on file Legal Sex Male 2:14 PM MST Gender Identity Not on file Sexual Orientation Not on file Last Filed Vital Signs Vital Sign Reading Time Taken Comments Blood Pressure 100/70 12/14/2021 10:13 AM TAIL PULLER Pulse 72 12/14/2021 10:13 AM TAIL PULLER Temperature 36.5 C (97.7 F) 12/14/2021 10:13 AM TAIL PULLER Respiratory Rate - - Oxygen Saturation - - Inhaled Oxygen Concentration - - Weight 102 kg (225 lb) 12/14/2021 10:13 AM TAIL PULLER Height 172.7 cm (5' 8) 12/14/2021 10:13 AM TAIL PULLER Body Mass Index 34.21 12/14/2021 10:13 AM TAIL PULLER Plan of Treatment Health Maintenance Due Date Last Done Comments Pneumococcal PPSV23/PCV13 65 + Years / Low and Medium Risk (1 of 2 - PCV) 2001 Influenza Vaccine (#1) 2025 11/05/2021 Insurance MEDICARE HMO Care Teams Risk Compliance Analyst Relationship Specialty Start Date End Date Gustavo Ba MD [address] [address] PCP - General Internal Medicine 12/12/21
--- OUTSIDE RECORDS SUMMARY | 2025-04-23 07:47 | XMS_ITS | Continuity of Care Document ---
Author Organization [facility] Address [address] [place] [address] [place] [address] Phone Care Team Providers Care Helper Steel Fabrication Name Role Phone Meir Parra Unavailable Unavailable [...] Diagnoses Date Provider Providers Copied on Encounter [facility], [address] [place] [address] [address], [place], [place], [id number], tel:[phone] [facility] No Information 9 Fidel Worley. [address] , [address], [place], [place], [facility], [place]. tel:[phone] [facility], [address] [place] [address] [address], [place], [place], [id number], [place] tel:[phone] [facility] No Information 9 Fidel Worley. [address] , [address], [place], [address], [place]. tel:[phone] [facility], [address] [place] [address] [address], [place], [place], [id number], [place] tel:[phone] [facility] No Information Mar-2 4-200 9 Fidel Worley. [address] [facility] , [address], [place], [facility], . tel:[phone] Office/outpat ient Visit, Est [facility], [address] [place] [address] [address], [place], [place], [id number], [place] tel:[phone] [facility] No Information Mar-2 0-200 9 Fidel Worley. [address] [facility] , [address], [place], [facility], . tel:[phone] Referring Provider: Meir Moffett, [facility] [address], [place], [facility]. tel:[phone] [facility], [address] [place] [address] [address], [place], [place], [id number], tel:[phone] [facility] No Information Nov1 9-200 8 Fidel Worley. [facility] , [address], [place], [facility], [place]. tel:[phone] Referring Provider: Meir Moffett, [facility] [address], [place], [facility]. tel:[phone] [facility], [address] [place] [address] [address], [place], [place], [id number], [place] tel:[phone] [facility] No Information Mar-0 2-200 7 Fidel Worley. [facility] , [address], [place], [facility], [place]. tel:[phone] [facility], [address], [place], [place], [id number], [place] tel:[phone] [facility] No Information Nov- 6-200 7 Tonja Simmons. [address] [facility] , [address], [place], [address], . tel:[phone] [facility], [address] [facility] [address], [place], [place], [address], [place] tel:[phone] [facility] No Information 200 7 Fidel Edrasta. [address] [facility] , [address], [place], [facility], [place]. tel:[phone] Referring Provider: Rell Moffett, [address] [facility] [address], [place], [facility]. tel:[phone] Office/outpat ient Visit, [facility], [address], [place], [place], [id number], [place] tel:[phone] [facility] No Information 7 Fidel Worley. [address] [facility] , [address], [place], [facility], [place]. tel:[phone] Referring Provider: Rell Moffett, [address] [place], [place] [address]ate Center [address], [place], [facility]. tel:[phone] Family History Family Member Type Diagnosis Age At Onset No Information Payers Payer name Insurance type Covered alliance party ID Authoriza tion(s) No Information Social [...]
--- OUTSIDE RECORDS SUMMARY | 2025-04-23 07:47 | XMS_ITS | Clinical Summary ---
Author Organization [facility] Address [address] [place] [address] Care Team Providers Care Loom Mechanic Name Role Phone Gustavo Ba MD Primary Care Provider [phone] Source Comments [facility],non-owned Affiliates and Associated Physician Practices is amultiple site organization consisting of ambulatory clinics and hospital sitesin [place], [place], [place] and [place]. This disclosure is being madepursuant to the Care Everywhere program and may not contain all information available regarding this patient. Last updated 18.[facility] [employer] Social History Tobacco Use Types Packs/Day Years Used Date Smoking Tobacco: Never Assessed Sex and Gender Information Value Date Recorded Sex Assigned at Not on file Legal Sex Male 3:21 PM CDT Gender Identity Not on file Sexual Orientation Not on file Plan of Treatment Health Maintenance Due Date Last Done Comments COLOGUARD (AGES 45-75) - COL ON CA SCREENING 1950 COLON MONITORING 1950 COLONOSCOPY - COLON CA SCREENING 1950 CT COLONOGRAPHY - COLON CA SCREENING 1950 Colorectal Cancer Screening 1950 FIT - COLON CA SCREENING 1950 FLEX SIG - COLON CA SCREENING 1950 MEDICARE AWV 12 MONTHS 1950 HEPATITIS C SCREENING 03/07/1969 DTAP/TDAP/TD VACCINES (1 - Tdap) 1970 PNEUMOCOCCAL VACCINE 50+ (1 of 1 - PCV) 2001 ZOSTER VACCINE (1 of 2) 2001 COVID-19 VACCINE ( - 2023-2 5 season) 2024 DEPRESSION SCREENING 10/14/2024 INFLUENZA VACCINE (#1) 2025 Respiratory Syncytial Virus (RSV) Vaccine Pt: or over 60 yrs (1 - 1-dose 75+ series) 2026 LIPID TESTING 06/22/2026 06/22/2021 HEPATITIS B VACCINE Aged Out No longe r eligible based on patient's age to complete this topic HIB VACCINE Aged Out No longer eligi ble based on patient's age to complete this topic HPV VACCINE Aged Out No longer eligi ble based on patient's age to complete this topic MENINGOCOCCAL (Group B) VACC INE SHARED DECISION-MAKING Aged Out No longer eligibl e based on patient's age to complete this topic MENINGOCOCCAL GROUPS A/C/Y/W VACCINE Aged Out No longer eligible b ased on patient's age to complete this topic Medical Devices Implanted Type Area Tea Leaf Reader Device Identifier Shelf Expiration Date Model / Serial / Lot Medtronic Icd; Mri Unsafe Due To Capped Lead Left From Old System [id number] CAPPED LEAD / / Insurance [employer] MEDICARE [id number] [place] [address] MEDICARE [facility] MEDICARE Care Teams Loom Mechanic Relationship Specialty Start Date End Date Gustavo Ba MD [address] [place] [address] PCP - General 05/19/18
--- OUTSIDE RECORDS SUMMARY | 2025-04-23 07:47 | XMS_ITS | Referral Summary ---
Author Organization [facility] [address] [facility] [address] Address [address] [place] [address] Care Team Providers Care Utilities And Maintenance Supervisor Name Role Phone Gustavo Ba MD Primary Care Provide r Encounters Date Type Department Care Team Description 03/31/2025 8:15 AM CDT Ancillary Procedure [facility] Medical Group Cardiology [address] [facility] [address] [place] [phone] Nonischemic cardiomyopathy (HCC); CHB (complete heart block) (HCC); Atrial fibrillation, unspecified type (HCC) from Last 3 Months Allergies Active Allergy [...] (05/07/2019): Added automatically from request for surgery [id number] 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 He does have some left ventricular dysfunction but I suspect he has a significant degree of COPD/asthma. In addition he is morbidly obese. Doubt it will get much better. Coronary artery disease invo lving [place] heart with angina pectoris 02/20/2017 Overview (03/08/2017): Atherosclerosis of [place] coronary artery of [place] heart with angina pectoris Assessment & Plan (08/27/2017 9:38 PM COPIER OPERATOR): 2011: MIs, stents, and CABG 2015: Catheterization [...] arrangements. Assessment & Plan (08/27/2017 9:37 PM COPIER OPERATOR): 12/2016 EF 40% with mild global hypokinesis. Lisinopril has been titrated. Complete atrioventricular block 11/28/2016 Overview (01/17/2017): Complete heart block Mixed hyperlipidemia 11/28/2016 Overview (01/17/2017): Hypercholesterolemia Assessment & Plan (08/27/2017 9:39 PM COPIER OPERATOR): 02/2017 total cholesterol 154, LDL 92 which is good but not great. May benefit from changing atorvastatin to rosuvastatin. Obesity (BMI 30-39.9) 11/28/2016 Overview (01/17/2017): Obesity (BMI 30-39.9) Hx of CABG 11/28/2016 Overview (01/17/2017): Hx of CABG Primary hypertension 11/28/2016 Overview (01/17/2017): Essential hypertension Assessment & Plan (08/27/2017 9:40 PM COPIER OPERATOR): Hypertension is at goal on medical therapy Controlled type 2 diabetes m omiara, without long-term current use of insulin 11/28/2016 Overview (01/17/2017): Type 2 diabetes mellitus without complication, without long-term current use of insulin Resolved Problems Problem Noted Date Diagnosed Date Resolved Date Sleep disorder 03/05/2018 09/20/2018 Morbid obesity with BMI of 40.0-44.9, adult 08/27/2017 09/20/2018 Overview (08/27/2017): Reviewed weight reduction benefits Assessment & Plan (08/27/2017 9:41 PM COPIER OPERATOR): Patient gained 6 more lb. Reviewed weight reduction benefits Drinks a lot of sweetened beverages. Pacemaker 11/28/2016 05/21/2019 Overview (05/15/2017): Medtronic Dual Pacemaker Dx; CHB. DOI 01/14/2013. Declines remote monitoring. Office pacer checks Q 4-6 months. Assessment & Plan (08/27/2017 9:39 PM COPIER OPERATOR): Pacemaker checked in May, longevity 3 years, [...] often do you attend chur ch or gnosticism services? Never 06/12/2023 Do you belong to any clubs o r organizations such as judaism groups, unions, fraternal or athletic groups, or [...] place to sleep or slept in a residential (including now)? No 06/12/2023 Personal Safety Answer Date Recorded Have you ever been in or are you currently in a harmful physical or emotional relationship or is someone making you feel afraid or unsafe? Denies 06/11/2023 Sex and Gender Information Value Date Recorded Sex Assigned at Not on file Legal Sex Male 12:11 PM COPIER OPERATOR Gender Identity Not on file Sexual Orientation Not on file Last Filed Vital Signs Vital Sign Reading Time Taken Comments Blood Pressure 124/72 12/18/2024 8:34 AM COPIER OPERATOR Pulse 68 12/18/2024 8:34 AM COPIER OPERATOR Temperature 36.7 C (98 F) 06/13/2023 11:02 AM CDT Respiratory Rate 14 06/13/2023 1:40 PM CDT Oxygen Saturation 96% 12/18/2024 8:34 AM COPIER OPERATOR Inhaled Oxygen Concentration - - Weight 98 kg (216 lb) 12/18/2024 8:34 AM COPIER OPERATOR Height 172.7 cm (5' 8) 12/18/2024 8:34 AM COPIER OPERATOR Body Mass Index 32.84 12/18/2024 8:34 AM COPIER OPERATOR Plan of Treatment Not on file Medical Devices Implanted Type Area Chart Snatcher Device Identifier Shelf Expiration Date Model / Serial / Lot Medtronic Cardiac Rhythm Mgmt [id number] Amplia Mri Manager Life Sciences-D Df-4 Implantable Quadripolar Left Ventricle - [id number] - [id number] Implanted:Qty: 1 on 05/20/2019 by Phil Alicea MD at [facility] ICD Left: Chest Medtronic Inc [id number] 10/27/2020 [id number] / [id number] / Medtronic Cardiac Rhythm Mgmt [id number] Sprint Quattro Secure 62cm Tripolar Screw In Extendable - [id number] - [id number] Implanted:Qty: 1 on 05/20/2019 by Phil Alicea MD at [facility] Lead Left: Chest Medtronic Inc [id number] 11/28/2020 [id number] / [id number] / Medtronic Inc [id number] Attain Performa Starfix 5.3fr 5.1fr 88cm Quadripolar Is4-Llll Latex Free - [id number] - [id number] Implanted:Qty: 1 on 05/20/2019 by Phil Alicea MD at [facility] Lead Left: Chest Medtronic Inc [id number] 04/03/2021 [id number] / [id number] / Explanted Type Area Chart Snatcher Device Identifier Shelf Expiration Date Model / Serial / Lot Pacemaker Implanted:01/14 (Quantity not on file) Explanted:Qty: 1 on 05/20/2019 at [facility] Pacemaker Chest Medtronic CHB ADAPTA [id number] / [id number] / Procedures Procedure Name Priority Date/Time Associated [...] Colon MD - 06/13/2023 12:35 PM CDT [facility] Endoscopy Lab Patient Name: Zia Blakely Procedure Date: 06/13/2023 12:35 PM Date of : 1950 Admit Type: Inpatient Age: 73 Gender: Male Note Status: Finalized Attending MD: Aakash Colon M.D. Procedure Date: 06/13/2023 Procedure: Colonoscopy Indications: Hematochezia Providers: Aakash Colon M.D., Vanna Barton, LINING MAKER HAND (Anesthesia Staff), Katie Lamb RN, Sneha Ybarra, Cryogenics Repairer Referring MD: Rell Majano M.D., Gustavo Ba [...] ofthe bowel preparation was evaluated using the BBPS([place] Bowel Preparation Scale) with scores of: RightColon [...] for surveillance. Procedure Code(s): --- Professional --- 69711, Colonoscopy, flexible; with biopsy, singleor multiple Diagnosis Code(s): --- Professional --- D12.8, Benign neoplasm of rectum K63.89, Other specified diseases of intestine K92.1, Melena (includes Hematochezia) K57.30, Diverticulosis of large intestine without perforation or abscess without bleeding CPT copyright 2020 [employer]. All rights reserved. The codes documented in this report are preliminary and upon coder operator reviewmay be revised to meet current compliance [...] DO LAB BLOOD ORDERABLES Final Result [facility] [id number] Department of Laboratories [place], [place] [id number] * POCT lipid panel (06/22/2021 1:05 PM [...] Most Recently Relevant to Health Maintenance Insurance HEALTHCARE Advance Directives For more information, please contact: [phone] * Full Code (Latest Code Status on File) Date Activated Date Inactivated Comments 06/11/2023 11:25 PM 06/13/2023 9:40 PM * Full Code Date Activated Date Inactivated Comments 05/20/2019 5:20 PM 05/21/2019 4:06 PM Care Teams Utilities And Maintenance Supervisor Relationship Specialty Start Date End Date Gustavo Ba MD [address] [place], [place] [id number] PCP - General 01/11/17
--- OUTSIDE RECORDS SUMMARY | 2025-04-23 07:47 | XMS_ITS | Clinical Summary ---
Author Organization [facility] Address [address] [place] [address] Care Team Providers Care Vocational Technical Education Teacher Name Role Phone Gustavo Ba MD Primary Care Provider [phone] Allergies Active Allergy Reactions Criticality Noted Date [...] an d diastolic CHF (congestive heart failure) ([facility]) 09/20/2018 PAT (paroxysmal atrial tachycardia) ([facility]) Overview (11/04/2021): Last Assessment & Plan: This appears to be of overall low burden. We will continue to follow via his device detection. MANDY (obstructive sleep apnea) 09/10/2018 Other emphysema ([facility]) 2018 Sinus tachycardia 2018 Coronary arteriosclerosis in [place] artery 02/20 Overview (11/04/2021): Atherosclerosis of [place] coronary artery of [place] heart with angina pectoris Last Assessment & Plan: 2011: MIs, stents, and CABG 2015: Catheterization showed adequate revascularization Sounds like he has rare angina. NICM (nonischemic cardiomyopathy) ([facility]) 02/20/2017 Overview (11/04/2021): Cardiomyopathy, unspecified type [...] make the appropriate arrangements. Complete atrioventricular block ([facility] ) 11/28/2016 Overview (11/04/2021): Complete heart block Added automatically from request for surgery [id number] Controlled type 2 diabetes m omaira without complication ([facility]) 11/28/2016 Overview (11/04/2021): Type 2 diabetes [...] 11/28/2016 Overview (11/04/2021): Obesity (BMI 30-39.9) Immunizations Immunization Administration Dates Next Due Fluzone 6 Months+ [...] Sex Assigned at Male 11/03/2021 11:07 PM CLAY MINE CUTTING MACHINE OPERATOR Legal Sex Male 9:52 AM CDT Gender Identity Male 11/03/2021 11:07 PM CLAY MINE CUTTING MACHINE OPERATOR Sexual Orientation Straight 11/03/2021 11 :07 PM CLAY MINE CUTTING MACHINE OPERATOR Last Filed Vital Signs Vital Sign Reading Time Taken Comments Blood Pressure 123/71 11/05/2021 4:49 AM CLAY MINE CUTTING MACHINE OPERATOR Pulse 75 11/05/2021 4:49 AM CLAY MINE CUTTING MACHINE OPERATOR Temperature 36.7 C (98.1 F) 11/05/2021 4:49 AM CLAY MINE CUTTING MACHINE OPERATOR Respiratory Rate 16 11/05/2021 4:49 AM CLAY MINE CUTTING MACHINE OPERATOR Oxygen Saturation 97% 11/05/2021 12: 09 PM CLAY MINE CUTTING MACHINE OPERATOR Inhaled Oxygen Concentration - - Weight 107.4 kg (236 lb 12.4 oz) 2021 10:51 PM CLAY MINE CUTTING MACHINE OPERATOR Height 172.7 cm (5' 7.99) 11/03/2021 1 0:51 PM CLAY MINE CUTTING MACHINE OPERATOR Body Mass Index 36.01 11/03/2021 10:51 PM CLAY MINE CUTTING MACHINE OPERATOR Plan of Treatment Health Maintenance Due Date Last Done Comments ASCVD LDL 1950 ASCVD Statin 1950 Colorectal Cancer Screening Colonoscopy (10 Years) 1950 Kidney Health Evaluation 1950 Hemoglobin A1C 1950 Diabetes: Retinopathy Eye Exam 1969 Hepatitis C 1969 DTaP, Tdap and Td Vaccines ( 1 - Tdap) 1970 Pneumococcal Vaccine: 50+ Years (1 of 2 - PCV) 1970 Zoster Vaccines (1 of 2) 2001 RSV Immunization or 60+ Years (1 - Risk 60-74 years 1-dose series) 2011 Annual Medicare Wellness Visit 2016 Lipid Panel 06/22/2022 06/22/2021, 03/29/2020 COVID-19 Vaccine (4 - 2023-2 5 season) 2024 10/17/2021, 01/24/2021, 12/29/2020 Meningococcal B Vaccine Aged Out No l onger eligible based on patient's age to complete this topic Meningococcal Vaccine Aged Out No jillian farhan eligible based on patient's age to complete this topic RSV Immunizations Under 20 Months Aged Out No longer eligible b ased on patient's age to complete this topic Medical Devices Implanted Type Area Sharepoint Engineer Device Identifier Shelf Expiration Date Model / Serial / Lot Pacemaker Pacemaker MEDTRONIC INC [id number] / [id number] / Stent Uret 6fr 26cm Pigtl Crv Taper Tip Bldr Mrk - [id number] Implanted:Qt y: 1 on 11/04/2021 by Nikhil Stephens MD at [facility] Stent Left: Ureter [employer] [id number] 08/24/2024 [id number] / / [id number] Insurance [employer] Advance Directives * Full Code (Latest Code Status on File) Date Activated Date Inactivated Comments 11/04/2021 12:32 AM 11/05/2021 4:59 PM Care Teams Vocational Technical Education Teacher Relationship Specialty Start Date End Date Gustavo Ba MD [address] [place] [address] PCP - General INTERNAL MEDICINE 11/03/21
--- OUTSIDE RECORDS SUMMARY | 2025-04-23 07:47 | XMS_ITS | Encounter Summary ---
Author Organization [facility] Medical [facility] Address [address] [facility] [address] [place] [address] Care Team Providers Care Cooky Machine Operator Name Role Phone Gustavo Ba MD Primary Care Provide r Gustavo Ba MD Primary Care Provide r Encounter Details Date Type Department Care Team (Late Contact Info) Description 12/12/2016 Orders Only [facility] ProviderAleyda MD [address] [place] [address] Social History Tobacco Use Types Packs/Day Years Used Date Smoking Tobacco: Former Cigarettes Q uit: 10/14/1994 Alcohol Use Standard Drinks/Week Comments No 0 (1 standard drink = 0.6 oz pur e alcohol) Sex and Gender Information Value Date Recorded Sex Assigned at Not on file Legal Sex Male 12:11 PM STONE PRODUCT FABRICATOR Gender Identity Not on file Sexual Orientation [...] on filedocumented in this encounter Care Teams Cooky Machine Operator Relationship Specialty Start Date End Date Gustavo Ba MD [address] [place] [address] PCP - General 01/11/17 Gustavo Ba MD [address] [place] [address] PCP - General 02/19/14 01/10/17 documented as of this encounter
[2025-04-23 08:25] LABS: Hematocrit 41.2 % (42.0-52.0); Hemoglobin 13.0 g/dL (14.0-18.0); Mean Corpuscular HGB Conc 31.6 g/dl (32-36); Mean Corpuscular Hemoglobin 30.2 pg (26-34); Mean Corpuscular Volume 95.8 fl (80-100); Platelet Count Result 223 k/mm3 (150-375); Red Blood Count 4.30 M/mm3 (4.6-6.20); White Blood Count 10.8 K/mm3 (4.5-10.0)
[2025-04-23 08:45] LABS: Albumin Level 3.8 g/dL (3.5-5.1); Anion Gap 10 mmol/L (4-12); Blood Urea Nitrogen 40 mg/dL (9-20); Calcium 9.9 mg/dL (8.4-10.2); Carbon Dioxide 28 mmol/L (22-30); Chloride 96 mmol/L (98-107); Estimated Glomerular Filt Rate 20; Glucose 215 mg/dL (65-110); Potassium 4.0 mmol/L (3.4-5.0); Sodium 134 mmol/L (137-145)
[2025-04-23 09:52] LABS: Total Protein Urine Random 53 mg/dL; Ur Ttl Prot Creatinine Ratio 0.34 mg/mg (0-0.20)
[2025-04-23 09:59] LABS: Parathyroid Intact 108.4 pg/mL (14.5-75.2)
== END 2025-04-23 07:45 | disposition home or self-care (01) ==
PROVIDERS: PCP Emergency Medicine; Visit Provider Internal Medicine Nephrology
DX: I12.9 Hypertensive chronic kidney disease with stage 1 through stage 4 chronic kidney disease, or unspecified chronic kidney disease (principal); N18.4 Chronic kidney disease, stage 4 (severe)
CPT/HCPCS: 36415; 80069; 82570; 83970; 84156; 85027

== ENCOUNTER 2025-04-26 11:28 | Emergency (ER) | payer OTHER, SELFPAY ==
--- NOTE | ~2025-04-26 | CT_ITS ---
CT lumbar spine wo con Ordering provider: Stephanie Ray MD History: 75 years Male with . LBP x a few weeks;atraumatic . Comparison: None. Technique: CT lumbar spine without contrast. Automated exposure control and iterative reconstruction technique were employed. The dose-length product was 1146.67 mGy-cm. FINDINGS: VERTEBRAE: Compression fracture of the superior endplate of L5 with loss of height of about 30% which is most likely acute. MRI evaluation advised. Anterolisthesis at the level of L4-L5. Otherwise, Norm al height and alignment. Degenerative changes of the spine. DISC SPACES: Well maintained. Multilevel facet joint disease. T12-L1: No stenosis. L1-L2: No stenosis. L2-L3: No stenosis. Mild diffuse disc bulge. L3-L4: No stenosis. Diffuse disc bulge. L4-L5: Moderate spinal canal stenosis secondary to broad based disc bulge, facet arthropathy, and li gamentum flavum hypertrophy. Bilateral narrowing of the foramina with root compression. L5-S1: No stenosis. Diffuse disc bulge. PARASPINOUS SOFT TISSUES: Mild atheromatous disease of the abdominal aorta. Right adrenal adenoma dustin suring 2.2 cm. Follow-up is not recommended unless clinically warranted. Bilateral sacroiliitis. IMPRESSION: Compression fracture of the superior endplate of L5 which is most likely acute with loss of height of about 30%. MRI is advised. Moderate spinal canal stenosis at the level of L4-L5 with intervertebral foraminal narrowing and root compression. Reviewed, dictated and finalized at location A. IMPRESSION: Compression fracture of the superior endplate of L5 which is most likely acute with loss of height of about 30%. MRI is advised. Moderate spinal canal stenosis at the level of L4-L5 with intervertebral forami nal narrowing and root compression.
--- OUTSIDE RECORDS SUMMARY | 2025-04-26 11:30 | XMS_ITS | Encounter Summary ---
Author Organization [facility] Medical [facility] Address [address] [facility] [address] [place] [address] Care Team Providers Care Aircraft Power Plant Assembler Name Role Phone Gustavo Ba MD Primary Care Provide r Gustavo Ba MD Primary Care Provide r Encounter Details Date Type Department Care Team (Late Contact Info) Description 12/12/2016 Orders Only [facility] ProviderAleyda MD [address] [place] [address] Social History Tobacco Use Types Packs/Day Years Used Date Smoking Tobacco: Former Cigarettes Q uit: 10/14/1994 Alcohol Use Standard Drinks/Week Comments No 0 (1 standard drink = 0.6 oz pur e alcohol) Sex and Gender Information Value Date Recorded Sex Assigned at Not on file Legal Sex Male 12:11 PM DITCH CLEANER Gender Identity Not on file Sexual Orientation [...] filedocumented in this encounter Care Teams Aircraft Power Plant Assembler Relationship Specialty Start Date End Date Gustavo Ba MD [address] [place] [address] PCP - General 01/11/17 Gustavo Ba MD [address] [place] [address] PCP - General 02/19/14 01/10/17 documented as of this encounter
--- OUTSIDE RECORDS SUMMARY | 2025-04-26 11:30 | XMS_ITS | Referral Summary ---
Author Organization [facility] [address] [facility] [address] Address [address] [place] [address] Care Team Providers Care Hospital Recruiter Name Role Phone Gustavo Ba MD Primary Care Provide r Encounters Date Type Department Care Team Description 03/31/2025 8:15 AM CDT Ancillary Procedure [facility] Medical Group Cardiology [address] [facility] [address] [place] [phone] Nonischemic cardiomyopathy (HCC); CHB (complete heart [...] (05/07/2019): Added automatically from request for surgery [id number] Pacemaker-dependent due to n ative cardiac rhythm [...] 08/27/2017 Assessment & Plan (08/27/2017 9:37 PM MANAGER WATER WASTEWATER): One of the patient's main complaints this is MARTE which I think is multifactorial. He does have some left ventricular dysfunction but I suspect he has a significant degree of COPD/asthma. In addition he is morbidly obese. Doubt it will get much better. Coronary artery disease invo lving [place] heart with angina pectoris 02/20/2017 Overview (03/08/2017): Atherosclerosis of [place] coronary artery of [place] heart with angina pectoris Assessment & Plan (08/27/2017 9:38 PM MANAGER WATER WASTEWATER): 2011: MIs, stents, and CABG 2015: Catheterization [...] arrangements. Assessment & Plan (08/27/2017 9:37 PM MANAGER WATER WASTEWATER): 12/2016 EF 40% with mild global hypokinesis. Lisinopril has been titrated. Complete atrioventricular block 11/28/2016 Overview (01/17/2017): Complete heart block Mixed hyperlipidemia 11/28/2016 Overview (01/17/2017): Hypercholesterolemia Assessment & Plan (08/27/2017 9:39 PM MANAGER WATER WASTEWATER): 02/2017 total cholesterol 154, LDL 92 which is good but not great. May benefit from changing atorvastatin to rosuvastatin. Obesity (BMI 30-39.9) 11/28/2016 Overview (01/17/2017): Obesity (BMI 30-39.9) Hx of CABG 11/28/2016 Overview (01/17/2017): Hx of CABG Primary hypertension 11/28/2016 Overview (01/17/2017): Essential hypertension Assessment & Plan (08/27/2017 9:40 PM MANAGER WATER WASTEWATER): Hypertension is at goal on medical therapy [...] benefits Assessment & Plan (08/27/2017 9:41 PM MANAGER WATER WASTEWATER): Patient gained 6 more lb. Reviewed weight reduction benefits Drinks a lot of sweetened beverages. Pacemaker 11/28/2016 05/21/2019 Overview (05/15/2017): Medtronic Dual Pacemaker Dx; CHB. DOI 01/14/2013. Declines remote monitoring. Office pacer checks Q 4-6 months. Assessment & Plan (08/27/2017 9:39 PM MANAGER WATER WASTEWATER): Pacemaker checked in May, longevity 3 years, [...] often do you attend chur ch or orthodox services? Never 06/12/2023 Do you belong to any clubs o r organizations such as buddhist groups, unions, fraternal or athletic groups, or [...] place to sleep or slept in a custodial (including now)? No 06/12/2023 Personal Safety Answer Date Recorded Have you ever been in or are you currently in a harmful physical or emotional relationship or is someone making you feel afraid or unsafe? Denies 06/11/2023 Sex and Gender Information Value Date Recorded Sex Assigned at Not on file Legal Sex Male 12:11 PM MANAGER WATER WASTEWATER Gender Identity Not on file Sexual Orientation Not on file Last Filed Vital Signs Vital Sign Reading Time Taken Comments Blood Pressure 124/72 12/18/2024 8:34 AM MANAGER WATER WASTEWATER Pulse 68 12/18/2024 8:34 AM MANAGER WATER WASTEWATER Temperature 36.7 C (98 F) 06/13/2023 11:02 AM CDT Respiratory Rate 14 06/13/2023 1:40 PM CDT Oxygen Saturation 96% 12/18/2024 8:34 AM MANAGER WATER WASTEWATER Inhaled Oxygen Concentration - - Weight 98 kg (216 lb) 12/18/2024 8:34 AM MANAGER WATER WASTEWATER Height 172.7 cm (5' 8) 12/18/2024 8:34 AM MANAGER WATER WASTEWATER Body Mass Index 32.84 12/18/2024 8:34 AM MANAGER WATER WASTEWATER Plan of Treatment Not on file Medical Devices Implanted Type Area Furnace Puncher Device Identifier Shelf Expiration Date Model / Serial / Lot Medtronic Cardiac Rhythm Mgmt [id number] Amplia Mri Ham Rolling Machine Operator-D Df-4 Implantable Quadripolar Left Ventricle - [id number] - [id number] Implanted:Qty: 1 on 05/20/2019 by Phil Alicea MD at [facility] ICD Left: Chest Medtronic Inc [id number] 10/27/2020 [id number] / [id number] / Medtronic Cardiac Rhythm Mgmt [id number] Sprint Quattro Secure 62cm Tripolar Screw In Extendable - [id number] - [id number] Implanted:Qty: 1 on 05/20/2019 by Phil Alicea MD at [facility] Lead Left: Chest Medtronic Inc [id number] 11/28/2020 [id number] / [id number] / Medtronic Inc [id number] Attain Performa Starfix 5.3fr 5.1fr 88cm Quadripolar Is4-Llll Latex Free - [id number] - [id number] Implanted:Qty: 1 on 05/20/2019 by Phil Alicea MD at [facility] Lead Left: Chest Medtronic Inc [id number] 04/03/2021 [id number] / [id number] / Explanted Type Area Furnace Puncher Device Identifier Shelf Expiration Date Model / Serial / Lot Pacemaker Implanted:01/14 (Quantity not on file) Explanted:Qty: 1 on 05/20/2019 at [facility] Pacemaker Chest Medtronic CHB ADAPTA [id number] / [id number] / Procedures Procedure Name Priority Date/Time Associated [...] Colon MD - 06/13/2023 12:35 PM CDT [facility] Endoscopy Lab Patient Name: Zia Blakely Procedure Date: 06/13/2023 12:35 PM Date of : 1950 Admit Type: Inpatient Age: 73 Gender: Male Note Status: Finalized Attending MD: Aakash Colon M.D. Procedure Date: 06/13/2023 Procedure: Colonoscopy Indications: Hematochezia Providers: Aakash Colon M.D., Vanna Barton, BOAT BUILDER AND REPAIRER (Anesthesia Staff), Katie Lamb RN, Sneha Ybarra, Exhaust Emissions Inspector Referring MD: Rell Majano M.D., Gustavo Ba [...] ofthe bowel preparation was evaluated using the BBPS([place] Bowel Preparation Scale) with scores of: RightColon [...] for surveillance. Procedure Code(s): --- Professional --- 28835, Colonoscopy, flexible; with biopsy, singleor multiple Diagnosis Code(s): --- Professional --- D12.8, Benign neoplasm of rectum K63.89, Other specified diseases of intestine K92.1, Melena (includes Hematochezia) K57.30, Diverticulosis of large intestine without perforation or abscess without bleeding CPT copyright 2020 [place] [employer]. All rights reserved. The codes documented in this report are preliminary and upon braille coder reviewmay be revised to meet current compliance [...] DO LAB BLOOD ORDERABLES Final Result [facility] [address] Department of Laboratories [place], [place] [id number] * POCT lipid panel (06/22/2021 1:05 PM [...] Advance Directives For more information, please contact: [phone] * Full Code (Latest Code Status on File) Date Activated Date Inactivated Comments 06/11/2023 11:25 PM 06/13/2023 9:40 PM * Full Code Date Activated Date Inactivated Comments 05/20/2019 5:20 PM 05/21/2019 4:06 PM Care Teams Hospital Recruiter Relationship Specialty Start Date End Date Gustavo Ba MD [address] [place], [place] [id number] PCP - General 01/11/17
--- OUTSIDE RECORDS SUMMARY | 2025-04-26 11:30 | XMS_ITS | Clinical Summary ---
Author Organization [facility] Address [address] [place] [address] Phone Care Team Providers Care Tanning Wheel Filler Name Role Phone Gustavo Ba MD Primary Care Provider [phone] Allergies Active Allergy Reactions Criticality Noted Date [...] Comments Blood Pressure 100/70 12/14/2021 10:13 AM TIRE MANAGER Pulse 72 12/14/2021 10:13 AM TIRE MANAGER Temperature 36.5 C (97.7 F) 12/14/2021 10:13 AM TIRE MANAGER Respiratory Rate - - Oxygen Saturation - - Inhaled Oxygen Concentration - - Weight 102 kg (225 lb) 12/14/2021 10:13 AM TIRE MANAGER Height 172.7 cm (5' 8) 12/14/2021 10:13 AM TIRE MANAGER Body Mass Index 34.21 12/14/2021 10:13 AM TIRE MANAGER Plan of Treatment Health Maintenance Due Date Last Done Comments Pneumococcal PPSV23/PCV13 65 + Years / Low and Medium Risk (1 of 2 - PCV) 2001 Influenza Vaccine (#1) 2025 11/05/[address] [facility] MEDICARE HMO Care Teams Tanning Wheel Filler Relationship Specialty Start Date End Date Gustavo Ba MD [address] [address] PCP - General Internal Medicine 12/12/21
--- OUTSIDE RECORDS SUMMARY | 2025-04-26 11:30 | XMS_ITS | Encounter Summary ---
Author Organization [facility] Address [address] [place] [address] Care Team Providers Care Solar Sales Advisor Name Role Phone Gustavo Ba MD Primary Care Provide r Encounter Details Date Type Department Care Team (Late st Contact Info) Description 04/24/2018 Orders Only [facility] Health Information Management [address] [place] [address] Scanning, Provider Social History Tobacco Use Types Packs/Day Years Used Date Smoking Tobacco: Former Smokeless Tobacco: Never Alcohol Use Standard Drinks/Week Comments No 0 (1 standard drink = 0.6 oz pur e alcohol) Sex and Gender Information Value Date Recorded Sex Assigned at Not on file Legal Sex Male 12:11 PM FOOT GATHERER Gender Identity Not on file Sexual Orientation [...] on filedocumented in this encounter Care Teams Solar Sales Advisor Relationship Specialty Start Date End Date uGstavo Ba MD [address] [place] [address] PCP - General 01/11/17 documented as of this encounter
--- OUTSIDE RECORDS SUMMARY | 2025-04-26 11:30 | XMS_ITS | Clinical Summary ---
Author Organization [facility] [address] Address [address] [place] [address] Care Team Providers Care Claims Supervisor Name Role Phone Gustavo Ba MD [...] (05/07/2019): Added automatically from request for surgery [id number] Pacemaker-dependent due to n ative cardiac rhythm [...] 08/27/2017 Assessment & Plan (08/27/2017 9:37 PM DOOR TECHNICIAN): One of the patient's main complaints this is MARTE which I think is multifactorial. He does have some left ventricular dysfunction but I suspect he has a significant degree of COPD/asthma. In addition he is morbidly obese. Doubt it will get much better. Coronary artery disease invo lving [place] heart with angina pectoris 02/20/2017 Overview (03/08/2017): Atherosclerosis of [place] coronary artery of [place] heart with angina pectoris Assessment & Plan (08/27/2017 9:38 PM DOOR TECHNICIAN): 2010: MIs, stents, and CABG 2014: Catheterization [...] arrangements. Assessment & Plan (08/27/2017 9:37 PM DOOR TECHNICIAN): 12/2016 EF 40% with mild global hypokinesis. Lisinopril has been titrated. Complete atrioventricular block 11/28/2016 Overview (01/17/2017): Complete heart block Mixed hyperlipidemia 11/28/2016 Overview (01/17/2017): Hypercholesterolemia Assessment & Plan (08/27/2017 9:39 PM DOOR TECHNICIAN): 02/2017 total cholesterol 154, LDL 92 which is good but not great. May benefit from changing atorvastatin to rosuvastatin. Obesity (BMI 30-39.9) 11/28/2016 Overview (01/17/2017): Obesity (BMI 30-39.9) Hx of CABG 11/28/2016 Overview (01/17/2017): Hx of CABG Primary hypertension 11/28/2016 Overview (01/17/2017): Essential hypertension Assessment & Plan (08/27/2017 9:40 PM DOOR TECHNICIAN): Hypertension is at goal on medical therapy [...] benefits Assessment & Plan (08/27/2017 9:41 PM DOOR TECHNICIAN): Patient gained 6 more lb. Reviewed weight reduction benefits Drinks a lot of sweetened beverages. Pacemaker 11/28/2016 05/21/2019 Overview (05/15/2017): Medtronic Dual Pacemaker Dx; CHB. DOI 01/14/2013. Declines remote monitoring. Office pacer checks Q 4-6 months. Assessment & Plan (08/27/2017 9:39 PM DOOR TECHNICIAN): Pacemaker checked in May, longevity 3 years, [...] Description 03/31/2025 8:15 AM CDT Ancillary Procedure [facility] Cardiology [facility] [address] [place], [place] [address] [address] Nonischemic cardiomyopathy (HCC); CHB (complete heart block) [...] often do you attend chur ch or shinto services? Never 06/12/2023 Do you belong to any clubs o r organizations such as mormon groups, unions, fraternal or athletic groups, or [...] place to sleep or slept in a halfway (including now)? No 06/12/2023 Personal Safety Answer Date Recorded Have you ever been in or are you currently in a harmful physical or emotional relationship or is someone making you feel afraid or unsafe? Denies 06/11/2023 Sex and Gender Information Value Date Recorded Sex Assigned at Not on file Legal Sex Male 12:11 PM DOOR TECHNICIAN Gender Identity Not on file Sexual Orientation Not on file Obstetrics History Last Filed Vital Signs Vital Sign Reading Time Taken Comments Blood Pressure 124/72 12/18/2024 8:34 AM DOOR TECHNICIAN Pulse 68 12/18/2024 8:34 AM DOOR TECHNICIAN Temperature 36.7 C (98 F) 06/13/2023 11:02 AM CDT Respiratory Rate 14 06/13/2023 1:40 PM CDT Oxygen Saturation 96% 12/18/2024 8:34 AM DOOR TECHNICIAN Inhaled Oxygen Concentration - - Weight 98 kg (216 lb) 12/18/2024 8:34 AM DOOR TECHNICIAN Height 172.7 cm (5' 8) 12/18/2024 8:34 AM DOOR TECHNICIAN Body Mass Index 32.84 12/18/2024 8:34 AM DOOR TECHNICIAN Plan of Treatment Health Maintenance Due Date [...] Discontinued 06/13/2023 Medical Devices Implanted Type Area Wireline Field Operator Device Identifier Shelf Expiration Date Model / Serial / Lot Medtronic Cardiac Rhythm Mgmt [id number] Amplia Mri General House Worker-D Df-4 Implantable Quadripolar Left Ventricle - [id number] - [id number] Implanted:Qty: 1 on 05/20/2019 by Phil Alicea MD at [facility] ICD Left: Chest Medtronic Inc [id number] 10/27/2020 [id number] / [id number] / Medtronic Cardiac Rhythm Mgmt [id number] Sprint Quattro Secure 62cm Tripolar Screw In Extendable - [id number] - [id number] Implanted:Qty: 1 on 05/20/2019 by Phil Alicea MD at [facility] Lead Left: Chest Medtronic Inc [id number] 11/28/2020 [id number] / [id number] / Medtronic Inc [id number] Attain Performa Starfix 5.3fr 5.1fr 88cm Quadripolar Is4-Llll Latex Free - [id number] - [id number] Implanted:Qty: 1 on 05/20/2019 by Phil Alicea MD at [facility] Lead Left: Chest Medtronic Inc [id number] 04/03/2021 [id number] / [id number] / Explanted Type Area Wireline Field Operator Device Identifier Shelf Expiration Date Model / Serial / Lot Pacemaker Implanted:01/14 (Quantity not on file) Explanted:Qty: 1 on 05/20/2019 at [facility] Pacemaker Chest Medtronic CHB ADAPTA [id number] / [id number] / Procedures Procedure Name Priority Date/Time Associated [...] Colon MD - 06/13/2023 12:35 PM CDT [facility] Endoscopy Lab Patient Name: Zia Blakely Procedure Date: 06/13/2023 12:35 PM Date of : 1950 Admit Type: Inpatient Age: 73 Gender: Male Note Status: Finalized Attending MD: Aakash Colon M.D. Procedure Date: 06/13/2023 Procedure: Colonoscopy Indications: Hematochezia Providers: Aakash Colon M.D., Vanna Barton CRNA (Anesthesia Staff), Katie Lamb RN, Sneha Ybarra, Mold Yard Worker Referring MD: Rell Majano M.D., Gustavo Ba [...] ofthe bowel preparation was evaluated using the BBPS([place] Bowel Preparation Scale) with scores of: RightColon [...] for surveillance. Procedure Code(s): --- Professional --- 53729, Colonoscopy, flexible; with biopsy, singleor multiple Diagnosis Code(s): --- Professional --- D12.8, Benign neoplasm of rectum K63.89, Other specified diseases of intestine K92.1, Melena (includes Hematochezia) K57.30, Diverticulosis of large intestine without perforation or abscess without bleeding CPT copyright 2020 [employer]. All rights reserved. The codes documented in this report are preliminary and upon bridge saw operator reviewmay be revised to meet current [...] DO LAB BLOOD ORDERABLES Final Result [facility] [id number] Department [place] [address] * POCT lipid panel (06/22/2021 1:05 PM [...] Most Recently Relevant to Health Maintenance Insurance [facility] Advance Directives For more information, please contact: [phone] * Full Code (Latest Code Status on File) Date Activated Date Inactivated Comments 06/11/2023 11:25 PM 06/13/2023 9:40 PM * Full Code Date Activated Date Inactivated Comments 05/20/2019 5:20 PM 05/21/2019 4:06 PM Care Teams Claims Supervisor Relationship Specialty Start Date End Date Gustavo Ba MD [address] [place] [address] PCP - General 01/11/17
--- OUTSIDE RECORDS SUMMARY | 2025-04-26 11:30 | XMS_ITS | Encounter Summary ---
Author Organization [facility] Address [address] [facility] [address] [place] [address] Care Team Providers Care Proof Technician Name Role Phone Gustavo Ba MD Primary Care Provide r Gustavo Ba MD Primary Care Provide r Encounter Details Date Type Department Care Team (Late Contact Info) Description 11/28/2016 [facility] Only [facility] ProviderAleyda MD [address] [place] [address] Social History Tobacco Use Types Packs/Day Years Used Date Smoking Tobacco: Former Cigarettes Q uit: 10/14/1994 Alcohol Use Standard Drinks/Week Comments No 0 (1 standard drink = 0.6 oz pur e alcohol) Sex and Gender Information Value Date Recorded Sex Assigned at Not on file Legal Sex Male 12:11 PM BEFORE AND [employer]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
--- OUTSIDE RECORDS SUMMARY | 2025-04-26 11:30 | XMS_ITS | Clinical Summary ---
Author Organization [facility] Address [address] [place] [address] Care Team Providers Care Interior Designer Name Role Phone Gustavo Ba MD Primary Care Provider Source Comments [facility],non-owned Affiliates and Associated Physician Practices is amultiple site organization consisting of ambulatory clinics and hospital sitesin [place], [place] and [place]. This disclosure is being madepursuant to the Care Everywhere program and may not contain all information available regarding this patient. Last updated 18.[facility] [employer] Social History Tobacco Use Types Packs/Day Years [...] this topic Medical Devices Implanted Type Area Concept Artist Device Identifier Shelf Expiration Date Model / Serial / Lot Medtronic Icd; Mri Unsafe Due To Capped Lead Left From Old System [id number] CAPPED LEAD / / Insurance [employer] [id number] [place] [address] MEDICARE [facility] MEDICARE Care Teams Interior Designer Relationship Specialty Start Date End Date Gustavo Ba MD [address] [place] [address] PCP - General 05/19/18
[2025-04-26 11:45] VITALS: BP 128/68; PULSE 73; RESP 16; TEMP 36.3; O2SAT 99
[2025-04-26] MEDS: diazePAM (*CRX) 5 MG TABLET PO (13:24)
[2025-04-26] MEDS: LIDOCAINE 5% PATCH 1 PATCH TRANSDERM (13:24)
[2025-04-26 13:30] VITALS: BP 122/54; PULSE 62; RESP 16; O2SAT 97
--- NOTE | 2025-04-26 13:54 | ED_ITS ---
HPI - Back Pain/Injury General Chief Complaint: Back Pain/Injury Stated Complaint: back pain for a few weeks Time Seen by Provider: 04/26/25 12:49 History of Present Illness HPI Narrative: Physical last few weeks, patient has had pain to his lower back, does not recall any recent injuries, he has no numbness or weakness, the pain is near constant, he is able to ambulate without issues. Does not radiate. Related Data Home Medications ?Medication ?Instructions ?Recorded ?Confirmed ?Last Taken ?Type cholecalciferol (vitamin D3) 25 25 mcg PO DAILY 06/08/21 01/06/25 11/11/23 History mcg (1,000 unit) capsule (Vitamin D3) amiodarone 200 mg tablet 200 mg PO DAILY 11/08/23 01/06/25 11/11/23 History apixaban 5 mg tablet (Eliquis) 5 mg PO DAILY 11/08/23 01/06/25 11/08/23 History Allergies Allergy/AdvReac Type Severity Reaction Status Date / Time morphine AdvReac Unknown Vomiting, Verified 04/26/25 11:47 nausea rosuvastatin AdvReac Unknown Cramping Verified 04/26/25 11:47 of the Muscles tramadol AdvReac Unknown Vomiting Verified 04/26/25 11:47 Review of Systems Review of Systems: All systems reviewed & are unremarkable except as noted in HPI and below PMFSH Past Medical History Medical History (Updated 04/26/25 @ 13:41 by Stephanie Ray MD) COPD exacerbation Acute metabolic encephalopathy Uncontrolled type 2 diabetes mellitus Diabetes mellitus Hard of hearing Chronic kidney disease, stage 3b Pneumonia Acute respiratory failure with hypoxemia Multifocal pneumonia Sepsis ICD (implantable cardioverter-defibrillator) in place Atherosclerosis of [place] coronary artery of [place] heart without angina pectoris BPH associated with nocturia Body mass index [BMI] 38.0-38.9, adult (08/20/16) Body mass index [BMI] 39.0-39.9, adult (04/14/18) Epigastric pain Erectile dysfunction Gallstone Long-term use of aspirin therapy Nocturia Primary osteoarthritis of left shoulder Upper abdominal pain Vitamin D deficiency Abnormal CT scan, colon Adenomatous colon polyp Colon, diverticulosis Gastric ulcer With history of bleeding ulcer approximately 2017 GERD (gastroesophageal reflux disease) Coronary artery disease Hypercholesterolemia Acute lower GI hemorrhage Kidney stones Numerous Hypersomnolence Dyspnea on exertion Wheezing DM2 (diabetes mellitus, type 2) COPD (chronic obstructive pulmonary disease) Obstructive sleep apnea Intolerant of CPAP machine Colitis (~2016) Cholelithiasis Gout Seasonal allergies CHF (congestive heart failure) Echocardiogram April 2020: Mild left ventricular enlargement, mild global ventricular systolic dysfunction, impaired diastolic relaxation grade 1, ejection fraction 41%, mild enlargement of left atrium, RVSP of 41 BPH (benign prostatic hyperplasia) HTN (hypertension) Surgical History Surgical History Status cardiac pacemaker History of esophagogastroduodenoscopy (EGD) (12/2017) Reflux esophagitis, gastritis and chronic duodenal ulcers History of colonoscopy with polypectomy With history of ulcerated polyp in 2013. His most recent colonoscopy was 2018 Status post cataract extraction of both eyes with insertion of intraocular lens (~2001) H/O arthroscopic knee surgery Bilaterally History of ureter stent History of coronary artery stent placement (~2017) History of coronary artery bypass graft x 3 (~2009) Family History Family History Mother Diabetes mellitus Breast cancer Cause of Hypertension Father Myocardial infarct Cerebrovascular accident Sibling Diabetes mellitus Brothers Uterine cancer Sister Social History Social History Social History: He lives with his (of 36 years) and desires to have her his power of insurance defense attorney and to be a full code. 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 No drugs or alcohol use. Smoking packs per day: 1 Smoking cigarettes per day: 20.0 Years smoked: 20 Smoking pack-years: 20.00 Smoking status: Former smoker Tobacco type: cigarettes Second hand tobacco smoke exposure: Yes Alcohol intake: former Alcohol use details: DRANK HEAVILY IN PAST, 33 YEARS AGO QUIT Substance use: never Do You Feel Safe in your Home?: Yes Lack of Transportation: No Lack of Food: Never True Current Housing: I Have Housing Concerned About Future Housing: No Difficulty Paying Gas/Electric Bills: YES Difficulty Paying for Meds: No Currently Unemployed: No Education: Trade/Vocational Certificate Difficulty w/ Childcare or Family Care: No Living arrangements: with family Additional living arrangements comments: & DAUGHTER Occupation/Education: retired Gender identity (if verbalized by the patient): Male Sexual Orientation (if Verbalized by the Patient): Straight or Heterosexual Spiritual care concerns: No Agree to blood products: Yes Exam Narrative: EXAMINATION OF ORGAN SYSTEMS/BODY AREAS: Constitutional: Vital signs per nursing GENERAL:[No acute distress, non-toxic appearing.] HEAD: Normal with no signs of head trauma. EYES: EOMI, conjunctiva normal ENT: Hearing grossly intact LUNGS: Nonlabored breathing. HEART: [Regular rate and rhythm]; normal DP pulse ABD: [Soft], [nontender to palpation] EXT: Normal range of motion; tender to lower back SKIN: [No rashes or lesions.] NEURO: [Alert and oriented x 3. No gross focal sensory or strength deficits.] No saddle anesthesia. PSYCH: Normal affect Course Vital Signs Vital signs: Vital Signs Temperature 97.3 F L 04/26/25 11:45 Pulse Rate 73 04/26/25 11:45 Respiratory Rate 16 04/26/25 11:45 Blood Pressure 128/68 04/26/25 11:45 Pulse Oximetry 99 04/26/25 11:45 Temperature 97.3 F L 04/26/25 11:45 Pulse Rate 73 04/26/25 11:45 Respiratory Rate 16 04/26/25 11:45 Blood Pressure 128/68 04/26/25 11:45 Pulse Oximetry 99 04/26/25 11:45 MDM - Back Pain/Injury MDM Narrative Medical decision making narrative: ED COURSE AND MEDICAL DECISION MAKIN-year-old male with several weeks of back pain. Normal motor and sensory exam. Patient able to ambulate. No evidence of acute cord compression, os teomyelitis/discitis or cauda equina without saddle anesthesia, urinary retention/incontinence, numbness/tingling in lower extremities, fever, history of IV drug use, cancer or immunosuppression. Doubt AAA or aortic dissection without severe pain/discomfort or any neurovascular deficits. [Lidocaine patch and diazepam 5mg PO] given for symptomatic relief. CT L spine shows compression fracture L5; radiologist recommends MRI for further evaluation. Patient without radicular or neurologic symptoms; I spoke with neurosurgery Dr Leigh and reviewed CT findings, he recommends LSO brace and outpatient follow in the clinic in a few weeks, can obtain outpatient MRI. On reevaluation, the symptoms are improved. Patient is able to rest more comfortably. Ambulating without difficulty. [facility] clinic contacted for back brace. They will send someone here to fit patient for brace. Findings/plan discussed with patient/ at bedside. Patient is given return precautions and instructed to come back at any point in time for worsening pain, fevers, weakness, difficulty walking, urinary or fecal incontinence. Patient expressed understanding of instructions. Discharge Plan Discharge Clinical Impression: Compression fx, lumbar spine Patient Disposition: Home Condition: Stable Instructions: Vertebral Compression Fracture (ED) Additional Instructions: Please follow-up with the spine surgeon, wear the brace and you can take the pain medication as needed. Please come back to the ER if your pain worsens, if it is shooting down your leg, if you start having any new numbness or weakness or difficulty going to the bathroom or anything else concerning. Patient Language: Swedish Prescriptions: New lidocaine 5 % adhesive patch,medicated 1 patch topical DAILY Qty: 15 0RF Rx Instructions: leave on most painful area for up to 12 hrs hydrocodone-acetaminophen 5-300 mg tablet 1 tablet PO Q8H PRN (Reason: pain) Qty: 10 0RF No Action cholecalciferol (vitamin D3) [Vitamin D3] 25 mcg (1,000 unit) Capsule 25 mcg PO DAILY hydrochlorothiazide 25 mg tablet 25 mg PO DAILY Qty: 90 3RF docusate sodium 100 mg tablet 50 mg PO DAILY Qty: 45 0RF (DME) nebulizer and compressor Device See Rx Instructions .Route Qty: 1 0RF Rx Instructions: As directed amiodarone 200 mg tablet 200 mg PO DAILY Eliquis 5 mg tablet 5 mg PO DAILY albuterol sulfate 90 mcg/actuation HFA aerosol inhaler 1 inh inhalation QID PRN (Reason: shortness of breath or wheezing) Qty: 6.7 0RF prednisone 20 mg tablet 40 mg PO DAILY 5 Days Qty: 10 0RF Rx Instructions: start 08/17/24 (received first dose in ED 08/16); take before 9am Metamucil Sugar-Free (aspart) 3.4 gram/5.8 gram powder 2.895585 g PO DAILY Qty: 174 0RF polyethylene glycol 3350 [Miralax] 17 gram/dose powder 17 g PO DAILY Qty: 119 0RF magnesium citrate [OneLAX Magnesium Citrate] Solution 150 ml PO DAILY PRN (Reason: constipation) Qty: 296 0RF Trelegy Ellipta 100-62.5-25 mcg blister with device See Rx Instructions .ROUTE .COMPLEX Qty: 180 3RF Dose Instruction: INHALE ONE PUFF BY MOUTH DAILY DIRECTED Rx Instructions: INHALE ONE PUFF BY MOUTH DAILY DIRECTED losartan 25 mg tablet See Rx Instructions .ROUTE .COMPLEX Qty: 45 2RF Dose Instruction: TAKE HALF TABLET BY MOUTH EVERY MORNING Rx Instructions: TAKE HALF TABLET BY MOUTH EVERY MORNING Januvia 50 mg tablet 50 mg PO DAILY Qty: 90 2RF Rybelsus 7 mg tablet See Rx Instructions .ROUTE .COMPLEX Qty: 90 2RF Dose Instruction: TAKE 1 TABLET BY MOUTH EVERY DAY Rx Instructions: TAKE 1 TABLET BY MOUTH EVERY DAY rosuvastatin 40 mg tablet See Rx Instructions .ROUTE .COMPLEX Qty: 90 2RF Dose Instruction: TAKE 1 TABLET BY MOUTH EVERY DAY Rx Instructions: TAKE 1 TABLET BY MOUTH EVERY DAY metoprolol succinate 50 mg tablet extended release 24 hr See Rx Instructions .ROUTE .COMPLEX Qty: 90 2RF Dose Instruction: TAKE 1 TABLET BY MOUTH DAILY Rx Instructions: TAKE 1 TABLET BY MOUTH DAILY sodium,potassium,mag sulfates [Suprep Bowel Prep Kit] 17.5-3.13-1.6 gram recon soln See Rx Instructions .ROUTE .COMPLEX Qty: 1 0RF Rx Instructions: follow instructions from your provider tamsulosin 0.4 mg capsule See Rx Instructions .ROUTE .COMPLEX Qty: 90 0RF Dose Instruction: TAKE ONE CAPSULE BY MOUTH DAILY (HALF HOUR AFTER THE SAME MEAL) Rx Instructions: TAKE ONE CAPSULE BY MOUTH DAILY (HALF HOUR AFTER THE SAME MEAL) (DME) blood-glucose meter [OneTouch Verio Reflect Meter] [facility] See Rx Instructions .Route Qty: 1 3RF Rx Instructions: To test blood sugar up to 3 times per day (DME) OneTouch Verio test strips Strip See Rx Instructions .Route Qty: 100 3RF Rx Instructions: To test blood sugar up to 3 times per day (DME) lancing device with lancets [OneTouch Delica Plus Lanc Dev] Kit See Rx Instructions .Route Qty: 1 3RF Rx Instructions: To test blood sugar up to 3 times per day (DME) lancets [OneTouch Delica Plus Lancet] 33 gauge [facility] See Rx Instructions .Route Qty: 100 3RF Rx Instructions: To test blood sugar up to 3 times per day Follow-up/Referrals: Davis Leigh MD [Physician] - 2 Days Gustavo Ba MD [Primary Care Provider] -
--- OUTSIDE RECORDS SUMMARY | 2025-04-26 13:57 | XMS_ITS | Encounter Summary ---
Author Organization [facility] Address [address] [facility] [address] [place] [address] Care Team Providers Care Railcar Foreman Name Role Phone Gustavo Ba MD Primary Care Provide r Gustavo Ba MD Primary Care Provide r Encounter Details Date Type Department Care Team (Late Contact Info) Description 11/28/2016 [facility] Only [facility] ProviderAleyda MD [address] [place] [address] Social History Tobacco Use Types Packs/Day Years Used Date Smoking Tobacco: Former Cigarettes Q uit: 10/14/1994 Alcohol Use Standard Drinks/Week Comments No 0 (1 standard drink = 0.6 oz pur e alcohol) Sex and Gender Information Value Date Recorded Sex Assigned at Not on file Legal 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
--- OUTSIDE RECORDS SUMMARY | 2025-04-26 13:57 | XMS_ITS | Clinical Summary ---
Author Organization [facility] Address [address] [place] [address] Phone Care Team Providers Care Tank Welder Name Role Phone Gustavo Ba MD Primary Care Provider [phone] Allergies Active Allergy Reactions Criticality Noted Date [...] Comments Blood Pressure 100/70 12/14/2021 10:13 AM SILK SCREEN LAYOUT DRAFTER Pulse 72 12/14/2021 10:13 AM SILK SCREEN LAYOUT DRAFTER Temperature 36.5 C (97.7 F) 12/14/2021 10:13 AM SILK SCREEN LAYOUT DRAFTER Respiratory Rate - - Oxygen Saturation - - Inhaled Oxygen Concentration - - Weight 102 kg (225 lb) 12/14/2021 10:13 AM SILK SCREEN LAYOUT DRAFTER Height 172.7 cm (5' 8) 12/14/2021 10:13 AM SILK SCREEN LAYOUT DRAFTER Body Mass Index 34.21 12/14/2021 10:13 AM SILK SCREEN LAYOUT DRAFTER Plan of Treatment Health Maintenance Due Date Last Done Comments Pneumococcal PPSV23/PCV13 65 + Years / Low and Medium Risk (1 of 2 - PCV) 2001 Influenza Vaccine (#1) 2025 11/05/2021 Insurance [facility] MEDICARE HMO Care Teams Tank Welder Relationship Specialty Start Date End Date Gustavo Ba MD [address] [address] PCP - General Internal Medicine 12/12/21
--- OUTSIDE RECORDS SUMMARY | 2025-04-26 13:57 | XMS_ITS | Continuity of Care Document ---
Author Organization [facility] Address [address] [place] [address] [place] [address] Phone Care Team Providers Care Window Shade Estimator Name Role Phone Meir Parra Unavailable Unavailable [...] Diagnoses Date Provider Providers Copied on Encounter [facility], [address] [place] [address] [address], [place], [place], [id number], tel:[phone] [facility] No Information 9 Fidel Worley. [address] , [address], [place], [place], [facility], [place]. tel:[phone] [facility], [address] [place] [address] [address], [place], [place], [id number], [place] tel:[phone] [facility] No Information 9 Fidel Worley. [address] , [address], [place], [address], [place]. tel:[phone] [facility], [address] [place] [address] [address], [place], [place], [address], [place] tel:[phone] [facility] No Information Mar-2 4-200 9 Fidel Worley. [address] [facility] , [address], [place], [place], [facility], . tel:[phone] Office/outpat ient Visit, Est [facility], [address] [place] [address] [address], [place], [place], [address], [place] tel:[phone] SEC [facility] No Information Mar-2 0-200 9 Fidel Worely. [address] [facility] , [address], [place], [facility], . tel:[phone] Referring Provider: Meir Moffett, [facility] [address], [place], [facility]. tel:[phone] [facility], [address] [place] [address] [address], [place], [place], [id number], tel:[phone] [facility] No Information Nov1 9-200 8 Fidel Worley. [facility] , [address], [place], [place], [facility], [place]. tel:[phone] Referring Provider: Meir Moffett, [facility] [address], [place], [facility]. tel:[phone] [facility], [address] [place] [address] [address], [place], [place], [address], [place] tel:[phone] [facility] No Information Mar-0 2-200 7 Fidel Worley. [facility] , [address], [place], [facility], [place]. tel:[phone] [facility], [address], [place], [place], [address], [place] tel:[phone] [facility] No Information Nov- 6-200 7 Tonja Simmons. [address] [facility] , [address], [place], [address], . tel:[phone] [facility], [address] [facility] [place] [address], [place], [place], [address], [place] tel:[phone] [facility] No Information 200 7 Fidel Edrasta. [address] [facility] , [address], [place], [facility], [place]. tel:[phone] Referring Provider: Rell Moffett, [address] [facility] [address], [place], [facility]. tel:[phone] Office/outpat ient Visit, [facility] [place], [address], [place], [place], [address], [place] tel:[phone] [facility] No Information 7 Fidel Worley. [address] [facility] , [address], [place], [facility], [place]. tel:[phone] Referring Provider: Rell Moffett, [address] [place], [place] [address], [place], [place], [facility]. tel:[phone] Family History Family Member Type Diagnosis Age [...]
--- OUTSIDE RECORDS SUMMARY | 2025-04-26 13:57 | XMS_ITS | Clinical Summary ---
Author Organization [facility] Address [address] [place] [address] Care Team Providers Care Php Software Engineer Name Role Phone Gustavo Ba MD Primary Care Provider Source Comments [facility],non-owned Affiliates and Associated Physician Practices is amultiple site organization consisting of ambulatory clinics and hospital sitesin [place], [place] and [place]. This disclosure is being madepursuant to the Care Everywhere program and may not contain all information available regarding this patient. Last updated 18.[facility] [employer] Social History Tobacco Use Types Packs/Day Years [...] this topic Medical Devices Implanted Type Area Stunner Device Identifier Shelf Expiration Date Model / Serial / Lot Medtronic Icd; Mri Unsafe Due To Capped Lead Left From Old System [id number] CAPPED LEAD / / Insurance [employer] [id number] [place] [address] [facility] MEDICARE Care Teams Php Software Engineer Relationship Specialty Start Date End Date Gustavo Ba MD [address] [place] [address] PCP - General 05/19/18
--- OUTSIDE RECORDS SUMMARY | 2025-04-26 13:57 | XMS_ITS | Encounter Summary ---
Author Organization [facility] Address [address] [place] [address] Care Team Providers Care Window Dresser Name Role Phone Gustavo Ba MD Primary Care Provide r Encounter Details Date Type Department Care Team (Late st Contact Info) Description 04/24/2018 Orders Only [facility] Information Management [address] [place] [address] Scanning, Provider Social History Tobacco Use Types Packs/Day Years Used Date Smoking Tobacco: Former Smokeless Tobacco: Never Alcohol Use Standard Drinks/Week Comments No 0 (1 standard drink = 0.6 oz pur e alcohol) Sex and Gender Information Value Date Recorded Sex Assigned at Not on file Legal Sex Male 12:11 PM CUSTOMER RECORDS DIVISION SUPERVISOR Gender Identity Not on file Sexual Orientation [...] on filedocumented in this encounter Care Teams Window Dresser Relationship Specialty Start Date End Date Gustavo Ba MD [address] [place] [address] PCP - General 01/11/17 documented as of this encounter
--- OUTSIDE RECORDS SUMMARY | 2025-04-26 13:57 | XMS_ITS | Encounter Summary ---
Author Organization [facility] Address [address] [facility] [address] [place] [address] Care Team Providers Care Upper Inspector Name Role Phone Gustavo Ba MD Primary Care Provide r Gustavo Ba MD Primary Care Provide r Encounter Details Date Type Department Care Team (Late Contact Info) Description 12/12/2016 Orders Only [facility] ProviderAleyda MD [address] [place] [address] Social History Tobacco Use Types Packs/Day Years Used Date Smoking Tobacco: Former Cigarettes Q uit: 10/14/1994 Alcohol Use Standard Drinks/Week Comments No 0 (1 standard drink = 0.6 oz pur e alcohol) Sex and Gender Information Value Date Recorded Sex Assigned at Not on file Legal Sex Male 12:11 PM NEWS DIRECTOR Gender Identity Not on file Sexual Orientation [...] on filedocumented in this encounter Care Teams Upper Inspector Relationship Specialty Start Date End Date Gustavo Ba MD [address] [place] [address] PCP - General 01/11/17 Gustavo Ba MD [address] [place] [address] PCP - General 02/19/14 01/10/17 documented as of this encounter
--- OUTSIDE RECORDS SUMMARY | 2025-04-26 13:58 | XMS_ITS | Clinical Summary ---
Author Organization [facility] Address [address] [place] [address] Care Team Providers Care Glass Cutter Helper Name Role Phone Gustavo Ba MD Primary Care Provider [phone] Allergies Active Allergy Reactions Criticality Noted Date [...] an d diastolic CHF (congestive heart failure) ([facility]) 09/20/2018 PAT (paroxysmal atrial tachycardia) ([facility]) Overview (11/04/2021): Last Assessment & Plan: This appears to be of overall low burden. We will continue to follow via his device detection. MANDY (obstructive sleep apnea) 09/10/2018 Other emphysema ([facility]) 2018 Sinus tachycardia 2018 Coronary arteriosclerosis in [place] artery 02/20 Overview (11/04/2021): Atherosclerosis of [place] coronary artery of [place] heart with angina pectoris Last Assessment & Plan: 2011: MIs, stents, and CABG 2015: Catheterization showed adequate revascularization Sounds like he has rare angina. NICM (nonischemic cardiomyopathy) ([facility]) 02/20/2017 Overview (11/04/2021): Cardiomyopathy, [...] make the appropriate arrangements. Complete atrioventricular block ([facility] ) 11/28/2016 Overview (11/04/2021): Complete heart block Added automatically from request for surgery [id number] Controlled type 2 diabetes m omaira without complication ([facility]) 11/28/2016 Overview (11/04/2021): Type 2 diabetes [...] Sex Assigned at Male 11/03/2021 11:07 PM COLLIERY CLERK Legal Sex Male 9:52 AM CDT Gender Identity Male 11/03/2021 11:07 PM COLLIERY CLERK Sexual Orientation Straight 11/03/2021 11 :07 PM COLLIERY CLERK Last Filed Vital Signs Vital Sign Reading Time Taken Comments Blood Pressure 123/71 11/05/2021 4:49 AM COLLIERY CLERK Pulse 75 11/05/2021 4:49 AM COLLIERY CLERK Temperature 36.7 C (98.1 F) 11/05/2021 4:49 AM COLLIERY CLERK Respiratory Rate 16 11/05/2021 4:49 AM COLLIERY CLERK Oxygen Saturation 97% 11/05/2021 12: 09 PM COLLIERY CLERK Inhaled Oxygen Concentration - - Weight 107.4 kg (236 lb 12.4 oz) 2021 10:51 PM COLLIERY CLERK Height 172.7 cm (5' 7.99) 11/03/2021 1 0:51 PM COLLIERY CLERK Body Mass Index 36.01 11/03/2021 10:51 PM COLLIERY CLERK Plan of Treatment Health Maintenance Due Date [...] this topic Medical Devices Implanted Type Area Orthodontist Assistant Device Identifier Shelf Expiration Date Model / Serial / Lot Pacemaker Pacemaker [employer] [id number] / [id number] / Stent Uret 6fr 26cm Pigtl Crv Taper Tip Bldr Mrk - [id number] Implanted:Qt y: 1 on 11/04/2021 by Nikhil Stephens MD at [facility] [place] Stent Left: Ureter [employer] [id number] 08/24/2024 [id number] / / [id number] Insurance [employer] Advance Directives * Full Code (Latest Code Status on File) Date Activated Date Inactivated Comments 11/04/2021 12:32 AM 11/05/2021 4:59 PM Care Teams Glass Cutter Helper Relationship Specialty Start Date End Date Gustavo Ba MD [address] [place] [address] PCP - General INTERNAL MEDICINE 11/03/21
--- OUTSIDE RECORDS SUMMARY | 2025-04-26 13:58 | XMS_ITS | Clinical Summary ---
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 He does have some left ventricular dysfunction but I suspect he has a significant degree of COPD/asthma. In addition he is morbidly obese. Doubt it will get much better. Coronary artery disease invo lving [place] heart with angina pectoris 02/20/2017 Overview (03/08/2017): Atherosclerosis of [place] coronary artery of [place] heart with angina pectoris Assessment & Plan (08/27/2017 9:38 PM SPLICING MACHINE OPERATOR AUTOMATIC): 2010: MIs, stents, and CABG 2014: Catheterization [...] arrangements. Assessment & Plan (08/27/2017 9:37 PM SPLICING MACHINE OPERATOR AUTOMATIC): 12/2016 EF 40% with mild global hypokinesis. Lisinopril has been titrated. Complete atrioventricular block 11/28/2016 Overview (01/17/2017): Complete heart block Mixed hyperlipidemia 11/28/2016 Overview (01/17/2017): Hypercholesterolemia Assessment & Plan (08/27/2017 9:39 PM SPLICING MACHINE OPERATOR AUTOMATIC): 02/2017 total cholesterol 154, LDL 92 which is good but not great. May benefit from changing atorvastatin to rosuvastatin. Obesity (BMI 30-39.9) 11/28/2016 Overview (01/17/2017): Obesity (BMI 30-39.9) Hx of CABG 11/28/2016 Overview (01/17/2017): Hx of CABG Primary hypertension 11/28/2016 Overview (01/17/2017): Essential hypertension Assessment & Plan (08/27/2017 9:40 PM SPLICING MACHINE OPERATOR AUTOMATIC): Hypertension is at goal on medical therapy [...] benefits Assessment & Plan (08/27/2017 9:41 PM SPLICING MACHINE OPERATOR AUTOMATIC): Patient gained 6 more lb. Reviewed weight reduction benefits Drinks a lot of sweetened beverages. Pacemaker 11/28/2016 05/21/2019 Overview (05/15/2017): Medtronic Dual Pacemaker Dx; CHB. DOI 01/14/2013. Declines remote monitoring. Office pacer checks Q 4-6 months. Assessment & Plan (08/27/2017 9:39 PM SPLICING MACHINE OPERATOR AUTOMATIC): Pacemaker checked in May, longevity 3 years, [...] [facility] [address] [place], [place] [address] [place] [address] Nonischemic cardiomyopathy (HCC); CHB (complete heart block) [...] often do you attend chur ch or latter-day services? Never 06/12/2023 Do you belong to any clubs o r organizations such as latter day groups, unions, fraternal or athletic groups, or [...] on file Legal Sex Male 12:11 PM SPLICING MACHINE OPERATOR AUTOMATIC Gender Identity Not on file Sexual Orientation Not on file Obstetrics History Last Filed Vital Signs Vital Sign Reading Time Taken Comments Blood Pressure 124/72 12/18/2024 8:34 AM SPLICING MACHINE OPERATOR AUTOMATIC Pulse 68 12/18/2024 8:34 AM SPLICING MACHINE OPERATOR AUTOMATIC Temperature 36.7 C (98 F) 06/13/2023 11:02 AM CDT Respiratory Rate 14 06/13/2023 1:40 PM CDT Oxygen Saturation 96% 12/18/2024 8:34 AM SPLICING MACHINE OPERATOR AUTOMATIC Inhaled Oxygen Concentration - - Weight 98 kg (216 lb) 12/18/2024 8:34 AM SPLICING MACHINE OPERATOR AUTOMATIC Height 172.7 cm (5' 8) 12/18/2024 8:34 AM SPLICING MACHINE OPERATOR AUTOMATIC Body Mass Index 32.84 12/18/2024 8:34 AM SPLICING MACHINE OPERATOR AUTOMATIC Plan of Treatment Health Maintenance Due Date [...] Discontinued 06/13/2023 Medical Devices Implanted Type Area Septic Tank Setter Device Identifier Shelf Expiration Date Model / Serial / Lot Medtronic Cardiac Rhythm Mgmt [id number] Amplia Mri Tipple Mechanic-D Df-4 Implantable Quadripolar Left Ventricle - [id number] - [id number] Implanted:Qty: 1 on 05/20/2019 by Phil Alicea MD at [facility] ICD Left: Chest Medtronic Inc [id number] 10/27/2020 [id number] / [id number] / Medtronic Cardiac Rhythm Mgmt [id number] Sprint Quattro Secure 62cm Tripolar Screw In Extendable - [id number] - [id number] Implanted:Qty: 1 on 05/20/2019 by Phil Alicea MD at [facility] Lead Left: Chest Medtronic Inc [id number] 11/28/2020 [id number] / [id number] / Medtronic Inc [id number] Attain Performa Starfix 5.3fr 5.1fr 88cm Quadripolar Is4-Llll Latex Free - [id number] - [id number] Implanted:Qty: 1 on 05/20/2019 by Phil Alicea MD at [facility] Lead Left: Chest Medtronic Inc [id number] 04/03/2021 [id number] / [id number] / Explanted Type Area Septic Tank Setter Device Identifier Shelf Expiration Date Model / Serial / Lot Pacemaker Implanted:01/14 (Quantity not on file) Explanted:Qty: 1 on 05/20/2019 at [facility] Pacemaker Chest Medtronic CHB ADAPTA [id number] / [id number] / Procedures Procedure Name Priority Date/Time Associated [...] Colon MD - 06/13/2023 12:35 PM CDT [facility] Patient Name: Zia Blakely Procedure Date: 06/13/2023 12:35 PM Date of : 1950 Admit Type: Inpatient Age: 73 Gender: Male Note Status: Finalized Attending MD: Aakash Colon M.D. Procedure Date: 06/13/2023 Procedure: Colonoscopy Indications: Hematochezia Providers: Aakash Colon M.D., Vanna Barton CRNA (Anesthesia Staff), Katie Lamb RN, Sneha Ybarra, Dolly Driver Referring MD: Rell Majano M.D., Gustavo Ba [...] ofthe bowel preparation was evaluated using the BBPS([place] Bowel Preparation Scale) with scores of: RightColon [...] for surveillance. Procedure Code(s): --- Professional --- 66592, Colonoscopy, flexible; with biopsy, singleor multiple Diagnosis Code(s): --- Professional --- D12.8, Benign neoplasm of rectum K63.89, Other specified diseases of intestine K92.1, Melena (includes Hematochezia) K57.30, Diverticulosis of large intestine without perforation or abscess without bleeding CPT copyright 2020 [employer]. All rights reserved. The codes documented in this report are preliminary and upon sales order clerk reviewmay be revised to meet current compliance [...] DO LAB BLOOD ORDERABLES Final Result [facility] [id number] [place] [address] * POCT lipid panel (06/22/2021 1:05 PM [...] Most Recently Relevant to Health Maintenance Insurance [facility] Advance Directives For more information, please contact: [phone] * Full Code (Latest Code Status on File) Date Activated Date Inactivated Comments 06/11/2023 11:25 PM 06/13/2023 9:40 PM * Full Code Date Activated Date Inactivated Comments 05/20/2019 5:20 PM 05/21/2019 4:06 PM Care Teams Chemical Supervisor Relationship Specialty Start Date End Date Gustavo Ba MD [address] [place] [address] PCP - General 01/11/17
--- OUTSIDE RECORDS SUMMARY | 2025-04-26 13:58 | XMS_ITS | Referral Summary ---
Author Organization [facility] [place] [address] [facility] [address] Address [address] [place] [address] Care Team Providers Care Senior Commissary Agent Name Role Phone Gustavo Ba MD Primary Care Provide r Encounters Date Type Department Care Team Description 03/31/2025 8:15 AM CDT Ancillary Procedure [facility] Cardiology [address] [facility] [address] [place] [id number] Nonischemic cardiomyopathy (HCC); CHB (complete heart [...] (05/07/2019): Added automatically from request for surgery [id number] 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 He does have some left ventricular dysfunction but I suspect he has a significant degree of COPD/asthma. In addition he is morbidly obese. Doubt it will get much better. Coronary artery disease invo lving [place] heart with angina pectoris 02/20/2017 Overview (03/08/2017): Atherosclerosis of [place] coronary artery of [place] heart with angina pectoris Assessment & Plan (08/27/2017 9:38 PM SPINE SUPERVISOR): 2011: MIs, stents, and CABG 2015: Catheterization [...] arrangements. Assessment & Plan (08/27/2017 9:37 PM SPINE SUPERVISOR): 12/2016 EF 40% with mild global hypokinesis. Lisinopril has been titrated. Complete atrioventricular block 11/28/2016 Overview (01/17/2017): Complete heart block Mixed hyperlipidemia 11/28/2016 Overview (01/17/2017): Hypercholesterolemia Assessment & Plan (08/27/2017 9:39 PM SPINE SUPERVISOR): 02/2017 total cholesterol 154, LDL 92 which is good but not great. May benefit from changing atorvastatin to rosuvastatin. Obesity (BMI 30-39.9) 11/28/2016 Overview (01/17/2017): Obesity (BMI 30-39.9) Hx of CABG 11/28/2016 Overview (01/17/2017): Hx of CABG Primary hypertension 11/28/2016 Overview (01/17/2017): Essential hypertension Assessment & Plan (08/27/2017 9:40 PM SPINE SUPERVISOR): Hypertension is at goal on medical therapy [...] benefits Assessment & Plan (08/27/2017 9:41 PM SPINE SUPERVISOR): Patient gained 6 more lb. Reviewed weight reduction benefits Drinks a lot of sweetened beverages. Pacemaker 11/28/2016 05/21/2019 Overview (05/15/2017): Medtronic Dual Pacemaker Dx; CHB. DOI 01/14/2013. Declines remote monitoring. Office pacer checks Q 4-6 months. Assessment & Plan (08/27/2017 9:39 PM SPINE SUPERVISOR): Pacemaker checked in May, longevity 3 years, [...] often do you attend chur ch or rastafarian services? Never 06/12/2023 Do you belong to any clubs o r organizations such as mosque groups, unions, fraternal or athletic groups, or [...] place to sleep or slept in a chcf (including now)? No 06/12/2023 Personal Safety Answer Date Recorded Have you ever been in or are you currently in a harmful physical or emotional relationship or is someone making you feel afraid or unsafe? Denies 06/11/2023 Sex and Gender Information Value Date Recorded Sex Assigned at Not on file Legal Sex Male 12:11 PM SPINE SUPERVISOR Gender Identity Not on file Sexual Orientation Not on file Last Filed Vital Signs Vital Sign Reading Time Taken Comments Blood Pressure 124/72 12/18/2024 8:34 AM SPINE SUPERVISOR Pulse 68 12/18/2024 8:34 AM SPINE SUPERVISOR Temperature 36.7 C (98 F) 06/13/2023 11:02 AM CDT Respiratory Rate 14 06/13/2023 1:40 PM CDT Oxygen Saturation 96% 12/18/2024 8:34 AM SPINE SUPERVISOR Inhaled Oxygen Concentration - - Weight 98 kg (216 lb) 12/18/2024 8:34 AM SPINE SUPERVISOR Height 172.7 cm (5' 8) 12/18/2024 8:34 AM SPINE SUPERVISOR Body Mass Index 32.84 12/18/2024 8:34 AM SPINE SUPERVISOR Plan of Treatment Not on file Medical Devices Implanted Type Area Ent Consultant Device Identifier Shelf Expiration Date Model / Serial / Lot Medtronic Cardiac Rhythm Mgmt [id number] Amplia Mri Lump Inspector-D Df-4 Implantable Quadripolar Left Ventricle - [id number] - [id number] Implanted:Qty: 1 on 05/20/2019 by Phil Alicea MD at [facility] ICD Left: Chest Medtronic Inc [id number] 10/27/2020 [id number] / [id number] / Medtronic Cardiac Rhythm Mgmt [id number] Sprint Quattro Secure 62cm Tripolar Screw In Extendable - [id number] - [id number] Implanted:Qty: 1 on 05/20/2019 by Phil Alicea MD at [facility] Lead Left: Chest Medtronic Inc [id number] 11/28/2020 [id number] / [id number] / Medtronic Inc [id number] Attain Performa Starfix 5.3fr 5.1fr 88cm Quadripolar Is4-Llll Latex Free - [id number] - [id number] Implanted:Qty: 1 on 05/20/2019 by Phil Alicea MD at [facility] Lead Left: Chest Medtronic Inc [id number] 04/03/2021 [id number] / [id number] / Explanted Type Area Ent Consultant Device Identifier Shelf Expiration Date Model / Serial / Lot Pacemaker Implanted:01/14 (Quantity not on file) Explanted:Qty: 1 on 05/20/2019 at [facility] Pacemaker Chest Medtronic CHB ADAPTA [id number] / [id number] / Procedures Procedure Name Priority Date/Time Associated [...] Colon MD - 06/13/2023 12:35 PM CDT [facility] Patient Name: Zia Blakely Procedure Date: 06/13/2023 12:35 PM Date of : 1950 Admit Type: Inpatient Age: 73 Gender: Male Note Status: Finalized Attending MD: Aakash Colon M.D. Procedure Date: 06/13/2023 Procedure: Colonoscopy Indications: Hematochezia Providers: Aakash Colon M.D., Vanna Barton, AIRCRAFT MAGNETO MECHANIC (Anesthesia Staff), Katie Lamb RN, Sneha Ybarra, Book Repairer Referring MD: Rell Majano M.D., Gustavo [...] ofthe bowel preparation was evaluated using the BBPS(Magna Bowel Preparation Scale) with scores of: RightColon [...] for surveillance. Procedure Code(s): --- Professional --- 53041, Colonoscopy, flexible; with biopsy, singleor multiple Diagnosis Code(s): --- Professional --- D12.8, Benign neoplasm of rectum K63.89, Other specified diseases of intestine K92.1, Melena (includes Hematochezia) K57.30, Diverticulosis of large intestine without perforation or abscess without bleeding CPT copyright 2020 [employer]. All rights reserved. The codes documented in this report are preliminary and upon bearing ring assembler reviewmay be revised to meet current compliance [...] DO LAB BLOOD ORDERABLES Final Result [facility] [id number] [facility] [place], [place] [id number] * POCT lipid panel (06/22/2021 1:05 PM [...] Advance Directives For more information, please contact: [phone] * Full Code (Latest Code Status on File) Date Activated Date Inactivated Comments 06/11/2023 11:25 PM 06/13/2023 9:40 PM * Full Code Date Activated Date Inactivated Comments 05/20/2019 5:20 PM 05/21/2019 4:06 PM Care Teams Senior Commissary Agent Relationship Specialty Start Date End Date Gustavo Ba MD [address] [place], [place] [id number] PCP - General 01/11/17
[2025-04-26 14:30] VITALS: BP 104/53; PULSE 63; RESP 18; O2SAT 99
[2025-04-26 15:45] VITALS: BP 113/55; PULSE 60; RESP 16; O2SAT 97
[2025-04-26] MEDS: HYDROcodone/acetaminophen (*CRX) 5-325 MG TABLET 1 TAB PO (16:32)
--- NOTE | 2025-04-26 16:45 | PC.NURSE ---
TABITHA FIBERLINE SUPERVISOR HERE TO APPLY BACK BRACE FOR PT
[2025-04-26 17:10] VITALS: BP 147/52; PULSE 64; RESP 16; O2SAT 97
== END 2025-04-26 17:10 | disposition home or self-care (01) ==
PROVIDERS: Emergency Provider Emergency Medicine; PCP Emergency Medicine
DX: M48.56XA Collapsed vertebra, not elsewhere classified, lumbar region, initial encounter for fracture (principal); E11.22 Type 2 diabetes mellitus with diabetic chronic kidney disease; I13.0 Hypertensive heart and chronic kidney disease with heart failure and stage 1 through stage 4 chronic kidney disease, or unspecified chronic kidney disease; N18.32 Chronic kidney disease, stage 3b; I50.9 Heart failure, unspecified; I25.10 Atherosclerotic heart disease of native coronary artery without angina pectoris; J44.9 Chronic obstructive pulmonary disease, unspecified; E78.00 Pure hypercholesterolemia, unspecified; E55.9 Vitamin D deficiency, unspecified; N40.1 Benign prostatic hyperplasia with lower urinary tract symptoms; R35.1 Nocturia; G47.33 Obstructive sleep apnea (adult) (pediatric); M10.9 Gout, unspecified; Z95.810 Presence of automatic (implantable) cardiac defibrillator; Z86.0101 Personal history of adenomatous and serrated colon polyps; Z87.01 Personal history of pneumonia (recurrent); Z87.442 Personal history of urinary calculi; Z95.5 Presence of coronary angioplasty implant and graft; Z95.1 Presence of aortocoronary bypass graft; Z87.891 Personal history of nicotine dependence; Z98.42 Cataract extraction status, left eye; Z98.41 Cataract extraction status, right eye; Z96.1 Presence of intraocular lens; M51.369 Other intervertebral disc degeneration, lumbar region without mention of lumbar back pain or lower extremity pain; M51.379 Other intervertebral disc degeneration, lumbosacral region without mention of lumbar back pain or lower extremity pain; M48.061 Spinal stenosis, lumbar region without neurogenic claudication; Z79.01 Long term (current) use of anticoagulants; Z79.84 Long term (current) use of oral hypoglycemic drugs; Z79.899 Other long term (current) drug therapy
CPT/HCPCS: 72131; 99284; A9270

== ENCOUNTER 2025-06-30 07:48 | Outpatient (CLI) | payer OTHER, SELFPAY ==
--- OUTSIDE RECORDS SUMMARY | 2009-01-26 04:45 | XMS_ITS | Continuity of Care Document ---
Author Organization [facility] Address [address] [place] [address] [place] [address] Phone Care Team Providers Care Metal Mover Name Role Phone Meir Parra Unavailable Unavailable Procedures Procedure Date Post-op Follow-up Visit Post-op Follow-up Visit Remove Cataract, Insert Lens Office/outpatient Visit, Est Eye Exam & Treatment IOLMaster-Professional Post-op Follow-up Visit Post-op Follow-up Visit Remove Cataract, Insert Lens Office/outpatient Visit, New Advance Directives Directive Yes / No Effective Date File Name No Information Encounters Encounter Description Practice Location Reason(s) For Visit Diagnoses Date Provider Providers Copied on Encounter [facility], [address] [place] [address] [address], [place], [place], [id number], tel:[phone] [facility] No Information 9 Fidel Worley. [address] , [address], [place], [place], [facility], [place]. tel:[phone] [facility], [address] [place] [address] [address], [place], [place], [id number], [place] tel:[phone] [facility] No Information 9 Fidel Worley. [address] , [address], [place], [address], [place]. tel:[phone] [facility], [address] [place] [address] [address], [place], [place], [id number], [place] tel:[phone] [facility] No Information Mar-2 4-200 9 Fidel Worley. [address] , [address], [place], [place], [facility], . tel:[phone] Office/outpat ient Visit, [facility], [id number] [place] [address] [address], [place], [place], [id number], [place] tel:[phone] [facility] No Information Mar-2 0-200 9 Fidel Worley. [address] , [address], [place], [place], [facility], . tel:[phone] Referring Provider: Meir Moffett, [facility] [address] [address], [place], [facility]. tel:[phone] [facility], [id number] [place] [address] [address], [place], [place], [id number], tel:[phone] [facility] No Information Nov1 9-200 8 Fidel Worley. [facility] [address] , [address], [place], [facility], [place]. tel:[phone] Referring Provider: Meir Moffett, [facility] [address], [place], [facility]. tel:[phone] [facility], [id number] [place] [address] [address], [place], [place], [id number], [place] tel:[phone] [facility] No Information Mar-0 2-200 7 Fidel Worley. [facility] , [address], [place], [facility], [place]. tel:[phone] [facility], [address], [place], [place], [id number], [place] tel:[phone] [facility] No Information Nov- 6-200 7 Tonja Simmons. [address] , [address], [place], [address], . tel:[phone] [facility], [address] [facility], [place], [place], [id number], [place] tel:[phone] [facility] No Information 200 7 Fidel Edrasta. [address] , [address], [place], [facility], [place]. tel:[phone] Referring Provider: Rell Moffett, [address], [place], [facility]. tel:[phone] Office/outpat ient Visit, [facility], [address], [place], [place], [id number], [place] tel:[phone] [facility] No Information 7 Fidel Worley. [address] [facility] , [address], [place], [facility], [place]. tel:[phone] Referring Provider: Rell Moffett, [address] [place], [place] [address], [place], [facility]. tel:[phone] Family History Family Member Type Diagnosis Age At Onset No Information Payers Payer name Insurance type Covered libertarian ID Authoriza tion(s) No Information Social History Type Description Quantity Date Captured Comments Sex Male Smoking Status No Information Chief Complaint And Reason For Visit No Information Reason For Referral Reason For Referral No Information History Of Present Illness Encounter Date Complaint History Of Prese nt Illness No Information Functional Status Date Functional Assessmen t No Information Instructions Date Instruction Additional Infor mation No Information Assessments Type Assessment Date No Information Patient Care Teams Name Effective Dates (start - stop) Status Members No Information
[2025-06-30 08:50] LABS: MALB Creatinine Ratio 33.5 mg/g (0-30)
[2025-06-30 09:21] LABS: Hemoglobin A1C 7.4 % (<5.7)
[2025-06-30 09:41] LABS: Alanine Aminotransferase 36 U/L (6-50); Albumin Level 3.8 g/dL (3.5-5.1); Alkaline Phosphatase 97 U/L (38-126); Anion Gap 8 mmol/L (4-12); Aspartate Amino Transferase 50 U/L (17-59); Bilirubin,Total 0.5 mg/dL (0.2-1.3); Blood Urea Nitrogen 32 mg/dL (9-20); Calcium 9.5 mg/dL (8.4-10.2); Carbon Dioxide 28 mmol/L (22-30); Chloride 100 mmol/L (98-107); Cholesterol 131 mg/dL (0-200); Estimated Glomerular Filt Rate 22; Glucose 159 mg/dL (65-110); HDL Direct 68 mg/dL; Potassium 4.0 mmol/L (3.4-5.0); Sodium 136 mmol/L (137-145); Total Protein 7.0 g/dL (6.3-8.2); Triglycerides 108 mg/dL (<150)
[2025-06-30 10:16] LABS: Prostate Specific Antigen 0.8 ng/mL (< OR = 4.0)
== END 2025-06-30 07:49 | disposition home or self-care (01) ==
LOC: ANHLAB 07:50
PROVIDERS: PCP Emergency Medicine; Visit Provider Emergency Medicine
DX: E78.5 Hyperlipidemia, unspecified (principal); E11.9 Type 2 diabetes mellitus without complications; E55.9 Vitamin D deficiency, unspecified; Z12.5 Encounter for screening for malignant neoplasm of prostate
CPT/HCPCS: 36415; 80053; 80061; 82043; 82306; 83036; 84153; G0103